=== PATIENT | male | born 1930 | race Caucasian/White ===

== ENCOUNTER 2017-08-05 05:41 | Observation (INO) | payer OTHER, MEDICARE ==
--- OUTSIDE RECORDS SUMMARY | 2017-08-05 05:44 | XMS REPORT | Clinical Summary ---
:1930 Author Organization [facility] Address [address] [place] [address] Phone Care Team Providers Name Role Phone Unavailable Primary Care Provider Unavailable Allergies Active Allergy Reactions Severity Noted Date Comments Iodine And Iodide Containing Products 09/18/2015 Latex 09/18/2015 Levofloxacin 09/18/2015 Penicillins 09/18/2015 Tramadol 09/18/2015 Disposable Gloves 09/18/2015 Current Medications Prescription Sig. Disp. Refills Start Date End Date Status pyridostigmine (MESTINON) Take 60 mg by mouth Active 60 mg tablet 3 (three) times daily. azaTHIOprine (IMURAN) 50 Take 50 mg by mouth Active mg tablet daily. aspirin 81 MG chewable Take 81 mg by mouth Active tablet daily. warfarin (COUMADIN) 2 MG Take 2 mg by mouth Active tablet daily. clopidogrel (PLAVIX) 75 Take 75 mg by mouth Active mg tablet daily. atorvastatin (LIPITOR) 10 Take 10 mg by mouth Active MG tablet daily. pantoprazole (PROTONIX) Take 40 mg by mouth Active 40 MG tablet daily. diphenhydrAMINE Take 25 mg by mouth Active (BENADRYL) 25 mg tablet every night as needed for Sleep. nitroglycerin (NITROSTAT) Place 0.4 mg under Active 0.4 MG SL tablet the tongue every 5 (five) minutes as needed for Chest pain Put 1 pill under tongue every 5min as needed for chest pain.No more than 3 doses in 15min.Call 911 if pain is unrelieved 5min after 1st dose . acetaminophen-codeine Take 1 tablet by Active (TYLENOL #3) 300-30 mg mouth every 4 per tablet (four) hours as needed for Pain. multivitamin per tablet Take 1 tablet by Active mouth daily. ibuprofen (ADVIL,MOTRIN) Take 200 mg by Active 200 MG tablet mouth every 6 (six) hours as needed for Pain. naproxen Take 220 mg by Active (ALEVE,ANAPROX,MIDOL) 220 mouth 2 (two) times MG tablet daily with breakfast and dinner. Active Problems Not on file Social History Tobacco Use Types Packs/Day Years Used Date Former Smoker Comments: quit back in the 60s Alcohol Use Drinks/Week oz/Week Comments No Sex Assigned at Date Recorded Not on file Last Filed Vital Signs Not on file Plan of Treatment Not on file Results Not on fileafter 08/04/2016
[2017-08-05] MEDS ORDERED: NA CHLORIDE 0.9% 500 ML ONE (06:35)
[2017-08-05] MEDS ORDERED: METOPROLOL TARTRATE 5 MG/5 ML INJ IV ONE (06:51)
[2017-08-05 06:55] LABS: Absolute Lymphocytes (CBC) 1.6 K/uL (0.7-4.9); Absolute Monocytes 0.9 K/uL (0.1-1.3); Absolute Neutrophil 6.1 K/uL (1.8-8.0); Basophils % 0.3 % (0-1.3); Eosinophils % 2.2 % (0-4.4); Hematocrit 44.1 % (39.6-49.0); Lymphocytes % 18.3 % (15.3-44.8); MCV 97.3 fL (80-100); MPV 9.9 fL (7.6-11.3); Monocytes % 9.7 % (3.3-12.3); Protime INR 1.19; RBC Red Blood Cell Count 4.53 M/uL (4.33-5.43)
[2017-08-05 07:03] LABS: Potassium 4.3 mEq/L (3.6-5.0)
[2017-08-05 07:09] LABS: Albumin 4.1 g/dL (3.2-5.5); Bilirubin Direct 0.3 mg/dL (0-0.2); Bilirubin Total 1.5 mg/dL (0.3-1.2); Protein, Total 7.1 g/dL (6.0-8.3)
[2017-08-05] MEDS ORDERED: ENALAPRILAT 1.25 MG/ML VIAL IV ONE (07:49)
[2017-08-05] MEDS ORDERED: NA CHLORIDE 0.9% 1,000 ML ONE (07:49)
--- NOTE | 2017-08-05 09:02 | RAD REPORT ---
EXAM DESCRIPTION: CT - Stone Protocol - 08/05/2017 8:43 am CLINICAL HISTORY: Flank pain. Diarrhea. COMPARISON: 04/25/2016 TECHNIQUE: Axial images were obtained without oral or IV contrast. Lack of contrast limits solid org an and vascular assessment. The [id number] spans the entirety of the system partially obscuring uppermost abdomen and lung bases. Coronal reformatted images were obtained and reviewed. All CT scans are performed using dose optimization technique as appropriate and may include automated exposure control or mA/KV adjustment according to patient size. FINDINGS: Mild linear atelectasis in both lung bases. Cardiac pacemaker seen. A mottled/heterogenous appearance to the liver parenchyma is seen with nodular contour suggesting und erlying cirrhosis. The spleen is unremarkable. If the adrenal glands and kidneys are within normal li mits. Pancreatic atrophy noted. No urinary tract stones or obstructive uropathy. No bowel obstruction, free air, free fluid or abscess. Diverticulosis coli is present involving the s igmoid colon. Focal area of epiploic appendagitis (17 x 12 mm) is noted in the left lower quadrant. N ormal appendix noted.Aortoiliac atherosclerosis. Ventral hernia mesh is seen. Moderate lumbar degenerative changes. Postsurgical changes are present in both inguinal regions. IMPRESSION: No urinary tract stones or obstructive uropathy. Focal epiploic appendagitis (17 x 12 mm) in the left lower quadrant. Mottled nodular and shrunken appearance of the liver parenchyma seen. This is incompletely assessed o n noncontrast study. Followup MR liver protocol may be considered for further assessment. .
--- NOTE | 2017-08-05 09:24 | RAD REPORT ---
EXAM DESCRIPTION: RAD - Chest Single View - 08/05/2017 9:17 am CLINICAL HISTORY: Chest pain, hypertension COMPARISON: 03/22/2017 FINDINGS: Portable technique limits examination quality. The lungs are mildly emphysematous but grossly clear. The heart is upper limit normal in size. Sterno willi wires are seen with multi lead pacer device present. Stent is present in left subclavian region. No displaced fractures. IMPRESSION: No acute intrathoracic process suspected.
--- NOTE | 2017-08-05 09:25 | EDPHYS ---
Physician Documentation [facility] Name: Chano Wetzel Age: 86 yrs Sex: Male : 1930 Arrival Date: 08/05/2017 Time: 05:47 Bed 15 Private MD: ED Physician Lalito Garza HPI: 08/05 07:39 This 86 yrs old Male presents to ER via EMS with complaints of jr8 weakness/diarrhea. 07:39 The patient presents to the emergency department with diarrhea. Onset: The jr8 symptoms/episode began/occurred acutely, 3 day(s) ago. Possible causes: unknown. The symptoms are aggravated by nothing. The symptoms are alleviated by nothing. Associated signs and symptoms: Pertinent positives: weakness and fatigue . Severity of symptoms: At their worst the symptoms were moderate in the emergency department the symptoms are unchanged. The patient has not experienced similar symptoms in the past. The patient has not recently seen a physician. stated that he has had a lot of diarrhea over the past three days. Usually can ambulate with walker but has been so weak he cannot get up. Has been hypertensive as well. Denies fevers, abdominal pain, vomiting, chest pain, or shortness of breath . Historical: - Allergies: 06:12 Iodinated Contrast Media - IV Dye; ao 06:12 Iodine; ao 06:12 Latex, Natural Rubber; ao 06:12 Levofloxacin; ao 06:12 PENICILLINS; ao 06:12 tramadol; ao - Home Meds: 06:12 acetaminophen-codeine 300-15 mg Oral tab 1 tab as needed [Active]; aspirin 81 mg Oral ao TbEC 1 tab once daily [Active]; atorvastatin 10 mg Oral tab 1 tab once daily [Active]; azathioprine 50 mg Oral tab 1 tab twice a day [Active]; carvedilol 3.125 mg Oral tab 1 tab 2 times per day [Active]; Coumadin Oral 1 tab daily at 1700 [Active]; losartan 25 mg Oral tab 1 tab once daily [Active]; Multiple Vitamins Oral tab 1 tab daily [Active]; ranitidine HCl 150 mg Oral tab 1 tab nightly [Active]; Nitrostat 0.4 mg SL subl 1 tab as needed [Active]; Plavix 75 mg Oral tab 1 tab once daily [Active]; melatonin 3 mg Oral tab nightly [Active]; pyridostigmine bromide 30 mg Oral 2 times per day [Active]; Warfarin Oral [Active]; - PMHx: 06:12 Arthritis; Atrial Fib; Back pain; CAD; constipation; Diabetes - NIDDM; Diverticulitis; ao Esophageal Achalasia; fatigue; Fibromyalgia; High Cholesterol; Hypertension; insomnia; Myasthenia Gravis; neuropathy; PVD; sciatica; small bowel obstrution; Wet gangrene; UTI; - PSHx: 06:12 Knee surgery; open heart; Cholecystectomy; Toe amputated; ao - Immunization history:: Adult Immunizations unknown. - Social history:: Smoking status: Patient/guardian denies using tobacco, but has a distant history of tobacco abuse, Patient/guardian denies using alcohol, street drugs. ROS: 07:43 Eyes: Negative for injury, pain, redness, and discharge, ENT: Negative for injury, jr8 pain, and discharge, Neck: Negative for injury, pain, and swelling, Cardiovascular: Negative for chest pain, palpitations, and edema, Respiratory: Negative for shortness of breath, cough, wheezing, and pleuritic chest pain, Back: Negative for injury and pain, MS/Extremity: Negative for injury and deformity, Skin: Negative for injury, rash, and discoloration, Neuro: Negative for headache, weakness, numbness, tingling, and seizure. 07:43 Constitutional: Positive for fatigue, malaise. 07:43 Abdomen/GI: Positive for diarrhea, abdominal cramps, Negative for nausea and vomiting, abdominal distension, anorexia, dysphagia, hematemesis, black/tarry stool, rectal pain, rectal bleeding, bowel incontinence, flatulence. Exam: 07:43 Eyes: Pupils equal round and reactive to light, extra-ocular motions intact. Lids and jr8 lashes normal. Conjunctiva and sclera are non-icteric and not injected. Cornea within normal limits. Periorbital areas with no swelling, redness, or edema. ENT: Nares patent. No nasal discharge, no septal abnormalities noted. Tympanic membranes are normal and external auditory canals are clear. Oropharynx with no redness, swelling, or masses, exudates, or evidence of obstruction, uvula midline. Mucous membranes dry. Neck: Trachea midline, no thyromegaly or masses palpated, and no cervical lymphadenopathy. Supple, full range of motion without nuchal rigidity, or vertebral point tenderness. No Meningismus. Cardiovascular: Regular rate and rhythm with a normal S1 and S2. No gallops, murmurs, or rubs. Normal PMI, no JVD. No pulse deficits. Respiratory: Lungs have equal breath sounds bilaterally, clear to auscultation and percussion. No rales, rhonchi or wheezes noted. No increased work of breathing, no retractions or nasal flaring. Abdomen/GI: Soft, non-tender, with normal bowel sounds. No distension or tympany. No guarding or rebound. No evidence of tenderness throughout. Back: No spinal tenderness. No costovertebral tenderness. Full range of motion. MS/ Extremity: Pulses equal, no cyanosis. Neurovascular intact. Full, normal range of motion. Neuro: Awake and alert, GCS 15, oriented to person, place, time, and situation. Cranial nerves II-XII grossly intact. Motor strength 5/5 in all extremities. Sensory grossly intact. Cerebellar exam normal. Normal gait. 07:43 Skin: Turgor: is poor. 09:24 ECG was reviewed by the Attending Physician. [facility] Vital Signs: 05:47 BP 176 / 86; Pulse 94; Resp 22; Pulse Ox 99% on R/A; Pain 0/10; bs1 06:03 BP 159 / 97; Pulse 100; Resp 28; Temp 98.2; Pulse Ox 95% on R/A; Weight 81.65 kg (R); ao Height 5 ft. 8 in. (172.72 cm); Pain 0/10; 07:00 BP 157 / 118; Pulse 79; Resp 18; Pulse Ox 100% on R/A; hj 07:30 BP 186 / 115; Pulse 78; Resp 18; Pulse Ox 100% on R/A; hj 08:00 BP 216 / 100; Pulse 63; Resp 18; Pulse Ox 100% on R/A; hj 09:00 BP 199 / 88; Pulse 89; Resp 18; Pulse Ox 100% on R/A; hj 09:47 BP 189 / 88; Pulse 85; Resp 18; Pulse Ox 100% on R/A; hj 06:03 Body Mass Index 27.37 (81.65 kg, 172.72 cm) ao MDM: 06:05 Patient medically screened. [facility] 09:23 Data reviewed: vital signs, nurses notes, lab test result(s), EKG, radiologic studies, jr8 plain films, and as a result, I will admit patient. Data interpreted: Pulse oximetry: on room air is 100 %. Interpretation: normal. Counseling: I had a detailed discussion with the patient and/or guardian regarding: the historical points, exam findings, and any diagnostic results supporting the discharge/admit diagnosis, lab results, radiology results, the need for further work-up and treatment in the hospital. Physician consultation: Fernandez Lo MD was called at 09:23, was contacted at 09:23, regarding admission, to the telemetry unit. consult, patient's condition, and will see patient. 08/05 06:27 Order name: Basic Metabolic Panel [facility] 08/05 06:27 Order name: CBC with Diff [facility] 08/05 06:27 Order name: Creatinine for Radiology [facility] 08/05 06:27 Order name: Hepatic Function [facility] 08/05 06:27 Order name: Lipase [facility] 08/05 06:30 Order name: Troponin (emerg Dept Use Only) [facility] 08/05 06:31 Order name: Protime (+inr) [facility] 08/05 06:58 Order name: CBC with Automated Diff; Complete Time: 06:58 EDMS 08/05 06:58 Order name: Protime (+INR); Complete Time: 06:58 EDMS 08/05 07:03 Order name: Basic Metabolic Panel; Complete Time: 07:36 EDMS 08/05 07:09 Order name: Liver (Hepatic) Function; Complete Time: 07:36 EDMS 08/05 07:09 Order name: Lipase; Complete Time: 07:36 EDMS 08/05 07:09 Order name: Troponin I; Complete Time: 07:36 EDMS 08/05 09:17 Order name: Troponin (emerg Dept Use Only); Complete Time: 10:20 8 08/05 06:18 Order name: Blood Sugar; Complete Time: 06:18 bs1 08/05 06:27 Order name: IV Saline Lock; Complete Time: 06:33 08/05 06:27 Order name: Labs collected and sent; Complete Time: 06:33 08/05 06:30 Order name: XRAY Chest (1 view); Complete Time: 09:33 [facility] 08/05 07:38 Order name: CT Stone Protocol; Complete Time: 09:08 08/05 08:55 Order name: EKG Electrocardiogram [facility] 08/05 09:18 Order name: EKG; Complete Time: 09:19 jr8 EC:24 Rate is 100 beats/min. Rhythm is irregularly irregular, A fib. Left axis deviation jr8 noted. QRS interval is normal at 116 msec. QT interval is prolonged at 485 msec. No Q waves. T waves are Inverted in leads V1, V2, V3, V4, V5. ST Segment is elevated in lead III, <1mm. ST Segment is depressed in lead V2, 1-2mm. Clinical impression: Atrial Fibrillation. Interpreted by me. Reviewed by me. Administered Medications: 06:39 Drug: NS 0.9% 500 ml Route: IV; Rate: bolus; Site: left antecubital; bs1 06:54 Drug: Metoprolol 5 mg Route: IVP; Site: left antecubital; bs1 07:13 Follow up: Response: No adverse reaction hj 07:43 Drug: Enalaprilat 1.25 mg Route: IV; Rate: calculated rate; Site: left antecubital; hj 07:43 Drug: NS 0.9% 1000 ml Route: IV; Rate: 100 ml/hr; Site: left antecubital; hj 15:58 Follow up: IV Status: Completed infusion Point of Care Testing: Blood Glucose: 06:03 Blood Glucose: 227 mg/dL; ao Ranges: Critical Glucose Levels:Adult <50 mg/dl or >400 mg/dl <40 mg/dl or >180 mg/dl Disposition: 08/05/17 09:24 Hospitalization ordered by Fernandez Lo for Observation. Preliminary diagnosis are Muscle weakness (generalized), Dehydration, Abnormal electrocardiogram [ECG] [EKG]. - Bed requested for Telemetry/MedSurg (observation). - Status is Observation. hj - Condition is Stable. - Problem is new. - Symptoms have improved. UTI on Admission? No Addendum: 08/27/2017 01:01 Co-signature as Attending Physician, Lalito Garza MD available for consultation at p s1 all times. . Signatures: Dispatcher [employer] [facility] Atif Dawson PA PA jr8 Clayton Gutierrez RN RN Kaden Blas RN RN ao Singer, Phillip, MD MD [facility] Mehnaz Hernandez RN RN [address], [place] mw2 Corrections: (The following items were deleted from the chart) 08/05 13:41 09:24 Hospitalization Ordered by Fernandez Lo MD for Observation. Preliminary diagnosis mw2 is Muscle weakness (generalized); Dehydration; Abnormal electrocardiogram [ECG] [EKG]. Bed requested for Telemetry/MedSurg (observation). Status is Observation. Condition is Stable. Problem is new. Symptoms have improved. UTI on Admission? No. jr8 14:26 13:41 08/05/2017 09:24 Hospitalization Ordered by Fernandez Lo MD for Observation. hj Preliminary diagnosis is Muscle weakness (generalized); Dehydration; Abnormal electrocardiogram [ECG] [EKG]. Bed requested for Telemetry/MedSurg (observation). Status is Observation. Condition is Stable. Problem is new. Symptoms have improved. UTI on Admission? No. mw2
--- NOTE | 2017-08-05 09:25 | ER ---
Nurse's Notes [facility] Name: Chano Wetzel Age: 86 yrs Sex: Male : 1930 Arrival Date: 08/05/2017 Time: 05:47 Bed 15 Private MD: Diagnosis: Muscle weakness (generalized);Dehydration;Abnormal electrocardiogram [ECG] [EKG] Presentation: 08/05 05:55 Presenting complaint: EMS states: "Patient has been having diarrhea for 3 days, Blood bs1 pressure 168/94, 97 Heart rate, 99% room air, denies any vomiting or abdominal pain.". 05:55 Method Of Arrival: EMS: [facility] bs1 05:55 Transition of care: patient was not received from another setting of care. Onset of bs1 symptoms was August 02, 2017. Initial Sepsis Screen: Does the patient meet any 2 criteria? RR > 20 per min. HR > 90 bpm. Yes Does the patient have a suspected source of infection? No. Patient's initial sepsis screen is negative. Care prior to arrival: Medication(s) given: Tylenol, 500mg at 0400. 05:55 Acuity: SUN 3 bs1 Historical: - Allergies: 06:12 Iodinated Contrast Media - IV Dye; ao 06:12 Iodine; ao 06:12 Latex, Natural Rubber; ao 06:12 Levofloxacin; ao 06:12 PENICILLINS; ao 06:12 tramadol; ao - Home Meds: 06:12 acetaminophen-codeine 300-15 mg Oral tab 1 tab as needed [Active]; aspirin 81 mg Oral ao TbEC 1 tab once daily [Active]; atorvastatin 10 mg Oral tab 1 tab once daily [Active]; azathioprine 50 mg Oral tab 1 tab twice a day [Active]; carvedilol 3.125 mg Oral tab 1 tab 2 times per day [Active]; Coumadin Oral 1 tab daily at 1700 [Active]; losartan 25 mg Oral tab 1 tab once daily [Active]; Multiple Vitamins Oral tab 1 tab daily [Active]; ranitidine HCl 150 mg Oral tab 1 tab nightly [Active]; Nitrostat 0.4 mg SL subl 1 tab as needed [Active]; Plavix 75 mg Oral tab 1 tab once daily [Active]; melatonin 3 mg Oral tab nightly [Active]; pyridostigmine bromide 30 mg Oral 2 times per day [Active]; Warfarin Oral [Active]; - PMHx: 06:12 Arthritis; Atrial Fib; Back pain; CAD; constipation; Diabetes - NIDDM; Diverticulitis; ao Esophageal Achalasia; fatigue; Fibromyalgia; High Cholesterol; Hypertension; insomnia; Myasthenia Gravis; neuropathy; PVD; sciatica; small bowel obstrution; Wet gangrene; UTI; - PSHx: 06:12 Knee surgery; open heart; Cholecystectomy; Toe amputated; ao - Immunization history:: Adult Immunizations unknown. - Social history:: Smoking status: Patient/guardian denies using tobacco, but has a distant history of tobacco abuse, Patient/guardian denies using alcohol, street drugs. Screenin:10 Abuse screen: Denies threats or abuse. Denies injuries from another. Nutritional bs1 screening: No deficits noted. Tuberculosis screening: No symptoms or risk factors identified. Fall Risk No fall in past 12 months (0 pts). No secondary diagnosis (0 pts). IV access (20 points). Ambulatory Aid- Crutches/Cane/Walker (15 pts). Gait- Weak (10 pts.). Mental Status- Oriented to own ability (0 pts). Total Gomez Fall Scale indicates Low Risk Score (25-44 pts). Fall prevention measures have been instituted. Side Rails Up X 2 Family Present and informed to notify staff if they need to leave bedside As available Patient and Family Educated on Fall Prevention Program and strategies. Assessment: 06:12 General: Appears uncomfortable, ill, Behavior is calm, cooperative, flat. Pain: Denies bs1 pain. Neuro: Level of Consciousness is awake, alert, Oriented to person, place, situation, Appropriate for age Auto Fleet Manager are equal bilaterally Weakness Speech is normal. Cardiovascular: Denies chest pain, shortness of breath, Heart tones S1 S2 present Capillary refill < 3 seconds Patient's skin is warm and dry. Cardiovascular: Rhythm is atrial fibrillation With PVC's. Respiratory: Airway is patent Trachea midline Respiratory effort is even, unlabored, Respiratory pattern is regular, symmetrical, Breath sounds are clear bilaterally. Respiratory: Denies cough, shortness of breath. GI: Abdomen is round Bowel sounds present X 4 quads. patient states "I do not have abdominal pain, just feel pressure when you press down." Reports diarrhea, Patient currently denies bloody stool, intolerance of fluids, intolerance of food, nausea, rectal bleeding, vomiting. : No deficits noted. No signs and/or symptoms were reported regarding the genitourinary system. EENT: No deficits noted. No signs and/or symptoms were reported regarding the EENT system. Derm: Skin is intact, Skin is pink, warm \\T\\ dry. Musculoskeletal: Circulation, motion, and sensation intact. Capillary refill < 3 seconds, Range of motion: intact in all extremities. 07:00 General: Appears in no apparent distress. uncomfortable, Behavior is calm, cooperative, hj appropriate for age. Pain: Denies pain. Neuro: Level of Consciousness is awake, alert, obeys commands, Oriented to person, place, time, situation, Appropriate for age Auto Fleet Manager are equal bilaterally Moves all extremities. Speech is normal. Cardiovascular: Denies chest pain, Heart tones Capillary refill < 3 seconds Patient's skin is warm and dry. Respiratory: Airway is patent Trachea midline Respiratory effort is even, unlabored, Respiratory pattern is regular, symmetrical, Breath sounds are clear Denies cough, shortness of breath. GI: Reports diarrhea. : No signs and/or symptoms were reported regarding the genitourinary system. : No signs and/or symptoms were reported regarding the genitourinary system. EENT: No signs and/or symptoms were reported regarding the EENT system. Derm: Skin is intact, Skin is pink, warm \\T\\ dry. Musculoskeletal: Circulation, motion, and sensation intact. Capillary refill < 3 seconds, Range of motion: intact in all extremities. 07:02 Reassessment: Patient with Pacemaker .Report given to DAGO Arnold. bs1 08:00 Reassessment: awaiting POC;. hj 09:00 Reassessment: Patient and/or family updated on plan of care and expected duration. Pain hj level reassessed. Patient is alert, oriented x 3, equal unlabored respirations, skin warm/dry/pink. Patient states feeling better. 09:47 Reassessment: Patient and/or family updated on plan of care and expected duration. Pain hj level reassessed. Patient is alert, oriented x 3, equal unlabored respirations, skin warm/dry/pink. for admit; awaiting room placement;. 10:00 Reassessment: documentation in [facility];. hj Vital Signs: 05:47 BP 176 / 86; Pulse 94; Resp 22; Pulse Ox 99% on R/A; Pain 0/10; bs1 06:03 BP 159 / 97; Pulse 100; Resp 28; Temp 98.2; Pulse Ox 95% on R/A; Weight 81.65 kg (R); ao Height 5 ft. 8 in. (172.72 cm); Pain 0/10; 07:00 BP 157 / 118; Pulse 79; Resp 18; Pulse Ox 100% on R/A; hj 07:30 BP 186 / 115; Pulse 78; Resp 18; Pulse Ox 100% on R/A; hj 08:00 BP 216 / 100; Pulse 63; Resp 18; Pulse Ox 100% on R/A; hj 09:00 BP 199 / 88; Pulse 89; Resp 18; Pulse Ox 100% on R/A; hj 09:47 BP 189 / 88; Pulse 85; Resp 18; Pulse Ox 100% on R/A; hj 06:03 Body Mass Index 27.37 (81.65 kg, 172.72 cm) ao ED Course: 05:47 Patient arrived in ED. ds1 05:51 Inserted saline lock: 20 gauge in left antecubital area, using aseptic technique. Blood cc collected. 05:54 Mehnaz Hernandez, DAGO is Primary Nurse. bs1 05:55 Maintain EMS IV. Dressing intact. Gauge \\T\\ site: 20G right wrist. bs1 06:05 Atif Dawson PA is PHCP. jr8 06:05 Lalito Garza MD is Attending Physician. jr8 06:09 Triage completed. bs1 06:11 Patient has correct armband on for positive identification. Placed in gown. Bed in low bs1 position. Call light in reach. Side rails up X 1. Adult w/ patient. student dean on. Pulse ox on. NIBP on. Warm blanket given. 06:15 Arm band placed on right wrist. EKG completed in triage. Results shown to . bs1 06:16 No provider procedures requiring assistance completed. bs1 08:42 CT completed. Patient tolerated procedure well. Patient moved to CT via stretcher. jg1 Patient moved back from CT. 09:01 CT Stone Protocol In Process Unspecified. EDMS 09:12 X-ray completed. Portable x-ray completed in exam room. Patient tolerated procedure sw well. 09:18 XRAY Chest (1 view) In Process Unspecified. EDMS 09:24 Fernandez Lo MD is Hospitalizing Provider. jr8 09:46 EKG done, by residential gas heat technician. reviewed by Atif HOWE. 14:25 Patient admitted, IV remains in place. intact. hj Administered Medications: 06:39 Drug: NS 0.9% 500 ml Route: IV; Rate: bolus; Site: left antecubital; bs1 06:54 Drug: Metoprolol 5 mg Route: IVP; Site: left antecubital; bs1 07:13 Follow up: Response: No adverse reaction hj 07:43 Drug: Enalaprilat 1.25 mg Route: IV; Rate: calculated rate; Site: left antecubital; hj 07:43 Drug: NS 0.9% 1000 ml Route: IV; Rate: 100 ml/hr; Site: left antecubital; hj 15:58 Follow up: IV Status: Completed infusion hj Point of Care Testing: Blood Glucose: 06:03 Blood Glucose: 227 mg/dL; ao Ranges: Outcome: 09:24 Decision to Hospitalize by Provider. jr8 14:24 Admitted to Tele accompanied by tech, family with patient, via stretcher, room 408, with chart, Report called to DAGO Lugo 14:24 Condition: stable 14:24 Instructed on the need for admit, Demonstrated understanding of instructions. 14:26 Patient left the ED. Signatures: Dispatcher [employer] EDKY Lyubov Richmond jg1 Fab, Becki ds1 Bebe Do Atif Dawson PA PA jr8 Tamara Hadley Karissa Doran Henry, RN DAGO Kaden Blas, RN RN Mehnaz Santos RN RN bs1
--- NOTE | 2017-08-05 10:19 | EKG ---
Test Date: 2017-08-05 Test Time: 09:30:26 Inside Trucker: AKASH MEASUREMENT RESULTS: Intervals: Rate: 88 GA: QRSD: 120 QT: 400 QTc: 484 [place]: P: GA: QRS: -19 T: -54 INTERPRETIVE STATEMENTS: Atrial fibrillation with premature ventricular or aberrantly conducted complexes Right bundle branch block T wave abnormality, consider lateral ischemia Abnormal ECG Compared to ECG 08/05/2017 05:56:59 Ventricular premature complex(es) now present T-wave abnormality now present Left anterior fascicular block no longer present Electronically Signed On 08-05-17 10:18:28 CDT by Christian Dow
--- NOTE | 2017-08-05 10:19 | EKG ---
Test Date: 2017-08-05 Test Time: 05:56:59 Health Information Technologist: BRIANA MEASUREMENT RESULTS: Intervals: Rate: 100 ME: QRSD: 116 QT: 376 QTc: 485 [place]: P: ME: QRS: -46 T: 12 INTERPRETIVE STATEMENTS: Atrial fibrillation Right bundle branch block Abnormal ECG Compared to ECG 03/22/2017 05:36:05 T-wave abnormality no longer present Electronically Signed On 08-05-17 10:18:57 CDT by Christian Dow
[2017-08-05] MEDS ORDERED: GLUCAGON 1 MG/VIAL IM PRN (10:55)
[2017-08-05] MEDS ORDERED: ACETAMINOPHEN 500 MG TAB PO PRN (10:55)
[2017-08-05] MEDS ORDERED: D50W 25 GM/50 ML SYRINGE IV PRN (10:55)
[2017-08-05] MEDS ORDERED: ONDANSETRON 4 MG/2 ML VIAL IV PRN (10:55)
[2017-08-05] MEDS ORDERED: NA CHLORIDE 0.9% 1,000 ML IV SCH (11:00)
[2017-08-05] MEDS: INSULIN -REGULAR HUMAN 50 UNIT/0.5 ML ML SQ SCH ×3 (11:30→21:00)
[2017-08-05] MEDS ORDERED: INSULIN -REGULAR HUMAN 50 UNIT/0.5 ML ML ONE (12:09)
--- NOTE | 2017-08-05 18:28 | P.HP ---
Certification for Inpatient Patient admitted to: Inpatient With expected LOS: >2 Midnights Practitioner: I am a practitioner with admitting privileges, knowledge of patient current condition, hospital course, and medical plan of care. Services: Services provided to patient in accordance with Admission requirements found in Title 42 Section 412.3 of the Code of Federal Regulations Patient History Date of Service: 08/05/17 Reason for admission: ALTERED MENTAL STATUS, WEAKNESS, DIARRHEA. History of Present Illness: MR KAYE WAS IN USUAL STATE OF HEALTH UNTIL ABOUT TWO WEEKS AGO. HE STARTED TO GET CONFUSED, FALLING OF THE CHAIR AND WORSE GRADUALLY. HE QUIT EATING . HE ALSO HAD DIARRHEA. HE HAS NO CHEST PAIN. Allergies Iodinated Contrast- Oral and IV Dye [Iodinated Contrast Media - IV Dye] Allergy (Intermediate, Verified 08/05/17 10:15) Rash latex Allergy (Intermediate, Verified 08/05/17 10:15) Itching/Hives/Rash Penicillins Allergy (Intermediate, Verified 08/05/17 10:15) Rash iodine Allergy (Verified 08/05/17 10:15) Unknown Latex, Natural Rubber Allergy (Verified 08/05/17 10:15) Unknown tramadol Allergy (Verified 08/05/17 10:15) Unknown levofloxacin Allergy (Uncoded 08/05/17 10:15) Unknown Home Medications: Acetaminophen [Tylenol Extra Strength] 1 tab PO PRN PRN 10/27/14 Aspirin [Aspirin EC 81 MG] 1 tab PO DAILY 10/27/14 Azathioprine [Imuran*] 50 mg PO BID 10/27/14 Clopidogrel Bisulfate [Plavix] 75 mg PO DAILY 10/27/14 Pyridostigmine [place] [Mestinon*] 30 mg PO BID 10/27/14 Atorvastatin Calcium [Lipitor*] 10 mg PO DAILY 08/21/16 Melatonin 3 mg PO BEDTIME 08/21/16 Multivitamin [Multivitamins] 1 each PO DAILY 08/21/16 Nitroglycerin 0.4 mg SL SEECOM PRN 08/21/16 Ranitidine [Zantac*] 150 mg PO BEDTIME 08/21/16 Carvedilol [Coreg] 3.125 mg PO BID 09/02/16 Losartan Potassium [Cozaar] 25 mg PO DAILY 09/02/16 Warfarin Sodium [Coumadin] 2 mg PO DAILY 5 PM 09/02/16 - Past Medical/Surgical History Has patient received pneumonia vaccine in the past: Yes Diabetic: Yes -: Type 2 diabetes -: Osteoarthritis -: Congestive heart failure -: Coronary artery disease -: Myasthenia Gravis -: Atrial fibrillation -: Diabetic neuropathy -: Vitamin D deficiency -: Tonsillectomy -: Vincent knee replacement -: Left hand surgery -: Heart Bypass -: Bilateral cataract removal -: Cholecystectomy -: Stent placement -: Cardiac catheterization - Family History Father -: Hypertension - Social History Smoking Status: Never smoker Alcohol use: No CD- Drugs: No Caffeine use: No Place of Residence: Home Review of Systems 10-point ROS is otherwise unremarkable General: Weakness, Malaise Neurological: Change in Speech, Confusion Physical Examination - Vital Signs Temperature: 97.9 F Blood Pressure: 204/90 Pulse: 92 Respirations: 18 Pulse Ox (%): 97 - Physical Exam General: Alert, Moderate distress HEENT: Atraumatic, PERRLA, Mucous membr. moist/pink, EOMI, Sclerae nonicteric Neck: Supple, 2+ carotid pulse no bruit, No LAD, Without JVD or thyroid abnormality Respiratory: Clear to auscultation bilaterally, Normal air movement Cardiovascular: Regular rate/rhythm, Normal S1 S2 Gastrointestinal: Normal bowel sounds, No tenderness Musculoskeletal: No tenderness Integumentary: No rashes Neurological: Other (DISORIENTED. AWAKE BUT NOT ABLE TO RECOGNIZE PEOPLE AND NOT ORIENTED.), Abnormal speech, Abnormal strength, Abnormal tone Lymphatics: No axilla or inguinal lymphadenopathy - Studies Laboratory Data (last 24 hrs) 08/05/17 06:31: PT Cancelled, INR Cancelled 08/05/17 06:27: Creatinine Cancelled 08/05/17 06:27: WBC Cancelled, Hgb Cancelled, Hct Cancelled, Plt Count Cancelled 08/05/17 06:27: Sodium Cancelled, Potassium Cancelled, BUN Cancelled, Creatinine Cancelled, Glucose Cancelled, Total Bilirubin Cancelled, AST Cancelled, ALT Cancelled, Alkaline Phosphatase Cancelled, Lipase Cancelled 08/05/17 05:48: PT 14.1 H, INR 1.19 08/05/17 05:48: Troponin I 0.06 H 08/05/17 05:48: Sodium 139, Potassium 4.3, BUN 33 H, Creatinine 1.37 H, Glucose 243 H, Total Bilirubin 1.5 H, AST 29, ALT 28, Alkaline Phosphatase 58, Lipase 13 L 08/05/17 05:48: WBC 8.8, Hgb 14.9, Hct 44.1, Plt Count 149 L Assessment and Plan - Problems (Diagnosis) (1) CVA (cerebral vascular accident) Current Visit: Yes Status: Acute Plan: HE HAS CVA SYMPTOMS. CT ORDERED MRI CAN'T BE DONE, HE HAS PPM CT DOES NOT SHOW ALL THE STROKES. I BELIEVE HE THIS TIME WILL NEED HOSPICE. FAMILY IS NOT ABLE TO TAKE CARE OF HIM. (2) Weight loss Current Visit: No Status: Acute Plan: SINCE CVA SYMPTOMS AND HE QUIT EATING. (3) Diarrhea Current Visit: Yes Status: Acute Plan: CHECK C DIFF. - Advance Directives Does patient have a Living Will: No Does patient have a Durable POA for Healthcare: No
[2017-08-05] MEDS: cloNIDine HCl 0.1 MG TAB PO PRN (19:08)
[2017-08-05] MEDS: NACHLORIDE 0.45% 1,000 ML IV SCH (19:10)
--- NOTE | 2017-08-05 19:19 | RAD REPORT ---
EXAM DESCRIPTION: CT - Ct Stroke Brain Wo Cont - 08/05/2017 7:08 pm CLINICAL HISTORY: A phase 2 COMPARISON: 2016 TECHNIQUE: Computed axial tomography of the head was obtained. IV contrast was not requested. All CT scans are performed using dose optimization technique as appropriate and may include automated exposure control or mA/KV adjustment according to patient size. FINDINGS: Images at the base of the brain are degraded by beam hardening artifact. An intracranial bleed is not seen. The ventricles are normal in caliber. No extra-axial fluid collection is noted. Fluid within the sinuses/ mastoids is not seen. IMPRESSION: No acute intracranial abnormality is seen. If patient's symptoms persist MRI of the bra in would be recommended. The exam was discussed with Dr. Lo At 7:10 p.m. August 05, 2017
[2017-08-06] MEDS: cloNIDine HCl 0.1 MG TAB PO PRN (01:03)
[2017-08-06 06:00] LABS: Absolute Lymphocytes (CBC) 1.9 K/uL (0.7-4.9); Absolute Neutrophil 6.5 K/uL (1.8-8.0); Basophils % 0.6 % (0-1.3); Eosinophils % 4.4 % (0-4.4); Hematocrit 42.7 % (39.6-49.0); MCH 32.9 pg (27.0-35.0); MCV 98.8 fL (80-100); Monocytes % 9.9 % (3.3-12.3); RBC Red Blood Cell Count 4.32 M/uL (4.33-5.43)
[2017-08-06 06:11] LABS: Potassium 3.8 mEq/L (3.6-5.0)
[2017-08-06] MEDS: INSULIN -REGULAR HUMAN 50 UNIT/0.5 ML ML SQ SCH ×3 (07:30→18:36)
--- NOTE | 2017-08-06 10:03 | EKG ---
Test Date: 2017-08-06 Test Time: 08:37:04 Food Safety Field Specialist: ISABEL MEASUREMENT RESULTS: Intervals: Rate: 86 ND: QRSD: 120 QT: 406 QTc: 485 [place]: P: ND: QRS: -51 T: -70 INTERPRETIVE STATEMENTS: Demand pacemaker, interpretation is based on intrinsic rhythm Atrial fibrillation with premature ventricular or aberrantly conducted complexes Left axis deviation Right bundle branch block T wave abnormality, consider inferolateral ischemia or digitalis effect Abnormal ECG Compared to ECG 08/05/2017 09:30:26 Left-axis deviation now present T-wave abnormality still present Possible ischemia still present Electronically Signed On 08-06-17 10:02:49 CDT by Josh Soria
[2017-08-06] MEDS: AMLODIPINE 5 MG TAB PO SCH (10:46)
[2017-08-06] MEDS: ASPIRIN EC 81 MG TAB PO SCH (10:47)
[2017-08-06] MEDS: NACHLORIDE 0.45% 1,000 ML IV SCH (14:18)
--- NOTE | 2017-08-06 18:50 | P.PN ---
Subjective Date of Service: 08/06/17 Chief Complaint: ALTERED MENTAL STATUS, WEAKNESS, DIARRHEA. Subjective: No new changes (STILL QUITE CONFUSED.) Review of Systems 10-point ROS is otherwise unremarkable General: Weakness, Malaise Neurological: Confusion Physical Examination - Vital Signs Temperature: 97.8 F Blood Pressure: 121/63 Pulse: 85 Respirations: 16 Pulse Ox (%): 94 - Physical Exam General: Alert, Mild distress, Confused, Obese HEENT: Atraumatic, PERRLA, EOMI Neck: Supple, JVD not distended Respiratory: Clear to auscultation bilaterally, Normal air movement Cardiovascular: Irregular heart rate/rhythm Gastrointestinal: Normal bowel sounds, No tenderness Musculoskeletal: No tenderness Integumentary: No rashes Neurological: Normal speech, Other (NOT ORIENTED TO TIME , PLACE, BUT KNEW ME), Abnormal affect (GLASSY, CONFUSED LOOK) Lymphatics: No axilla or inguinal lymphadenopathy - Studies Medications List Reviewed: Yes Assessment And Plan - Current Problems (Diagnosis) (1) CVA (cerebral vascular accident) Onset Date: 08/06/17 Current Visit: Yes Status: Acute Plan: HE HAS CVA SYMPTOMS. CT ORDERED MRI CAN'T BE DONE, HE HAS PPM CT DOES NOT SHOW ALL THE STROKES. I BELIEVE HE THIS TIME WILL NEED HOSPICE. FAMILY IS NOT ABLE TO TAKE CARE OF HIM. CT NEG MRI CAN'T BE DONE I SUSPECT HE HAD CVA- FRONTAL LOBE POSSIBLE. NH WITH HOSPICE [facility]. (2) Weight loss Current Visit: No Status: Acute Plan: SINCE CVA SYMPTOMS AND HE QUIT EATING. (3) Diarrhea Onset Date: 08/06/17 Current Visit: Yes Status: Acute Plan: CHECK C DIFF.
[2017-08-07] MEDS: INSULIN -REGULAR HUMAN 50 UNIT/0.5 ML ML SQ SCH ×5 (03:24→21:00)
[2017-08-07] MEDS: AMLODIPINE 5 MG TAB PO SCH (10:03)
[2017-08-07] MEDS: ASPIRIN EC 81 MG TAB PO SCH (10:04)
[2017-08-07] MEDS: NACHLORIDE 0.45% 1,000 ML IV SCH (10:17)
[2017-08-07] MEDS ORDERED: NITROGLYCERIN 0.4 MG/TAB SL PRN (13:45)
[2017-08-07] MEDS ORDERED: ACETAMINOPHEN 500 MG TAB PO PRN (13:45)
[2017-08-07 15:09] LABS: Protime INR 1.13
[2017-08-07] MEDS ORDERED: WARFARIN SODIUM 2 MG TAB PO SCH (17:00)
[2017-08-07] MEDS ORDERED: RANITIDINE 150 MG TABLET PO SCH (21:00)
[2017-08-07] MEDS: CARVEDILOL 3.125 MG TAB PO SCH (21:20)
[2017-08-07] MEDS: PYRIDOSTIGMINE 60 MG TABLET PO SCH (21:20)
[2017-08-07] MEDS: RANITIDINE 150 MG TABLET PO SCH (21:21)
[2017-08-07] MEDS: AZATHIOPRINE 50 MG TABLET PO SCH (21:21)
[2017-08-08] MEDS: NACHLORIDE 0.45% 1,000 ML IV SCH ×2 (00:29→10:25)
[2017-08-08 05:22] LABS: Absolute Monocytes 0.7 K/uL (0.1-1.3); Absolute Neutrophil 4.3 K/uL (1.8-8.0); Basophils % 0.6 % (0-1.3); Eosinophils % 7.5 % (0-4.4); Lymphocytes % 26.5 % (15.3-44.8); MCH 33.4 pg (27.0-35.0); MCV 97.4 fL (80-100); MPV 9.4 fL (7.6-11.3); Monocytes % 9.3 % (3.3-12.3); RBC Red Blood Cell Count 4.21 M/uL (4.33-5.43)
[2017-08-08 05:45] LABS: Potassium 3.9 mEq/L (3.6-5.0)
[2017-08-08 06:39] VITALS: BMI 26.4
[2017-08-08] MEDS: INSULIN -REGULAR HUMAN 50 UNIT/0.5 ML ML SQ SCH ×4 (07:30→21:00)
[2017-08-08] MEDS ORDERED: HOME MED 1 EA UNK (Losartan Potassium [Cozaar] 25 MG) PO SCH (09:00)
[2017-08-08] MEDS: CARVEDILOL 3.125 MG TAB PO SCH ×2 (10:25→22:15)
[2017-08-08] MEDS: PYRIDOSTIGMINE 60 MG TABLET PO SCH ×2 (10:26→22:15)
[2017-08-08] MEDS: ATORVASTATIN 10 MG TAB PO SCH (10:26)
[2017-08-08] MEDS: AMLODIPINE 5 MG TAB PO SCH (10:26)
[2017-08-08] MEDS: LOSARTAN POTASSIUM 50 MG TABLET PO SCH (10:26)
[2017-08-08] MEDS: AZATHIOPRINE 50 MG TABLET PO SCH ×2 (10:26→22:14)
[2017-08-08] MEDS: CLOPIDOGREL 75 MG TABLET PO SCH (10:26)
[2017-08-08] MEDS: ASPIRIN EC 81 MG TAB PO SCH (10:27)
--- NOTE | 2017-08-08 12:50 | P.PN ---
Subjective Date of Service: 08/07/17 Chief Complaint: LOT BETTER TODAY Subjective: Improving (NOT CONFUSED ANY LONGER) Review of Systems 10-point ROS is otherwise unremarkable General: Weakness, Malaise Physical Examination - Vital Signs Temperature: 98.9 F Blood Pressure: 100/66 Pulse: 94 Respirations: 16 Pulse Ox (%): 98 - Physical Exam General: Alert, In no apparent distress HEENT: Atraumatic, PERRLA, EOMI Neck: Supple, JVD not distended Respiratory: Clear to auscultation bilaterally, Normal air movement Cardiovascular: Regular rate/rhythm, Normal S1 S2 Gastrointestinal: Normal bowel sounds, No tenderness Musculoskeletal: No tenderness Integumentary: No rashes Neurological: Normal speech, Other (GEN WEAK AND UNSTABLE AT HOME), Abnormal tone Lymphatics: No axilla or inguinal lymphadenopathy - Studies Medications List Reviewed: Yes Assessment And Plan - Current Problems (Diagnosis) (1) CVA (cerebral vascular accident) Onset Date: 08/06/17 Current Visit: Yes Status: Acute Plan: HE HAS CVA SYMPTOMS. CT ORDERED MRI CAN'T BE DONE, HE HAS PPM CT DOES NOT SHOW ALL THE STROKES. I BELIEVE HE THIS TIME WILL NEED HOSPICE. FAMILY IS NOT ABLE TO TAKE CARE OF HIM. CT NEG MRI CAN'T BE DONE I SUSPECT HE HAD CVA- FRONTAL LOBE POSSIBLE. NH WITH HOSPICE [facility]. POSSIBLE BUT CAN'T DO MRI HE IS DOING LOT BETTER SO WE WILL CANCEL HOSPICE IDEA FOR NOW. [facility]ISE NH BUT FAMILY IS NOT ABLE TO AFFORD. I TOLD PLUMBING TECHNICIAN TO EXPLAIN HOW THE OBS VS INPATIENT WORKS AND DOCTORS DON'T DECIDE BUT MEDICARE DECIDES NOW. FAMILY NOT HAPPY TO HEAR THAT HE DOES NOT HAVE INPATIENT DIAGNOSIS. HE IS UNSAFE TO GO HOME. THERE TWO SONS BUT NONE ABLE TO HELP PHYSICALLY THEY WORK. (2) Weight loss Current Visit: No Status: Acute Plan: SINCE CVA SYMPTOMS AND HE QUIT EATING. (3) Diarrhea Onset Date: 08/06/17 Current Visit: Yes Status: Acute Plan: CHECK C DIFF.
--- NOTE | 2017-08-08 12:54 | P.PN ---
Subjective Date of Service: 08/08/17 Chief Complaint: LOT BETTER TODAY Subjective: Improving (BACK TO HIS BASELINE. SAYS HE IS FEELIG GREAT.) Review of Systems 10-point ROS is otherwise unremarkable General: Weakness Physical Examination - Vital Signs Temperature: 98.9 F Blood Pressure: 100/66 Pulse: 94 Respirations: 16 Pulse Ox (%): 98 - Physical Exam General: Alert, Mild distress, Obese HEENT: Atraumatic, PERRLA, EOMI Neck: Supple, JVD not distended Respiratory: Clear to auscultation bilaterally, Normal air movement Cardiovascular: Irregular heart rate/rhythm Gastrointestinal: Normal bowel sounds, No tenderness Musculoskeletal: No tenderness Integumentary: No rashes Neurological: Normal speech, Normal tone, Normal affect Lymphatics: No axilla or inguinal lymphadenopathy - Studies Medications List Reviewed: Yes Assessment And Plan - Current Problems (Diagnosis) (1) CVA (cerebral vascular accident) Onset Date: 08/06/17 Current Visit: Yes Status: Acute Plan: HE HAS CVA SYMPTOMS. CT ORDERED MRI CAN'T BE DONE, HE HAS PPM CT DOES NOT SHOW ALL THE STROKES. I BELIEVE HE THIS TIME WILL NEED HOSPICE. FAMILY IS NOT ABLE TO TAKE CARE OF HIM. CT NEG MRI CAN'T BE DONE I SUSPECT HE HAD CVA- FRONTAL LOBE POSSIBLE. NH WITH HOSPICE [facility]. POSSIBLE BUT CAN'T DO MRI HE IS DOING LOT BETTER SO WE WILL CANCEL HOSPICE IDEA FOR NOW. [facility]ISE NH BUT FAMILY IS NOT ABLE TO AFFORD. I TOLD CAFETERIA ATTENDANT TO EXPLAIN HOW THE OBS VS INPATIENT WORKS AND DOCTORS DON'T DECIDE BUT MEDICARE DECIDES NOW. FAMILY NOT HAPPY TO HEAR THAT HE DOES NOT HAVE INPATIENT DIAGNOSIS. HE IS UNSAFE TO GO HOME. THERE TWO SONS BUT NONE ABLE TO HELP PHYSICALLY THEY WORK. HE MAY HAVE HAD THIS HE QUIT MEDS FOR DAYS. HIS INR WAS SUBTHERAPEUTIC. I WOULD PREFER [facility] IF HE CAN AFFORD. REFER TO REHAB HERE IF WE CAN. (2) Weight loss Current Visit: No Status: Acute Plan: SINCE CVA SYMPTOMS AND HE QUIT EATING. (3) Diarrhea Onset Date: 08/06/17 Current Visit: Yes Status: Acute Plan: CHECK C DIFF. (4) Myasthenia gravis Current Visit: No Status: Chronic Plan: RESUMEMEDS HE IS BETTER NOW SO HOPEFULY BE ABLE TO AMBULATE STILL IN A LONG RUN FAMILY NEEDS TO FIGURE OUT SOCIAL SITUATION. SMALL SIZE IS NOT ABLE TO TAKE CARE OF HIM.
[2017-08-08 14:22] LABS: Protime INR 1.2
[2017-08-08] MEDS: RIVAROXABAN 20 MG TABLET PO SCH (16:37)
[2017-08-08] MEDS: RANITIDINE 150 MG TABLET PO SCH (22:15)
[2017-08-09] MEDS: NACHLORIDE 0.45% 1,000 ML IV SCH ×2 (03:00→05:43)
[2017-08-09 05:18] LABS: Absolute Lymphocytes (CBC) 1.2 K/uL (0.7-4.9); Absolute Monocytes 0.7 K/uL (0.1-1.3); Absolute Neutrophil 4.5 K/uL (1.8-8.0); Basophils % 0.9 % (0-1.3); Eosinophils % 6.4 % (0-4.4); Hematocrit 44.1 % (39.6-49.0); MCH 33.2 pg (27.0-35.0); MCV 98.6 fL (80-100); MPV 9.7 fL (7.6-11.3); Monocytes % 9.5 % (3.3-12.3); RBC Red Blood Cell Count 4.47 M/uL (4.33-5.43)
[2017-08-09 05:28] LABS: Potassium 3.7 mEq/L (3.6-5.0)
[2017-08-09] MEDS: INSULIN -REGULAR HUMAN 50 UNIT/0.5 ML ML SQ SCH ×4 (07:30→22:11)
[2017-08-09] MEDS: AZATHIOPRINE 50 MG TABLET PO SCH ×2 (09:38→22:11)
[2017-08-09] MEDS: CLOPIDOGREL 75 MG TABLET PO SCH (09:38)
[2017-08-09] MEDS: CARVEDILOL 3.125 MG TAB PO SCH ×2 (09:39→22:12)
[2017-08-09] MEDS: ASPIRIN EC 81 MG TAB PO SCH (09:39)
[2017-08-09] MEDS: PYRIDOSTIGMINE 60 MG TABLET PO SCH ×2 (09:39→22:12)
[2017-08-09] MEDS: LOSARTAN POTASSIUM 50 MG TABLET PO SCH (09:40)
[2017-08-09] MEDS: ATORVASTATIN 10 MG TAB PO SCH (09:40)
[2017-08-09] MEDS: RIVAROXABAN 20 MG TABLET PO SCH (17:34)
[2017-08-09] MEDS: RANITIDINE 150 MG TABLET PO SCH (22:12)
--- NOTE | 2017-08-09 22:32 | P.PN ---
Subjective Date of Service: 08/09/17 Chief Complaint: LOT BETTER TODAY Subjective: Improving (STILL WEAK AND UNSTEADY EVEN SITTING UP.) Review of Systems 10-point ROS is otherwise unremarkable General: Weakness Physical Examination - Vital Signs Temperature: 97.4 F Blood Pressure: 136/64 Pulse: 75 Respirations: 16 Pulse Ox (%): 97 - Physical Exam General: Mild distress, Obese HEENT: Atraumatic, PERRLA, EOMI Neck: Supple, JVD not distended Respiratory: Clear to auscultation bilaterally, Normal air movement Cardiovascular: Regular rate/rhythm, Normal S1 S2 Gastrointestinal: Normal bowel sounds, No tenderness Musculoskeletal: No tenderness Integumentary: No rashes Neurological: Abnormal gait, Abnormal tone (HE HAS M GRAVIES AND NEW VASCULAR EVENT, NOT ABLE TO GET UP ON HIS OWN.) Lymphatics: No axilla or inguinal lymphadenopathy - Studies Medications List Reviewed: Yes Assessment And Plan - Current Problems (Diagnosis) (1) CVA (cerebral vascular accident) Onset Date: 08/06/17 Current Visit: Yes Status: Acute Plan: HE HAS CVA SYMPTOMS. CT ORDERED MRI CAN'T BE DONE, HE HAS PPM CT DOES NOT SHOW ALL THE STROKES. I BELIEVE HE THIS TIME WILL NEED HOSPICE. FAMILY IS NOT ABLE TO TAKE CARE OF HIM. CT NEG MRI CAN'T BE DONE I SUSPECT HE HAD CVA- FRONTAL LOBE POSSIBLE. NH WITH HOSPICE OKAY. POSSIBLE BUT CAN'T DO MRI HE IS DOING LOT BETTER SO WE WILL CANCEL HOSPICE IDEA FOR NOW. ADVISE NH BUT FAMILY IS NOT ABLE TO AFFORD. I TOLD PROCESS ENG TO EXPLAIN HOW THE OBS VS INPATIENT WORKS AND DOCTORS DON'T DECIDE BUT MEDICARE DECIDES NOW. FAMILY NOT HAPPY TO HEAR THAT HE DOES NOT HAVE INPATIENT DIAGNOSIS. HE IS UNSAFE TO GO HOME. THERE TWO SONS BUT NONE ABLE TO HELP PHYSICALLY THEY WORK. HE MAY HAVE HAD THIS HE QUIT MEDS FOR DAYS. HIS INR WAS SUBTHERAPEUTIC. I WOULD PREFER X[facility] IF HE CAN AFFORD. REFER TO REHAB HERE IF WE CAN. REFER TO REHAB MAY GO THERE IN AM REHAB COULD NOT TAKE HIMON THE WEEKEND. (2) Weight loss Current Visit: No Status: Acute Plan: SINCE CVA SYMPTOMS AND HE QUIT EATING. (3) Diarrhea Onset Date: 08/06/17 Current Visit: Yes Status: Acute Plan: CHECK C DIFF. (4) Myasthenia gravis Current Visit: No Status: Chronic Plan: RESUMEMEDS HE IS BETTER NOW SO HOPEFULY BE ABLE TO AMBULATE STILL IN A LONG RUN FAMILY NEEDS TO FIGURE OUT SOCIAL SITUATION. SMALL SIZE IS NOT ABLE TO TAKE CARE OF HIM.
[2017-08-10 04:15] LABS: Absolute Lymphocytes (CBC) 1.1 K/uL (0.7-4.9); Absolute Monocytes 0.7 K/uL (0.1-1.3); Absolute Neutrophil 5.3 K/uL (1.8-8.0); Basophils % 0.6 % (0-1.3); Lymphocytes % 14.2 % (15.3-44.8); MCH 32.7 pg (27.0-35.0); MCV 98.2 fL (80-100); MPV 9.6 fL (7.6-11.3); Monocytes % 8.9 % (3.3-12.3); RBC Red Blood Cell Count 4.17 M/uL (4.33-5.43)
[2017-08-10 04:32] LABS: Potassium 3.7 mEq/L (3.6-5.0)
[2017-08-10] MEDS: INSULIN -REGULAR HUMAN 50 UNIT/0.5 ML ML SQ SCH ×2 (07:30→11:30)
[2017-08-10] MEDS: CLOPIDOGREL 75 MG TABLET PO SCH (09:04)
[2017-08-10] MEDS: ASPIRIN EC 81 MG TAB PO SCH (09:04)
[2017-08-10] MEDS: CARVEDILOL 3.125 MG TAB PO SCH (09:04)
[2017-08-10] MEDS: AZATHIOPRINE 50 MG TABLET PO SCH (09:04)
[2017-08-10] MEDS: LOSARTAN POTASSIUM 50 MG TABLET PO SCH (09:04)
[2017-08-10] MEDS: ATORVASTATIN 10 MG TAB PO SCH (09:04)
[2017-08-10] MEDS: PYRIDOSTIGMINE 60 MG TABLET PO SCH (09:05)
[2017-08-10 09:27] VITALS: TEMP 97
[2017-08-10 10:08] VITALS: O2SAT 96
[2017-08-10 13:15] VITALS: BP 140/70
[2017-08-10 14:13] LABS: Protime INR 1.64
--- NOTE | 2017-08-10 21:16 | P.DS ---
Admission Date: 08/05/17 Discharge Date: 08/10/17 Disposition: TRANSFER TO INPATIENT REHAB Reason for Admission: LOT BETTER TODAY - Problems (1) CVA (cerebral vascular accident) Onset Date: 08/06/17 Status: Acute (2) Weight loss Status: Acute (3) Diarrhea Onset Date: 08/06/17 Status: Acute (4) Myasthenia gravis Status: Chronic Brief History of Present Illness: MR KAYE WAS IN USUAL STATE OF HEALTH UNTIL ABOUT TWO WEEKS AGO. HE STARTED TO GET CONFUSED, FALLING OF THE CHAIR AND WORSE GRADUALLY. HE QUIT EATING . HE ALSO HAD DIARRHEA. HE HAS NO CHEST PAIN. MR. KAYE IS SENT TO REHAB FOR GEN WEAKNSS, TIA AMD MS. Vital Signs/Physical Exam: Temp Pulse Resp BP Pulse Ox 97.0 F 70 18 140/70 100 08/10/17 12:00 08/10/17 12:00 08/10/17 12:00 08/10/17 12:00 08/10/17 12:00 Laboratory Data at Discharge: WBC 7.5 K/uL (4.3-10.9) 08/10/17 04:01 Hgb 13.7 g/dL (13.6-17.9) 08/10/17 04:01 Hct 41.0 % (39.6-49.0) 08/10/17 04:01 Plt Count 144 K/uL (152-406) L 08/10/17 04:01 PT 19.5 SECONDS (9.5-12.5) H 08/10/17 13:50 INR 1.64 08/10/17 13:50 Sodium 139 mEq/L (135-145) 08/10/17 04:01 Potassium 3.7 mEq/L (3.6-5.0) 08/10/17 04:01 BUN 18 mg/dL (6-20) 08/10/17 04:01 Creatinine 0.93 mg/dL (0.61-1.24) 08/10/17 04:01 Glucose 188 mg/dL (65-120) H 08/10/17 04:01 Total Bilirubin 1.5 mg/dL (0.3-1.2) H 08/05/17 05:48 AST 29 IU/L (10-42) 08/05/17 05:48 ALT 28 IU/L (10-60) 08/05/17 05:48 Alkaline Phosphatase 58 IU/L (42-121) 08/05/17 05:48 Troponin I 0.04 ng/mL (<0.03) H 08/05/17 20:10 Lipase 13 U/L (22-51) L 08/05/17 05:48 Home Medications: Acetaminophen [Tylenol Extra Strength] 1 tab PO Q6H PRN 10/27/14 Azathioprine [Imuran*] 50 mg PO BID 10/27/14 Clopidogrel Bisulfate [Plavix] 75 mg PO DAILY 10/27/14 Pyridostigmine [place] [Mestinon*] 30 mg PO BID 10/27/14 Atorvastatin Calcium [Lipitor*] 10 mg PO DAILY 08/21/16 Nitroglycerin 0.4 mg SL UD PRN 08/21/16 Ranitidine [Zantac*] 150 mg PO BEDTIME 08/21/16 Carvedilol [Coreg] 3.125 mg PO BID 09/02/16 Losartan Potassium [Cozaar] 25 mg PO DAILY 09/02/16 Rivaroxaban [Xarelto] 20 mg PO DAILY AT SUPPER 08/10/17 Followup: Tyrone Lou MD [ASSOCIATE-ACTIVE - CAN ADMIT] - Fernandez Lo MD [Primary Care Provider] -
== END 2017-08-10 16:08 ==
LOC: ER 05:41 → ERHOLD 09:24 → 4TH 13:53
PROVIDERS: ADMIT Physician Assistant; ATTEND Internal Medicine
DX: I63.9 Cerebral infarction, unspecified (principal); E11.9 Type 2 diabetes mellitus without complications; I25.10 Atherosclerotic heart disease of native coronary artery without angina pectoris; I50.9 Heart failure, unspecified; R63.4 Abnormal weight loss; Z68.26 Body mass index [BMI] 26.0-26.9, adult; R19.7 Diarrhea, unspecified; G70.00 Myasthenia gravis without (acute) exacerbation; Z96.653 Presence of artificial knee joint, bilateral; Z95.1 Presence of aortocoronary bypass graft; Z79.82 Long term (current) use of aspirin; Z91.040 Latex allergy status; Z88.0 Allergy status to penicillin
CPT/HCPCS: 36415 ×3; 70450; 71045; 74176; 76377; 80048 ×5; 80076; 82962 ×20; 83690; 84484 ×4; 85025 ×5; 85610 ×4; 87493; 93005 ×3; 96361; 96374; 96375; 97116 ×3; 97163; 97530; 99285; G0378 ×2; J2405; J7030; J7500

== ENCOUNTER 2017-08-10 11:36 | Inpatient (IN) | payer OTHER, MEDICARE ==
--- NOTE | 2017-08-10 14:16 | R.PREADM ---
SCREENING DATE AND TIME 08/10/2017 11:48 (CDT) ANTICIPATED REHAB ADMISSION DATE 08/12/2017 REFERRING FACILITY [facility] REFERRAL DATE AND TIME 08/10/2017 11:48 (CDT) ACUTE ADMIT DATE 08/05/2017 Previous Rehabilitation(s): No. REFERRING PHYSICIAN Fernandez Lo REHAB FACILITY [facility] CLINICAL LIAISON Nimco Pichardo PHYSICIAN REVIEWER Dr. Tyrone Lou M.D. MR# [id number] NAME AIRAM KAYE AD[address]ESS [address] [facility] [address] [facility] [id number] DATE OF 1930 AGE 86 SSN# [id number] GENDER male MARITAL STATUS RACE white ADMIT FROM 02 - [facility] PRE-HOSPITAL LIVING SETTING 01 - Home (private home/apt. board/care, assisted living, alf, transitional living) HOME TYPE AND DETAILS Type of home: single family house # of levels in the residence: 1 # of steps within the residence: 0 # of steps to enter the residence: 1 PRE-HOSPITAL LIVING WITH Family/Relatives FAMILY SUPPORT Yes PRIMARY FAMILY CONTACT NAME Fabiola Kaye PRIMARY FAMILY CONTACT PHONE PHONE PRIMARY FAMILY CONTACT ON ADM.? no IS PRIMARY FAMILY CONTACT AUTH. REP.? no 1ST EMERGENCY CONTACT Fabiola Kaye 1ST CONTACT PHONE PHONE 1ST CONTACT ON ADM. no IS 1ST CONTACT AUTH. REP.? no PHONE 2ND CONTACT ON ADM.? no PATIENT EMPLOYMENT STATUS Retired (for age) PATIENT EMPLOYER No Employer PAYOR INFORMATION: 1ST PAYOR NAME Medicare 1ST PAYOR PHONE [phone] 1ST PAYOR INJURY/ILLNESS DUE TO ACCIDENT? No ANOTHER GREEN PARTY RESPONSIBLE? No PRIMARY REHAB/ACUTE DIAGNOSIS: CVA ONSET DATE 08/05/2017 REHAB IMPAIRMENT CATEGORY (DAGOBERTO): 01 Stroke (STR) MEETS 60% rule PRIMARY DIAGNOSIS-RELATED SURGERIES: N/A COMORBID REHAB/ACUTE DIAGNOSES: - Tier 3 Unspecified diastolic (congestive) heart failure [I5030] - Non-Tiered Type 2 diabetes mellitus with diabetic neuropathy, unspecified [E1140] - N/A CAD, Osteoarthritis, Myasthenia Gravis, Atrial fibrillation, Vitamin D deficeincy SUMMARY OF ACUTE HOSPITALIZATION: Pt. is a 86 yo Right-handed white male. On 08/05/2017 he was admitted to [facility] with diagnosis CVA. His impairment category is Stroke 01 - Other Stroke (01.9). Pre-morbidly, Pt. was independent/mod-I in Sphincter Control, Transfers Control, Communication, Socia l Cognition, Self-Care, and Locomotion; and he had good Sphincter Control. Currently, he has deficits of Endurance, Safety Awareness, Transfers Control, Communication, Social C ognition, Balance, Self-Care, and Locomotion. Pt. is now referred to [facility] for acute in-patient rehabilitation in order to maximize patient's functional independence in activities of daily living, strength, ROM, and mobi lity. Patient has realistic goal of being discharged at assistance level 6-Ankit to reside at Home with Fam amanda/Relatives. PAST MEDICAL HISTORY CAD, Osteoarthritis, Myasthenia Gravis, Atrial fibrillation, Vitamin D deficeincy Type 2 diabetes mellitus with diabetic neuropathy, unspecified [E1140] Unspecified diastolic (congestive) heart failure [I5030] PAST SURGICAL HISTORY: Tonsillectomy, left hand surgery, bilateral knee replacement, heart bypass, bilateral cataract remova l, cholecystectomy, stent placement, cardiac catheterization MEDICATION ALLERGIES: Tramadol, Levofloxacin, Penicillin ENVIRONMENTAL ALLERGIES: Iodine - Substance Allergies None Known - Other Allergies Iodinated contrast, latex allergy, latex natural rubber CODE STATUS: Full code WEIGHT/HEIGHT/BMI: WEIGHT 174 lbs HEIGHT 5' 8" BMI 26.5 DIET: - Diet Type ADA 1800 - Diet - Solid Texture Regular - Diet - Liquid Texture Regular - Tube Feed N/A REVIEW OF SYSTEMS: - Gen Alert and awake Lying in bed No apparent distress Oriented to: person, time, and place - Vital Signs Temperature: 97 F SBP/DBP: 135/69 Pulse: 74 Resp: 16 Vital signs stable, afebrile - CVS RRR - Neuro Abnormal Gait, abnormal tone VITAL SIGNS Temperature: 7 F SBP/DBP: 135/69 Pulse: 74 Resp: 16 Vital signs stable, afebrile CURRENT SPHINCTER CONTROL: Pre-hospital bladder status: continent # of bladder accidents in the last 7 days prior to screenin Pre-hospital bowel status: continent # of bowel accidents in the last 7 days prior to screenin Last Bowel Movement Date: 08/10/2017 DETAILED CURRENT FUNCTIONAL STATUS: - Bladder Bladder control device used: diaper Bladder medication used: N/A accident frequency: Dep - Five or more accidents in the past 7 days - Bowel accident frequency: Ind - No accidents in the past 7 days - Walking score based on distance walked: 1(<=50ft) - Wheelchair score based on distance traveled: 0(N/A) FUNCTIONAL STATUS: - Self-Care A. Eating Ankit sup B. Grooming Ankit sup C. Bathing Ankit sup D. Dressing - Upper Ankit sup E. Dressing - Lower Ankit sup F. Toileting Ankit sup - Sphincter Control G: Bladder control Ind Dep H: Bowel control Ind Ind - Transfers Control I. Bed/Chair/Wheelchair Ankit maxA J. Toilet Ankit modA K. Tub/Shower Ind ADNO - Locomotion L. Walk/Wheelchair (B) Ind maxA M. Stairs Ind ADNO - Communication N. Comprehension (B) Ind sup O. Expression (B) Ind sup - Social Cognition P. Social Interaction Ind sup Q. Problem Solving Ind sup R. Memory Ind sup - Endurance Poor - Balance Poor - Safety Awareness Poor CURRENT FUNC. DEFICITS: Endurance, Safety Awareness, Transfers Control, Communication, Social Cognition, Balance, Self-Care, and Locomotion THERAPY NOTES FROM ACUTE CARE: Attached. SPECIAL NEEDS: - Safety Concerns Skin breakdown precautions needed due to skin breakdown risk PRECAUTIONS: - Fall Precaution Bed and chair alarm PATIENT NEEDS ACTIVE AND ONGOING THERAPEUTIC INTERVENTION OF MULTIPLE THERAPY DISCIPLINES, INCLUDING: - Occupational Therapy Evaluate and Treat. Cognitive Retraining. Visual Perceptual Training. - Speech Therapy Cognitive Training. Memory Strategies. Expressive Language Skills. Receptive Language Skills. Speech Intelligibility Training. - Physical Therapy Evaluate and Treat. PATIENT NEEDS CLOSE MEDICAL SUPERVISION BY A REHABILITATION PHYSICIAN FOR: Bowel and Bladder Management Coordination of Treatment Team Diabetes Management Medical and Co-Morbidity Management Pain Management PATIENT REQUIRES 24X7 REHAB NURSING FOR MEDICAL AND FUNCTIONAL MGT. OF THE FOLLOWING DEFICITS: ADL's Ambulation Bowel and Bladder Management Cognition Communication Disease Management Medication Management Patient/Family Education Providing Safe Environment Transfers Pain Management PATIENT REQUIRES INTENSIVE, COORDINATED INTERDISCIPLINARY APPROACH TO REHAB: Arranging Home Equipment/Services Discharge Planning Family Intervention/Training Inspector Bicycle/Case Management PATIENT REHAB POTENTIAL: Expected level of measurable improvement will be of a practical value to patient's functional capacit y or adaptations to impairments Has a viable Discharge Plan Medically appropriate; condition is sufficiently stable to participate in intensive rehab program Patient is able and expected to receive 3 hours of individualized therapy daily on at least 5 of ever y 7 days Patient's prognosis for significant practical improvement within a reasonable period of time appears Good DISCHARGE PLAN: - Estimated Length of Stay (days) 17. - Consensus on plan Discharge plan has been discussed with primary caregiver. Patient/Family is in agreement with the saad n. Primary caregiver is in agreement with the plan. - Patient/Family Goals Return home with assistance. - Planned Living Setting Upon Discharge Home, to live with Family/Relatives. RECOMMENDED CARE LEVEL: IRF RECOMMENDATION DETAILS: Recommended Admission to Comprehensive Rehabilitation Program to Increase Functional Elma SCREENER'S COMPLETENESS CONFIRMATION: - Screening Confirmation The patient data collection on this preadmission screening form is finished PHYSICIANS REVIEW AND ADMISSION DETERMINATION Admit - Based on my review of the Pre-Admission Screening results, in my medical judgment and experie nce, I concur with the findings and recommend admission to [facility], as this patient requires an IRF level of care. SIGNATURE PANEL: Clinical Liaison - [electronically] signed by Nimco Pichardo on 08/10/2017 at 12:23 (CDT) Physician Reviewer - [electronically] signed by Dr. Tyrone Lou M.D. on 08/10/2017 at 13:18 (CDT )
--- OUTSIDE RECORDS SUMMARY | 2017-08-10 16:11 | XMS REPORT | Clinical Summary ---
:1930 Author Organization [facility] Address [address] [place] [address] Phone Care Team Providers Name Role Phone [...] Not on file Results Not on fileafter 08/09/2016
[2017-08-10] MEDS ORDERED: ACETAMINOPHEN 500 MG TAB PO PRN (16:34)
[2017-08-10] MEDS ORDERED: cloNIDine HCl 0.1 MG TAB PO PRN (16:34)
[2017-08-10] MEDS ORDERED: GLUCAGON 1 MG/VIAL IM PRN (16:34)
[2017-08-10] MEDS ORDERED: D50W 25 GM/50 ML SYRINGE IV PRN (16:34)
[2017-08-10] MEDS ORDERED: NITROGLYCERIN 0.4 MG/TAB SL PRN (16:34)
[2017-08-10] MEDS: RIVAROXABAN 20 MG TABLET PO SCH (17:34)
[2017-08-10] MEDS: CARVEDILOL 3.125 MG TAB PO SCH (17:34)
[2017-08-10 18:50] LABS: Urine Appearance CLOUDY; Urine Bilirubin NEGATIVE (NEG); Urine Blood TRACE (NEG); Urine Color YELLOW; Urine Glucose 1+ (NEG); Urine Protein TRACE (NEG); Urine Specific Gravity 1.015 (1.005-1.030); Urine Urobilinogen 0.2 mg/dL (0.2-1.0); Urine pH 5.5 (5.0-7.0)
[2017-08-10 19:30] LABS: Urine Microscopic Reflex ORDER UMIC
[2017-08-10 19:31] LABS: Urine Bacteria LOADED /HPF (NONE SEEN); Urine Culture Reflex Order REFLEXED; Urine Mucus 2+ /HPF (NONE SEEN)
[2017-08-10] MEDS: ATORVASTATIN 10 MG TAB PO SCH (20:31)
[2017-08-10] MEDS: RANITIDINE 150 MG TABLET PO SCH (20:31)
[2017-08-10] MEDS: PYRIDOSTIGMINE 60 MG TABLET PO SCH (20:32)
[2017-08-10] MEDS: AZATHIOPRINE 50 MG TABLET PO SCH (20:32)
[2017-08-10] MEDS: INSULIN -REGULAR HUMAN 50 UNIT/0.5 ML ML SQ SCH (20:33)
[2017-08-10] MEDS: MELATONIN 3 MG TABLET PO PRN (21:10)
--- NOTE | 2017-08-11 03:02 | FAST ---
SHIFT START DATE/TIME: 08/10/2017 19:00 (CDT) SHIFT END DATE/TIME: 08/11/2017 07:00 (CDT) NAME AIRAM KAYE DATE OF : 1930 DATE OF ADMISSION: 08/10/2017 16:09 (CDT) PHONE: AGE: 86 N# [id number] GENDER: Male ENCOUNTER PHYSICIAN: Dr. Tyrone Lou M.D. 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 EATING: Activity did not occur on this shift EATING - SCORE: 0-UNK GROOMING: Activity did not occur on this shift GROOMING - SCORE: 0-UNK BATHING: Activity did not occur on this shift BATHING - SCORE: 0-UNK DRESSING - UPPER BODY: Patient is not dressing in public clothing ARTICLES SCORE Total number of steps: 0 DRESSING - UPPER BODY - SCORE: 0-UNK DRESSING - LOWER BODY: Patient is not dressing in public clothing ARTICLES SCORE Total number of steps: 0 DRESSING - LOWER BODY - SCORE: 0-UNK TOILETING: TOILETING - STEP 1: Does the patient require assistance with toileting? Yes. TOILETING - STEP 2: Does the patient require the assistance of a helper? Yes. TOILETING - STEP 3: How much assistance does the patient require from the helper? Hands-on assistance from the helper TOILETING - STEP 4: Of the 3 tasks: 1) Adjusting clothing prior to use, 2) Cleansing of perineal area, 3) Adjusting clot jana after use; How many tasks does the patient perform WITHOUT assistance of the helper? Two tasks TOILETING - SCORE: 3-MOD BLADDER MANAGEMENT: BLADDER MANAGEMENT - STEP 1: Does the patient control the bladder completely and intentionally without equipment or devices or med ications, and is always continent? No. BLADDER MANAGEMENT - STEP 2: Does the patient require the assistance of a helper? Yes. BLADDER MANAGEMENT - STEP 3: How much assistance does the patient require from the helper? Only set-up of equipment - such as plac ing it within reach of the patient or emptying a device - to maintain either satisfactory voiding pat tern or managing an external device, such as an absorbent pad, ileal device, or catheter BLADDER MANAGEMENT - SCORE: 5-SUP BOWEL MANAGEMENT: Activity did not occur on this shift BOWEL MANAGEMENT - SCORE: 7-IND TRANSFERS: BED, CHAIR, WHEELCHAIR: TRANSFERS: BED, CHAIR, WHEELCHAIR - STEP 1: Does the patient require assistance with bed, chair, or wheelchair transfers? Yes. TRANSFERS: BED, CHAIR, WHEELCHAIR - STEP 2: Does the patient require the assistance of a helper? Yes. TRANSFERS: BED, CHAIR, WHEELCHAIR - STEP 3: How much assistance does the patient require from the helper? Steadying/guiding assistance TRANSFERS: BED, CHAIR, WHEELCHAIR - SCORE: 4-MIN TRANSFERS: TOILET: TRANSFERS: TOILET - STEP 1: Does the patient require assistance with toilet transfers? Yes. TRANSFERS: TOILET - STEP 2: Does the patient require the assistance of a helper? Yes. TRANSFERS: TOILET - STEP 3: How much assistance does the patient require from the helper? Patient performs half or more of the tr ansferring tasks TRANSFERS: TOILET - STEP 4: Does the patient need only incidental help such as contact guard or steadying during toilet transfer? Yes. TRANSFERS: TOILET - SCORE: 4-MIN TRANSFERS: SHOWER: Activity did not occur on this shift TRANSFERS: SHOWER - SCORE: 0-UNK TRANSFERS: TUB: Activity did not occur on this shift TRANSFERS: TUB - SCORE: 0-UNK LOCOMOTION: WALK: Activity did not occur on this shift LOCOMOTION: WALK - SCORE: 0-UNK LOCOMOTION: WHEELCHAIR: Activity did not occur on this shift LOCOMOTION: WHEELCHAIR - SCORE: 0-UNK COMPREHENSION: COMPREHENSION - STEP 1: Does the patient require help to understand complex and abstract ideas (such as current events, finan erick, discharge planning, medical issues, relationships, etc)? Yes. COMPREHENSION - STEP 2: Does the patient require help to understand questions or statements about basic needs or ideas (such as hunger, thirst, sleep, safety, daily schedule, room location, or discomfort) half or more of the t natalie? No. COMPREHENSION - STEP 3: How often does the patient need help to understand directions and conversation about basic needs? 10% - 24% of the time COMPREHENSION - SCORE: 4-MIN EXPRESSION EXPRESSION - STEP 1: Does the patient require help expressing complex and abstract ideas (such as current events, finances , discharge planning, medical issues, relationships, etc)? Yes. EXPRESSION - STEP 2: Does the patient require help to express basic necessities or ideas (such as hunger, thirst, sleep, s afety, daily schedule, room location, or discomfort) half or more of the time? No. EXPRESSION - STEP 3: How often does the patient need help to express directions and conversation about basic needs? 10-24% of the time EXPRESSION - SCORE: 4-MIN SOCIAL INTERACTION: SOCIAL INTERACTION - STEP 1: Does the patient require a helper to interact with others in social and therapeutic situations? No. SOCIAL INTERACTION - STEP 2: Does the patient need extra time in social situations, OR does s/he interact with staff, other patien ts, and family members ONLY in structured environments, OR does s/he require medication for social in teraction? Yes, patient needs extra time SOCIAL INTERACTION - SCORE: 6-TAMMI PROBLEM SOLVING: PROBLEM SOLVING - STEP 1: Does the patient need help to solve complex problems such as managing a checking account or confronti ng interpersonal problems? Yes. PROBLEM SOLVING - STEP 2: Does the patient solve basic routine problems half or more of the time? Yes. PROBLEM SOLVING - STEP 3: How often does the patient need help to solve basic routine problems? 10%-24% of the time PROBLEM SOLVING - SCORE: 4-MIN MEMORY: MEMORY - STEP 1: Does the patient need help to remember frequently encountered people, daily routines, and executing r equests? No. MEMORY - STEP 2: Does the patient have slight difficulty recognizing frequently encountered people, daily routines, or executing requests without the need for repetition or using self-initiated or environmental cues to remember? Yes. MEMORY - SCORE: 6-TAMMI SIGNATURE PANEL: The following modified sections: Eating - Score, Grooming - Score, Dressing - Upper Body - Score, Ayaan ssing - Lower Body - Score, Toileting - Score, Bladder Management - Score, Bowel Management - Score, Transfers: Bed, Chair, Wheelchair - Score, Transfers: Toilet - Score, Transfers: Shower - Score, Zavala sfers: Tub - Score, Locomotion: Walk - Score, Locomotion: Wheelchair - Score, Comprehension - Score, Expression - Score, Social Interaction - Score, Problem Solving - Score, Memory - Score were [electro nically] signed by Pam Razo CNA on ThuAug 11 2017 02:04:22 GMT-0500 (Central Daylight Time)
[2017-08-11] MEDS: CARVEDILOL 3.125 MG TAB PO SCH ×2 (05:21→17:14)
[2017-08-11 06:08] LABS: Absolute Lymphocytes (CBC) 1.5 K/uL (0.7-4.9); Absolute Monocytes 0.6 K/uL (0.1-1.3); Absolute Neutrophil 3.5 K/uL (1.8-8.0); Basophils % 0.9 % (0-1.3); Eosinophils % 8.3 % (0-4.4); Hematocrit 39.2 % (39.6-49.0); Lymphocytes % 23.9 % (15.3-44.8); MCH 33.7 pg (27.0-35.0); MCV 97.8 fL (80-100); MPV 9.2 fL (7.6-11.3); RBC Red Blood Cell Count 4.01 M/uL (4.33-5.43)
[2017-08-11 06:35] LABS: Magnesium 1.7 mg/dL (1.8-2.5); Potassium 4.1 mEq/L (3.6-5.0)
[2017-08-11] MEDS ORDERED: ASPIRIN EC 81 MG TAB PO SCH (08:00)
[2017-08-11] MEDS ORDERED: LOSARTAN POTASSIUM 50 MG TABLET PO SCH (08:00)
[2017-08-11] MEDS: CLOPIDOGREL 75 MG TABLET PO SCH (08:24)
[2017-08-11] MEDS: PYRIDOSTIGMINE 60 MG TABLET PO SCH ×2 (08:25→19:51)
[2017-08-11] MEDS: AZATHIOPRINE 50 MG TABLET PO SCH ×2 (08:25→19:52)
[2017-08-11] MEDS: INSULIN -REGULAR HUMAN 50 UNIT/0.5 ML ML SQ SCH ×4 (08:26→21:08)
--- NOTE | 2017-08-11 13:17 | P.PN ---
Subjective Date of Service: 08/11/17 Chief Complaint: LOT BETTER, MUCH MORE AWAKE Subjective: Improving Review of Systems 10-point ROS is otherwise unremarkable General: Weakness, Malaise Physical Examination - Vital Signs Temperature: 96.8 F Blood Pressure: 144/65 Pulse: 60 Respirations: 20 Pulse Ox (%): 97 - Physical Exam General: Alert, In no apparent distress HEENT: Atraumatic, PERRLA, EOMI Neck: Supple, JVD not distended Respiratory: Clear to auscultation bilaterally, Normal air movement Cardiovascular: Regular rate/rhythm, Normal S1 S2 Gastrointestinal: Normal bowel sounds, No tenderness Musculoskeletal: No tenderness Integumentary: No rashes Neurological: Normal speech, Normal tone, Normal affect Lymphatics: No axilla or inguinal lymphadenopathy - Studies Laboratory Data (last 24 hrs) 08/11/17 05:44: Sodium 140, Potassium 4.1, BUN 21 H, Creatinine 1.14, Glucose 176 H, Magnesium 1.7 L 08/11/17 05:44: WBC 6.2 D, Hgb 13.5 L, Hct 39.2 L, Plt Count 156 Medications List Reviewed: Yes Assessment And Plan - Current Problems (Diagnosis) (1) Allergic cough Current Visit: Yes Status: Acute (2) A-fib Current Visit: Yes Status: Acute Plan: BETTER ON XARELTO NOT WELL CONTROLLED ON [place]. Qualifiers: Atrial fibrillation type: chronic Qualified Code(s): I48.2 - Chronic atrial fibrillation (3) CVA (cerebral vascular accident) Onset Date: 08/06/17 Current Visit: No Status: Acute Plan: MOSTLY RESLOVED PT FOR ENDURANCE (4) Hypertension Current Visit: No Status: Acute (5) Myasthenia gravis Current Visit: No Status: Chronic
--- NOTE | 2017-08-11 14:42 | R.HP ---
FACILITY: [facility] ENCOUNTER DATE AND TIME: 08/11/2017 13:35 (CDT) MR#: [id number] NAME AIRAM KAYE ADDRESS: [address] [place] [address] CITY: [place] [address]IP [address] PHONE: DATE OF : 1930 AGE: 86 SSN# [id number] GENDER: Male DEXTERITY Right-handed MARITAL STATUS RACE White PRE-HOSPITAL LIVING SETTING 01 - Home (private home/apt. board/care, assisted living, penitentiary, transitional living) PRE-HOSPITAL LIVING WITH Family/Relatives ENCOUNTER PHYSICIAN: Dr. Tyrone Lou M.D. 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 is a 86 yo Right-handed white male. On 08/05/2017 he was admitted to [facility] with diagnosis debility secondary t o myasthenia gravis. No evidence of focal neurological dificit.. His impairment category is debility secondary to myasthenia gravis. No evidence of focal neurological dificit.. Pre-morbidly, Pt. was independent/mod-I in Sphincter Control, Transfers Control, Communication, Socia l Cognition, Self-Care, and Locomotion; and he had good Sphincter Control. Currently, he has deficits of Endurance, Safety Awareness, Transfers Control, Communication, Social C ognition, Balance, Self-Care, and Locomotion. Pt. is now referred to [facility] for acute in-patient rehabilitation in order to maximize patient's functional independence in activities of daily living, strength, ROM, and mobi lity. Patient has realistic goal of being discharged at assistance level 6-Ankit to reside at Home with Fam amanda/Relatives. 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 SOCIAL HISTORY: - Home Living Family/Relatives REVIEW OF SYSTEMS: - Gen No Chills No Fatigue No Fever - Eyes No Double Vision No itchiness - ENMT No Difficulty Swallowing - CVS No Chest Discomfort No Chest Pain No Fatigue No Weight Gain - Resp No Cough No Shortness of Breath - GI Continent No Abdominal Pain No Constipation No Diarrhea - Continent No Kidney Pain No Painful Urination No Urinary Urgency - MSK No Joint Pain No Muscle Cramps No Stiffness - Skin No Itching No Rash No Suspicious Lesions - Neuro No Coordination Difficulty No Difficulty with Concentration No Memory Loss No Seizures No Weakness - Psych No Anxiety No Depression No HIV Exposure No Persistent Infections No Seasonal Allergies - Endo No Cold/Heat Intolerance No Excessive Hunger No Excessive Thirst No Excessive Urination PHYSICAL EXAM - Gen Alert and awake Lying in bed No apparent distress Oriented to: person, time, and place - Vital Signs Temperature: 97 F SBP/DBP: 135/69 Pulse: 74 Resp: 16 Vital signs stable, afebrile - Skin No beakdown No abnormalities - Eyes No abnormalities - ENMT No abnormalities - Neck No abnormalities - CVS RRR - Chest Upper airway congestion. - Resp Single breath count of 23 - Abd + BS - GI + bowel sound Deferred - No abnormalities - Ext No significant edema. - MSK 2-3/5 weakness in right and left distal lower extremities. Otherwise 4/5 in the proximal lower extrem ities. - Neuro Steppage Gait, Decreased tone in lower extremities. Stocking loss to light touch in the legs. - Psych No abnormalities VITAL SIGNS Temperature: 7 F SBP/DBP: 135/69 Pulse: 74 Resp: 16 Vital signs stable, afebrile NURSING: - Shower allowing shower - Lab Results blood Sugar Check ACHS - Bladder care per protocol - Skin care per protocol PRECAUTIONS: - Fall Precaution Bed and chair alarm ACTIVITIES OOB only with supervision FUNCTIONAL STATUS: - Self-Care A. Eating Ankit sup B. Grooming Ankit sup C. Bathing Ankit sup D. Dressing - Upper Ankit sup E. Dressing - Lower Ankit sup F. Toileting Ankit sup - Sphincter Control G: Bladder control Ind Dep H: Bowel control Ind Ind - Transfers Control I. Bed/Chair/Wheelchair Ankit maxA J. Toilet Ankit modA K. Tub/Shower Ind ADNO - Locomotion L. Walk/Wheelchair (B) Ind maxA M. Stairs Ind ADNO - Communication N. Comprehension (B) Ind sup O. Expression (B) Ind sup - Social Cognition P. Social Interaction Ind sup Q. Problem Solving Ind sup R. Memory Ind sup - Endurance Poor - Balance Poor - Safety Awareness Poor CURRENT FUNC. DEFICITS: Endurance, Safety Awareness, Transfers Control, Communication, Social Cognition, Balance, Self-Care, and Locomotion ASSESSMENT: Pt. is a 86 yo Right-handed white male.On 08/05/2017 he was admitted to [facility] with diagnosis CVA.His impairment category is Stroke 01 - Other Stroke (01.9).Pre-morbidly, Pt. was independent/mod-I in Sphincter Control, Transfers Control, Communication, Social Cognition, Self- Care, and Locomotion; and he had good Sphincter Control.Currently, he has deficits of Endurance, Safe ty Awareness, Transfers Control, Communication, Social Cognition, Balance, Self-Care, and Locomotion. Pt. is now referred to [facility] for acute in-patient rehabilitation in order to maximize patient's functional independence in activities of daily living, strength, ROM, and mobi lity.- Rehab Goal Patient has realistic goal of being discharged at assistance level 6-Ankit to reside at Home with Fam amanda/Relatives. REHAB PLAN: for Dementia, TBI, Stroke, or others - Physical Therapy Gait dysfunction - to improve, our physical therapists will perform initial evaluation of pt's status upon admission and devise an individualized program for Gait Training, and Wheel Chair mobility Inability to transfer - to improve, our physical therapists will perform initial evaluation of pt's s tatus upon admission and devise an individualized program for Bed mobility Need for home safety evaluation - to improve, our physical therapists will perform initial evaluation of pt's status upon admission and devise an individualized program for Home Evaluation Need in caregiver upon discharge - to improve, our physical therapists will perform initial evaluatio n of pt's status upon admission and devise an individualized program for Caregiver Training New precaution - to improve, our physical therapists will perform initial evaluation of pt's status u jennifer admission and devise an individualized program for Patient precaution education Edema - to improve, our physical therapists will perform initial evaluation of pt's status upon admi ssion and devise an individualized program for Elevation Training, and Lymphedema Therapy Poor balance - to improve, our physical therapists will perform initial evaluation of pt's status upo n admission and devise an individualized program for Balance Training Poor endurance - to improve, our physical therapists will perform initial evaluation of pt's status u jennifer admission and devise an individualized program for Endurance Training Weakness - to improve, our physical therapists will perform initial evaluation of pt's status upon ad mission and devise an individualized program for Aquatic Therapy, Neuromuscular Reeducation, and Stre ngthening Achieving independence - to improve, our physical therapists will perform initial evaluation of pt's status upon admission and devise an individualized program for Community Reintegration Activities - Occupational Therapy ADL deficits - to improve, our occupation therapists will perform initial evaluation of pt's status u jennifer admission and devise an individualized program for Bathing, Bed mobility, Community Reintegration , Cooking, Dressing, Eating, Fine Motor Skills, Grooming, Homemaking, Kitchen Mobility, Laundry, Deedee ent Education, Safety Awareness, Splinting - Positioning, Transfers(Toilet, Tub, Shower), and Wheel C hair Management Cognitive deficits - to improve, our occupation therapists will perform initial evaluation of pt's st atus upon admission and devise an individualized program for Cognition - orientation Need for career development coordinator/teacher - to improve, our occupation therapists will perform initial evaluation of pt's s tatus upon admission and devise an individualized program for Caregiver Training Weakness - to improve, our occupation therapists will perform initial evaluation of pt's status upon admission and devise an individualized program for Aquatic Therapy, Balance, Endurance, UE ROM, and U E strengthening MEDICAL PLAN: - Diet Type Start ADA 1800 - Diet - Liquid Texture Start Regular - Tube Feed Start N/A - Lab Results blood Sugar Check ACHS - Bladder care per protocol - Fall Precaution Bed and chair alarm - Skin care per protocol - Diet - Solid Texture Regular - Shower shower DISCHARGE PLAN: - Estimated Length of Stay (days) 17. - Consensus on plan Discharge plan has been discussed with primary caregiver. Patient/Family is in agreement with the saad n. Primary caregiver is in agreement with the plan. - Patient/Family Goals Return home with assistance. - Planned Living Setting Upon Discharge Home, to live with Family/Relatives. SIGNATURE PANEL: (CDT)
--- NOTE | 2017-08-11 14:45 | PAPE ---
PATIENT: [facility] MR# [id number] REFERRING DOCTOR edgar Lo EVALUATION DATE AND TIME 08/11/2017 13:46 (CDT) NAME AIRAM KAYE DATE OF 1930 AGE 86 PHONE N# [id number] GENDER male EVALUATING PHYSICIAN Dr. Tyrone Lou M.D. 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 PATIENT NEEDS CLOSE MEDICAL SUPERVISION BY A REHABILITATION PHYSICIAN FOR: Bowel and Bladder Management Coordination of Treatment Team Diabetes Management Medical and Co-Morbidity Management Pain Management PATIENT REQUIRES 24X7 REHAB NURSING FOR MEDICAL AND FUNCTIONAL MGT. OF THE FOLLOWING DEFICITS: ADL's Ambulation Bowel and Bladder Management Cognition Communication Disease Management Medication Management Patient/Family Education Providing Safe Environment Transfers Pain Management PATIENT REQUIRES INTENSIVE, COORDINATED INTERDISCIPLINARY APPROACH TO REHAB: Arranging Home Equipment/Services Discharge Planning Family Intervention/Training Oncology Pharmacist/Case Management LIST OF IDENTIFIED AND POTENTIAL PROBLEMS: Alteration in leisure activities Bladder, Incontinence Bowel, Incontinence Diabetes, Hyperglycemia/hypoglycemia Issues Infection, Actual or Potential Mobility Impaired Pain, Alteration in Comfort Self Care Deficit Skin Integrity, Actual or Potential Urinary Tract Infection (UTI), Actual or Potential PATIENT COULD BE AT RISK FOR COMPLICATIONS FROM ADVERSE MEDICAL CONDITIONS DUE TO HIS/HER COMORBIDITI ES AND THE RIGORS OF THE INTENSIVE REHABILLITATION PROGRAM. METHODS OR INTERVENTIONS TO AVOID COMPLIC ATIONS INCLUDE: - Bleeding Stroke patients assessed for lethargy or change in status. - Infection Clinical staff to assess and manage the signs and symptoms of infection including fever, redness, war mth, etc. - Urinary Tract Infection - Aspiration Clinical staff will assess and manage coughing, drooling, congestion. - Falls Patient will be evaluated for Fall Precautions and will be placed on Fall Precautions as indicated pe r protocol. - Skin Breakdown Nursing will assess skin daily using assessment tool and will place on Skin Breakdown Precautions as indicated per protocol. - Pain Clinical staff may employ non-medication methods such as massage, distraction, decrease stimulus, etc . as needed. Clinical staff will assess patient's pain level every shift per protocol to assess and e nsure pain management effectiveness. Medications will be given and the pain level re-assessed. PRELIMINARY PLAN OF CARE: - Physical Therapy Patient needs Physical Therapy for a daily minimum of 1.5 hours at least 5 out of 7 days, to improve: Mobility, Strengthening, Transfers, Stretching, ROM, Endurance, Ability to manage stairs, Gait, and Balance. - Speech Therapy Patient needs Speech Therapy for a daily minimum of 0.5 hours at least 5 out of 7 days, to improve: S wallowing, Cognition, Language Skills, and Compensatory Strategies. - Rehabilitation Nursing Patient requires 24x7 Rehabilitation Nursing for: Pain Issues, Identifying and preventing risk factor s, Monitoring and reporting current medical conditions, Assisting with ambulation and transfer, Isac ting with all ADL-s, Teaching patients about disease process and medications, Family teaching, Provid ing safe environment, Bowel and Bladder Issues, Skin Integrity, and Medication Management. Patient needs Oncology Pharmacist and/or Case Management for: Discharge Planning, Arranging Home Equipmen t or Services, and Family Interventions. - Dietary and Nutrition Services Patient needs Dietary and Nutrition Services for: Adequate Nutrition, Nutritional Supplements, and Nu tritional Education. - Occupational Therapy Patient needs Occupational Therapy for a daily minimum of 1.5 hours at least 5 out of 7 days, to impr ove Activities of Daily Living, including: Eating, Grooming, Bathing, Dressing, Toileting, Toilet Tra nsfers, Community Reintegration, Higher functional activities, Adaptive Equipment, Splinting, Househo ld Tasks, and Other activities as determined. POTENTIAL FUNCTIONAL GOALS FOR PATIENT TO ACHIEVE BY DISCHARGE: - Safety Precaution Patient will remain free from falls or injury at time of discharge. - Bed Mobility Patient will perform bed mobility at 4-Seven level of assistance. - Transfers Patient will complete transfers from bed to chair at 4-Seven level of assistance. - Mobility Patient will ambulate 150 ft with 4-Seven level of assistance with RW. PATIENT REHAB POTENTIAL Expected level of measurable improvement will be of a practical value to patient's functional capacit y or adaptations to impairments Has a viable Discharge Plan Medically appropriate; condition is sufficiently stable to participate in intensive rehab program Patient is able and expected to receive 3 hours of individualized therapy daily on at least 5 of ever y 7 days Patient's prognosis for significant practical improvement within a reasonable period of time appears Good DISCHARGE PLAN: - Estimated Length of Stay (days) 17. - Consensus on plan Discharge plan has been discussed with primary caregiver. Patient/Family is in agreement with the saad n. Primary caregiver is in agreement with the plan. - Patient/Family Goals Return home with assistance. - Planned Living Setting Upon Discharge Home, to live with Family/Relatives. CONCLUSION ON REHABILITATION NECESSITY: I have evaluated patient's pre-admission functional status and, comparing it to the patient's post-ad mission functional status now, I conclude that the pre-admission assessment was accurate. Patient's c ondition on admission supports the medical necessity of admission to IRF. It is safe to proceed with patient's therapy program. SIGNATURE PANEL: (CDT)
--- NOTE | 2017-08-11 15:08 | FAST ---
ENCOUNTER DATE AND TIME: 08/11/2017 08:00 (CDT) NAME AIRAM KAYE DATE OF : 1930 DATE OF ADMISSION: 08/10/2017 16:09 (CDT) PHONE: AGE: 86 N# [id number] GENDER: Male ENCOUNTER PHYSICIAN: Dr. Tyrone Lou M.D. 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 EATING: Activity did not occur on this shift EATING - SCORE: 0-UNK GROOMING: Comb/brush hair Oral care Wash, rinse, and dry face Wash, rinse, and dry hands GROOMING - STEP 1: Does the patient require assistance when grooming? No. GROOMING - SCORE: 7-IND BATHING: Abdomen Buttocks Chest Left arm Left lower leg and foot Left upper leg Perineal area Right arm Right lower leg and foot Right upper leg BATHING - STEP 1: Does the patient require assistance when bathing? Yes. BATHING - STEP 2: Does the patient require the assistance of a helper? Yes. BATHING - STEP 3: How much assistance does the patient require from the helper? More than just incidental help BATHING - STEP 4: What percent of the body parts did the patient bathe WITHOUT the helper? Half or more of the body par ts BATHING - SCORE: 3-MOD DRESSING - UPPER BODY: T-shirt/pullover shirt (four steps) ARTICLES SCORE Total number of steps: 4 DRESSING - UPPER BODY - STEP 1: Does the patient require help when dressing above the waist? Yes. DRESSING - UPPER BODY - STEP 2: Does the patient require the assistance of a helper? Yes. DRESSING - UPPER BODY - STEP 3: Does the helper touch the patient while dressing? No. DRESSING - UPPER BODY - SCORE: 5-SUP DRESSING - LOWER BODY: Elastic waist pants (three steps) Sock - Left foot (one step) Sock - Right foot (one step) ARTICLES SCORE Total number of steps: 5 DRESSING - LOWER BODY - STEP 1: Does the patient require help when dressing below the waist? Yes. DRESSING - LOWER BODY - STEP 2: Does the patient require the assistance of a helper? Yes. DRESSING - LOWER BODY - STEP 3: Does the helper touch the patient while dressing? Yes. DRESSING - LOWER BODY - STEP 4: How many of the total steps does the patient complete on his/her own? 0 DRESSING - LOWER BODY - STEP 5: Does patient require total assistance for dressing below the waist such as the helper holding clothin g and performing basically all the activities? Yes. DRESSING - LOWER BODY - SCORE: 1-DEP TOILETING: Activity did not occur on this shift TOILETING - SCORE: 0-UNK BLADDER MANAGEMENT: Activity did not occur on this shift BLADDER MANAGEMENT - SCORE: 7-IND BOWEL MANAGEMENT: Activity did not occur on this shift BOWEL MANAGEMENT - SCORE: 7-IND TRANSFERS: BED, CHAIR, WHEELCHAIR: Activity did not occur on this shift TRANSFERS: BED, CHAIR, WHEELCHAIR - SCORE: 0-UNK TRANSFERS: TOILET: Activity did not occur on this shift TRANSFERS: TOILET - SCORE: 0-UNK TRANSFERS: SHOWER: Activity did not occur on this shift TRANSFERS: SHOWER - SCORE: 0-UNK TRANSFERS: TUB: TRANSFERS: TUB - STEP 1: Does the patient require assistance with tub transfers? Yes. TRANSFERS: TUB - STEP 2: Does the patient require the assistance of a helper? Yes. TRANSFERS: TUB - STEP 3: How much assistance does the patient require from the helper? More than incidental help TRANSFERS: TUB - STEP 4: How much more help does the patient require from the helper? Depew lifts patient up out of the wheel chair AND down onto the tub bench TRANSFERS: TUB - SCORE: 2-MAX LOCOMOTION: WALK: Activity did not occur on this shift LOCOMOTION: WALK - SCORE: 0-UNK LOCOMOTION: WHEELCHAIR: Activity did not occur on this shift LOCOMOTION: WHEELCHAIR - SCORE: 0-UNK LOCOMOTION: STAIRS: Activity did not occur on this shift LOCOMOTION: STAIRS - SCORE: 0-UNK COMPREHENSION: COMPREHENSION: TYPE: Both COMPREHENSION - STEP 1: Does the patient require help to understand complex and abstract ideas (such as current events, finan erick, discharge planning, medical issues, relationships, etc)? No. COMPREHENSION - STEP 2: Does the patient need extra time, require an assistive device (such as glasses, hearing aids, or an a ugmentative communication system), OR does s/he have mild difficulty expressing complex and abstract ideas (including mild dysarthria or mild word-finding problems)? Yes. COMPREHENSION - SCORE: 6-TAMMI EXPRESSION EXPRESSION - STEP 1: Does the patient require help expressing complex and abstract ideas (such as current events, finances , discharge planning, medical issues, relationships, etc)? No. EXPRESSION - STEP 2: Does the patient need extra time, require an assistive device (such as augmentive communication syste m or a communication board), OR does s/he have mild difficulty expressing complex and abstract ideas (including mild dysarthria or mild word-find problems)? No. EXPRESSION - SCORE: 7-IND SOCIAL INTERACTION: SOCIAL INTERACTION - STEP 1: Does the patient require a helper to interact with others in social and therapeutic situations? No. SOCIAL INTERACTION - STEP 2: Does the patient need extra time in social situations, OR does s/he interact with staff, other patien ts, and family members ONLY in structured environments, OR does s/he require medication for social in teraction? No. SOCIAL INTERACTION - SCORE: 7-IND PROBLEM SOLVING: PROBLEM SOLVING - STEP 1: Does the patient need help to solve complex problems such as managing a checking account or confronti ng interpersonal problems? No. PROBLEM SOLVING - STEP 2: Does the patient require extra time to make decisions or solve problems, OR does s/he have slight dif ficulty reading, initiating, or self-correcting in unfamiliar situations? Yes, patient needs extra ti me. PROBLEM SOLVING - SCORE: 6-TAMMI MEMORY: MEMORY - STEP 1: Does the patient need help to remember frequently encountered people, daily routines, and executing r equests? No. MEMORY - STEP 2: Does the patient have slight difficulty recognizing frequently encountered people, daily routines, or executing requests without the need for repetition or using self-initiated or environmental cues to remember? Yes. MEMORY - SCORE: 6-TAMMI SIGNATURE PANEL: The following modified sections: Eating - Score, Grooming - Score, Bathing - Score, Dressing - Upper Body - Score, Dressing - Lower Body - Score, Toileting - Score, Transfers: Bed, Chair, Wheelchair - S core, Transfers: Toilet - Score, Transfers: Shower - Score, Transfers: Tub - Score, Comprehension - S core, Expression - Score, Social Interaction - Score, Problem Solving - Score, Memory - Score were [e lectronically] signed by Sammi Escobar OT on ThuAug 11 2017 14:10:48 T-0500 ([facility] T natalie)
[2017-08-11] MEDS: RIVAROXABAN 20 MG TABLET PO SCH (17:09)
--- NOTE | 2017-08-11 18:01 | FAST ---
ENCOUNTER DATE AND TIME: 08/11/2017 08:00 (CDT) NAME AIRAM KAYE DATE OF : 1930 DATE OF ADMISSION: 08/10/2017 16:09 (CDT) PHONE: AGE: 86 N# [id number] GENDER: Male ENCOUNTER PHYSICIAN: Dr. Tyrone Lou M.D. 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 EATING: Activity did not occur on this shift EATING - SCORE: 0-UNK GROOMING: Activity did not occur on this shift GROOMING - SCORE: 0-UNK BATHING: Activity did not occur on this shift BATHING - SCORE: 0-UNK DRESSING - UPPER BODY: Activity did not occur on this shift Patient is not dressing in public clothing ARTICLES SCORE Total number of steps: 0 DRESSING - UPPER BODY - SCORE: 0-UNK DRESSING - LOWER BODY: Activity did not occur on this shift Patient is not dressing in public clothing ARTICLES SCORE Total number of steps: 0 DRESSING - LOWER BODY - SCORE: 0-UNK TOILETING: Activity did not occur on this shift TOILETING - SCORE: 0-UNK BLADDER MANAGEMENT: Activity did not occur on this shift BLADDER MANAGEMENT - SCORE: 7-IND BOWEL MANAGEMENT: Activity did not occur on this shift BOWEL MANAGEMENT - SCORE: 7-IND TRANSFERS: BED, CHAIR, WHEELCHAIR: TRANSFERS: BED, CHAIR, WHEELCHAIR - STEP 1: Does the patient require assistance with bed, chair, or wheelchair transfers? Yes. TRANSFERS: BED, CHAIR, WHEELCHAIR - STEP 2: Does the patient require the assistance of a helper? Yes. TRANSFERS: BED, CHAIR, WHEELCHAIR - STEP 3: How much assistance does the patient require from the helper? Steadying/guiding assistance TRANSFERS: BED, CHAIR, WHEELCHAIR - SCORE: 4-MIN TRANSFERS: TOILET: TRANSFERS: TOILET - STEP 1: Does the patient require assistance with toilet transfers? Yes. TRANSFERS: TOILET - STEP 2: Does the patient require the assistance of a helper? Yes. TRANSFERS: TOILET - STEP 3: How much assistance does the patient require from the helper? Patient performs half or more of the tr ansferring tasks TRANSFERS: TOILET - STEP 4: Does the patient need only incidental help such as contact guard or steadying during toilet transfer? Yes. TRANSFERS: TOILET - SCORE: 4-MIN TRANSFERS: SHOWER: Activity did not occur on this shift TRANSFERS: SHOWER - SCORE: 0-UNK TRANSFERS: TUB: Activity did not occur on this shift TRANSFERS: TUB - SCORE: 0-UNK LOCOMOTION: WALK: LOCOMOTION: WALK - STEP 1: Does the patient need help to walk 150 feet? Yes. LOCOMOTION: WALK - STEP 2: How much assistance does the patient require to walk a minimum of 150 feet? Patient walks less than 1 50 feet - but more than 50 feet - with the assistance of only one helper LOCOMOTION: WALK - SCORE: 2-MAX LOCOMOTION: WHEELCHAIR: LOCOMOTION: WHEELCHAIR - STEP 1: Does the patient need help to go 150 feet in a wheelchair? Yes. LOCOMOTION: WHEELCHAIR - STEP 2: How much assistance does the patient need from the helper? Patient goes less than 150 feet - but more than 50 feet - with the assistance of only one helper LOCOMOTION: WHEELCHAIR - SCORE: 2-MAX LOCOMOTION: STAIRS: Activity did not occur on this shift LOCOMOTION: STAIRS - SCORE: 0-UNK COMPREHENSION: COMPREHENSION - SCORE: 0-UNK EXPRESSION EXPRESSION - SCORE: 0-UNK SOCIAL INTERACTION: SOCIAL INTERACTION - SCORE: 0-UNK PROBLEM SOLVING: PROBLEM SOLVING - SCORE: 0-UNK MEMORY: MEMORY - SCORE: 0-UNK SIGNATURE PANEL: The following modified sections: Transfers: Bed, Chair, Wheelchair - Score, Transfers: Toilet - Score , Locomotion: Walk - Score, Locomotion: Wheelchair - Score, Locomotion: Stairs - Score were [electron darvin] signed by Jh Palacios PT on ThuAug 11 2017 17:03:48 T-0500 (Central Daylight Time)
--- NOTE | 2017-08-11 18:30 | RAD REPORT ---
EXAM DESCRIPTION: Meenakshi Single View08/11/2017 6:19 pm CLINICAL HISTORY: Hypertension COMPARISON: August 05, 2017 FINDINGS: The lungs appear clear of acute infiltrate. The heart is mildly enlarged. Pacemaker lead is in place. Postsurgical changes involve the chest IMPRESSION: No acute abnormalities displayed
--- NOTE | 2017-08-11 18:46 | FAST ---
SHIFT START DATE/TIME: 08/11/2017 07:00 (CDT) SHIFT END DATE/TIME: 08/11/2017 19:00 (CDT) NAME AIRAM KAYE DATE OF : 1930 DATE OF ADMISSION: 08/10/2017 16:09 (CDT) PHONE: AGE: 86 N# [id number] GENDER: Male ENCOUNTER PHYSICIAN: Dr. Tyrone Lou M.D. 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 EATING: EATING - STEP 1: Does the patient require assistance when eating? Yes. EATING - STEP 2: Does the patient require the assistance of a helper? Yes. EATING - STEP 3: Does the patient perform half or more of the eating tasks? Yes. EATING - STEP 4: Does the patient need only supervision, cuing, coaxing OR help to apply an orthosis OR help to cut fo od, open containers, pour liquids, or butter bread? Yes. EATING - SCORE: 5-SUP GROOMING: Comb/brush hair Wash, rinse, and dry face Wash, rinse, and dry hands GROOMING - STEP 1: Does the patient require assistance when grooming? Yes. GROOMING - STEP 2: Does the patient require the assistance of a helper? No. The patient only requires an assistive devic e, OR takes more than reasonable time to groom, OR there is a concern for safety as the patient groom s GROOMING - SCORE: 6-TAMMI BATHING: Activity did not occur on this shift BATHING - SCORE: 0-UNK DRESSING - UPPER BODY: T-shirt/pullover shirt (four steps) ARTICLES SCORE Total number of steps: 4 DRESSING - UPPER BODY - STEP 1: Does the patient require help when dressing above the waist? Yes. DRESSING - UPPER BODY - STEP 2: Does the patient require the assistance of a helper? Yes. DRESSING - UPPER BODY - STEP 3: Does the helper touch the patient while dressing? No. DRESSING - UPPER BODY - SCORE: 5-SUP DRESSING - LOWER BODY: Elastic waist pants (three steps) Sock - Left foot (one step) Sock - Right foot (one step) ARTICLES SCORE Total number of steps: 5 DRESSING - LOWER BODY - STEP 1: Does the patient require help when dressing below the waist? Yes. DRESSING - LOWER BODY - STEP 2: Does the patient require the assistance of a helper? Yes. DRESSING - LOWER BODY - STEP 3: Does the helper touch the patient while dressing? No. DRESSING - LOWER BODY - SCORE: 5-SUP TOILETING: TOILETING - STEP 1: Does the patient require assistance with toileting? Yes. TOILETING - STEP 2: Does the patient require the assistance of a helper? Yes. TOILETING - STEP 3: How much assistance does the patient require from the helper? Hands-on assistance from the helper TOILETING - STEP 4: Of the 3 tasks: 1) Adjusting clothing prior to use, 2) Cleansing of perineal area, 3) Adjusting clot jana after use; How many tasks does the patient perform WITHOUT assistance of the helper? Three tasks with steadying assistance from the helper TOILETING - SCORE: 4-MIN BLADDER MANAGEMENT: BLADDER MANAGEMENT - STEP 1: Does the patient control the bladder completely and intentionally without equipment or devices or med ications, and is always continent? No. BLADDER MANAGEMENT - STEP 2: Does the patient require the assistance of a helper? Yes. BLADDER MANAGEMENT - STEP 3: How much assistance does the patient require from the helper? Only supervision, stand-by, cuing, or c oaxing BLADDER MANAGEMENT - SCORE: 5-SUP BLADDER MANAGEMENT - FREQUENCY OF ACCIDENTS: BLADDER MANAGEMENT(FA) - STEP 1: How many accidents has the patient had during the current shift? 0 BOWEL MANAGEMENT: BOWEL MANAGEMENT - STEP 1: Does the patient control bowels completely and intentionally without equipment devices or medications AND is always continent? No. BOWEL MANAGEMENT - STEP 2: Does the patient require the assistance of a helper? No, patient requires medication for control such as stool softeners, suppositories, laxatives, enemas, or OTC medications BOWEL MANAGEMENT - SCORE: 6-TAMMI BOWEL MANAGEMENT - FREQUENCY OF ACCIDENTS: BOWEL MANAGEMENT(FA) - STEP 1: How many accidents has the patient had during the current shift? 0 TRANSFERS: BED, CHAIR, WHEELCHAIR: TRANSFERS: BED, CHAIR, WHEELCHAIR - STEP 1: Does the patient require assistance with bed, chair, or wheelchair transfers? Yes. TRANSFERS: BED, CHAIR, WHEELCHAIR - STEP 2: Does the patient require the assistance of a helper? Yes. TRANSFERS: BED, CHAIR, WHEELCHAIR - STEP 3: How much assistance does the patient require from the helper? Steadying/guiding assistance TRANSFERS: BED, CHAIR, WHEELCHAIR - SCORE: 4-MIN TRANSFERS: TOILET: TRANSFERS: TOILET - STEP 1: Does the patient require assistance with toilet transfers? Yes. TRANSFERS: TOILET - STEP 2: Does the patient require the assistance of a helper? Yes. TRANSFERS: TOILET - STEP 3: How much assistance does the patient require from the helper? Patient performs half or more of the tr ansferring tasks TRANSFERS: TOILET - STEP 4: Does the patient need only incidental help such as contact guard or steadying during toilet transfer? Yes. TRANSFERS: TOILET - SCORE: 4-MIN TRANSFERS: SHOWER: Activity did not occur on this shift TRANSFERS: SHOWER - SCORE: 0-UNK TRANSFERS: TUB: Activity did not occur on this shift TRANSFERS: TUB - SCORE: 0-UNK LOCOMOTION: WALK: Activity did not occur on this shift LOCOMOTION: WALK - SCORE: 0-UNK LOCOMOTION: WHEELCHAIR: LOCOMOTION: WHEELCHAIR - STEP 1: Does the patient need help to go 150 feet in a wheelchair? Yes. LOCOMOTION: WHEELCHAIR - STEP 2: How much assistance does the patient need from the helper? Only supervision, cuing, or coaxing LOCOMOTION: WHEELCHAIR - SCORE: 5-SUP COMPREHENSION: COMPREHENSION - STEP 1: Does the patient require help to understand complex and abstract ideas (such as current events, finan erick, discharge planning, medical issues, relationships, etc)? Yes. COMPREHENSION - STEP 2: Does the patient require help to understand questions or statements about basic needs or ideas (such as hunger, thirst, sleep, safety, daily schedule, room location, or discomfort) half or more of the t natalie? No. COMPREHENSION - STEP 3: How often does the patient need help to understand directions and conversation about basic needs? Les s than 10% of the time COMPREHENSION - SCORE: 5-SUP EXPRESSION EXPRESSION: TYPE: Both EXPRESSION - STEP 1: Does the patient require help expressing complex and abstract ideas (such as current events, finances , discharge planning, medical issues, relationships, etc)? Yes. EXPRESSION - STEP 2: Does the patient require help to express basic necessities or ideas (such as hunger, thirst, sleep, s afety, daily schedule, room location, or discomfort) half or more of the time? No. EXPRESSION - STEP 3: How often does the patient need help to express directions and conversation about basic needs? Less t [place] 10% of the time EXPRESSION - SCORE: 5-SUP SOCIAL INTERACTION: SOCIAL INTERACTION - STEP 1: Does the patient require a helper to interact with others in social and therapeutic situations? No. SOCIAL INTERACTION - STEP 2: Does the patient need extra time in social situations, OR does s/he interact with staff, other patien ts, and family members ONLY in structured environments, OR does s/he require medication for social in teraction? No. SOCIAL INTERACTION - SCORE: 7-IND PROBLEM SOLVING: PROBLEM SOLVING - STEP 1: Does the patient need help to solve complex problems such as managing a checking account or confronti ng interpersonal problems? No. PROBLEM SOLVING - STEP 2: Does the patient require extra time to make decisions or solve problems, OR does s/he have slight dif ficulty reading, initiating, or self-correcting in unfamiliar situations? Yes, patient needs extra ti me. PROBLEM SOLVING - SCORE: 6-TAMMI MEMORY: MEMORY - STEP 1: Does the patient need help to remember frequently encountered people, daily routines, and executing r equests? Yes. MEMORY - STEP 2: How often does the patient need help to remember frequently encountered people, daily routines, and e xecuting requests? Less than 10% of the time MEMORY - SCORE: 5-SUP SIGNATURE PANEL: The following modified sections: Eating - Score, Grooming - Score, Bathing - Score, Dressing - Upper Body - Score, Dressing - Lower Body - Score, Toileting - Score, Bladder Management - Score, Bowel Man agement - Score, Transfers: Bed, Chair, Wheelchair - Score, Transfers: Toilet - Score, Transfers: [place] wer - Score, Transfers: Tub - Score, Locomotion: Walk - Score, Locomotion: Wheelchair - Score, Compre hension - Score, Expression - Score, Social Interaction - Score, Problem Solving - Score, Memory - Sc ore were [electronically] signed by Bindu Maldonado C.N.A. on ThuAug 11 2017 17:48:09 T-0500 (Centra l Daylight Time)
[2017-08-11] MEDS: MAGNESIUM OXIDE 400 MG TAB PO SCH (19:51)
[2017-08-11] MEDS: FLUTICASONE 50MCG NASAL SPRAY NAS SCH (19:52)
[2017-08-11] MEDS: GLUCERNA SHAKE 237 ML CAN PO SCH (19:54)
[2017-08-11] MEDS ORDERED: INSULIN -REGULAR HUMAN 50 UNIT/0.5 ML ML ONE (20:42)
[2017-08-11] MEDS: MELATONIN 3 MG TABLET PO PRN (21:08)
[2017-08-11] MEDS: ATORVASTATIN 10 MG TAB PO SCH (21:08)
[2017-08-11] MEDS: RANITIDINE 150 MG TABLET PO SCH (21:08)
--- NOTE | 2017-08-12 03:00 | FAST ---
SHIFT START DATE/TIME: 08/11/2017 19:00 (CDT) SHIFT END DATE/TIME: 08/12/2017 07:00 (CDT) NAME AIRAM KAYE DATE OF : 1930 DATE OF ADMISSION: 08/10/2017 16:09 (CDT) PHONE: AGE: 86 N# [id number] GENDER: Male ENCOUNTER PHYSICIAN: Dr. Tyrone Lou M.D. 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 EATING: Activity did not occur on this shift EATING - SCORE: 0-UNK GROOMING: Wash, rinse, and dry hands GROOMING - STEP 1: Does the patient require assistance when grooming? Yes. GROOMING - STEP 2: Does the patient require the assistance of a helper? Yes. GROOMING - STEP 3: How much assistance does the patient require from the helper? Cuing, coaxing, instructions, or encour agement for completion of grooming GROOMING - SCORE: 5-SUP BATHING: Activity did not occur on this shift BATHING - SCORE: 0-UNK DRESSING - UPPER BODY: Patient is not dressing in public clothing ARTICLES SCORE Total number of steps: 0 DRESSING - UPPER BODY - SCORE: 0-UNK DRESSING - LOWER BODY: Patient is not dressing in public clothing ARTICLES SCORE Total number of steps: 0 DRESSING - LOWER BODY - SCORE: 0-UNK TOILETING: TOILETING - STEP 1: Does the patient require assistance with toileting? Yes. TOILETING - STEP 2: Does the patient require the assistance of a helper? Yes. TOILETING - STEP 3: How much assistance does the patient require from the helper? Hands-on assistance from the helper TOILETING - STEP 4: Of the 3 tasks: 1) Adjusting clothing prior to use, 2) Cleansing of perineal area, 3) Adjusting clot jana after use; How many tasks does the patient perform WITHOUT assistance of the helper? Three tasks with steadying assistance from the helper TOILETING - SCORE: 4-MIN BLADDER MANAGEMENT: BLADDER MANAGEMENT - STEP 1: Does the patient control the bladder completely and intentionally without equipment or devices or med ications, and is always continent? No. BLADDER MANAGEMENT - STEP 2: Does the patient require the assistance of a helper? Yes. BLADDER MANAGEMENT - STEP 3: How much assistance does the patient require from the helper? Only set-up of equipment - such as plac ing it within reach of the patient or emptying a device - to maintain either satisfactory voiding pat tern or managing an external device, such as an absorbent pad, ileal device, or catheter BLADDER MANAGEMENT - SCORE: 5-SUP BOWEL MANAGEMENT: Activity did not occur on this shift BOWEL MANAGEMENT - SCORE: 7-IND TRANSFERS: BED, CHAIR, WHEELCHAIR: TRANSFERS: BED, CHAIR, WHEELCHAIR - STEP 1: Does the patient require assistance with bed, chair, or wheelchair transfers? Yes. TRANSFERS: BED, CHAIR, WHEELCHAIR - STEP 2: Does the patient require the assistance of a helper? Yes. TRANSFERS: BED, CHAIR, WHEELCHAIR - STEP 3: How much assistance does the patient require from the helper? Steadying/guiding assistance TRANSFERS: BED, CHAIR, WHEELCHAIR - SCORE: 4-MIN TRANSFERS: TOILET: Activity did not occur on this shift TRANSFERS: TOILET - SCORE: 0-UNK TRANSFERS: SHOWER: Activity did not occur on this shift TRANSFERS: SHOWER - SCORE: 0-UNK TRANSFERS: TUB: Activity did not occur on this shift TRANSFERS: TUB - SCORE: 0-UNK LOCOMOTION: WALK: Activity did not occur on this shift LOCOMOTION: WALK - SCORE: 0-UNK LOCOMOTION: WHEELCHAIR: Activity did not occur on this shift LOCOMOTION: WHEELCHAIR - SCORE: 0-UNK COMPREHENSION: COMPREHENSION - STEP 1: Does the patient require help to understand complex and abstract ideas (such as current events, finan erick, discharge planning, medical issues, relationships, etc)? Yes. COMPREHENSION - STEP 2: Does the patient require help to understand questions or statements about basic needs or ideas (such as hunger, thirst, sleep, safety, daily schedule, room location, or discomfort) half or more of the t natalie? No. COMPREHENSION - STEP 3: How often does the patient need help to understand directions and conversation about basic needs? 10% - 24% of the time COMPREHENSION - SCORE: 4-MIN EXPRESSION EXPRESSION - STEP 1: Does the patient require help expressing complex and abstract ideas (such as current events, finances , discharge planning, medical issues, relationships, etc)? No. EXPRESSION - STEP 2: Does the patient need extra time, require an assistive device (such as augmentive communication syste m or a communication board), OR does s/he have mild difficulty expressing complex and abstract ideas (including mild dysarthria or mild word-find problems)? No. EXPRESSION - SCORE: 7-IND SOCIAL INTERACTION: SOCIAL INTERACTION - STEP 1: Does the patient require a helper to interact with others in social and therapeutic situations? No. SOCIAL INTERACTION - STEP 2: Does the patient need extra time in social situations, OR does s/he interact with staff, other patien ts, and family members ONLY in structured environments, OR does s/he require medication for social in teraction? Yes, patient needs extra time SOCIAL INTERACTION - SCORE: 6-TAMMI PROBLEM SOLVING: PROBLEM SOLVING - STEP 1: Does the patient need help to solve complex problems such as managing a checking account or confronti ng interpersonal problems? Yes. PROBLEM SOLVING - STEP 2: Does the patient solve basic routine problems half or more of the time? Yes. PROBLEM SOLVING - STEP 3: How often does the patient need help to solve basic routine problems? 10%-24% of the time PROBLEM SOLVING - SCORE: 4-MIN MEMORY: MEMORY - STEP 1: Does the patient need help to remember frequently encountered people, daily routines, and executing r equests? No. MEMORY - STEP 2: Does the patient have slight difficulty recognizing frequently encountered people, daily routines, or executing requests without the need for repetition or using self-initiated or environmental cues to remember? Yes. MEMORY - SCORE: 6-TAMMI SIGNATURE PANEL: The following modified sections: Eating - Score, Grooming - Score, Dressing - Upper Body - Score, Ayaan ssing - Lower Body - Score, Toileting - Score, Bladder Management - Score, Bowel Management - Score, Transfers: Bed, Chair, Wheelchair - Score, Transfers: Toilet - Score, Transfers: Shower - Score, [place] sfers: Tub - Score, Locomotion: Walk - Score, Locomotion: Wheelchair - Score, Comprehension - Score, Expression - Score, Social Interaction - Score, Problem Solving - Score, Memory - Score were [electro nically] signed by Pam Razo CNA on ThuAug 12 2017 02:02:29 GMT-0500 (Central Daylight Time)
[2017-08-12] MEDS: CARVEDILOL 3.125 MG TAB PO SCH ×2 (05:28→16:59)
[2017-08-12] MEDS: INSULIN -REGULAR HUMAN 50 UNIT/0.5 ML ML SQ SCH ×4 (07:19→20:09)
[2017-08-12] MEDS: FLUTICASONE 50MCG NASAL SPRAY NAS SCH ×2 (07:37→20:15)
[2017-08-12] MEDS: CLOPIDOGREL 75 MG TABLET PO SCH (07:43)
[2017-08-12] MEDS: MAGNESIUM OXIDE 400 MG TAB PO SCH ×2 (07:43→20:15)
[2017-08-12] MEDS: GLUCERNA SHAKE 237 ML CAN PO SCH ×2 (07:44→20:14)
[2017-08-12] MEDS: LOSARTAN POTASSIUM 50 MG TABLET PO SCH (07:44)
[2017-08-12] MEDS: AZATHIOPRINE 50 MG TABLET PO SCH ×2 (07:45→20:15)
[2017-08-12] MEDS: PYRIDOSTIGMINE 60 MG TABLET PO SCH ×3 (08:09→20:14)
--- NOTE | 2017-08-12 14:10 | RAD REPORT ---
EXAM DESCRIPTION: RAD - Barium Swallow Modified - 08/12/2017 1:58 pm CLINICAL HISTORY: Dysphagia, history of myasthenia gravis COMPARISON: None. TECHNIQUE: The patient was given liquid, semi-solid and solid forms of barium. Lateral view fluorosc opic imaging was performed in conjunction with [facility]. FINDINGS: Laryngeal penetration occurred with the thin form of barium. There was also episodes of as piration did not trigger a cough reflex. IMPRESSION: Aspiration and laryngeal penetration observed. Additional findings on speech pathology report.
--- NOTE | 2017-08-12 14:35 | FAST ---
SHIFT START DATE/TIME: 08/12/2017 07:00 (CDT) SHIFT END DATE/TIME: 08/12/2017 19:00 (CDT) NAME AIRAM KAYE DATE OF : 1930 DATE OF ADMISSION: 08/10/2017 16:09 (CDT) PHONE: AGE: 86 N# [id number] GENDER: Male ENCOUNTER PHYSICIAN: Dr. Tyrone Lou M.D. 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 EATING: EATING - STEP 1: Does the patient require assistance when eating? Yes. EATING - STEP 2: Does the patient require the assistance of a helper? Yes. EATING - STEP 3: Does the patient perform half or more of the eating tasks? Yes. EATING - STEP 4: Does the patient need only supervision, cuing, coaxing OR help to apply an orthosis OR help to cut fo od, open containers, pour liquids, or butter bread? Yes. EATING - SCORE: 5-SUP GROOMING: Comb/brush hair Oral care Wash, rinse, and dry face Wash, rinse, and dry hands GROOMING - STEP 1: Does the patient require assistance when grooming? Yes. GROOMING - STEP 2: Does the patient require the assistance of a helper? Yes. GROOMING - STEP 3: How much assistance does the patient require from the helper? Only prior equipment preparation/set up from the helper GROOMING - SCORE: 5-SUP BATHING: Activity did not occur on this shift BATHING - SCORE: 0-UNK DRESSING - UPPER BODY: T-shirt/pullover shirt (four steps) ARTICLES SCORE Total number of steps: 4 DRESSING - UPPER BODY - STEP 1: Does the patient require help when dressing above the waist? Yes. DRESSING - UPPER BODY - STEP 2: Does the patient require the assistance of a helper? No. Patient only requires an assistive device, s uch as a button hook, velcro, or supervisor cereal. OR s/he takes more than reasonable time as s/he dresses the upper body. OR there is a concern for safety when s/he dresses the upper body DRESSING - UPPER BODY - SCORE: 6-TAMMI DRESSING - LOWER BODY: Elastic waist pants (three steps) Tied or buckled shoe - Left foot (two steps) Tied or buckled shoe - Right foot (two steps) ARTICLES SCORE Total number of steps: 7 DRESSING - LOWER BODY - STEP 1: Does the patient require help when dressing below the waist? Yes. DRESSING - LOWER BODY - STEP 2: Does the patient require the assistance of a helper? No. Patient requires an assistive device such as a supervisor cereal. OR s/he takes more than reasonable time as s/he dresses the lower body, OR there is a con cern for safety when s/he dresses the lower body DRESSING - LOWER BODY - SCORE: 6-TAMMI TOILETING: TOILETING - STEP 1: Does the patient require assistance with toileting? Yes. TOILETING - STEP 2: Does the patient require the assistance of a helper? Yes. TOILETING - STEP 3: How much assistance does the patient require from the helper? Hands-on assistance from the helper TOILETING - STEP 4: Of the 3 tasks: 1) Adjusting clothing prior to use, 2) Cleansing of perineal area, 3) Adjusting clot jana after use; How many tasks does the patient perform WITHOUT assistance of the helper? Three tasks with steadying assistance from the helper TOILETING - SCORE: 4-MIN BLADDER MANAGEMENT: BLADDER MANAGEMENT - STEP 1: Does the patient control the bladder completely and intentionally without equipment or devices or med ications, and is always continent? No. BLADDER MANAGEMENT - STEP 2: Does the patient require the assistance of a helper? Yes. BLADDER MANAGEMENT - STEP 3: How much assistance does the patient require from the helper? Only set-up of equipment - such as plac ing it within reach of the patient or emptying a device - to maintain either satisfactory voiding pat tern or managing an external device, such as an absorbent pad, ileal device, or catheter BLADDER MANAGEMENT - SCORE: 5-SUP BLADDER MANAGEMENT - FREQUENCY OF ACCIDENTS: BLADDER MANAGEMENT(FA) - STEP 1: How many accidents has the patient had during the current shift? 2 BOWEL MANAGEMENT: BOWEL MANAGEMENT - STEP 1: Does the patient control bowels completely and intentionally without equipment devices or medications AND is always continent? No. BOWEL MANAGEMENT - STEP 2: Does the patient require the assistance of a helper? No, patient requires medication for control such as stool softeners, suppositories, laxatives, enemas, or OTC medications BOWEL MANAGEMENT - SCORE: 6-TAMMI BOWEL MANAGEMENT - FREQUENCY OF ACCIDENTS: BOWEL MANAGEMENT(FA) - STEP 1: How many accidents has the patient had during the current shift? 0 TRANSFERS: BED, CHAIR, WHEELCHAIR: TRANSFERS: BED, CHAIR, WHEELCHAIR - STEP 1: Does the patient require assistance with bed, chair, or wheelchair transfers? Yes. TRANSFERS: BED, CHAIR, WHEELCHAIR - STEP 2: Does the patient require the assistance of a helper? Yes. TRANSFERS: BED, CHAIR, WHEELCHAIR - STEP 3: How much assistance does the patient require from the helper? Steadying/guiding assistance TRANSFERS: BED, CHAIR, WHEELCHAIR - SCORE: 4-MIN TRANSFERS: TOILET: TRANSFERS: TOILET - STEP 1: Does the patient require assistance with toilet transfers? Yes. TRANSFERS: TOILET - STEP 2: Does the patient require the assistance of a helper? Yes. TRANSFERS: TOILET - STEP 3: How much assistance does the patient require from the helper? Patient performs half or more of the tr ansferring tasks TRANSFERS: TOILET - STEP 4: Does the patient need only incidental help such as contact guard or steadying during toilet transfer? Yes. TRANSFERS: TOILET - SCORE: 4-MIN TRANSFERS: SHOWER: Activity did not occur on this shift TRANSFERS: SHOWER - SCORE: 0-UNK TRANSFERS: TUB: Activity did not occur on this shift TRANSFERS: TUB - SCORE: 0-UNK LOCOMOTION: WALK: Activity did not occur on this shift LOCOMOTION: WALK - SCORE: 0-UNK LOCOMOTION: WHEELCHAIR: LOCOMOTION: WHEELCHAIR - STEP 1: Does the patient need help to go 150 feet in a wheelchair? Yes. LOCOMOTION: WHEELCHAIR - STEP 2: How much assistance does the patient need from the helper? Only supervision, cuing, or coaxing LOCOMOTION: WHEELCHAIR - SCORE: 5-SUP COMPREHENSION: COMPREHENSION: TYPE: Both COMPREHENSION - STEP 1: Does the patient require help to understand complex and abstract ideas (such as current events, finan erick, discharge planning, medical issues, relationships, etc)? Yes. COMPREHENSION - STEP 2: Does the patient require help to understand questions or statements about basic needs or ideas (such as hunger, thirst, sleep, safety, daily schedule, room location, or discomfort) half or more of the t natalie? Yes. COMPREHENSION - STEP 3: Is the patient basically able to understand and respond appropriately and consistently? Yes. COMPREHENSION - SCORE: 2-MAX EXPRESSION EXPRESSION: TYPE: Both EXPRESSION - STEP 1: Does the patient require help expressing complex and abstract ideas (such as current events, finances , discharge planning, medical issues, relationships, etc)? Yes. EXPRESSION - STEP 2: Does the patient require help to express basic necessities or ideas (such as hunger, thirst, sleep, s afety, daily schedule, room location, or discomfort) half or more of the time? No. EXPRESSION - STEP 3: How often does the patient need help to express directions and conversation about basic needs? 10-24% of the time EXPRESSION - SCORE: 4-MIN SOCIAL INTERACTION: SOCIAL INTERACTION - STEP 1: Does the patient require a helper to interact with others in social and therapeutic situations? No. SOCIAL INTERACTION - STEP 2: Does the patient need extra time in social situations, OR does s/he interact with staff, other patien ts, and family members ONLY in structured environments, OR does s/he require medication for social in teraction? Yes, patient needs extra time SOCIAL INTERACTION - SCORE: 6-TAMMI PROBLEM SOLVING: PROBLEM SOLVING - STEP 1: Does the patient need help to solve complex problems such as managing a checking account or confronti ng interpersonal problems? Yes. PROBLEM SOLVING - STEP 2: Does the patient solve basic routine problems half or more of the time? Yes. PROBLEM SOLVING - STEP 3: How often does the patient need help to solve basic routine problems? 10%-24% of the time PROBLEM SOLVING - SCORE: 4-MIN MEMORY: MEMORY - STEP 1: Does the patient need help to remember frequently encountered people, daily routines, and executing r equests? Yes. MEMORY - STEP 2: How often does the patient need help to remember frequently encountered people, daily routines, and e xecuting requests? 10% - 24% of the time MEMORY - SCORE: 4-MIN SIGNATURE PANEL: The following modified sections: Eating - Score, Grooming - Score, Bathing - Score, Dressing - Upper Body - Score, Dressing - Lower Body - Score, Toileting - Score, Bladder Management - Score, Bowel Man agement - Score, Transfers: Bed, Chair, Wheelchair - Score, Transfers: Toilet - Score, Transfers: [place] wer - Score, Transfers: Tub - Score, Locomotion: Walk - Score, Locomotion: Wheelchair - Score, Compre hension - Score, Expression - Score, Social Interaction - Score, Problem Solving - Score, Memory - Sc ore were [electronically] signed by Bindu Maldonado C.N.A. on ThuAug 12 2017 13:37:44 T-0500 ([place] [place])
--- NOTE | 2017-08-12 16:11 | FAST ---
ENCOUNTER DATE AND TIME: 08/12/2017 08:00 (CDT) NAME AIRAM KAYE DATE OF : 1930 DATE OF ADMISSION: 08/10/2017 16:09 (CDT) PHONE: AGE: 86 N# [id number] GENDER: Male ENCOUNTER PHYSICIAN: Dr. Tyrone Lou M.D. 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 EATING: EATING - STEP 1: Does the patient require assistance when eating? No. EATING - SCORE: 7-IND GROOMING: Comb/brush hair Oral care Wash, rinse, and dry face Wash, rinse, and dry hands GROOMING - STEP 1: Does the patient require assistance when grooming? No. GROOMING - SCORE: 7-IND BATHING: Abdomen Buttocks Chest Left arm Left lower leg and foot Left upper leg Perineal area Right arm Right lower leg and foot Right upper leg BATHING - STEP 1: Does the patient require assistance when bathing? Yes. BATHING - STEP 2: Does the patient require the assistance of a helper? Yes. BATHING - STEP 3: How much assistance does the patient require from the helper? Only incidental help such as placement of a wash cloth in his/her hand a few times as s/he bathes OR help to bathe just one or two areas of the body BATHING - SCORE: 4-MIN DRESSING - UPPER BODY: T-shirt/pullover shirt (four steps) ARTICLES SCORE Total number of steps: 4 DRESSING - UPPER BODY - STEP 1: Does the patient require help when dressing above the waist? No. DRESSING - UPPER BODY - SCORE: 7-IND DRESSING - LOWER BODY: Elastic waist pants (three steps) Sock - Left foot (one step) Sock - Right foot (one step) Tied or buckled shoe - Left foot (two steps) Tied or buckled shoe - Right foot (two steps) ARTICLES SCORE Total number of steps: 9 DRESSING - LOWER BODY - STEP 1: Does the patient require help when dressing below the waist? Yes. DRESSING - LOWER BODY - STEP 2: Does the patient require the assistance of a helper? Yes. DRESSING - LOWER BODY - STEP 3: Does the helper touch the patient while dressing? Yes. DRESSING - LOWER BODY - STEP 4: How many of the total steps does the patient complete on his/her own? 9 DRESSING - LOWER BODY - SCORE: 4-MIN TOILETING: Activity did not occur on this shift TOILETING - SCORE: 0-UNK BLADDER MANAGEMENT: Activity did not occur on this shift BLADDER MANAGEMENT - SCORE: 7-IND BOWEL MANAGEMENT: Activity did not occur on this shift BOWEL MANAGEMENT - SCORE: 7-IND TRANSFERS: BED, CHAIR, WHEELCHAIR: Activity did not occur on this shift TRANSFERS: BED, CHAIR, WHEELCHAIR - SCORE: 0-UNK TRANSFERS: TOILET: Activity did not occur on this shift TRANSFERS: TOILET - SCORE: 0-UNK TRANSFERS: SHOWER: Activity did not occur on this shift TRANSFERS: SHOWER - SCORE: 0-UNK TRANSFERS: TUB: TRANSFERS: TUB - STEP 1: Does the patient require assistance with tub transfers? Yes. TRANSFERS: TUB - STEP 2: Does the patient require the assistance of a helper? Yes. TRANSFERS: TUB - STEP 3: How much assistance does the patient require from the helper? Incidental help such as contact guardin g or steadying, OR help to lift one leg into the tub TRANSFERS: TUB - SCORE: 4-MIN LOCOMOTION: WALK: Activity did not occur on this shift LOCOMOTION: WALK - SCORE: 0-UNK LOCOMOTION: WHEELCHAIR: Activity did not occur on this shift LOCOMOTION: WHEELCHAIR - SCORE: 0-UNK LOCOMOTION: STAIRS: Activity did not occur on this shift LOCOMOTION: STAIRS - SCORE: 0-UNK COMPREHENSION: COMPREHENSION: TYPE: Both COMPREHENSION - STEP 1: Does the patient require help to understand complex and abstract ideas (such as current events, finan erick, discharge planning, medical issues, relationships, etc)? No. COMPREHENSION - STEP 2: Does the patient need extra time, require an assistive device (such as glasses, hearing aids, or an a ugmentative communication system), OR does s/he have mild difficulty expressing complex and abstract ideas (including mild dysarthria or mild word-finding problems)? Yes. COMPREHENSION - SCORE: 6-TAMMI EXPRESSION EXPRESSION: TYPE: Both EXPRESSION - STEP 1: Does the patient require help expressing complex and abstract ideas (such as current events, finances , discharge planning, medical issues, relationships, etc)? No. EXPRESSION - STEP 2: Does the patient need extra time, require an assistive device (such as augmentive communication syste m or a communication board), OR does s/he have mild difficulty expressing complex and abstract ideas (including mild dysarthria or mild word-find problems)? Yes. EXPRESSION - SCORE: 6-TAMMI SOCIAL INTERACTION: SOCIAL INTERACTION - STEP 1: Does the patient require a helper to interact with others in social and therapeutic situations? No. SOCIAL INTERACTION - STEP 2: Does the patient need extra time in social situations, OR does s/he interact with staff, other patien ts, and family members ONLY in structured environments, OR does s/he require medication for social in teraction? Yes, patient needs extra time SOCIAL INTERACTION - SCORE: 6-TAMMI PROBLEM SOLVING: PROBLEM SOLVING - STEP 1: Does the patient need help to solve complex problems such as managing a checking account or confronti ng interpersonal problems? No. PROBLEM SOLVING - STEP 2: Does the patient require extra time to make decisions or solve problems, OR does s/he have slight dif ficulty reading, initiating, or self-correcting in unfamiliar situations? Yes, patient needs extra ti me. PROBLEM SOLVING - SCORE: 6-TAMMI MEMORY: MEMORY - STEP 1: Does the patient need help to remember frequently encountered people, daily routines, and executing r equests? No. MEMORY - STEP 2: Does the patient have slight difficulty recognizing frequently encountered people, daily routines, or executing requests without the need for repetition or using self-initiated or environmental cues to remember? Yes. MEMORY - SCORE: 6-TAMMI SIGNATURE PANEL: The following modified sections: Eating - Score, Grooming - Score, Bathing - Score, Dressing - Upper Body - Score, Dressing - Lower Body - Score, Toileting - Score, Transfers: Bed, Chair, Wheelchair - S core, Transfers: Toilet - Score, Transfers: Shower - Score, Transfers: Tub - Score, Comprehension - S core, Expression - Score, Social Interaction - Score, Problem Solving - Score, Memory - Score were [e lectronically] signed by Sammi Escobar OT on ThuAug 12 2017 15:13:53 T-0500 ([place] Daylight natalie)
--- NOTE | 2017-08-12 16:43 | FAST ---
ENCOUNTER DATE AND TIME: 08/12/2017 08:00 (CDT) NAME AIRAM KAYE DATE OF : 1930 DATE OF ADMISSION: 08/10/2017 16:09 (CDT) PHONE: AGE: 86 N# [id number] GENDER: Male ENCOUNTER PHYSICIAN: Dr. Tyrone Lou M.D. 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 EATING: Activity did not occur on this shift EATING - SCORE: 0-UNK GROOMING: Activity did not occur on this shift GROOMING - SCORE: 0-UNK BATHING: Activity did not occur on this shift BATHING - SCORE: 0-UNK DRESSING - UPPER BODY: Activity did not occur on this shift Patient is not dressing in public clothing ARTICLES SCORE Total number of steps: 0 DRESSING - UPPER BODY - SCORE: 0-UNK DRESSING - LOWER BODY: Activity did not occur on this shift Patient is not dressing in public clothing ARTICLES SCORE Total number of steps: 0 DRESSING - LOWER BODY - SCORE: 0-UNK TOILETING: Activity did not occur on this shift TOILETING - SCORE: 0-UNK BLADDER MANAGEMENT: Activity did not occur on this shift BLADDER MANAGEMENT - SCORE: 7-IND BOWEL MANAGEMENT: Activity did not occur on this shift BOWEL MANAGEMENT - SCORE: 7-IND TRANSFERS: BED, CHAIR, WHEELCHAIR: TRANSFERS: BED, CHAIR, WHEELCHAIR - STEP 1: Does the patient require assistance with bed, chair, or wheelchair transfers? Yes. TRANSFERS: BED, CHAIR, WHEELCHAIR - STEP 2: Does the patient require the assistance of a helper? Yes. TRANSFERS: BED, CHAIR, WHEELCHAIR - STEP 3: How much assistance does the patient require from the helper? Steadying/guiding assistance TRANSFERS: BED, CHAIR, WHEELCHAIR - SCORE: 4-MIN TRANSFERS: TOILET: Activity did not occur on this shift TRANSFERS: TOILET - SCORE: 0-UNK TRANSFERS: SHOWER: Activity did not occur on this shift TRANSFERS: SHOWER - SCORE: 0-UNK TRANSFERS: TUB: Activity did not occur on this shift TRANSFERS: TUB - SCORE: 0-UNK LOCOMOTION: WALK: LOCOMOTION: WALK - STEP 1: Does the patient need help to walk 150 feet? Yes. LOCOMOTION: WALK - STEP 2: How much assistance does the patient require to walk a minimum of 150 feet? Only incidental help such as contact guarding or steadying LOCOMOTION: WALK - SCORE: 4-MIN LOCOMOTION: WHEELCHAIR: LOCOMOTION: WHEELCHAIR - STEP 1: Does the patient need help to go 150 feet in a wheelchair? Yes. LOCOMOTION: WHEELCHAIR - STEP 2: How much assistance does the patient need from the helper? Patient goes less than 150 feet - but more than 50 feet - with the assistance of only one helper LOCOMOTION: WHEELCHAIR - SCORE: 2-MAX LOCOMOTION: STAIRS: LOCOMOTION: STAIRS - STEP 1: Does the patient need help to go up and down 12 to 14 stairs? Yes. LOCOMOTION: STAIRS - STEP 2: How much assistance does the patient need from the helper to go a minimum of 12 to 14 stairs? The pat ient goes less than 12 to 14 stairs - but more than 4 to 6 stairs LOCOMOTION: STAIRS - SCORE: 2-MAX COMPREHENSION: COMPREHENSION - SCORE: 0-UNK EXPRESSION EXPRESSION - SCORE: 0-UNK SOCIAL INTERACTION: SOCIAL INTERACTION - SCORE: 0-UNK PROBLEM SOLVING: PROBLEM SOLVING - SCORE: 0-UNK MEMORY: MEMORY - SCORE: 0-UNK SIGNATURE PANEL: The following modified sections: Transfers: Bed, Chair, Wheelchair - Score, Transfers: Toilet - Score , Locomotion: Walk - Score, Locomotion: Wheelchair - Score, Locomotion: Stairs - Score were [electron darvin] signed by Milan Elias PTA on ThuAug 12 2017 15:46:04 GMT-0500 (Central Daylight Time)
[2017-08-12] MEDS: RIVAROXABAN 20 MG TABLET PO SCH (16:48)
--- NOTE | 2017-08-12 18:53 | R.PN ---
ENCOUNTER DATE AND TIME: 08/12/2017 17:50 (CDT) NAME AIRAM KAYE DATE OF : 1930 DATE OF ADMISSION: 08/10/2017 16:09 (CDT) Debility secondary to Myasthenia GravisCHIEF COMPLAINT: Debility SUBJECTIVE: Pt denied any Shortness of Breath. Pt denied any depression. Ambulated 420' with contact guard assistance using a rolling walker. Up and down [address] guard assistance. VITAL SIGNS Temperature: 97.6 SBP/DBP: 118/68 Pulse: 81 Resp: 16 MEDICATION ALLERGIES: Tramadol, Levofloxacin, Penicillin ENVIRONMENTAL ALLERGIES: Iodine - Substance Allergies None Known - Other Allergies Iodinated contrast, latex allergy, latex natural rubber NURSING: - Shower allowing shower - Lab Results blood Sugar Check ACHS - Bladder care per protocol - Skin care per protocol PRECAUTIONS: - Fall Precaution Bed and chair alarm ACTIVITIES OOB only with supervision THERAPIES: - Occupational Therapy Evaluate and Treat. Cognitive Retraining. Visual Perceptual Training. - Speech Therapy Cognitive Training. Memory Strategies. Expressive Language Skills. Receptive Language Skills. Speech Intelligibility Training. - Physical Therapy Evaluate and Treat. PHYSICAL EXAM - Gen Alert and awake Lying in bed No apparent distress Oriented to: person, time, and place - Vital Signs Vital signs stable, afebrile - Skin No beakdown No abnormalities - Eyes No abnormalities - ENMT No abnormalities - Neck No abnormalities - CVS RRR - Chest Upper airway congestion. - Resp Single breath count of 23 - Abd + BS - GI + bowel sound Deferred - No abnormalities - Ext No significant edema. - MSK 2-3/5 weakness in right and left distal lower extremities. Otherwise 4/5 in the proximal lower extrem ities. - Neuro Steppage Gait, Decreased tone in lower extremities. Stocking loss to light touch in the legs. - Psych No abnormalities ASSESSMENT: Pt. is a 86 yo Right-handed white male.On 08/05/2017 he was admitted to [facility] with diagnosis debility secondary to myasthenia gravis. No evidence of focal neurological dificit ..On 08/05/2017 he was admitted to [facility] with diagnosis Debility secondary to Myasthenia Gravis.His impairment category is debility secondary to myasthenia gravis. No evidence of focal neurological dificit..His impairment category is Stroke 01 - Other Stroke (.9).Pre-morbi dly, Pt. was independent/mod-I in Sphincter Control, Transfers Control, Communication, Social Cogniti on, Self-Care, and Locomotion; and he had good Sphincter Control.Currently, he has deficits of Endura nce, Safety Awareness, Transfers Control, Communication, Social Cognition, Balance, Self-Care, and Lo comotion.Pt. is now referred to [facility] for acute in-patient rehabilitation in order to maximize patient's functional independence in activities of daily living, strength, ROM, and mobility.- Rehab Goal Patient has realistic goal of being discharged at assistance level 6-Ankit to reside at Home with Fam amanda/Relatives. MDM/PLAN: - Diet Type ADA 1800 for Dementia, TBI, Stroke, or others - Diet - Liquid Texture Regular - Physical Therapy Gait dysfunction - to improve, our physical therapists will perform initial evaluation of pt's status upon admission and devise an individualized program for Gait Training, and Wheel Chair mobility Inability to transfer - to improve, our physical therapists will perform initial evaluation of pt's status upon admission and devise an individualized program for Bed mobility Need for home safety evaluation - to improve, our physical therapists will perform initial evaluation of pt's status upon admission and devise an individualized program for Home Evaluation Need in caregiver upon discharge - to improve, our physical therapists will perform initial evaluatio n of pt's status upon admission and devise an individualized program for Caregiver Training Edema - to improve, our physical therapists will perform initial evaluation of pt's status upon admis jeanette and devise an individualized program for Elevation Training, and Lymphedema Therapy New precaution - to improve, our physical therapists will perform initial evaluation of pt's status u jennifer admission and devise an individualized program for Patient precaution education Poor balance - to improve, our physical therapists will perform initial evaluation of pt's status up on admission and devise an individualized program for Balance Training Poor endurance - to improve, our physical therapists will perform initial evaluation of pt's status upon admission and devise an individualized program for Endurance Training Weakness - to improve, our physical therapists will perform initial evaluation of pt's status upon ad mission and devise an individualized program for Aquatic Therapy, Neuromuscular Reeducation, and Stre ngthening Achieving independence - to improve, our physical therapists will perform initial evaluation of pt's status upon admission and devise an individualized program for Community Reintegration Activities - Tube Feed N/A - Lab Results blood Sugar Check ACHS - Bladder care per protocol - Fall Precaution Bed and chair alarm - Skin care per protocol - Diet - Solid Texture Regular - Shower allowing shower - Occupational Therapy ADL deficits - to improve, our occupation therapists will perform initial evaluation of pt's status upon admission and devise an individualized program for Bathing, Bed mobility, Community Reintegratio n, Cooking, Dressing, Eating, Fine Motor Skills, Grooming, Homemaking, Kitchen Mobility, Laundry, Pat ient Education, Safety Awareness, Splinting - Positioning, Transfers(Toilet, Tub, Shower), and Wheel Chair Management Cognitive deficits - to improve, our occupation therapists will perform initial evaluation of pt's s tatus upon admission and devise an individualized program for Cognition - orientation Need for medicare nurse - to improve, our occupation therapists will perform initial evaluation of pt's s tatus upon admission and devise an individualized program for Caregiver Training Weakness - to improve, our occupation therapists will perform initial evaluation of pt's status upon admission and devise an individualized program for Aquatic Therapy, Balance, Endurance, UE ROM, and U E strengthening FUNCTIONAL STATUS: UPDATED AT WEEKLY TEAM CONFERENCE - Bladder Same Bladder control device used: diaper Same Bladder medication used: N/A Same accident frequency: 1-Dep - Five or more accidents in the past 7 days - Bowel Same accident frequency: 7-Ind - No accidents in the past 7 days - Walking Same score based on distance walked: 1(<=50ft) - Wheelchair Same score based on distance traveled: 0(N/A) FUNCTIONAL STATUS: - Self-Care A. Eating sup B. Grooming sup C. Bathing sup D. Dressing - Upper sup E. Dressing - Lower sup F. Toileting sup - Sphincter Control G: Bladder control Dep H: Bowel control Ind - Transfers Control I. Bed/Chair/Wheelchair maxA J. Toilet modA K. Tub/Shower ADNO - Locomotion L. Walk/Wheelchair (B) maxA M. Stairs ADNO - Communication N. Comprehension (B) sup O. Expression (B) sup - Social Cognition P. Social Interaction sup Q. Problem Solving sup R. Memory sup - Endurance Poor - Balance Poor - Safety Awareness Poor CURRENT FUNC. DEFICITS: Endurance, Safety Awareness, Transfers Control, Communication, Social Cognition, Balance, Self-Care, and Locomotion SIGNATURE PANEL: (CDT)
[2017-08-12] MEDS: ATORVASTATIN 10 MG TAB PO SCH (20:14)
[2017-08-12] MEDS: RANITIDINE 150 MG TABLET PO SCH (20:15)
[2017-08-12] MEDS: MELATONIN 3 MG TABLET PO PRN (20:15)
[2017-08-13] MEDS: CARVEDILOL 3.125 MG TAB PO SCH ×2 (05:01→17:02)
--- NOTE | 2017-08-13 05:03 | FAST ---
SHIFT START DATE/TIME: 08/12/2017 19:00 (CDT) SHIFT END DATE/TIME: 08/13/2017 07:00 (CDT) NAME AIRAM KAYE DATE OF : 1930 DATE OF ADMISSION: 08/10/2017 16:09 (CDT) PHONE: AGE: 86 N# [id number] GENDER: Male ENCOUNTER PHYSICIAN: Dr. Tyrone Lou M.D. 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 EATING: EATING - STEP 1: Does the patient require assistance when eating? Yes. EATING - STEP 2: Does the patient require the assistance of a helper? Yes. EATING - STEP 3: Does the patient perform half or more of the eating tasks? Yes. EATING - STEP 4: Does the patient need only supervision, cuing, coaxing OR help to apply an orthosis OR help to cut fo od, open containers, pour liquids, or butter bread? Yes. EATING - SCORE: 5-SUP GROOMING: Comb/brush hair Oral care Wash, rinse, and dry face Wash, rinse, and dry hands GROOMING - STEP 1: Does the patient require assistance when grooming? Yes. GROOMING - STEP 2: Does the patient require the assistance of a helper? Yes. GROOMING - STEP 3: How much assistance does the patient require from the helper? Only prior equipment preparation/set up from the helper GROOMING - SCORE: 5-SUP BATHING: Activity did not occur on this shift BATHING - SCORE: 0-UNK DRESSING - UPPER BODY: Patient is not dressing in public clothing ARTICLES SCORE Total number of steps: 0 DRESSING - UPPER BODY - SCORE: 0-UNK DRESSING - LOWER BODY: Patient is not dressing in public clothing ARTICLES SCORE Total number of steps: 0 DRESSING - LOWER BODY - SCORE: 0-UNK TOILETING: TOILETING - STEP 1: Does the patient require assistance with toileting? Yes. TOILETING - STEP 2: Does the patient require the assistance of a helper? Yes. TOILETING - STEP 3: How much assistance does the patient require from the helper? Only supervision TOILETING - SCORE: 5-SUP BLADDER MANAGEMENT: BLADDER MANAGEMENT - STEP 1: Does the patient control the bladder completely and intentionally without equipment or devices or med ications, and is always continent? No. BLADDER MANAGEMENT - STEP 2: Does the patient require the assistance of a helper? Yes. BLADDER MANAGEMENT - STEP 3: How much assistance does the patient require from the helper? Only set-up of equipment - such as plac ing it within reach of the patient or emptying a device - to maintain either satisfactory voiding pat tern or managing an external device, such as an absorbent pad, ileal device, or catheter BLADDER MANAGEMENT - SCORE: 5-SUP BLADDER MANAGEMENT - FREQUENCY OF ACCIDENTS: BLADDER MANAGEMENT(FA) - STEP 1: How many accidents has the patient had during the current shift? 0 BOWEL MANAGEMENT: Activity did not occur on this shift BOWEL MANAGEMENT - SCORE: 7-IND TRANSFERS: BED, CHAIR, WHEELCHAIR: TRANSFERS: BED, CHAIR, WHEELCHAIR - STEP 1: Does the patient require assistance with bed, chair, or wheelchair transfers? Yes. TRANSFERS: BED, CHAIR, WHEELCHAIR - STEP 2: Does the patient require the assistance of a helper? Yes. TRANSFERS: BED, CHAIR, WHEELCHAIR - STEP 3: How much assistance does the patient require from the helper? Steadying/guiding assistance TRANSFERS: BED, CHAIR, WHEELCHAIR - SCORE: 4-MIN TRANSFERS: TOILET: TRANSFERS: TOILET - STEP 1: Does the patient require assistance with toilet transfers? Yes. TRANSFERS: TOILET - STEP 2: Does the patient require the assistance of a helper? Yes. TRANSFERS: TOILET - STEP 3: How much assistance does the patient require from the helper? Patient performs half or more of the tr ansferring tasks TRANSFERS: TOILET - STEP 4: Does the patient need only incidental help such as contact guard or steadying during toilet transfer? Yes. TRANSFERS: TOILET - SCORE: 4-MIN TRANSFERS: SHOWER: Activity did not occur on this shift TRANSFERS: SHOWER - SCORE: 0-UNK TRANSFERS: TUB: Activity did not occur on this shift TRANSFERS: TUB - SCORE: 0-UNK LOCOMOTION: WALK: Activity did not occur on this shift LOCOMOTION: WALK - SCORE: 0-UNK LOCOMOTION: WHEELCHAIR: Activity did not occur on this shift LOCOMOTION: WHEELCHAIR - SCORE: 0-UNK COMPREHENSION: COMPREHENSION: TYPE: Both COMPREHENSION - STEP 1: Does the patient require help to understand complex and abstract ideas (such as current events, finan erick, discharge planning, medical issues, relationships, etc)? No. COMPREHENSION - STEP 2: Does the patient need extra time, require an assistive device (such as glasses, hearing aids, or an a ugmentative communication system), OR does s/he have mild difficulty expressing complex and abstract ideas (including mild dysarthria or mild word-finding problems)? Yes. COMPREHENSION - SCORE: 6-TAMMI EXPRESSION EXPRESSION: TYPE: Both EXPRESSION - STEP 1: Does the patient require help expressing complex and abstract ideas (such as current events, finances , discharge planning, medical issues, relationships, etc)? No. EXPRESSION - STEP 2: Does the patient need extra time, require an assistive device (such as augmentive communication syste m or a communication board), OR does s/he have mild difficulty expressing complex and abstract ideas (including mild dysarthria or mild word-find problems)? No. EXPRESSION - SCORE: 7-IND SOCIAL INTERACTION: SOCIAL INTERACTION - STEP 1: Does the patient require a helper to interact with others in social and therapeutic situations? No. SOCIAL INTERACTION - STEP 2: Does the patient need extra time in social situations, OR does s/he interact with staff, other patien ts, and family members ONLY in structured environments, OR does s/he require medication for social in teraction? Yes, patient needs extra time SOCIAL INTERACTION - SCORE: 6-TAMMI PROBLEM SOLVING: PROBLEM SOLVING - STEP 1: Does the patient need help to solve complex problems such as managing a checking account or confronti ng interpersonal problems? No. PROBLEM SOLVING - STEP 2: Does the patient require extra time to make decisions or solve problems, OR does s/he have slight dif ficulty reading, initiating, or self-correcting in unfamiliar situations? Yes, patient needs extra ti me. PROBLEM SOLVING - SCORE: 6-TAMMI MEMORY: MEMORY - STEP 1: Does the patient need help to remember frequently encountered people, daily routines, and executing r equests? No. MEMORY - STEP 2: Does the patient have slight difficulty recognizing frequently encountered people, daily routines, or executing requests without the need for repetition or using self-initiated or environmental cues to remember? Yes. MEMORY - SCORE: 6-TAMMI SIGNATURE PANEL: The following modified sections: Eating - Score, Grooming - Score, Bathing - Score, Dressing - Upper Body - Score, Dressing - Lower Body - Score, Toileting - Score, Bladder Management - Score, Bowel Man agement - Score, Transfers: Bed, Chair, Wheelchair - Score, Transfers: Toilet - Score, Transfers: [place] wer - Score, Transfers: Tub - Score, Locomotion: Walk - Score, Locomotion: Wheelchair - Score, Compre hension - Score, Expression - Score, Social Interaction - Score, Problem Solving - Score, Memory - Sc ore were [electronically] signed by Suma May C.[email or web address] on ThuAug 13 2017 04:05:47 GMT-0500 ( Central Daylight Time)
[2017-08-13 06:18] LABS: Absolute Lymphocytes (CBC) 1.6 K/uL (0.7-4.9); Absolute Monocytes 0.6 K/uL (0.1-1.3); Absolute Neutrophil 3.1 K/uL (1.8-8.0); Basophils % 0.8 % (0-1.3); Eosinophils % 5.4 % (0-4.4); Hematocrit 38.8 % (39.6-49.0); Lymphocytes % 28.1 % (15.3-44.8); MCH 32.8 pg (27.0-35.0); MCV 98.8 fL (80-100); MPV 8.9 fL (7.6-11.3); Monocytes % 10.3 % (3.3-12.3); RBC Red Blood Cell Count 3.93 M/uL (4.33-5.43)
[2017-08-13 06:58] LABS: Albumin 3.2 g/dL (3.2-5.5); Magnesium 1.9 mg/dL (1.8-2.5); Potassium 4.8 mEq/L (3.6-5.0); Prealbumin 18.9 mg/dl (18-38)
[2017-08-13] MEDS: FLUTICASONE 50MCG NASAL SPRAY NAS SCH ×2 (06:59→19:57)
[2017-08-13] MEDS: INSULIN -REGULAR HUMAN 50 UNIT/0.5 ML ML SQ SCH ×4 (07:48→20:59)
[2017-08-13] MEDS: AZATHIOPRINE 50 MG TABLET PO SCH ×2 (07:52→19:57)
[2017-08-13] MEDS: MAGNESIUM OXIDE 400 MG TAB PO SCH ×2 (07:52→19:58)
[2017-08-13] MEDS: CLOPIDOGREL 75 MG TABLET PO SCH (07:52)
[2017-08-13] MEDS: LOSARTAN POTASSIUM 50 MG TABLET PO SCH (07:54)
[2017-08-13] MEDS: GLUCERNA SHAKE 237 ML CAN PO SCH ×2 (07:55→19:57)
[2017-08-13] MEDS: PYRIDOSTIGMINE 60 MG TABLET PO SCH ×3 (07:59→20:00)
[2017-08-13] MEDS: ONDANSETRON 4 MG (ODT) TAB PO PRN (10:03)
--- NOTE | 2017-08-13 13:48 | FAST ---
SHIFT START DATE/TIME: 08/13/2017 07:00 (CDT) SHIFT END DATE/TIME: 08/13/2017 19:00 (CDT) NAME AIRAM KAYE DATE OF : 1930 DATE OF ADMISSION: 08/10/2017 16:09 (CDT) PHONE: AGE: 86 N# [id number] GENDER: Male ENCOUNTER PHYSICIAN: Dr. Tyrone Lou M.D. 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 EATING: EATING - STEP 1: Does the patient require assistance when eating? Yes. EATING - STEP 2: Does the patient require the assistance of a helper? No, patient only requires an assistive device, O R s/he takes more than reasonable time to eat, OR there is a safety concern, OR s/he requires modifie d food consistency EATING - SCORE: 6-TAMMI GROOMING: Comb/brush hair Oral care Wash, rinse, and dry face Wash, rinse, and dry hands GROOMING - STEP 1: Does the patient require assistance when grooming? Yes. GROOMING - STEP 2: Does the patient require the assistance of a helper? No. The patient only requires an assistive devic e, OR takes more than reasonable time to groom, OR there is a concern for safety as the patient groom s GROOMING - SCORE: 6-TAMMI BATHING: Activity did not occur on this shift BATHING - SCORE: 0-UNK DRESSING - UPPER BODY: Activity did not occur on this shift ARTICLES SCORE Total number of steps: 0 DRESSING - UPPER BODY - SCORE: 0-UNK DRESSING - LOWER BODY: Activity did not occur on this shift ARTICLES SCORE Total number of steps: 0 DRESSING - LOWER BODY - SCORE: 0-UNK TOILETING: TOILETING - STEP 1: Does the patient require assistance with toileting? Yes. TOILETING - STEP 2: Does the patient require the assistance of a helper? Yes. TOILETING - STEP 3: How much assistance does the patient require from the helper? Hands-on assistance from the helper TOILETING - STEP 4: Of the 3 tasks: 1) Adjusting clothing prior to use, 2) Cleansing of perineal area, 3) Adjusting clot jana after use; How many tasks does the patient perform WITHOUT assistance of the helper? Two tasks TOILETING - SCORE: 3-MOD BLADDER MANAGEMENT: BLADDER MANAGEMENT - STEP 1: Does the patient control the bladder completely and intentionally without equipment or devices or med ications, and is always continent? No. BLADDER MANAGEMENT - STEP 2: Does the patient require the assistance of a helper? No, patient requires and independently uses an a ssistive device, such as a urinal, bedpan, bedside commode, catheter, absorbent pad, or collecting de vice BLADDER MANAGEMENT - SCORE: 6-TAMMI BOWEL MANAGEMENT: BOWEL MANAGEMENT - STEP 1: Does the patient control bowels completely and intentionally without equipment devices or medications AND is always continent? No. BOWEL MANAGEMENT - STEP 2: Does the patient require the assistance of a helper? No, patient requires and manages independently a n assistive device such as a bedpan, bedside commode, absorbent pad, incontinent device, or collectin g device BOWEL MANAGEMENT - SCORE: 6-TAMMI TRANSFERS: BED, CHAIR, WHEELCHAIR: TRANSFERS: BED, CHAIR, WHEELCHAIR - STEP 1: Does the patient require assistance with bed, chair, or wheelchair transfers? Yes. TRANSFERS: BED, CHAIR, WHEELCHAIR - STEP 2: Does the patient require the assistance of a helper? Yes. TRANSFERS: BED, CHAIR, WHEELCHAIR - STEP 3: How much assistance does the patient require from the helper? Steadying/guiding assistance TRANSFERS: BED, CHAIR, WHEELCHAIR - SCORE: 4-MIN TRANSFERS: TOILET: TRANSFERS: TOILET - STEP 1: Does the patient require assistance with toilet transfers? Yes. TRANSFERS: TOILET - STEP 2: Does the patient require the assistance of a helper? Yes. TRANSFERS: TOILET - STEP 3: How much assistance does the patient require from the helper? Patient performs half or more of the tr ansferring tasks TRANSFERS: TOILET - STEP 4: Does the patient need only incidental help such as contact guard or steadying during toilet transfer? Yes. TRANSFERS: TOILET - SCORE: 4-MIN TRANSFERS: SHOWER: Activity did not occur on this shift TRANSFERS: SHOWER - SCORE: 0-UNK TRANSFERS: TUB: Activity did not occur on this shift TRANSFERS: TUB - SCORE: 0-UNK LOCOMOTION: WALK: Activity did not occur on this shift LOCOMOTION: WALK - SCORE: 0-UNK LOCOMOTION: WHEELCHAIR: Activity did not occur on this shift LOCOMOTION: WHEELCHAIR - SCORE: 0-UNK COMPREHENSION: COMPREHENSION - STEP 1: Does the patient require help to understand complex and abstract ideas (such as current events, finan erick, discharge planning, medical issues, relationships, etc)? No. COMPREHENSION - STEP 2: Does the patient need extra time, require an assistive device (such as glasses, hearing aids, or an a ugmentative communication system), OR does s/he have mild difficulty expressing complex and abstract ideas (including mild dysarthria or mild word-finding problems)? Yes. COMPREHENSION - SCORE: 6-TAMMI EXPRESSION EXPRESSION - STEP 1: Does the patient require help expressing complex and abstract ideas (such as current events, finances , discharge planning, medical issues, relationships, etc)? No. EXPRESSION - STEP 2: Does the patient need extra time, require an assistive device (such as augmentive communication syste m or a communication board), OR does s/he have mild difficulty expressing complex and abstract ideas (including mild dysarthria or mild word-find problems)? Yes. EXPRESSION - SCORE: 6-TAMMI SOCIAL INTERACTION: SOCIAL INTERACTION - STEP 1: Does the patient require a helper to interact with others in social and therapeutic situations? No. SOCIAL INTERACTION - STEP 2: Does the patient need extra time in social situations, OR does s/he interact with staff, other patien ts, and family members ONLY in structured environments, OR does s/he require medication for social in teraction? Yes, patient needs extra time SOCIAL INTERACTION - SCORE: 6-TAMMI PROBLEM SOLVING: PROBLEM SOLVING - STEP 1: Does the patient need help to solve complex problems such as managing a checking account or confronti ng interpersonal problems? No. PROBLEM SOLVING - STEP 2: Does the patient require extra time to make decisions or solve problems, OR does s/he have slight dif ficulty reading, initiating, or self-correcting in unfamiliar situations? Yes, patient needs extra ti me. PROBLEM SOLVING - SCORE: 6-TAMMI MEMORY: MEMORY - STEP 1: Does the patient need help to remember frequently encountered people, daily routines, and executing r equests? No. MEMORY - STEP 2: Does the patient have slight difficulty recognizing frequently encountered people, daily routines, or executing requests without the need for repetition or using self-initiated or environmental cues to remember? Yes. MEMORY - SCORE: 6-TAMMI SIGNATURE PANEL: The following modified sections: Eating - Score, Grooming - Score, Bathing - Score, Dressing - Upper Body - Score, Dressing - Lower Body - Score, Toileting - Score, Bladder Management - Score, Bowel Man agement - Score, Transfers: Bed, Chair, Wheelchair - Score, Transfers: Shower - Score, Transfers: Michael let - Score, Transfers: Tub - Score, Locomotion: Walk - Score, Locomotion: Wheelchair - Score, Compre hension - Score, Expression - Score, Social Interaction - Score, Problem Solving - Score, Memory - Sc ore were [electronically] signed by Omero Valera on ThuAug 13 2017 12:50:11 GMT-0500 (Central Daylight Time)
--- NOTE | 2017-08-13 14:39 | FAST ---
ENCOUNTER DATE AND TIME: 08/13/2017 08:00 (CDT) NAME AIRAM KAYE DATE OF : 1930 DATE OF ADMISSION: 08/10/2017 16:09 (CDT) PHONE: AGE: 86 N# [id number] GENDER: Male ENCOUNTER PHYSICIAN: Dr. Tyrone Lou M.D. 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 EATING: Activity did not occur on this shift EATING - SCORE: 0-UNK GROOMING: Activity did not occur on this shift GROOMING - SCORE: 0-UNK BATHING: Activity did not occur on this shift BATHING - SCORE: 0-UNK DRESSING - UPPER BODY: Activity did not occur on this shift ARTICLES SCORE Total number of steps: 0 DRESSING - UPPER BODY - SCORE: 0-UNK DRESSING - LOWER BODY: Activity did not occur on this shift ARTICLES SCORE Total number of steps: 0 DRESSING - LOWER BODY - SCORE: 0-UNK TOILETING: Activity did not occur on this shift TOILETING - SCORE: 0-UNK BLADDER MANAGEMENT: Activity did not occur on this shift BLADDER MANAGEMENT - SCORE: 7-IND BOWEL MANAGEMENT: Activity did not occur on this shift BOWEL MANAGEMENT - SCORE: 7-IND TRANSFERS: BED, CHAIR, WHEELCHAIR: Activity did not occur on this shift TRANSFERS: BED, CHAIR, WHEELCHAIR - SCORE: 0-UNK TRANSFERS: TOILET: Activity did not occur on this shift TRANSFERS: TOILET - SCORE: 0-UNK TRANSFERS: SHOWER: Activity did not occur on this shift TRANSFERS: SHOWER - SCORE: 0-UNK TRANSFERS: TUB: Activity did not occur on this shift TRANSFERS: TUB - SCORE: 0-UNK LOCOMOTION: WALK: Activity did not occur on this shift LOCOMOTION: WALK - SCORE: 0-UNK LOCOMOTION: WHEELCHAIR: Activity did not occur on this shift LOCOMOTION: WHEELCHAIR - SCORE: 0-UNK LOCOMOTION: STAIRS: Activity did not occur on this shift LOCOMOTION: STAIRS - SCORE: 0-UNK COMPREHENSION: COMPREHENSION: TYPE: Visual COMPREHENSION - STEP 1: Does the patient require help to understand complex and abstract ideas (such as current events, finan erick, discharge planning, medical issues, relationships, etc)? No. COMPREHENSION - STEP 2: Does the patient need extra time, require an assistive device (such as glasses, hearing aids, or an a ugmentative communication system), OR does s/he have mild difficulty expressing complex and abstract ideas (including mild dysarthria or mild word-finding problems)? Yes. COMPREHENSION - SCORE: 6-TAMMI EXPRESSION EXPRESSION: TYPE: Non-Vocal EXPRESSION - STEP 1: Does the patient require help expressing complex and abstract ideas (such as current events, finances , discharge planning, medical issues, relationships, etc)? No. EXPRESSION - STEP 2: Does the patient need extra time, require an assistive device (such as augmentive communication syste m or a communication board), OR does s/he have mild difficulty expressing complex and abstract ideas (including mild dysarthria or mild word-find problems)? No. EXPRESSION - SCORE: 7-IND SOCIAL INTERACTION: SOCIAL INTERACTION - STEP 1: Does the patient require a helper to interact with others in social and therapeutic situations? No. SOCIAL INTERACTION - STEP 2: Does the patient need extra time in social situations, OR does s/he interact with staff, other patien ts, and family members ONLY in structured environments, OR does s/he require medication for social in teraction? No. SOCIAL INTERACTION - SCORE: 7-IND PROBLEM SOLVING: PROBLEM SOLVING - STEP 1: Does the patient need help to solve complex problems such as managing a checking account or confronti ng interpersonal problems? Yes. PROBLEM SOLVING - STEP 2: Does the patient solve basic routine problems half or more of the time? Yes. PROBLEM SOLVING - STEP 3: How often does the patient need help to solve basic routine problems? Less than 10% of the time PROBLEM SOLVING - SCORE: 5-SUP MEMORY: MEMORY - STEP 1: Does the patient need help to remember frequently encountered people, daily routines, and executing r equests? Yes. MEMORY - STEP 2: How often does the patient need help to remember frequently encountered people, daily routines, and e xecuting requests? Less than 10% of the time MEMORY - SCORE: 5-SUP SIGNATURE PANEL: The following modified sections: Eating - Score, Grooming - Score, Bathing - Score, Dressing - Upper Body - Score, Dressing - Lower Body - Score, Toileting - Score, Transfers: Bed, Chair, Wheelchair - S core, Transfers: Toilet - Score, Transfers: Shower - Score, Transfers: Tub - Score, Comprehension - S core, Expression - Score, Social Interaction - Score, Problem Solving - Score, Memory - Score were [e lectronically] signed by WILLIE Adhikari on ThuAug 13 2017 13:41:42 T-0500 ([facility] Time)
--- NOTE | 2017-08-13 15:36 | R.PN ---
ENCOUNTER DATE AND TIME: 08/13/2017 14:36 (CDT) NAME AIRAM KAYE DATE OF : 1930 DATE OF ADMISSION: 08/10/2017 16:09 (CDT) Debility secondary to Myasthenia GravisCHIEF COMPLAINT: Debility SUBJECTIVE: Pt denied any Shortness of Breath. Pt denied any depression. Ambulated 420' with contact guard assistance using a rolling walker. Up and down [address] guard assistance. VITAL SIGNS Temperature: 97.6 SBP/DBP: 107/72 Pulse: 75 Resp: 16 MEDICATION ALLERGIES: Tramadol, Levofloxacin, Penicillin ENVIRONMENTAL ALLERGIES: Iodine - Substance Allergies None Known - Other Allergies Iodinated contrast, latex allergy, latex natural rubber NURSING: - Shower allowing shower - Lab Results blood Sugar Check ACHS - Bladder care per protocol - Skin care per protocol PRECAUTIONS: - Fall Precaution Bed and chair alarm ACTIVITIES OOB only with supervision THERAPIES: - Occupational Therapy Evaluate and Treat. Cognitive Retraining. Visual Perceptual Training. - Speech Therapy Cognitive Training. Memory Strategies. Expressive Language Skills. Receptive Language Skills. Speech Intelligibility Training. - Physical Therapy Evaluate and Treat. PHYSICAL EXAM - Gen Alert and awake Lying in bed No apparent distress Oriented to: person, time, and place - Vital Signs Vital signs stable, afebrile - Skin No beakdown No abnormalities - Eyes No abnormalities - ENMT No abnormalities - Neck No abnormalities - CVS RRR - Chest Upper airway congestion. - Resp Single breath count of 23 - Abd + BS - GI + bowel sound Deferred - No abnormalities - Ext No significant edema. - MSK 2-3/5 weakness in right and left distal lower extremities. Otherwise 4/5 in the proximal lower extrem ities. - Neuro Steppage Gait, Decreased tone in lower extremities. Stocking loss to light touch in the legs. - Psych No abnormalities ASSESSMENT: Pt. is a 86 yo Right-handed white male.On 08/05/2017 he was admitted to [facility] with diagnosis debility secondary to myasthenia gravis. 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 No evidence of focal neurological dificit..His impairment category is Stroke 01 - Other Stroke (.9).Pre-morbi dly, Pt. was independent/mod-I in Sphincter Control, Transfers Control, Communication, Social Cogniti on, Self-Care, and Locomotion; and he had good Sphincter Control.Currently, he has deficits of Endura nce, Safety Awareness, Transfers Control, Communication, Social Cognition, Balance, Self-Care, and Lo comotion.Pt. is now referred to [facility] for acute in-patient rehabilitation in order to maximize patient's functional independence in activities of daily living, strength, ROM, and mobility.- Rehab Goal Patient has realistic goal of being discharged at assistance level 6-Ankit to reside at Home with Fam amanda/Relatives. MDM/PLAN: - Diet Type Start ADA 1800 for Dementia, TBI, Stroke, or others - Diet - Liquid Texture Start Regular - Physical Therapy Gait dysfunction - to improve, our physical therapists will perform initial evaluation of pt's statu s upon admission and devise an individualized program for Gait Training, and Wheel Chair mobility Inability to transfer - to improve, our physical therapists will perform initial evaluation of pt's status upon admission and devise an individualized program for Bed mobility Need for home safety evaluation - to improve, our physical therapists will perform initial evaluatio n of pt's status upon admission and devise an individualized program for Home Evaluation Need in caregiver upon discharge - to improve, our physical therapists will perform initial evaluati on of pt's status upon admission and devise an individualized program for Caregiver Training Edema - to improve, our physical therapists will perform initial evaluation of pt's status upon admi ssion and devise an individualized program for Elevation Training, and Lymphedema Therapy New precaution - to improve, our physical therapists will perform initial evaluation of pt's status upon admission and devise an individualized program for Patient precaution education Poor balance - to improve, our physical therapists will perform initial evaluation of pt's status up on admission and devise an individualized program for Balance Training Poor endurance - to improve, our physical therapists will perform initial evaluation of pt's status upon admission and devise an individualized program for Endurance Training Weakness - to improve, our physical therapists will perform initial evaluation of pt's status upon a dmission and devise an individualized program for Aquatic Therapy, Neuromuscular Reeducation, and Str engthening Achieving independence - to improve, our physical therapists will perform initial evaluation of pt's status upon admission and devise an individualized program for Community Reintegration Activities - Tube Feed Start N/A - Lab Results blood Sugar Check ACHS - Bladder care per protocol - Fall Precaution Bed and chair alarm - Skin care per protocol - Diet - Solid Texture Start Regular - Shower allowing shower - Occupational Therapy ADL deficits - to improve, our occupation therapists will perform initial evaluation of pt's status upon admission and devise an individualized program for Bathing, Bed mobility, Community Reintegratio n, Cooking, Dressing, Eating, Fine Motor Skills, Grooming, Homemaking, Kitchen Mobility, Laundry, Pat ient Education, Safety Awareness, Splinting - Positioning, Transfers(Toilet, Tub, Shower), and Wheel Chair Management Cognitive deficits - to improve, our occupation therapists will perform initial evaluation of pt's s tatus upon admission and devise an individualized program for Cognition - orientation Need for child care cook - to improve, our occupation therapists will perform initial evaluation of pt's status upon admission and devise an individualized program for Caregiver Training Weakness - to improve, our occupation therapists will perform initial evaluation of pt's status upon admission and devise an individualized program for Aquatic Therapy, Balance, Endurance, UE ROM, and UE strengthening FUNCTIONAL STATUS: UPDATED AT WEEKLY TEAM CONFERENCE - Bladder Same Bladder control device used: diaper Same Bladder medication used: N/A Same accident frequency: 1-Dep - Five or more accidents in the past 7 days - Bowel Same accident frequency: 7-Ind - No accidents in the past 7 days - Walking Same score based on distance walked: 1(<=50ft) - Wheelchair Same score based on distance traveled: 0(N/A) FUNCTIONAL STATUS: - Self-Care A. Eating sup B. Grooming sup C. Bathing sup D. Dressing - Upper sup E. Dressing - Lower sup F. Toileting sup - Sphincter Control G: Bladder control Dep H: Bowel control Ind - Transfers Control I. Bed/Chair/Wheelchair maxA J. Toilet modA K. Tub/Shower ADNO - Locomotion L. Walk/Wheelchair (B) maxA M. Stairs ADNO - Communication N. Comprehension (B) sup O. Expression (B) sup - Social Cognition P. Social Interaction sup Q. Problem Solving sup R. Memory sup - Endurance Poor - Balance Poor - Safety Awareness Poor CURRENT FUNC. DEFICITS: Endurance, Safety Awareness, Transfers Control, Communication, Social Cognition, Balance, Self-Care, and Locomotion SIGNATURE PANEL: (CDT)
--- NOTE | 2017-08-13 16:00 | FAST ---
ENCOUNTER DATE AND TIME: 08/13/2017 08:00 (CDT) NAME AIRAM KAYE DATE OF : 1930 DATE OF ADMISSION: 08/10/2017 16:09 (CDT) PHONE: AGE: 86 N# [id number] GENDER: Male ENCOUNTER PHYSICIAN: Dr. Tyrone Lou M.D. 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 EATING: Activity did not occur on this shift EATING - SCORE: 0-UNK GROOMING: Activity did not occur on this shift GROOMING - SCORE: 0-UNK BATHING: Activity did not occur on this shift BATHING - SCORE: 0-UNK DRESSING - UPPER BODY: Activity did not occur on this shift Patient is not dressing in public clothing ARTICLES SCORE Total number of steps: 0 DRESSING - UPPER BODY - SCORE: 0-UNK DRESSING - LOWER BODY: Activity did not occur on this shift Patient is not dressing in public clothing ARTICLES SCORE Total number of steps: 0 DRESSING - LOWER BODY - SCORE: 0-UNK TOILETING: Activity did not occur on this shift TOILETING - SCORE: 0-UNK BLADDER MANAGEMENT: Activity did not occur on this shift BLADDER MANAGEMENT - SCORE: 7-IND BOWEL MANAGEMENT: Activity did not occur on this shift BOWEL MANAGEMENT - SCORE: 7-IND TRANSFERS: BED, CHAIR, WHEELCHAIR: TRANSFERS: BED, CHAIR, WHEELCHAIR - STEP 1: Does the patient require assistance with bed, chair, or wheelchair transfers? Yes. TRANSFERS: BED, CHAIR, WHEELCHAIR - STEP 2: Does the patient require the assistance of a helper? Yes. TRANSFERS: BED, CHAIR, WHEELCHAIR - STEP 3: How much assistance does the patient require from the helper? Only supervision TRANSFERS: BED, CHAIR, WHEELCHAIR - SCORE: 5-SUP TRANSFERS: TOILET: Activity did not occur on this shift TRANSFERS: TOILET - SCORE: 0-UNK TRANSFERS: SHOWER: Activity did not occur on this shift TRANSFERS: SHOWER - SCORE: 0-UNK TRANSFERS: TUB: Activity did not occur on this shift TRANSFERS: TUB - SCORE: 0-UNK LOCOMOTION: WALK: LOCOMOTION: WALK - STEP 1: Does the patient need help to walk 150 feet? Yes. LOCOMOTION: WALK - STEP 2: How much assistance does the patient require to walk a minimum of 150 feet? Only supervision, cuing, or coaxing LOCOMOTION: WALK - SCORE: 5-SUP LOCOMOTION: WHEELCHAIR: LOCOMOTION: WHEELCHAIR - STEP 1: Does the patient need help to go 150 feet in a wheelchair? Yes. LOCOMOTION: WHEELCHAIR - STEP 2: How much assistance does the patient need from the helper? Only supervision, cuing, or coaxing LOCOMOTION: WHEELCHAIR - SCORE: 5-SUP LOCOMOTION: STAIRS: LOCOMOTION: STAIRS - STEP 1: Does the patient need help to go up and down 12 to 14 stairs? Yes. LOCOMOTION: STAIRS - STEP 2: How much assistance does the patient need from the helper to go a minimum of 12 to 14 stairs? The pat ient goes less than 12 to 14 stairs - but more than 4 to 6 stairs LOCOMOTION: STAIRS - SCORE: 2-MAX COMPREHENSION: COMPREHENSION - SCORE: 0-UNK EXPRESSION EXPRESSION - SCORE: 0-UNK SOCIAL INTERACTION: SOCIAL INTERACTION - SCORE: 0-UNK PROBLEM SOLVING: PROBLEM SOLVING - SCORE: 0-UNK MEMORY: MEMORY - SCORE: 0-UNK SIGNATURE PANEL: The following modified sections: Transfers: Bed, Chair, Wheelchair - Score, Transfers: Toilet - Score , Locomotion: Walk - Score, Locomotion: Wheelchair - Score, Locomotion: Stairs - Score were [mesha boston] signed by Milan Elias PTA on ThuAug 13 2017 15:02:29 GMT-0500 (Central Daylight Time)
[2017-08-13] MEDS: RIVAROXABAN 20 MG TABLET PO SCH (16:52)
[2017-08-13] MEDS: MELATONIN 3 MG TABLET PO PRN (19:57)
[2017-08-13] MEDS: RANITIDINE 150 MG TABLET PO SCH (20:00)
[2017-08-13] MEDS: ATORVASTATIN 10 MG TAB PO SCH (20:00)
--- NOTE | 2017-08-14 04:24 | FAST ---
SHIFT START DATE/TIME: 08/13/2017 19:00 (CDT) SHIFT END DATE/TIME: 08/14/2017 07:00 (CDT) NAME AIRAM KAYE DATE OF : 1930 DATE OF ADMISSION: 08/10/2017 16:09 (CDT) PHONE: AGE: 86 N# [id number] GENDER: Male ENCOUNTER PHYSICIAN: Dr. Tyrone Lou M.D. 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 EATING: EATING - STEP 1: Does the patient require assistance when eating? Yes. EATING - STEP 2: Does the patient require the assistance of a helper? Yes. EATING - STEP 3: Does the patient perform half or more of the eating tasks? Yes. EATING - STEP 4: Does the patient need only supervision, cuing, coaxing OR help to apply an orthosis OR help to cut fo od, open containers, pour liquids, or butter bread? Yes. EATING - SCORE: 5-SUP GROOMING: Comb/brush hair Oral care Wash, rinse, and dry face Wash, rinse, and dry hands GROOMING - STEP 1: Does the patient require assistance when grooming? Yes. GROOMING - STEP 2: Does the patient require the assistance of a helper? Yes. GROOMING - STEP 3: How much assistance does the patient require from the helper? Only prior equipment preparation/set up from the helper GROOMING - SCORE: 5-SUP BATHING: Activity did not occur on this shift BATHING - SCORE: 0-UNK DRESSING - UPPER BODY: Patient is not dressing in public clothing ARTICLES SCORE Total number of steps: 0 DRESSING - UPPER BODY - SCORE: 0-UNK DRESSING - LOWER BODY: Patient is not dressing in public clothing ARTICLES SCORE Total number of steps: 0 DRESSING - LOWER BODY - SCORE: 0-UNK TOILETING: TOILETING - STEP 1: Does the patient require assistance with toileting? Yes. TOILETING - STEP 2: Does the patient require the assistance of a helper? Yes. TOILETING - STEP 3: How much assistance does the patient require from the helper? Only supervision TOILETING - SCORE: 5-SUP BLADDER MANAGEMENT: BLADDER MANAGEMENT - STEP 1: Does the patient control the bladder completely and intentionally without equipment or devices or med ications, and is always continent? No. BLADDER MANAGEMENT - STEP 2: Does the patient require the assistance of a helper? Yes. BLADDER MANAGEMENT - STEP 3: How much assistance does the patient require from the helper? Only set-up of equipment - such as plac ing it within reach of the patient or emptying a device - to maintain either satisfactory voiding pat tern or managing an external device, such as an absorbent pad, ileal device, or catheter BLADDER MANAGEMENT - SCORE: 5-SUP BLADDER MANAGEMENT - FREQUENCY OF ACCIDENTS: BLADDER MANAGEMENT(FA) - STEP 1: How many accidents has the patient had during the current shift? 0 BOWEL MANAGEMENT: Activity did not occur on this shift BOWEL MANAGEMENT - SCORE: 7-IND TRANSFERS: BED, CHAIR, WHEELCHAIR: TRANSFERS: BED, CHAIR, WHEELCHAIR - STEP 1: Does the patient require assistance with bed, chair, or wheelchair transfers? Yes. TRANSFERS: BED, CHAIR, WHEELCHAIR - STEP 2: Does the patient require the assistance of a helper? Yes. TRANSFERS: BED, CHAIR, WHEELCHAIR - STEP 3: How much assistance does the patient require from the helper? Only supervision TRANSFERS: BED, CHAIR, WHEELCHAIR - SCORE: 5-SUP TRANSFERS: TOILET: TRANSFERS: TOILET - STEP 1: Does the patient require assistance with toilet transfers? Yes. TRANSFERS: TOILET - STEP 2: Does the patient require the assistance of a helper? Yes. TRANSFERS: TOILET - STEP 3: How much assistance does the patient require from the helper? Only supervision, cuing, coaxing, OR he lp to set out transfer equipment or to lock brakes and/or lift foot rests TRANSFERS: TOILET - SCORE: 5-SUP TRANSFERS: SHOWER: Activity did not occur on this shift TRANSFERS: SHOWER - SCORE: 0-UNK TRANSFERS: TUB: Activity did not occur on this shift TRANSFERS: TUB - SCORE: 0-UNK LOCOMOTION: WALK: Activity did not occur on this shift LOCOMOTION: WALK - SCORE: 0-UNK LOCOMOTION: WHEELCHAIR: Activity did not occur on this shift LOCOMOTION: WHEELCHAIR - SCORE: 0-UNK COMPREHENSION: COMPREHENSION: TYPE: Both COMPREHENSION - STEP 1: Does the patient require help to understand complex and abstract ideas (such as current events, finan erick, discharge planning, medical issues, relationships, etc)? No. COMPREHENSION - STEP 2: Does the patient need extra time, require an assistive device (such as glasses, hearing aids, or an a ugmentative communication system), OR does s/he have mild difficulty expressing complex and abstract ideas (including mild dysarthria or mild word-finding problems)? Yes. COMPREHENSION - SCORE: 6-TAMMI EXPRESSION EXPRESSION: TYPE: Both EXPRESSION - STEP 1: Does the patient require help expressing complex and abstract ideas (such as current events, finances , discharge planning, medical issues, relationships, etc)? No. EXPRESSION - STEP 2: Does the patient need extra time, require an assistive device (such as augmentive communication syste m or a communication board), OR does s/he have mild difficulty expressing complex and abstract ideas (including mild dysarthria or mild word-find problems)? Yes. EXPRESSION - SCORE: 6-TAMMI SOCIAL INTERACTION: SOCIAL INTERACTION - STEP 1: Does the patient require a helper to interact with others in social and therapeutic situations? No. SOCIAL INTERACTION - STEP 2: Does the patient need extra time in social situations, OR does s/he interact with staff, other patien ts, and family members ONLY in structured environments, OR does s/he require medication for social in teraction? Yes, patient needs extra time SOCIAL INTERACTION - SCORE: 6-TAMMI PROBLEM SOLVING: PROBLEM SOLVING - STEP 1: Does the patient need help to solve complex problems such as managing a checking account or confronti ng interpersonal problems? No. PROBLEM SOLVING - STEP 2: Does the patient require extra time to make decisions or solve problems, OR does s/he have slight dif ficulty reading, initiating, or self-correcting in unfamiliar situations? Yes, patient needs extra ti me. PROBLEM SOLVING - SCORE: 6-TAMMI MEMORY: MEMORY - STEP 1: Does the patient need help to remember frequently encountered people, daily routines, and executing r equests? No. MEMORY - STEP 2: Does the patient have slight difficulty recognizing frequently encountered people, daily routines, or executing requests without the need for repetition or using self-initiated or environmental cues to remember? Yes. MEMORY - SCORE: 6-TAMMI SIGNATURE PANEL: The following modified sections: Eating - Score, Grooming - Score, Bathing - Score, Dressing - Upper Body - Score, Dressing - Lower Body - Score, Toileting - Score, Bladder Management - Score, Bowel Man agement - Score, Transfers: Bed, Chair, Wheelchair - Score, Transfers: Toilet - Score, Transfers: [place] wer - Score, Transfers: Tub - Score, Locomotion: Walk - Score, Locomotion: Wheelchair - Score, Compre hension - Score, Expression - Score, Social Interaction - Score, Problem Solving - Score, Memory - Sc ore were [electronically] signed by Lexii ChatterjeeNPietro on ThuAug 14 2017 03:26:16 T-0500 ( Central Daylight Time)
[2017-08-14] MEDS: CARVEDILOL 3.125 MG TAB PO SCH ×2 (05:24→17:07)
[2017-08-14] MEDS: INSULIN -REGULAR HUMAN 50 UNIT/0.5 ML ML SQ SCH ×4 (08:17→21:00)
[2017-08-14] MEDS: FLUTICASONE 50MCG NASAL SPRAY NAS SCH ×2 (08:17→20:54)
[2017-08-14] MEDS: PYRIDOSTIGMINE 60 MG TABLET PO SCH ×3 (08:18→20:52)
[2017-08-14] MEDS: CLOPIDOGREL 75 MG TABLET PO SCH (08:19)
[2017-08-14] MEDS: LOSARTAN POTASSIUM 50 MG TABLET PO SCH (08:19)
[2017-08-14] MEDS: MAGNESIUM OXIDE 400 MG TAB PO SCH ×2 (08:19→20:53)
[2017-08-14] MEDS: AZATHIOPRINE 50 MG TABLET PO SCH ×2 (08:19→20:53)
[2017-08-14] MEDS: GLUCERNA SHAKE 237 ML CAN PO SCH ×2 (08:20→20:54)
--- NOTE | 2017-08-14 09:17 | P.RH.PN ---
Estimated Length of Stay: 13 Expected Discharge Date: 08/22/17 Discharge Disposition Plan: Home Family Support: Yes Detention Goal: Mobility, Transfers, Self Care Vital Signs: Last Vital Signs Temp 97.2 F 08/14/17 08:34 Pulse 74 08/14/17 08:34 Resp 16 08/14/17 08:34 BP 148/68 H 08/14/17 08:34 Pulse Ox 97 08/14/17 08:34 Laboratory: Laboratory Last Values WBC 5.5 K/uL (4.3-10.9) 08/13/17 05:39 RBC 3.93 M/uL (4.33-5.43) L 08/13/17 05:39 Hgb 12.9 g/dL (13.6-17.9) L 08/13/17 05:39 Hct 38.8 % (39.6-49.0) L 08/13/17 05:39 MCV 98.8 fL (80-100) 08/13/17 05:39 MCH 32.8 pg (27.0-35.0) 08/13/17 05:39 MCHC 33.2 g/dL (32.0-36.0) 08/13/17 05:39 RDW 14.2 % (12.1-15.2) 08/13/17 05:39 Plt Count 168 K/uL (152-406) 08/13/17 05:39 MPV 8.9 fL (7.6-11.3) 08/13/17 05:39 Neutrophils % 55.4 % (41.7-73.7) 08/13/17 05:39 Lymphocytes % 28.1 % (15.3-44.8) 08/13/17 05:39 Monocytes % 10.3 % (3.3-12.3) 08/13/17 05:39 Eosinophils % 5.4 % (0-4.4) H 08/13/17 05:39 Basophils % 0.8 % (0-1.3) 08/13/17 05:39 Absolute Neutrophils 3.1 K/uL (1.8-8.0) 08/13/17 05:39 Absolute Lymphocytes 1.6 K/uL (0.7-4.9) 08/13/17 05:39 Absolute Monocytes 0.6 K/uL (0.1-1.3) 08/13/17 05:39 Absolute Eosinophils 0.3 K/uL (0-0.5) 08/13/17 05:39 Absolute Basophils 0.0 K/uL (0-0.5) 08/13/17 05:39 Sodium 138 mEq/L (135-145) 08/13/17 05:39 Potassium 4.8 mEq/L (3.6-5.0) 08/13/17 05:39 Chloride 107 mEq/L (101-111) 08/13/17 05:39 Carbon Dioxide 28 mEq/L (21-31) 08/13/17 05:39 BUN 18 mg/dL (6-20) 08/13/17 05:39 Creatinine 1.07 mg/dL (0.61-1.24) 08/13/17 05:39 Estimated GFR 65 mL/min (=/>90) L 08/13/17 05:39 Glucose 178 mg/dL (65-120) H 08/13/17 05:39 POC Glucose 177 mg/dl (65-120) H 08/14/17 06:54 Calcium 9.6 mg/dL (8.5-10.5) 08/13/17 05:39 Magnesium 1.9 mg/dL (1.8-2.5) 08/13/17 05:39 Albumin 3.2 g/dL (3.2-5.5) 08/13/17 05:39 Prealbumin 18.9 mg/dl (18-38) 08/13/17 05:39 Urine Color Yellow 08/10/17 17:55 Urine Appearance Cloudy 08/10/17 17:55 Urine pH 5.5 (5.0-7.0) 08/10/17 17:55 Ur Specific [place] 1.015 (1.005-1.030) 08/10/17 17:55 Urine Ketones Negative (NEG) 08/10/17 17:55 Urine Blood Trace (NEG) H 08/10/17 17:55 Urine Nitrite Positive (NEG) H 08/10/17 17:55 Urine Bilirubin Negative (NEG) 08/10/17 17:55 Urine Urobilinogen 0.2 mg/dL (0.2-1.0) 08/10/17 17:55 Ur Leukocyte Esterase 3+ (NEG) H 08/10/17 17:55 Urine RBC 5-10 /HPF (NONE SEEN) H 08/10/17 17:55 Urine WBC >50 /HPF (<5) H 08/10/17 17:55 Ur Squamous Epith Cells 5-10 /HPF (NONE SEEN) H 08/10/17 17:55 Urine Bacteria Loaded /HPF (NONE SEEN) H 08/10/17 17:55 Urine Mucus 2+ /HPF (NONE SEEN) 08/10/17 17:55 Urine Culture Reflexed Reflexed 08/10/17 17:55 Urine Glucose 1+ (NEG) H 08/10/17 17:55 Urine Total Protein Trace (NEG) 08/10/17 17:55 Weight: 166 lb 6.4 oz Wound Present: No Closed Surgical Incision Present: No Negative Pressure Wound Therapy Present: No Physician Update: He is making good progress overall with physical and occupational therapy. He has no evidence of a focal neurological deficit but is generally weak most likely due to debility secondary to myasthenia gravis. His blood work is good. Hgb is 12.9. His glucose is elevated. Will place him on gliburide 2.5 mg bid. Pain Issues: on Tylenol ES 500mg Q6H PRN Functional Improvement: Patient presents w/ good overall attitude toward therapy. Patient has met all short-term goals at this time w/ the exception of distance travelled during gait tx. Patient travelled 200 ft. thus far. Functional Improvement Occupational Therapy: pt can benifit for further therapy to address and to increase pt's UB strength and cont to educate and train pt on energy conservation techiques and to increase pt's endurance and static standing. cont with the POC and the goals by the supervising OTR. Speech Therapy Update: Pt. presents with mild cognitive impariment characterized primarily by moderate deficts in short term memory. Pt. compliant with all recommended dysphagia strategies but needs memory aids to utilize strategies with meals. MBS completed 08/12/17 noted fatigue with the muscles of declutition but noted aspiration only with thin liquids via straw. Summary: Patient's care plan and assisted goals have been reviewed and revised as necessary. Please see the Rehabilitation Signature page for all necessary signatures.
--- NOTE | 2017-08-14 11:33 | FAST ---
SHIFT START DATE/TIME: 08/14/2017 07:00 (CDT) SHIFT END DATE/TIME: 08/14/2017 19:00 (CDT) NAME AIRAM KAYE DATE OF : 1930 DATE OF ADMISSION: 08/10/2017 16:09 (CDT) PHONE: AGE: 86 N# [id number] GENDER: Male ENCOUNTER PHYSICIAN: Dr. Tyrone Lou M.D. 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 EATING: EATING - STEP 1: Does the patient require assistance when eating? Yes. EATING - STEP 2: Does the patient require the assistance of a helper? No, patient only requires an assistive device, O R s/he takes more than reasonable time to eat, OR there is a safety concern, OR s/he requires modifie d food consistency EATING - SCORE: 6-TAMMI EATING - COMMENTS: Thin liquids, no straws GROOMING: Comb/brush hair Oral care Wash, rinse, and dry face Wash, rinse, and dry hands GROOMING - STEP 1: Does the patient require assistance when grooming? Yes. GROOMING - STEP 2: Does the patient require the assistance of a helper? No. The patient only requires an assistive devic e, OR takes more than reasonable time to groom, OR there is a concern for safety as the patient groom s GROOMING - SCORE: 6-TAMMI BATHING: Activity did not occur on this shift BATHING - SCORE: 0-UNK DRESSING - UPPER BODY: Activity did not occur on this shift ARTICLES SCORE Total number of steps: 0 DRESSING - UPPER BODY - SCORE: 0-UNK DRESSING - UPPER BODY - COMMENTS: DRESSED WITH OT DRESSING - LOWER BODY: Activity did not occur on this shift ARTICLES SCORE Total number of steps: 0 DRESSING - LOWER BODY - SCORE: 0-UNK DRESSING - LOWER BODY - COMMENTS: Dressed with OT TOILETING: TOILETING - STEP 1: Does the patient require assistance with toileting? Yes. TOILETING - STEP 2: Does the patient require the assistance of a helper? Yes. TOILETING - STEP 3: How much assistance does the patient require from the helper? Only supervision TOILETING - SCORE: 5-SUP BLADDER MANAGEMENT: BLADDER MANAGEMENT - STEP 1: Does the patient control the bladder completely and intentionally without equipment or devices or med ications, and is always continent? No. BLADDER MANAGEMENT - STEP 2: Does the patient require the assistance of a helper? No, patient requires and independently uses an a ssistive device, such as a urinal, bedpan, bedside commode, catheter, absorbent pad, or collecting de vice BLADDER MANAGEMENT - SCORE: 6-TAMMI BOWEL MANAGEMENT: BOWEL MANAGEMENT - STEP 1: Does the patient control bowels completely and intentionally without equipment devices or medications AND is always continent? No. BOWEL MANAGEMENT - STEP 2: Does the patient require the assistance of a helper? No, patient requires and manages independently a n assistive device such as a bedpan, bedside commode, absorbent pad, incontinent device, or collectin g device BOWEL MANAGEMENT - SCORE: 6-TAMMI TRANSFERS: BED, CHAIR, WHEELCHAIR: TRANSFERS: BED, CHAIR, WHEELCHAIR - STEP 1: Does the patient require assistance with bed, chair, or wheelchair transfers? Yes. TRANSFERS: BED, CHAIR, WHEELCHAIR - STEP 2: Does the patient require the assistance of a helper? Yes. TRANSFERS: BED, CHAIR, WHEELCHAIR - STEP 3: How much assistance does the patient require from the helper? Steadying/guiding assistance TRANSFERS: BED, CHAIR, WHEELCHAIR - SCORE: 4-MIN TRANSFERS: TOILET: TRANSFERS: TOILET - STEP 1: Does the patient require assistance with toilet transfers? Yes. TRANSFERS: TOILET - STEP 2: Does the patient require the assistance of a helper? Yes. TRANSFERS: TOILET - STEP 3: How much assistance does the patient require from the helper? Patient performs half or more of the tr ansferring tasks TRANSFERS: TOILET - STEP 4: Does the patient need only incidental help such as contact guard or steadying during toilet transfer? Yes. TRANSFERS: TOILET - SCORE: 4-MIN TRANSFERS: SHOWER: Activity did not occur on this shift TRANSFERS: SHOWER - SCORE: 0-UNK TRANSFERS: TUB: Activity did not occur on this shift TRANSFERS: TUB - SCORE: 0-UNK LOCOMOTION: WALK: Activity did not occur on this shift LOCOMOTION: WALK - SCORE: 0-UNK LOCOMOTION: WHEELCHAIR: Activity did not occur on this shift LOCOMOTION: WHEELCHAIR - SCORE: 0-UNK COMPREHENSION: COMPREHENSION - STEP 1: Does the patient require help to understand complex and abstract ideas (such as current events, finan erick, discharge planning, medical issues, relationships, etc)? No. COMPREHENSION - STEP 2: Does the patient need extra time, require an assistive device (such as glasses, hearing aids, or an a ugmentative communication system), OR does s/he have mild difficulty expressing complex and abstract ideas (including mild dysarthria or mild word-finding problems)? Yes. COMPREHENSION - SCORE: 6-TAMMI EXPRESSION EXPRESSION - STEP 1: Does the patient require help expressing complex and abstract ideas (such as current events, finances , discharge planning, medical issues, relationships, etc)? No. EXPRESSION - STEP 2: Does the patient need extra time, require an assistive device (such as augmentive communication syste m or a communication board), OR does s/he have mild difficulty expressing complex and abstract ideas (including mild dysarthria or mild word-find problems)? Yes. EXPRESSION - SCORE: 6-TAMMI SOCIAL INTERACTION: SOCIAL INTERACTION - STEP 1: Does the patient require a helper to interact with others in social and therapeutic situations? No. SOCIAL INTERACTION - STEP 2: Does the patient need extra time in social situations, OR does s/he interact with staff, other patien ts, and family members ONLY in structured environments, OR does s/he require medication for social in teraction? Yes, patient needs extra time SOCIAL INTERACTION - SCORE: 6-TAMMI PROBLEM SOLVING: PROBLEM SOLVING - STEP 1: Does the patient need help to solve complex problems such as managing a checking account or confronti ng interpersonal problems? Yes. PROBLEM SOLVING - STEP 2: Does the patient solve basic routine problems half or more of the time? Yes. PROBLEM SOLVING - STEP 3: How often does the patient need help to solve basic routine problems? Less than 10% of the time PROBLEM SOLVING - SCORE: 5-SUP MEMORY: MEMORY - STEP 1: Does the patient need help to remember frequently encountered people, daily routines, and executing r equests? Yes. MEMORY - STEP 2: How often does the patient need help to remember frequently encountered people, daily routines, and e xecuting requests? Less than 10% of the time MEMORY - SCORE: 5-SUP SIGNATURE PANEL: The following modified sections: Eating - Score, Eating - Comments:, Grooming - Score, Bathing - Scor e, Dressing - Upper Body - Score, Dressing - Upper Body - Comments:, Dressing - Lower Body - Score, D ressing - Lower Body - Comments:, Toileting - Score, Bladder Management - Score, Bowel Management - S core, Transfers: Bed, Chair, Wheelchair - Score, Transfers: Toilet - Score, Transfers: Shower - Score , Transfers: Tub - Score, Locomotion: Walk - Score, Locomotion: Wheelchair - Score, Comprehension - S core, Expression - Score, Social Interaction - Score, Problem Solving - Score, Memory - Score were [e lectronically] signed by Omero Valera on ThuAug 14 2017 10:35:57 T-0500 (Central Daylight Time)
[2017-08-14] MEDS: ONDANSETRON 4 MG (ODT) TAB PO PRN (11:58)
--- NOTE | 2017-08-14 16:20 | FAST ---
ENCOUNTER DATE AND TIME: 08/13/2017 08:00 (CDT) NAME AIRAM KAYE DATE OF : 1930 DATE OF ADMISSION: 08/10/2017 16:09 (CDT) PHONE: AGE: 86 N# [id number] GENDER: Male ENCOUNTER PHYSICIAN: Dr. Tyrone Lou M.D. 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 EATING: Activity did not occur on this shift EATING - SCORE: 0-UNK GROOMING: Activity did not occur on this shift GROOMING - SCORE: 0-UNK BATHING: Activity did not occur on this shift BATHING - SCORE: 0-UNK DRESSING - UPPER BODY: Activity did not occur on this shift Patient is not dressing in public clothing ARTICLES SCORE Total number of steps: 0 DRESSING - UPPER BODY - SCORE: 0-UNK DRESSING - LOWER BODY: Activity did not occur on this shift Patient is not dressing in public clothing ARTICLES SCORE Total number of steps: 0 DRESSING - LOWER BODY - SCORE: 0-UNK TOILETING: Activity did not occur on this shift TOILETING - SCORE: 0-UNK BLADDER MANAGEMENT: Activity did not occur on this shift BLADDER MANAGEMENT - SCORE: 7-IND BOWEL MANAGEMENT: Activity did not occur on this shift BOWEL MANAGEMENT - SCORE: 7-IND TRANSFERS: BED, CHAIR, WHEELCHAIR: Activity did not occur on this shift TRANSFERS: BED, CHAIR, WHEELCHAIR - SCORE: 0-UNK TRANSFERS: TOILET: Activity did not occur on this shift TRANSFERS: TOILET - SCORE: 0-UNK TRANSFERS: SHOWER: Activity did not occur on this shift TRANSFERS: SHOWER - SCORE: 0-UNK TRANSFERS: TUB: Activity did not occur on this shift TRANSFERS: TUB - SCORE: 0-UNK LOCOMOTION: WALK: Activity did not occur on this shift LOCOMOTION: WALK - SCORE: 0-UNK LOCOMOTION: WHEELCHAIR: Activity did not occur on this shift LOCOMOTION: WHEELCHAIR - SCORE: 0-UNK LOCOMOTION: STAIRS: Activity did not occur on this shift LOCOMOTION: STAIRS - SCORE: 0-UNK COMPREHENSION: COMPREHENSION - STEP 1: Does the patient require help to understand complex and abstract ideas (such as current events, finan erick, discharge planning, medical issues, relationships, etc)? No. COMPREHENSION - STEP 2: Does the patient need extra time, require an assistive device (such as glasses, hearing aids, or an a ugmentative communication system), OR does s/he have mild difficulty expressing complex and abstract ideas (including mild dysarthria or mild word-finding problems)? Yes. COMPREHENSION - SCORE: 6-TAMMI EXPRESSION EXPRESSION - STEP 1: Does the patient require help expressing complex and abstract ideas (such as current events, finances , discharge planning, medical issues, relationships, etc)? No. EXPRESSION - STEP 2: Does the patient need extra time, require an assistive device (such as augmentive communication syste m or a communication board), OR does s/he have mild difficulty expressing complex and abstract ideas (including mild dysarthria or mild word-find problems)? Yes. EXPRESSION - SCORE: 6-TAMMI SOCIAL INTERACTION: SOCIAL INTERACTION - STEP 1: Does the patient require a helper to interact with others in social and therapeutic situations? No. SOCIAL INTERACTION - STEP 2: Does the patient need extra time in social situations, OR does s/he interact with staff, other patien ts, and family members ONLY in structured environments, OR does s/he require medication for social in teraction? No. SOCIAL INTERACTION - SCORE: 7-IND PROBLEM SOLVING: PROBLEM SOLVING - STEP 1: Does the patient need help to solve complex problems such as managing a checking account or confronti ng interpersonal problems? Yes. PROBLEM SOLVING - STEP 2: Does the patient solve basic routine problems half or more of the time? Yes. PROBLEM SOLVING - STEP 3: How often does the patient need help to solve basic routine problems? Less than 10% of the time PROBLEM SOLVING - SCORE: 5-SUP MEMORY: MEMORY - STEP 1: Does the patient need help to remember frequently encountered people, daily routines, and executing r equests? Yes. MEMORY - STEP 2: How often does the patient need help to remember frequently encountered people, daily routines, and e xecuting requests? 10% - 24% of the time MEMORY - SCORE: 4-MIN SIGNATURE PANEL: The following modified sections: Comprehension - Score, Expression - Score, Social Interaction - Scor e, Problem Solving - Score, Memory - Score were [electronically] signed by JOB Chicas on Thu 15:22:35 GMT-0500 (Central Daylight Time)
--- NOTE | 2017-08-14 16:40 | FAST ---
ENCOUNTER DATE AND TIME: 08/14/2017 08:00 (CDT) NAME AIRAM KAYE DATE OF : 1930 DATE OF ADMISSION: 08/10/2017 16:09 (CDT) PHONE: AGE: 86 N# [id number] GENDER: Male ENCOUNTER PHYSICIAN: Dr. Tyrone Lou M.D. 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 EATING: Activity did not occur on this shift EATING - SCORE: 0-UNK GROOMING: Activity did not occur on this shift GROOMING - SCORE: 0-UNK BATHING: Activity did not occur on this shift BATHING - SCORE: 0-UNK DRESSING - UPPER BODY: Activity did not occur on this shift Patient is not dressing in public clothing ARTICLES SCORE Total number of steps: 0 DRESSING - UPPER BODY - SCORE: 0-UNK DRESSING - LOWER BODY: Activity did not occur on this shift Patient is not dressing in public clothing ARTICLES SCORE Total number of steps: 0 DRESSING - LOWER BODY - SCORE: 0-UNK TOILETING: Activity did not occur on this shift TOILETING - SCORE: 0-UNK BLADDER MANAGEMENT: Activity did not occur on this shift BLADDER MANAGEMENT - SCORE: 7-IND BOWEL MANAGEMENT: Activity did not occur on this shift BOWEL MANAGEMENT - SCORE: 7-IND TRANSFERS: BED, CHAIR, WHEELCHAIR: TRANSFERS: BED, CHAIR, WHEELCHAIR - STEP 1: Does the patient require assistance with bed, chair, or wheelchair transfers? Yes. TRANSFERS: BED, CHAIR, WHEELCHAIR - STEP 2: Does the patient require the assistance of a helper? Yes. TRANSFERS: BED, CHAIR, WHEELCHAIR - STEP 3: How much assistance does the patient require from the helper? Only supervision TRANSFERS: BED, CHAIR, WHEELCHAIR - SCORE: 5-SUP TRANSFERS: TOILET: Activity did not occur on this shift TRANSFERS: TOILET - SCORE: 0-UNK TRANSFERS: SHOWER: Activity did not occur on this shift TRANSFERS: SHOWER - SCORE: 0-UNK TRANSFERS: TUB: Activity did not occur on this shift TRANSFERS: TUB - SCORE: 0-UNK LOCOMOTION: WALK: LOCOMOTION: WALK - STEP 1: Does the patient need help to walk 150 feet? Yes. LOCOMOTION: WALK - STEP 2: How much assistance does the patient require to walk a minimum of 150 feet? Only supervision, cuing, or coaxing LOCOMOTION: WALK - SCORE: 5-SUP LOCOMOTION: WHEELCHAIR: LOCOMOTION: WHEELCHAIR - STEP 1: Does the patient need help to go 150 feet in a wheelchair? Yes. LOCOMOTION: WHEELCHAIR - STEP 2: How much assistance does the patient need from the helper? Only supervision, cuing, or coaxing LOCOMOTION: WHEELCHAIR - SCORE: 5-SUP LOCOMOTION: STAIRS: LOCOMOTION: STAIRS - STEP 1: Does the patient need help to go up and down 12 to 14 stairs? Yes. LOCOMOTION: STAIRS - STEP 2: How much assistance does the patient need from the helper to go a minimum of 12 to 14 stairs? Only cordova pervision, cuing, or coaxing LOCOMOTION: STAIRS - SCORE: 5-SUP COMPREHENSION: COMPREHENSION - SCORE: 0-UNK EXPRESSION EXPRESSION - SCORE: 0-UNK SOCIAL INTERACTION: SOCIAL INTERACTION - SCORE: 0-UNK PROBLEM SOLVING: PROBLEM SOLVING - SCORE: 0-UNK MEMORY: MEMORY - SCORE: 0-UNK SIGNATURE PANEL: The following modified sections: Transfers: Bed, Chair, Wheelchair - Score, Transfers: Toilet - Score , Locomotion: Walk - Score, Locomotion: Wheelchair - Score, Locomotion: Stairs - Score were [electron darvin] signed by Milan Elias PTA on ThuAug 14 2017 15:42:27 GMT-0500 (Central Daylight Time)
[2017-08-14] MEDS: glipiZIDE 5 MG TAB PO SCH (17:06)
[2017-08-14] MEDS: RIVAROXABAN 20 MG TABLET PO SCH (17:07)
--- NOTE | 2017-08-14 17:27 | PN ---
Subjective: The patient is sitting comfortably, reading his magazine. Has no new complaints. Says he feels well Objective: Vital Signs: Blood pressure 148/68, pulse 74, and temperature 97.2. Heart: Regular rate and rhythm. Chest: Clear to auscultation. Abdomen: Benign. Extremities: No edema, no cyanosis. Neurological: Alert, oriented x4. Cranial nerves 2 through 12 grossly intact. Laboratory Data: Hemoglobin 12.9 and hematocrit 38.8. Blood sugar, fingersticks noted. Assessment And Plan: 1.Cerebrovascular accident. The patient is clinically stable. The patient is participating in reha b. OT and PT and speech therapy. 2.Type 2 diabetes mellitus. The patient will continue current treatment. 3.Rest of chronic medical problems stable. Continue current care and treatment. MFS/MODL Voice ID: [id number] Report ID: [id number]
[2017-08-14] MEDS: RANITIDINE 150 MG TABLET PO SCH (20:53)
[2017-08-14] MEDS: ATORVASTATIN 10 MG TAB PO SCH (20:54)
--- NOTE | 2017-08-15 03:27 | FAST ---
SHIFT START DATE/TIME: 08/14/2017 19:00 (CDT) SHIFT END DATE/TIME: 08/15/2017 07:00 (CDT) NAME AIRAM KAYE DATE OF : 1930 DATE OF ADMISSION: 08/10/2017 16:09 (CDT) PHONE: AGE: 86 N# [id number] GENDER: Male ENCOUNTER PHYSICIAN: Dr. Tyrone Lou M.D. 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 EATING: Activity did not occur on this shift EATING - SCORE: 0-UNK GROOMING: Oral care Wash, rinse, and dry face Wash, rinse, and dry hands GROOMING - STEP 1: Does the patient require assistance when grooming? Yes. GROOMING - STEP 2: Does the patient require the assistance of a helper? Yes. GROOMING - STEP 3: How much assistance does the patient require from the helper? Only prior equipment preparation/set up from the helper GROOMING - SCORE: 5-SUP BATHING: Activity did not occur on this shift BATHING - SCORE: 0-UNK DRESSING - UPPER BODY: Patient is not dressing in public clothing ARTICLES SCORE Total number of steps: 0 DRESSING - UPPER BODY - SCORE: 0-UNK DRESSING - LOWER BODY: Patient is not dressing in public clothing ARTICLES SCORE Total number of steps: 0 DRESSING - LOWER BODY - SCORE: 0-UNK TOILETING: TOILETING - STEP 1: Does the patient require assistance with toileting? Yes. TOILETING - STEP 2: Does the patient require the assistance of a helper? Yes. TOILETING - STEP 3: How much assistance does the patient require from the helper? Only supervision TOILETING - SCORE: 5-SUP BLADDER MANAGEMENT: BLADDER MANAGEMENT - STEP 1: Does the patient control the bladder completely and intentionally without equipment or devices or med ications, and is always continent? No. BLADDER MANAGEMENT - STEP 2: Does the patient require the assistance of a helper? Yes. BLADDER MANAGEMENT - STEP 3: How much assistance does the patient require from the helper? Only set-up of equipment - such as plac ing it within reach of the patient or emptying a device - to maintain either satisfactory voiding pat tern or managing an external device, such as an absorbent pad, ileal device, or catheter BLADDER MANAGEMENT - SCORE: 5-SUP BOWEL MANAGEMENT: Activity did not occur on this shift BOWEL MANAGEMENT - SCORE: 7-IND TRANSFERS: BED, CHAIR, WHEELCHAIR: TRANSFERS: BED, CHAIR, WHEELCHAIR - STEP 1: Does the patient require assistance with bed, chair, or wheelchair transfers? Yes. TRANSFERS: BED, CHAIR, WHEELCHAIR - STEP 2: Does the patient require the assistance of a helper? Yes. TRANSFERS: BED, CHAIR, WHEELCHAIR - STEP 3: How much assistance does the patient require from the helper? Only supervision TRANSFERS: BED, CHAIR, WHEELCHAIR - SCORE: 5-SUP TRANSFERS: TOILET: TRANSFERS: TOILET - STEP 1: Does the patient require assistance with toilet transfers? Yes. TRANSFERS: TOILET - STEP 2: Does the patient require the assistance of a helper? Yes. TRANSFERS: TOILET - STEP 3: How much assistance does the patient require from the helper? Only supervision, cuing, coaxing, OR he lp to set out transfer equipment or to lock brakes and/or lift foot rests TRANSFERS: TOILET - SCORE: 5-SUP TRANSFERS: SHOWER: Activity did not occur on this shift TRANSFERS: SHOWER - SCORE: 0-UNK TRANSFERS: TUB: Activity did not occur on this shift TRANSFERS: TUB - SCORE: 0-UNK LOCOMOTION: WALK: Activity did not occur on this shift LOCOMOTION: WALK - SCORE: 0-UNK LOCOMOTION: WHEELCHAIR: Activity did not occur on this shift LOCOMOTION: WHEELCHAIR - SCORE: 0-UNK COMPREHENSION: COMPREHENSION: TYPE: Both COMPREHENSION - STEP 1: Does the patient require help to understand complex and abstract ideas (such as current events, finan erick, discharge planning, medical issues, relationships, etc)? No. COMPREHENSION - STEP 2: Does the patient need extra time, require an assistive device (such as glasses, hearing aids, or an a ugmentative communication system), OR does s/he have mild difficulty expressing complex and abstract ideas (including mild dysarthria or mild word-finding problems)? Yes. COMPREHENSION - SCORE: 6-TAMMI EXPRESSION EXPRESSION: TYPE: Both EXPRESSION - STEP 1: Does the patient require help expressing complex and abstract ideas (such as current events, finances , discharge planning, medical issues, relationships, etc)? No. EXPRESSION - STEP 2: Does the patient need extra time, require an assistive device (such as augmentive communication syste m or a communication board), OR does s/he have mild difficulty expressing complex and abstract ideas (including mild dysarthria or mild word-find problems)? Yes. EXPRESSION - SCORE: 6-TAMMI SOCIAL INTERACTION: SOCIAL INTERACTION - STEP 1: Does the patient require a helper to interact with others in social and therapeutic situations? No. SOCIAL INTERACTION - STEP 2: Does the patient need extra time in social situations, OR does s/he interact with staff, other patien ts, and family members ONLY in structured environments, OR does s/he require medication for social in teraction? Yes, patient needs extra time SOCIAL INTERACTION - SCORE: 6-TAMMI PROBLEM SOLVING: PROBLEM SOLVING - STEP 1: Does the patient need help to solve complex problems such as managing a checking account or confronti ng interpersonal problems? No. PROBLEM SOLVING - STEP 2: Does the patient require extra time to make decisions or solve problems, OR does s/he have slight dif ficulty reading, initiating, or self-correcting in unfamiliar situations? Yes, patient needs extra ti me. PROBLEM SOLVING - SCORE: 6-TAMMI MEMORY: MEMORY - STEP 1: Does the patient need help to remember frequently encountered people, daily routines, and executing r equests? No. MEMORY - STEP 2: Does the patient have slight difficulty recognizing frequently encountered people, daily routines, or executing requests without the need for repetition or using self-initiated or environmental cues to remember? Yes. MEMORY - SCORE: 6-TAMMI
[2017-08-15] MEDS: CARVEDILOL 3.125 MG TAB PO SCH ×2 (05:11→17:07)
[2017-08-15] MEDS: INSULIN -REGULAR HUMAN 50 UNIT/0.5 ML ML SQ SCH ×4 (08:15→20:39)
[2017-08-15] MEDS: glipiZIDE 5 MG TAB PO SCH ×2 (08:16→17:00)
[2017-08-15] MEDS: MAGNESIUM OXIDE 400 MG TAB PO SCH ×2 (08:17→19:51)
[2017-08-15] MEDS: CLOPIDOGREL 75 MG TABLET PO SCH (08:17)
[2017-08-15] MEDS: AZATHIOPRINE 50 MG TABLET PO SCH ×2 (08:17→19:51)
[2017-08-15] MEDS: CRANBERRY FRUIT EXTRACT 200 MG CAP PO SCH (08:18)
[2017-08-15] MEDS: LOSARTAN POTASSIUM 50 MG TABLET PO SCH (08:18)
[2017-08-15] MEDS: PYRIDOSTIGMINE 60 MG TABLET PO SCH ×3 (08:19→20:42)
[2017-08-15] MEDS: FLUTICASONE 50MCG NASAL SPRAY NAS SCH ×2 (08:20→19:50)
[2017-08-15] MEDS: GLUCERNA SHAKE 237 ML CAN PO SCH ×2 (08:20→19:50)
--- NOTE | 2017-08-15 10:41 | FAST ---
ENCOUNTER DATE AND TIME: 08/15/2017 08:00 (CDT) NAME AIRAM KAYE DATE OF : 1930 DATE OF ADMISSION: 08/10/2017 16:09 (CDT) PHONE: AGE: 86 N# [id number] GENDER: Male ENCOUNTER PHYSICIAN: Dr. Tyrone Lou M.D. 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 EATING: Activity did not occur on this shift EATING - SCORE: 0-UNK GROOMING: Activity did not occur on this shift GROOMING - SCORE: 0-UNK BATHING: Activity did not occur on this shift BATHING - SCORE: 0-UNK DRESSING - UPPER BODY: Activity did not occur on this shift Patient is not dressing in public clothing ARTICLES SCORE Total number of steps: 0 DRESSING - UPPER BODY - SCORE: 0-UNK DRESSING - LOWER BODY: Activity did not occur on this shift Patient is not dressing in public clothing ARTICLES SCORE Total number of steps: 0 DRESSING - LOWER BODY - SCORE: 0-UNK TOILETING: Activity did not occur on this shift TOILETING - SCORE: 0-UNK BLADDER MANAGEMENT: Activity did not occur on this shift BLADDER MANAGEMENT - SCORE: 7-IND BOWEL MANAGEMENT: Activity did not occur on this shift BOWEL MANAGEMENT - SCORE: 7-IND TRANSFERS: BED, CHAIR, WHEELCHAIR: TRANSFERS: BED, CHAIR, WHEELCHAIR - STEP 1: Does the patient require assistance with bed, chair, or wheelchair transfers? Yes. TRANSFERS: BED, CHAIR, WHEELCHAIR - STEP 2: Does the patient require the assistance of a helper? Yes. TRANSFERS: BED, CHAIR, WHEELCHAIR - STEP 3: How much assistance does the patient require from the helper? Only supervision TRANSFERS: BED, CHAIR, WHEELCHAIR - SCORE: 5-SUP TRANSFERS: TOILET: Activity did not occur on this shift TRANSFERS: TOILET - SCORE: 0-UNK TRANSFERS: SHOWER: Activity did not occur on this shift TRANSFERS: SHOWER - SCORE: 0-UNK TRANSFERS: TUB: Activity did not occur on this shift TRANSFERS: TUB - SCORE: 0-UNK LOCOMOTION: WALK: LOCOMOTION: WALK - STEP 1: Does the patient need help to walk 150 feet? Yes. LOCOMOTION: WALK - STEP 2: How much assistance does the patient require to walk a minimum of 150 feet? Only supervision, cuing, or coaxing LOCOMOTION: WALK - SCORE: 5-SUP LOCOMOTION: WHEELCHAIR: LOCOMOTION: WHEELCHAIR - STEP 1: Does the patient need help to go 150 feet in a wheelchair? Yes. LOCOMOTION: WHEELCHAIR - STEP 2: How much assistance does the patient need from the helper? Only incidental help such as around corner s or over thresholds LOCOMOTION: WHEELCHAIR - SCORE: 4-MIN LOCOMOTION: STAIRS: Activity did not occur on this shift LOCOMOTION: STAIRS - SCORE: 0-UNK COMPREHENSION: COMPREHENSION - SCORE: 0-UNK EXPRESSION EXPRESSION - SCORE: 0-UNK SOCIAL INTERACTION: SOCIAL INTERACTION - SCORE: 0-UNK PROBLEM SOLVING: PROBLEM SOLVING - SCORE: 0-UNK MEMORY: MEMORY - SCORE: 0-UNK SIGNATURE PANEL: The following modified sections: Transfers: Bed, Chair, Wheelchair - Score, Transfers: Toilet - Score , Locomotion: Walk - Score, Locomotion: Wheelchair - Score, Locomotion: Stairs - Score were [mesha boston] signed by Arabella Elias PTA on Sat Aug 15 2017 09:44:10 GMT-0500 (Central Daylight Time)
[2017-08-15] MEDS: RIVAROXABAN 20 MG TABLET PO SCH (17:07)
[2017-08-15] MEDS: ATORVASTATIN 10 MG TAB PO SCH (20:41)
[2017-08-15] MEDS: RANITIDINE 150 MG TABLET PO SCH (20:42)
--- NOTE | 2017-08-16 02:58 | FAST ---
SHIFT START DATE/TIME: 08/15/2017 19:00 (CDT) SHIFT END DATE/TIME: 08/16/2017 07:00 (CDT) NAME AIRAM KAYE DATE OF : 1930 DATE OF ADMISSION: 08/10/2017 16:09 (CDT) PHONE: AGE: 86 N# [id number] GENDER: Male ENCOUNTER PHYSICIAN: Dr. Tyrone Lou M.D. 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 EATING: Activity did not occur on this shift EATING - SCORE: 0-UNK GROOMING: Activity did not occur on this shift GROOMING - SCORE: 0-UNK BATHING: Activity did not occur on this shift BATHING - SCORE: 0-UNK DRESSING - UPPER BODY: Patient is not dressing in public clothing ARTICLES SCORE Total number of steps: 0 DRESSING - UPPER BODY - SCORE: 0-UNK DRESSING - LOWER BODY: Patient is not dressing in public clothing ARTICLES SCORE Total number of steps: 0 DRESSING - LOWER BODY - SCORE: 0-UNK TOILETING: TOILETING - STEP 1: Does the patient require assistance with toileting? Yes. TOILETING - STEP 2: Does the patient require the assistance of a helper? Yes. TOILETING - STEP 3: How much assistance does the patient require from the helper? Hands-on assistance from the helper TOILETING - STEP 4: Of the 3 tasks: 1) Adjusting clothing prior to use, 2) Cleansing of perineal area, 3) Adjusting clot jana after use; How many tasks does the patient perform WITHOUT assistance of the helper? Three tasks with steadying assistance from the helper TOILETING - SCORE: 4-MIN BLADDER MANAGEMENT: BLADDER MANAGEMENT - STEP 1: Does the patient control the bladder completely and intentionally without equipment or devices or med ications, and is always continent? No. BLADDER MANAGEMENT - STEP 2: Does the patient require the assistance of a helper? Yes. BLADDER MANAGEMENT - STEP 3: How much assistance does the patient require from the helper? Only set-up of equipment - such as plac ing it within reach of the patient or emptying a device - to maintain either satisfactory voiding pat tern or managing an external device, such as an absorbent pad, ileal device, or catheter BLADDER MANAGEMENT - SCORE: 5-SUP BOWEL MANAGEMENT: Activity did not occur on this shift BOWEL MANAGEMENT - SCORE: 7-IND TRANSFERS: BED, CHAIR, WHEELCHAIR: TRANSFERS: BED, CHAIR, WHEELCHAIR - STEP 1: Does the patient require assistance with bed, chair, or wheelchair transfers? Yes. TRANSFERS: BED, CHAIR, WHEELCHAIR - STEP 2: Does the patient require the assistance of a helper? Yes. TRANSFERS: BED, CHAIR, WHEELCHAIR - STEP 3: How much assistance does the patient require from the helper? Steadying/guiding assistance TRANSFERS: BED, CHAIR, WHEELCHAIR - SCORE: 4-MIN TRANSFERS: TOILET: Activity did not occur on this shift TRANSFERS: TOILET - SCORE: 0-UNK TRANSFERS: SHOWER: Activity did not occur on this shift TRANSFERS: SHOWER - SCORE: 0-UNK TRANSFERS: TUB: Activity did not occur on this shift TRANSFERS: TUB - SCORE: 0-UNK LOCOMOTION: WALK: Activity did not occur on this shift LOCOMOTION: WALK - SCORE: 0-UNK LOCOMOTION: WHEELCHAIR: Activity did not occur on this shift LOCOMOTION: WHEELCHAIR - SCORE: 0-UNK COMPREHENSION: COMPREHENSION - STEP 1: Does the patient require help to understand complex and abstract ideas (such as current events, finan erick, discharge planning, medical issues, relationships, etc)? Yes. COMPREHENSION - STEP 2: Does the patient require help to understand questions or statements about basic needs or ideas (such as hunger, thirst, sleep, safety, daily schedule, room location, or discomfort) half or more of the t natalie? No. COMPREHENSION - STEP 3: How often does the patient need help to understand directions and conversation about basic needs? Les s than 10% of the time COMPREHENSION - SCORE: 5-SUP EXPRESSION EXPRESSION - STEP 1: Does the patient require help expressing complex and abstract ideas (such as current events, finances , discharge planning, medical issues, relationships, etc)? Yes. EXPRESSION - STEP 2: Does the patient require help to express basic necessities or ideas (such as hunger, thirst, sleep, s afety, daily schedule, room location, or discomfort) half or more of the time? No. EXPRESSION - STEP 3: How often does the patient need help to express directions and conversation about basic needs? Less t [place] 10% of the time EXPRESSION - SCORE: 5-SUP SOCIAL INTERACTION: SOCIAL INTERACTION - STEP 1: Does the patient require a helper to interact with others in social and therapeutic situations? No. SOCIAL INTERACTION - STEP 2: Does the patient need extra time in social situations, OR does s/he interact with staff, other patien ts, and family members ONLY in structured environments, OR does s/he require medication for social in teraction? Yes, patient needs extra time SOCIAL INTERACTION - SCORE: 6-TAMMI PROBLEM SOLVING: PROBLEM SOLVING - STEP 1: Does the patient need help to solve complex problems such as managing a checking account or confronti ng interpersonal problems? Yes. PROBLEM SOLVING - STEP 2: Does the patient solve basic routine problems half or more of the time? Yes. PROBLEM SOLVING - STEP 3: How often does the patient need help to solve basic routine problems? 10%-24% of the time PROBLEM SOLVING - SCORE: 4-MIN MEMORY: MEMORY - STEP 1: Does the patient need help to remember frequently encountered people, daily routines, and executing r equests? No. MEMORY - STEP 2: Does the patient have slight difficulty recognizing frequently encountered people, daily routines, or executing requests without the need for repetition or using self-initiated or environmental cues to remember? Yes. MEMORY - SCORE: 6-TAMMI SIGNATURE PANEL: The following modified sections: Eating - Score, Grooming - Score, Dressing - Upper Body - Score, Ayaan ssing - Lower Body - Score, Toileting - Score, Bowel Management - Score, Transfers: Bed, Chair, Wheel chair - Score, Transfers: Toilet - Score, Transfers: Shower - Score, Transfers: Tub - Score, Locomoti on: Walk - Score, Locomotion: Wheelchair - Score, Comprehension - Score, Expression - Score, Social I nteraction - Score, Problem Solving - Score, Memory - Score, Bladder Management - Score were [electro nically] signed by Pam Razo CNA on ThuAug 16 2017 01:59:49 GMT-0500 (Central Daylight Time)
[2017-08-16] MEDS: CARVEDILOL 3.125 MG TAB PO SCH ×2 (05:25→17:09)
[2017-08-16] MEDS: PYRIDOSTIGMINE 60 MG TABLET PO SCH ×3 (08:42→20:03)
[2017-08-16] MEDS: CRANBERRY FRUIT EXTRACT 200 MG CAP PO SCH (08:42)
[2017-08-16] MEDS: AZATHIOPRINE 50 MG TABLET PO SCH ×2 (08:43→20:03)
[2017-08-16] MEDS: CLOPIDOGREL 75 MG TABLET PO SCH (08:43)
[2017-08-16] MEDS: glipiZIDE 5 MG TAB PO SCH ×2 (08:44→17:10)
[2017-08-16] MEDS: MAGNESIUM OXIDE 400 MG TAB PO SCH ×2 (08:44→20:02)
[2017-08-16] MEDS: LOSARTAN POTASSIUM 50 MG TABLET PO SCH (08:45)
[2017-08-16] MEDS: FLUTICASONE 50MCG NASAL SPRAY NAS SCH ×2 (08:46→20:02)
[2017-08-16] MEDS: INSULIN -REGULAR HUMAN 50 UNIT/0.5 ML ML SQ SCH ×4 (08:46→20:58)
[2017-08-16] MEDS: GLUCERNA SHAKE 237 ML CAN PO SCH ×2 (08:47→20:02)
--- NOTE | 2017-08-16 12:28 | P.PN ---
Subjective Date of Service: 08/16/17 Chief Complaint: HE IS FEELING GREAT Subjective: Improving MR. KAYE HAS DONE VERY WELL. I ONCE AGAIN TOLD HIM THAT HE HAD A STROKE BUT WE CAN'T DO MRI ON ON HIM. HE HAS FULLY RECOVERED TO HIS BASELINE. HE IS EATING WELL, WALKING A LOT HERE. Review of Systems 10-point ROS is otherwise unremarkable Physical Examination - Vital Signs Temperature: 97.0 F Blood Pressure: 127/46 Pulse: 67 Respirations: 16 Pulse Ox (%): 94 - Physical Exam General: Alert, In no apparent distress HEENT: Atraumatic, PERRLA, EOMI Neck: Supple, JVD not distended Respiratory: Clear to auscultation bilaterally, Normal air movement Cardiovascular: Regular rate/rhythm, Normal S1 S2 Gastrointestinal: Normal bowel sounds, No tenderness Musculoskeletal: No tenderness, Other (WALKING WITH WALKER, DOING GREAT) Integumentary: No rashes Neurological: Normal speech, Normal tone, Normal affect Lymphatics: No axilla or inguinal lymphadenopathy - Studies Medications List Reviewed: Yes Assessment And Plan - Current Problems (Diagnosis) (1) Allergic cough Onset Date: 08/12/17 Current Visit: Yes Status: Acute (2) A-fib Onset Date: 08/12/17 Current Visit: Yes Status: Acute Plan: BETTER ON XARELTO NOT WELL CONTROLLED ON [place]. Qualifiers: Atrial fibrillation type: chronic Qualified Code(s): I48.2 - Chronic atrial fibrillation (3) CVA (cerebral vascular accident) Onset Date: 08/06/17 Current Visit: No Status: Acute Plan: MOSTLY RESLOVED PT FOR ENDURANCE (4) Hypertension Current Visit: No Status: Acute (5) Myasthenia gravis Onset Date: 08/12/17 Current Visit: Yes Status: Chronic Plan: STABLE ON MEDS RESUME PT
[2017-08-16] MEDS: RIVAROXABAN 20 MG TABLET PO SCH (17:09)
[2017-08-16] MEDS: ATORVASTATIN 10 MG TAB PO SCH (20:03)
[2017-08-16] MEDS: RANITIDINE 150 MG TABLET PO SCH (20:08)
--- NOTE | 2017-08-17 03:00 | FAST ---
SHIFT START DATE/TIME: 08/16/2017 19:00 (CDT) SHIFT END DATE/TIME: 08/17/2017 07:00 (CDT) NAME AIRAM KAYE DATE OF : 1930 DATE OF ADMISSION: 08/10/2017 16:09 (CDT) PHONE: AGE: 86 N# [id number] GENDER: Male ENCOUNTER PHYSICIAN: Dr. Tyrone Lou M.D. 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 EATING: Activity did not occur on this shift EATING - SCORE: 0-UNK GROOMING: Comb/brush hair Oral care Wash, rinse, and dry face Wash, rinse, and dry hands GROOMING - STEP 1: Does the patient require assistance when grooming? Yes. GROOMING - STEP 2: Does the patient require the assistance of a helper? Yes. GROOMING - STEP 3: How much assistance does the patient require from the helper? Cuing, coaxing, instructions, or encour agement for completion of grooming GROOMING - SCORE: 5-SUP BATHING: Activity did not occur on this shift BATHING - SCORE: 0-UNK DRESSING - UPPER BODY: Patient is not dressing in public clothing ARTICLES SCORE Total number of steps: 0 DRESSING - UPPER BODY - SCORE: 0-UNK DRESSING - LOWER BODY: Patient is not dressing in public clothing ARTICLES SCORE Total number of steps: 0 DRESSING - LOWER BODY - SCORE: 0-UNK TOILETING: TOILETING - STEP 1: Does the patient require assistance with toileting? Yes. TOILETING - STEP 2: Does the patient require the assistance of a helper? Yes. TOILETING - STEP 3: How much assistance does the patient require from the helper? Hands-on assistance from the helper TOILETING - STEP 4: Of the 3 tasks: 1) Adjusting clothing prior to use, 2) Cleansing of perineal area, 3) Adjusting clot jana after use; How many tasks does the patient perform WITHOUT assistance of the helper? Three tasks with steadying assistance from the helper TOILETING - SCORE: 4-MIN BLADDER MANAGEMENT: BLADDER MANAGEMENT - STEP 1: Does the patient control the bladder completely and intentionally without equipment or devices or med ications, and is always continent? No. BLADDER MANAGEMENT - STEP 2: Does the patient require the assistance of a helper? Yes. BLADDER MANAGEMENT - STEP 3: How much assistance does the patient require from the helper? Only set-up of equipment - such as plac ing it within reach of the patient or emptying a device - to maintain either satisfactory voiding pat tern or managing an external device, such as an absorbent pad, ileal device, or catheter BLADDER MANAGEMENT - SCORE: 5-SUP BOWEL MANAGEMENT: BOWEL MANAGEMENT - STEP 1: Does the patient control bowels completely and intentionally without equipment devices or medications AND is always continent? No. BOWEL MANAGEMENT - STEP 2: Does the patient require the assistance of a helper? Yes. BOWEL MANAGEMENT - STEP 3: How much assistance does the patient require from the helper? Patient requires supervision, stand by, cueing, coaxing, or setup of equipment - placing within reach of patient and emptying device / bedpa nd or BSC bucket - to maintain either satisfactory bowel pattern or managing an external device such as an absorbent pad, colostomy bag / ileostomy bag BOWEL MANAGEMENT - SCORE: 5-SUP TRANSFERS: BED, CHAIR, WHEELCHAIR: TRANSFERS: BED, CHAIR, WHEELCHAIR - STEP 1: Does the patient require assistance with bed, chair, or wheelchair transfers? Yes. TRANSFERS: BED, CHAIR, WHEELCHAIR - STEP 2: Does the patient require the assistance of a helper? Yes. TRANSFERS: BED, CHAIR, WHEELCHAIR - STEP 3: How much assistance does the patient require from the helper? Steadying/guiding assistance TRANSFERS: BED, CHAIR, WHEELCHAIR - SCORE: 4-MIN TRANSFERS: TOILET: TRANSFERS: TOILET - STEP 1: Does the patient require assistance with toilet transfers? Yes. TRANSFERS: TOILET - STEP 2: Does the patient require the assistance of a helper? Yes. TRANSFERS: TOILET - STEP 3: How much assistance does the patient require from the helper? Only supervision, cuing, coaxing, OR he lp to set out transfer equipment or to lock brakes and/or lift foot rests TRANSFERS: TOILET - SCORE: 5-SUP TRANSFERS: SHOWER: Activity did not occur on this shift TRANSFERS: SHOWER - SCORE: 0-UNK TRANSFERS: TUB: Activity did not occur on this shift TRANSFERS: TUB - SCORE: 0-UNK LOCOMOTION: WALK: Activity did not occur on this shift LOCOMOTION: WALK - SCORE: 0-UNK LOCOMOTION: WHEELCHAIR: Activity did not occur on this shift LOCOMOTION: WHEELCHAIR - SCORE: 0-UNK COMPREHENSION: COMPREHENSION - STEP 1: Does the patient require help to understand complex and abstract ideas (such as current events, finan erick, discharge planning, medical issues, relationships, etc)? Yes. COMPREHENSION - STEP 2: Does the patient require help to understand questions or statements about basic needs or ideas (such as hunger, thirst, sleep, safety, daily schedule, room location, or discomfort) half or more of the t natalie? No. COMPREHENSION - STEP 3: How often does the patient need help to understand directions and conversation about basic needs? 10% - 24% of the time COMPREHENSION - SCORE: 4-MIN EXPRESSION EXPRESSION - STEP 1: Does the patient require help expressing complex and abstract ideas (such as current events, finances , discharge planning, medical issues, relationships, etc)? No. EXPRESSION - STEP 2: Does the patient need extra time, require an assistive device (such as augmentive communication syste m or a communication board), OR does s/he have mild difficulty expressing complex and abstract ideas (including mild dysarthria or mild word-find problems)? Yes. EXPRESSION - SCORE: 6-TAMMI SOCIAL INTERACTION: SOCIAL INTERACTION - STEP 1: Does the patient require a helper to interact with others in social and therapeutic situations? No. SOCIAL INTERACTION - STEP 2: Does the patient need extra time in social situations, OR does s/he interact with staff, other patien ts, and family members ONLY in structured environments, OR does s/he require medication for social in teraction? Yes, patient needs extra time SOCIAL INTERACTION - SCORE: 6-TAMMI PROBLEM SOLVING: PROBLEM SOLVING - STEP 1: Does the patient need help to solve complex problems such as managing a checking account or confronti ng interpersonal problems? Yes. PROBLEM SOLVING - STEP 2: Does the patient solve basic routine problems half or more of the time? Yes. PROBLEM SOLVING - STEP 3: How often does the patient need help to solve basic routine problems? 10%-24% of the time PROBLEM SOLVING - SCORE: 4-MIN MEMORY: MEMORY - STEP 1: Does the patient need help to remember frequently encountered people, daily routines, and executing r equests? No. MEMORY - STEP 2: Does the patient have slight difficulty recognizing frequently encountered people, daily routines, or executing requests without the need for repetition or using self-initiated or environmental cues to remember? Yes. MEMORY - SCORE: 6-TAMMI SIGNATURE PANEL: The following modified sections: Eating - Score, Grooming - Score, Dressing - Upper Body - Score, Ayaan ssing - Lower Body - Score, Toileting - Score, Bladder Management - Score, Bowel Management - Score, Transfers: Bed, Chair, Wheelchair - Score, Transfers: Toilet - Score, Transfers: Shower - Score, [place] sfers: Tub - Score, Locomotion: Walk - Score, Locomotion: Wheelchair - Score, Comprehension - Score, Expression - Score, Social Interaction - Score, Problem Solving - Score, Memory - Score were [electro nically] signed by Pam Razo CNA on ThuAug 17 2017 02:01:30 GMT-0500 (Central Daylight Time)
[2017-08-17] MEDS: CARVEDILOL 3.125 MG TAB PO SCH ×2 (05:17→17:02)
[2017-08-17] MEDS: FLUTICASONE 50MCG NASAL SPRAY NAS SCH ×2 (07:06→19:44)
[2017-08-17] MEDS: INSULIN -REGULAR HUMAN 50 UNIT/0.5 ML ML SQ SCH ×4 (07:30→20:08)
[2017-08-17] MEDS: GLUCERNA SHAKE 237 ML CAN PO SCH ×2 (08:01→19:45)
[2017-08-17] MEDS: MAGNESIUM OXIDE 400 MG TAB PO SCH ×2 (08:01→19:45)
[2017-08-17] MEDS: glipiZIDE 5 MG TAB PO SCH ×2 (08:01→16:53)
[2017-08-17] MEDS: PYRIDOSTIGMINE 60 MG TABLET PO SCH ×3 (08:01→20:14)
[2017-08-17] MEDS: CLOPIDOGREL 75 MG TABLET PO SCH (08:02)
[2017-08-17] MEDS: LOSARTAN POTASSIUM 50 MG TABLET PO SCH (08:02)
[2017-08-17] MEDS: AZATHIOPRINE 50 MG TABLET PO SCH ×2 (08:03→19:45)
[2017-08-17] MEDS: CRANBERRY FRUIT EXTRACT 200 MG CAP PO SCH (08:03)
--- NOTE | 2017-08-17 09:59 | FAST ---
SHIFT START DATE/TIME: 08/17/2017 07:00 (CDT) SHIFT END DATE/TIME: 08/17/2017 19:00 (CDT) NAME AIRAM KAYE DATE OF : 1930 DATE OF ADMISSION: 08/10/2017 16:09 (CDT) PHONE: AGE: 86 N# [id number] GENDER: Male ENCOUNTER PHYSICIAN: Dr. Tyrone Lou M.D. 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 EATING: EATING - STEP 1: Does the patient require assistance when eating? Yes. EATING - STEP 2: Does the patient require the assistance of a helper? Yes. EATING - STEP 3: Does the patient perform half or more of the eating tasks? Yes. EATING - STEP 4: Does the patient need only supervision, cuing, coaxing OR help to apply an orthosis OR help to cut fo od, open containers, pour liquids, or butter bread? Yes. EATING - SCORE: 5-SUP GROOMING: Activity did not occur on this shift GROOMING - SCORE: 0-UNK BATHING: Activity did not occur on this shift BATHING - SCORE: 0-UNK DRESSING - UPPER BODY: Activity did not occur on this shift ARTICLES SCORE Total number of steps: 0 DRESSING - UPPER BODY - SCORE: 0-UNK DRESSING - LOWER BODY: Activity did not occur on this shift ARTICLES SCORE Total number of steps: 0 DRESSING - LOWER BODY - SCORE: 0-UNK TOILETING: TOILETING - STEP 1: Does the patient require assistance with toileting? Yes. TOILETING - STEP 2: Does the patient require the assistance of a helper? Yes. TOILETING - STEP 3: How much assistance does the patient require from the helper? Hands-on assistance from the helper TOILETING - STEP 4: Of the 3 tasks: 1) Adjusting clothing prior to use, 2) Cleansing of perineal area, 3) Adjusting clot jana after use; How many tasks does the patient perform WITHOUT assistance of the helper? Three tasks with steadying assistance from the helper TOILETING - SCORE: 4-MIN BLADDER MANAGEMENT: BLADDER MANAGEMENT - STEP 1: Does the patient control the bladder completely and intentionally without equipment or devices or med ications, and is always continent? No. BLADDER MANAGEMENT - STEP 2: Does the patient require the assistance of a helper? No, patient requires and independently uses an a ssistive device, such as a urinal, bedpan, bedside commode, catheter, absorbent pad, or collecting de vice BLADDER MANAGEMENT - SCORE: 6-TAMMI BOWEL MANAGEMENT: BOWEL MANAGEMENT - STEP 1: Does the patient control bowels completely and intentionally without equipment devices or medications AND is always continent? No. BOWEL MANAGEMENT - STEP 2: Does the patient require the assistance of a helper? No, patient requires and manages independently a n assistive device such as a bedpan, bedside commode, absorbent pad, incontinent device, or collectin g device BOWEL MANAGEMENT - SCORE: 6-TAMMI TRANSFERS: BED, CHAIR, WHEELCHAIR: TRANSFERS: BED, CHAIR, WHEELCHAIR - STEP 1: Does the patient require assistance with bed, chair, or wheelchair transfers? Yes. TRANSFERS: BED, CHAIR, WHEELCHAIR - STEP 2: Does the patient require the assistance of a helper? Yes. TRANSFERS: BED, CHAIR, WHEELCHAIR - STEP 3: How much assistance does the patient require from the helper? Steadying/guiding assistance TRANSFERS: BED, CHAIR, WHEELCHAIR - SCORE: 4-MIN TRANSFERS: TOILET: TRANSFERS: TOILET - STEP 1: Does the patient require assistance with toilet transfers? Yes. TRANSFERS: TOILET - STEP 2: Does the patient require the assistance of a helper? Yes. TRANSFERS: TOILET - STEP 3: How much assistance does the patient require from the helper? Patient performs half or more of the tr ansferring tasks TRANSFERS: TOILET - STEP 4: Does the patient need only incidental help such as contact guard or steadying during toilet transfer? No. Patient needs more than incidental help TRANSFERS: TOILET - SCORE: 3-MOD TRANSFERS: SHOWER: Activity did not occur on this shift TRANSFERS: SHOWER - SCORE: 0-UNK TRANSFERS: TUB: Activity did not occur on this shift TRANSFERS: TUB - SCORE: 0-UNK LOCOMOTION: WALK: Activity did not occur on this shift LOCOMOTION: WALK - SCORE: 0-UNK LOCOMOTION: WHEELCHAIR: Activity did not occur on this shift LOCOMOTION: WHEELCHAIR - SCORE: 0-UNK COMPREHENSION: COMPREHENSION - SCORE: 0-UNK EXPRESSION EXPRESSION - SCORE: 0-UNK SOCIAL INTERACTION: SOCIAL INTERACTION - SCORE: 0-UNK PROBLEM SOLVING: PROBLEM SOLVING - SCORE: 0-UNK MEMORY: MEMORY - SCORE: 0-UNK SIGNATURE PANEL: The following modified sections: Eating - Score, Grooming - Score, Bathing - Score, Dressing - Upper Body - Score, Dressing - Lower Body - Score, Toileting - Score, Bladder Management - Score, Bowel Man agement - Score, Transfers: Bed, Chair, Wheelchair - Score, Transfers: Toilet - Score, Transfers: [place] wer - Score, Transfers: Tub - Score, Locomotion: Walk - Score, Locomotion: Wheelchair - Score, Compre hension - Score, Expression - Score, Social Interaction - Score, Problem Solving - Score, Memory - Sc ore were [electronically] signed by Omero Valera on ThuAug 17 2017 09:00:50 GMT-0500 (Central Daylight Time)
--- NOTE | 2017-08-17 16:32 | FAST ---
ENCOUNTER DATE AND TIME: 08/17/2017 08:00 (CDT) NAME AIRAM KAYE DATE OF : 1930 DATE OF ADMISSION: 08/10/2017 16:09 (CDT) PHONE: AGE: 86 N# [id number] GENDER: Male ENCOUNTER PHYSICIAN: Dr. Tyrone Lou M.D. 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 EATING: Activity did not occur on this shift EATING - SCORE: 0-UNK GROOMING: Activity did not occur on this shift GROOMING - SCORE: 0-UNK BATHING: Activity did not occur on this shift BATHING - SCORE: 0-UNK DRESSING - UPPER BODY: Activity did not occur on this shift Patient is not dressing in public clothing ARTICLES SCORE Total number of steps: 0 DRESSING - UPPER BODY - SCORE: 0-UNK DRESSING - LOWER BODY: Activity did not occur on this shift Patient is not dressing in public clothing ARTICLES SCORE Total number of steps: 0 DRESSING - LOWER BODY - SCORE: 0-UNK TOILETING: Activity did not occur on this shift TOILETING - SCORE: 0-UNK BLADDER MANAGEMENT: Activity did not occur on this shift BLADDER MANAGEMENT - SCORE: 7-IND BOWEL MANAGEMENT: Activity did not occur on this shift BOWEL MANAGEMENT - SCORE: 7-IND TRANSFERS: BED, CHAIR, WHEELCHAIR: TRANSFERS: BED, CHAIR, WHEELCHAIR - STEP 1: Does the patient require assistance with bed, chair, or wheelchair transfers? Yes. TRANSFERS: BED, CHAIR, WHEELCHAIR - STEP 2: Does the patient require the assistance of a helper? Yes. TRANSFERS: BED, CHAIR, WHEELCHAIR - STEP 3: How much assistance does the patient require from the helper? Only supervision TRANSFERS: BED, CHAIR, WHEELCHAIR - SCORE: 5-SUP TRANSFERS: TOILET: Activity did not occur on this shift TRANSFERS: TOILET - SCORE: 0-UNK TRANSFERS: SHOWER: Activity did not occur on this shift TRANSFERS: SHOWER - SCORE: 0-UNK TRANSFERS: TUB: Activity did not occur on this shift TRANSFERS: TUB - SCORE: 0-UNK LOCOMOTION: WALK: LOCOMOTION: WALK - STEP 1: Does the patient need help to walk 150 feet? Yes. LOCOMOTION: WALK - STEP 2: How much assistance does the patient require to walk a minimum of 150 feet? Patient walks less than 1 50 feet - but more than 50 feet - with the assistance of only one helper LOCOMOTION: WALK - SCORE: 2-MAX LOCOMOTION: WALK - COMMENTS: Patient feeling weak today 70'-150' LOCOMOTION: WHEELCHAIR: LOCOMOTION: WHEELCHAIR - STEP 1: Does the patient need help to go 150 feet in a wheelchair? Yes. LOCOMOTION: WHEELCHAIR - STEP 2: How much assistance does the patient need from the helper? Only supervision, cuing, or coaxing LOCOMOTION: WHEELCHAIR - SCORE: 5-SUP LOCOMOTION: STAIRS: Activity did not occur on this shift LOCOMOTION: STAIRS - SCORE: 0-UNK COMPREHENSION: COMPREHENSION - SCORE: 0-UNK EXPRESSION EXPRESSION - SCORE: 0-UNK SOCIAL INTERACTION: SOCIAL INTERACTION - SCORE: 0-UNK PROBLEM SOLVING: PROBLEM SOLVING - SCORE: 0-UNK MEMORY: MEMORY - SCORE: 0-UNK SIGNATURE PANEL: The following modified sections: Transfers: Bed, Chair, Wheelchair - Score, Transfers: Toilet - Score , Locomotion: Walk - Score, Locomotion: Wheelchair - Score, Locomotion: Walk - Comments:, Locomotion: Stairs - Score were [electronically] signed by Alissa Cain PTA on ThuAug 17 2017 15:33:22 GMT-[id number] (Central Daylight Time)
[2017-08-17] MEDS: RIVAROXABAN 20 MG TABLET PO SCH (16:53)
--- NOTE | 2017-08-17 16:56 | FAST ---
ENCOUNTER DATE AND TIME: 08/17/2017 08:00 (CDT) NAME AIRAM KAYE DATE OF : 1930 DATE OF ADMISSION: 08/10/2017 16:09 (CDT) PHONE: AGE: 86 N# [id number] GENDER: Male ENCOUNTER PHYSICIAN: Dr. Tyrone Lou M.D. 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 EATING: Activity did not occur on this shift EATING - SCORE: 0-UNK GROOMING: Comb/brush hair Wash, rinse, and dry face Wash, rinse, and dry hands GROOMING - STEP 1: Does the patient require assistance when grooming? No. GROOMING - SCORE: 7-IND BATHING: Abdomen Buttocks Chest Left arm Left lower leg and foot Left upper leg Perineal area Right arm Right lower leg and foot Right upper leg BATHING - STEP 1: Does the patient require assistance when bathing? Yes. BATHING - STEP 2: Does the patient require the assistance of a helper? Yes. BATHING - STEP 3: How much assistance does the patient require from the helper? Only supervision, cuing, coaxing, instr uctions, encouragement BATHING - SCORE: 5-SUP DRESSING - UPPER BODY: ARTICLES SCORE Total number of steps: 0 DRESSING - UPPER BODY - STEP 1: Does the patient require help when dressing above the waist? No. DRESSING - UPPER BODY - SCORE: 7-IND DRESSING - LOWER BODY: Elastic waist pants (three steps) Sock - Left foot (one step) Sock - Right foot (one step) Tied or buckled shoe - Left foot (two steps) Tied or buckled shoe - Right foot (two steps) Underwear (three steps) ARTICLES SCORE Total number of steps: 12 DRESSING - LOWER BODY - STEP 1: Does the patient require help when dressing below the waist? Yes. DRESSING - LOWER BODY - STEP 2: Does the patient require the assistance of a helper? Yes. DRESSING - LOWER BODY - STEP 3: Does the helper touch the patient while dressing? No. DRESSING - LOWER BODY - SCORE: 5-SUP TOILETING: Activity did not occur on this shift TOILETING - SCORE: 0-UNK BLADDER MANAGEMENT: Activity did not occur on this shift BLADDER MANAGEMENT - SCORE: 7-IND BOWEL MANAGEMENT: Activity did not occur on this shift BOWEL MANAGEMENT - SCORE: 7-IND TRANSFERS: BED, CHAIR, WHEELCHAIR: Activity did not occur on this shift TRANSFERS: BED, CHAIR, WHEELCHAIR - SCORE: 0-UNK TRANSFERS: TOILET: Activity did not occur on this shift TRANSFERS: TOILET - SCORE: 0-UNK TRANSFERS: SHOWER: TRANSFERS: SHOWER - STEP 1: Does the patient require assistance with shower transfers? Yes. TRANSFERS: SHOWER - STEP 2: Does the patient require the assistance of a helper? Yes. TRANSFERS: SHOWER - STEP 3: How much assistance does the patient require from the helper? Only supervision, cuing, coaxing, or he lp to set out transfer equipment or to lock brakes and/or lift foot rests TRANSFERS: SHOWER - SCORE: 5-SUP TRANSFERS: TUB: Activity did not occur on this shift TRANSFERS: TUB - SCORE: 0-UNK LOCOMOTION: WALK: Activity did not occur on this shift LOCOMOTION: WALK - SCORE: 0-UNK LOCOMOTION: WHEELCHAIR: Activity did not occur on this shift LOCOMOTION: WHEELCHAIR - SCORE: 0-UNK LOCOMOTION: STAIRS: Activity did not occur on this shift LOCOMOTION: STAIRS - SCORE: 0-UNK COMPREHENSION: COMPREHENSION: TYPE: Both COMPREHENSION - STEP 1: Does the patient require help to understand complex and abstract ideas (such as current events, finan erick, discharge planning, medical issues, relationships, etc)? No. COMPREHENSION - STEP 2: Does the patient need extra time, require an assistive device (such as glasses, hearing aids, or an a ugmentative communication system), OR does s/he have mild difficulty expressing complex and abstract ideas (including mild dysarthria or mild word-finding problems)? Yes. COMPREHENSION - SCORE: 6-TAMMI EXPRESSION EXPRESSION: TYPE: Non-Vocal EXPRESSION - STEP 1: Does the patient require help expressing complex and abstract ideas (such as current events, finances , discharge planning, medical issues, relationships, etc)? No. EXPRESSION - STEP 2: Does the patient need extra time, require an assistive device (such as augmentive communication syste m or a communication board), OR does s/he have mild difficulty expressing complex and abstract ideas (including mild dysarthria or mild word-find problems)? No. EXPRESSION - SCORE: 7-IND SOCIAL INTERACTION: SOCIAL INTERACTION - STEP 1: Does the patient require a helper to interact with others in social and therapeutic situations? No. SOCIAL INTERACTION - STEP 2: Does the patient need extra time in social situations, OR does s/he interact with staff, other patien ts, and family members ONLY in structured environments, OR does s/he require medication for social in teraction? No. SOCIAL INTERACTION - SCORE: 7-IND PROBLEM SOLVING: PROBLEM SOLVING - STEP 1: Does the patient need help to solve complex problems such as managing a checking account or confronti ng interpersonal problems? No. PROBLEM SOLVING - STEP 2: Does the patient require extra time to make decisions or solve problems, OR does s/he have slight dif ficulty reading, initiating, or self-correcting in unfamiliar situations? No. PROBLEM SOLVING - SCORE: 7-IND MEMORY: MEMORY - STEP 1: Does the patient need help to remember frequently encountered people, daily routines, and executing r equests? No. MEMORY - STEP 2: Does the patient have slight difficulty recognizing frequently encountered people, daily routines, or executing requests without the need for repetition or using self-initiated or environmental cues to remember? No. MEMORY - SCORE: 7-IND SIGNATURE PANEL: The following modified sections: Eating - Score, Grooming - Score, Bathing - Score, Dressing - Upper Body - Score, Dressing - Lower Body - Score, Toileting - Score, Transfers: Bed, Chair, Wheelchair - S core, Transfers: Toilet - Score, Transfers: Shower - Score, Transfers: Tub - Score, Comprehension - S core, Expression - Score, Social Interaction - Score, Problem Solving - Score, Memory - Score were [e lectronically] signed by WILLIE Adhikari on ThuAug 17 2017 15:57:13 T-0500 (Counts include 234 beds at the [facility])
--- NOTE | 2017-08-17 18:13 | P.PN ---
Subjective Date of Service: 08/17/17 Chief Complaint: HE IS FEELING GREAT Subjective: Improving MR. KAYE HAS DONE VERY WELL. I ONCE AGAIN TOLD HIM THAT HE HAD A STROKE BUT WE CAN'T DO MRI ON ON HIM. HE HAS FULLY RECOVERED TO HIS BASELINE. HE IS EATING WELL, WALKING A LOT HERE. Review of Systems 10-point ROS is otherwise unremarkable General: Weakness, Malaise Physical Examination - Vital Signs Temperature: 97.8 F Blood Pressure: 109/56 Pulse: 72 Respirations: 16 Pulse Ox (%): 95 - Physical Exam General: Alert, In no apparent distress HEENT: Atraumatic, PERRLA, EOMI Neck: Supple, JVD not distended Respiratory: Clear to auscultation bilaterally, Normal air movement Cardiovascular: Regular rate/rhythm, Normal S1 S2 Gastrointestinal: Normal bowel sounds, No tenderness Musculoskeletal: No tenderness Integumentary: No rashes Neurological: Normal speech, Normal tone, Normal affect Lymphatics: No axilla or inguinal lymphadenopathy - Studies Medications List Reviewed: Yes Assessment And Plan - Current Problems (Diagnosis) (1) Allergic cough Onset Date: 08/12/17 Current Visit: Yes Status: Acute (2) A-fib Onset Date: 08/12/17 Current Visit: Yes Status: Acute Plan: BETTER ON XARELTO NOT WELL CONTROLLED ON W[place]. Qualifiers: Atrial fibrillation type: chronic Qualified Code(s): I48.2 - Chronic atrial fibrillation (3) CVA (cerebral vascular accident) Onset Date: 08/06/17 Current Visit: No Status: Acute Plan: MOSTLY RESLOVED PT FOR ENDURANCE DOING A LOT BETTER WALKS WITH WALKER. (4) Hypertension Current Visit: No Status: Acute (5) Myasthenia gravis Onset Date: 08/12/17 Current Visit: Yes Status: Chronic Plan: STABLE ON MEDS RESUME PT
--- NOTE | 2017-08-17 18:19 | R.PN ---
ENCOUNTER DATE AND TIME: 08/17/2017 17:18 (CDT) NAME AIRAM KAYE DATE OF : 1930 DATE OF ADMISSION: 08/10/2017 16:09 (CDT) Debility secondary to Myasthenia GravisCHIEF COMPLAINT: Debility SUBJECTIVE: Pt denied any Shortness of Breath. Pt denied any depression. Ambulated 770' with standby assistance using a rolling walker. VITAL SIGNS Temperature: 97.8 SBP/DBP: 109/56 Pulse: 72 Resp: 16 MEDICATION ALLERGIES: Tramadol, Levofloxacin, Penicillin ENVIRONMENTAL ALLERGIES: Iodine - Substance Allergies None Known - Other Allergies Iodinated contrast, latex allergy, latex natural rubber NURSING: - Shower allowing shower - Lab Results blood Sugar Check ACHS - Bladder care per protocol - Skin care per protocol PRECAUTIONS: - Fall Precaution Bed and chair alarm ACTIVITIES OOB only with supervision THERAPIES: - Occupational Therapy Evaluate and Treat. Cognitive Retraining. Visual Perceptual Training. - Speech Therapy Cognitive Training. Memory Strategies. Expressive Language Skills. Receptive Language Skills. Speech Intelligibility Training. - Physical Therapy Evaluate and Treat. PHYSICAL EXAM - Gen Alert and awake Lying in bed No apparent distress Oriented to: person, time, and place - Vital Signs Vital signs stable, afebrile - Skin No beakdown No abnormalities - Eyes No abnormalities - ENMT No abnormalities - Neck No abnormalities - CVS RRR - Chest Upper airway congestion. - Resp Single breath count of 23 - Abd + BS - GI + bowel sound Deferred - No abnormalities - Ext No significant edema. - MSK 2-3/5 weakness in right and left distal lower extremities. Otherwise 4/5 in the proximal lower extrem ities. - Neuro Steppage Gait, Decreased tone in lower extremities. Stocking loss to light touch in the legs. - Psych No abnormalities ASSESSMENT: Pt. is a 86 yo Right-handed white male.On 08/05/2017 he [address] to [facility] with diagnosis debility secondary to myasthenia gravis. No evidence of focal neurological dificit ..On 08/05/2017 he was admitted to [facility] with diagnosis Debility secondary to Myasthenia Gravis.His impairment category is debility secondary to myasthenia gravis. No evidence of focal neurological dificit..His impairment category is Stroke 01 - Other Stroke (01.9).Pre-morbi dly, Pt. was independent/mod-I in Sphincter Control, Transfers Control, Communication, Social Cogniti on, Self-Care, and Locomotion; and he had good Sphincter Control.Currently, he has deficits of Endura nce, Safety Awareness, Transfers Control, Communication, Social Cognition, Balance, Self-Care, and Lo comotion.Pt. is now referred to [facility] for acute in-patient rehabilitation in order to maximize patient's functional independence in activities of daily living, strength, ROM, and mobility.- Rehab Goal Patient has realistic goal of being discharged at assistance level 6-Ankit to reside at Home with Fam amanda/Relatives. MDM/PLAN: - Diet Type Continue ADA 1800 for Dementia, TBI, Stroke, or others - Diet - Liquid Texture Continue Regular - Physical Therapy Gait dysfunction - to improve, our physical therapists will perform initial evaluation of pt's statu s upon admission and devise an individualized program for Gait Training, and Wheel Chair mobility Inability to transfer - to improve, our physical therapists will perform initial evaluation of pt's status upon admission and devise an individualized program for Bed mobility Need for home safety evaluation - to improve, our physical therapists will perform initial evaluatio n of pt's status upon admission and devise an individualized program for Home Evaluation Need in caregiver upon discharge - to improve, our physical therapists will perform initial evaluati on of pt's status upon admission and devise an individualized program for Caregiver Training Edema - to improve, our physical therapists will perform initial evaluation of pt's status upon admi ssion and devise an individualized program for Elevation Training, and Lymphedema Therapy New precaution - to improve, our physical therapists will perform initial evaluation of pt's status upon admission and devise an individualized program for Patient precaution education Poor balance - to improve, our physical therapists will perform initial evaluation of pt's status up on admission and devise an individualized program for Balance Training Poor endurance - to improve, our physical therapists will perform initial evaluation of pt's status upon admission and devise an individualized program for Endurance Training Weakness - to improve, our physical therapists will perform initial evaluation of pt's status upon a dmission and devise an individualized program for Aquatic Therapy, Neuromuscular Reeducation, and Str engthening Achieving independence - to improve, our physical therapists will perform initial evaluation of pt's status upon admission and devise an individualized program for Community Reintegration Activities - Tube Feed Continue N/A - Lab Results blood Sugar Check ACHS - Bladder care per protocol - Fall Precaution Bed and chair alarm - Skin care per protocol - Diet - Solid Texture Continue Regular - Shower allowing shower - Occupational Therapy ADL deficits - to improve, our occupation therapists will perform initial evaluation of pt's status upon admission and devise an individualized program for Bathing, Bed mobility, Community Reintegratio n, Cooking, Dressing, Eating, Fine Motor Skills, Grooming, Homemaking, Kitchen Mobility, Laundry, Pat ient Education, Safety Awareness, Splinting - Positioning, Transfers(Toilet, Tub, Shower), and Wheel Chair Management Cognitive deficits - to improve, our occupation therapists will perform initial evaluation of pt's s tatus upon admission and devise an individualized program for Cognition - orientation Need for caregivers homecare - to improve, our occupation therapists will perform initial evaluation of pt's status upon admission and devise an individualized program for Caregiver Training Weakness - to improve, our occupation therapists will perform initial evaluation of pt's status upon admission and devise an individualized program for Aquatic Therapy, Balance, Endurance, UE ROM, and UE strengthening FUNCTIONAL STATUS: UPDATED AT WEEKLY TEAM CONFERENCE - Bladder Same Bladder control device used: diaper Same Bladder medication used: N/A Same accident frequency: 1-Dep - Five or more accidents in the past 7 days - Bowel Same accident frequency: 7-Ind - No accidents in the past 7 days - Walking Same score based on distance walked: 1(<=50ft) - Wheelchair Same score based on distance traveled: 0(N/A) FUNCTIONAL STATUS: - Self-Care A. Eating sup B. Grooming sup C. Bathing sup D. Dressing - Upper sup E. Dressing - Lower sup F. Toileting sup - Sphincter Control G: Bladder control Dep H: Bowel control Ind - Transfers Control I. Bed/Chair/Wheelchair maxA J. Toilet modA K. Tub/Shower ADNO - Locomotion L. Walk/Wheelchair (B) maxA M. Stairs ADNO - Communication N. Comprehension (B) sup O. Expression (B) sup - Social Cognition P. Social Interaction sup Q. Problem Solving sup R. Memory sup - Endurance Poor - Balance Poor - Safety Awareness Poor CURRENT FUNC. DEFICITS: Endurance, Safety Awareness, Transfers Control, Communication, Social Cognition, Balance, Self-Care, and Locomotion SIGNATURE PANEL: (CDT)
[2017-08-17] MEDS: RANITIDINE 150 MG TABLET PO SCH (20:13)
[2017-08-17] MEDS: MELATONIN 3 MG TABLET PO PRN (20:13)
[2017-08-17] MEDS: ATORVASTATIN 10 MG TAB PO SCH (20:14)
[2017-08-18] MEDS: CARVEDILOL 3.125 MG TAB PO SCH ×2 (05:04→17:02)
[2017-08-18] MEDS: FLUTICASONE 50MCG NASAL SPRAY NAS SCH ×2 (07:01→20:38)
[2017-08-18] MEDS: INSULIN -REGULAR HUMAN 50 UNIT/0.5 ML ML SQ SCH ×4 (07:30→20:07)
[2017-08-18] MEDS: GLUCERNA SHAKE 237 ML CAN PO SCH ×2 (08:00→20:38)
[2017-08-18] MEDS: CLOPIDOGREL 75 MG TABLET PO SCH (08:09)
[2017-08-18] MEDS: CRANBERRY FRUIT EXTRACT 200 MG CAP PO SCH (08:09)
[2017-08-18] MEDS: glipiZIDE 5 MG TAB PO SCH ×2 (08:09→16:37)
[2017-08-18] MEDS: PYRIDOSTIGMINE 60 MG TABLET PO SCH ×3 (08:10→20:38)
[2017-08-18] MEDS: LOSARTAN POTASSIUM 50 MG TABLET PO SCH (08:10)
[2017-08-18] MEDS: MAGNESIUM OXIDE 400 MG TAB PO SCH ×2 (08:11→20:38)
[2017-08-18] MEDS: AZATHIOPRINE 50 MG TABLET PO SCH ×2 (08:11→20:38)
[2017-08-18] MEDS: RIVAROXABAN 20 MG TABLET PO SCH (16:37)
[2017-08-18] MEDS: ONDANSETRON 4 MG (ODT) TAB PO PRN (17:43)
--- NOTE | 2017-08-18 18:40 | R.PN ---
ENCOUNTER DATE AND TIME: 08/18/2017 17:39 (CDT) NAME AIRAM KAYE DATE OF : 1930 DATE OF ADMISSION: 08/10/2017 16:09 (CDT) Debility secondary to Myasthenia GravisCHIEF COMPLAINT: Debility SUBJECTIVE: Pt denied any Shortness of Breath. Pt denied any depression. Ambulated 375' with standby assistance using a rolling walker. Up and down 12 steps with standby ass istance. VITAL SIGNS Temperature: 97.8 SBP/DBP: 111/59 Pulse: 89 Resp: 16 MEDICATION ALLERGIES: Tramadol, Levofloxacin, Penicillin ENVIRONMENTAL ALLERGIES: Iodine - Substance Allergies None Known - Other Allergies Iodinated contrast, latex allergy, latex natural rubber NURSING: - Shower allowing shower - Lab Results blood Sugar Check ACHS - Bladder care per protocol - Skin care per protocol PRECAUTIONS: - Fall Precaution Bed and chair alarm ACTIVITIES OOB only with supervision THERAPIES: - Occupational Therapy Evaluate and Treat. Cognitive Retraining. Visual Perceptual Training. - Speech Therapy Cognitive Training. Memory Strategies. Expressive Language Skills. Receptive Language Skills. Speech Intelligibility Training. - Physical Therapy Evaluate and Treat. PHYSICAL EXAM - Gen Alert and awake Lying in bed No apparent distress Oriented to: person, time, and place - Vital Signs Vital signs stable, afebrile - Skin No beakdown No abnormalities - Eyes No abnormalities - ENMT No abnormalities - Neck No abnormalities - CVS RRR - Chest Upper airway congestion. - Resp Single breath count of 23 - Abd + BS - GI + bowel sound Deferred - No abnormalities - Ext No significant edema. - MSK 2-3/5 weakness in right and left distal lower extremities. Otherwise 4/5 in the proximal lower extrem ities. - Neuro Steppage Gait, Decreased tone in lower extremities. Stocking loss to light touch in the legs. - Psych No abnormalities ASSESSMENT: Pt. is a 86 yo Right-handed white male.On 08/05/2017 he was admitted to [facility] with diagnosis debility secondary to myasthenia gravis. No evidence of focal neurological dificit ..On 08/05/2017 he was admitted to [facility] with diagnosis Debility secondary to Myasthenia Gravis.His impairment category is debility secondary to myasthenia gravis. No evidence of focal neurological dificit..His impairment category is Stroke 01 - Other Stroke (01.9).Pre-morbi dly, Pt. was independent/mod-I in Sphincter Control, Transfers Control, Communication, Social Cogniti on, Self-Care, and Locomotion; and he had good Sphincter Control.Currently, he has deficits of Endura nce, Safety Awareness, Transfers Control, Communication, Social Cognition, Balance, Self-Care, and Lo comotion.Pt. is now referred to [facility] for acute in-patient rehabilitation in order to maximize patient's functional independence in activities of daily living, strength, ROM, and mobility.- Rehab Goal Patient has realistic goal of being discharged at assistance level 6-Ankit to reside at Home with Fam amanda/Relatives. MDM/PLAN: - Diet Type Continue ADA 1800 for Dementia, TBI, Stroke, or others - Diet - Liquid Texture Continue Regular - Physical Therapy Gait dysfunction - to improve, our physical therapists will perform initial evaluation of pt's statu s upon admission and devise an individualized program for Gait Training, and Wheel Chair mobility Inability to transfer - to improve, our physical therapists will perform initial evaluation of pt's status upon admission and devise an individualized program for Bed mobility Need for home safety evaluation - to improve, our physical therapists will perform initial evaluatio n of pt's status upon admission and devise an individualized program for Home Evaluation Need in caregiver upon discharge - to improve, our physical therapists will perform initial evaluati on of pt's status upon admission and devise an individualized program for Caregiver Training Edema - to improve, our physical therapists will perform initial evaluation of pt's status upon admi ssion and devise an individualized program for Elevation Training, and Lymphedema Therapy New precaution - to improve, our physical therapists will perform initial evaluation of pt's status upon admission and devise an individualized program for Patient precaution education Poor balance - to improve, our physical therapists will perform initial evaluation of pt's status up on admission and devise an individualized program for Balance Training Poor endurance - to improve, our physical therapists will perform initial evaluation of pt's status upon admission and devise an individualized program for Endurance Training Weakness - to improve, our physical therapists will perform initial evaluation of pt's status upon a dmission and devise an individualized program for Aquatic Therapy, Neuromuscular Reeducation, and Str engthening Achieving independence - to improve, our physical therapists will perform initial evaluation of pt's status upon admission and devise an individualized program for Community Reintegration Activities - Tube Feed Continue N/A - Lab Results blood Sugar Check ACHS - Bladder care per protocol - Fall Precaution Bed and chair alarm - Skin care per protocol - Diet - Solid Texture Continue Regular - Shower allowing shower - Occupational Therapy ADL deficits - to improve, our occupation therapists will perform initial evaluation of pt's status upon admission and devise an individualized program for Bathing, Bed mobility, Community Reintegratio n, Cooking, Dressing, Eating, Fine Motor Skills, Grooming, Homemaking, Kitchen Mobility, Laundry, Pat ient Education, Safety Awareness, Splinting - Positioning, Transfers(Toilet, Tub, Shower), and Wheel Chair Management Cognitive deficits - to improve, our occupation therapists will perform initial evaluation of pt's s tatus upon admission and devise an individualized program for Cognition - orientation Need for animal care specialist - to improve, our occupation therapists will perform initial evaluation of pt's status upon admission and devise an individualized program for Caregiver Training Weakness - to improve, our occupation therapists will perform initial evaluation of pt's status upon admission and devise an individualized program for Aquatic Therapy, Balance, Endurance, UE ROM, and UE strengthening FUNCTIONAL STATUS: UPDATED AT WEEKLY TEAM CONFERENCE - Bladder Same Bladder control device used: diaper Same Bladder medication used: N/A Same accident frequency: 1-Dep - Five or more accidents in the past 7 days - Bowel Same accident frequency: 7-Ind - No accidents in the past 7 days - Walking Same score based on distance walked: 1(<=50ft) - Wheelchair Same score based on distance traveled: 0(N/A) FUNCTIONAL STATUS: - Self-Care A. Eating sup B. Grooming sup C. Bathing sup D. Dressing - Upper sup E. Dressing - Lower sup F. Toileting sup - Sphincter Control G: Bladder control Dep H: Bowel control Ind - Transfers Control I. Bed/Chair/Wheelchair maxA J. Toilet modA K. Tub/Shower ADNO - Locomotion L. Walk/Wheelchair (B) maxA M. Stairs ADNO - Communication N. Comprehension (B) sup O. Expression (B) sup - Social Cognition P. Social Interaction sup Q. Problem Solving sup R. Memory sup - Endurance Poor - Balance Poor - Safety Awareness Poor CURRENT FUNC. DEFICITS: Endurance, Safety Awareness, Transfers Control, Communication, Social Cognition, Balance, Self-Care, and Locomotion SIGNATURE PANEL: (CDT)
[2017-08-18] MEDS: MELATONIN 3 MG TABLET PO PRN (20:38)
[2017-08-18] MEDS: ATORVASTATIN 10 MG TAB PO SCH (20:38)
[2017-08-18] MEDS: RANITIDINE 150 MG TABLET PO SCH (20:38)
--- NOTE | 2017-08-18 21:30 | P.PN ---
Subjective Date of Service: 08/18/17 Chief Complaint: HE IS FEELING GREAT MR. KAYE HAS DONE VERY WELL. I ONCE AGAIN TOLD HIM THAT HE HAD A STROKE BUT WE CAN'T DO MRI ON ON HIM. HE HAS FULLY RECOVERED TO HIS BASELINE. HE IS EATING WELL, WALKING A LOT HERE. HE HAS NO COMPLAINTS FEELS GREAT ABLE TO AMBULATE. Physical Examination - Vital Signs Temperature: 97.9 F Blood Pressure: 123/70 Pulse: 86 Respirations: 16 Pulse Ox (%): 98 - Studies Medications List Reviewed: Yes Assessment And Plan - Current Problems (Diagnosis) (1) Allergic cough Onset Date: 08/12/17 Current Visit: Yes Status: Acute (2) A-fib Onset Date: 08/12/17 Current Visit: Yes Status: Acute Plan: BETTER ON XARELTO NOT WELL CONTROLLED ON WARFARIN. Qualifiers: Atrial fibrillation type: chronic Qualified Code(s): I48.2 - Chronic atrial fibrillation (3) CVA (cerebral vascular accident) Onset Date: 08/06/17 Current Visit: No Status: Acute Plan: MOSTLY RESLOVED PT FOR ENDURANCE DOING A LOT BETTER WALKS WITH WALKER. (4) Hypertension Current Visit: No Status: Acute (5) Myasthenia gravis Onset Date: 08/12/17 Current Visit: Yes Status: Chronic Plan: STABLE ON MEDS RESUME PT
--- NOTE | 2017-08-19 04:05 | FAST ---
SHIFT START DATE/TIME: 08/18/2017 19:00 (CDT) SHIFT END DATE/TIME: 08/19/2017 07:00 (CDT) NAME AIRAM KAYE DATE OF : 1930 DATE OF ADMISSION: 08/10/2017 16:09 (CDT) PHONE: AGE: 86 [facility]# [id number] GENDER: Male ENCOUNTER PHYSICIAN: Dr. Tyrone Lou M.D. 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 EATING: Activity did not occur on this shift EATING - SCORE: 0-UNK GROOMING: Comb/brush hair Oral care Wash, rinse, and dry face Wash, rinse, and dry hands GROOMING - STEP 1: Does the patient require assistance when grooming? Yes. GROOMING - STEP 2: Does the patient require the assistance of a helper? Yes. GROOMING - STEP 3: How much assistance does the patient require from the helper? Cuing, coaxing, instructions, or encour agement for completion of grooming GROOMING - SCORE: 5-SUP BATHING: Activity did not occur on this shift BATHING - SCORE: 0-UNK DRESSING - UPPER BODY: Patient is not dressing in public clothing ARTICLES SCORE Total number of steps: 0 DRESSING - UPPER BODY - SCORE: 0-UNK DRESSING - LOWER BODY: Patient is not dressing in public clothing ARTICLES SCORE Total number of steps: 0 DRESSING - LOWER BODY - SCORE: 0-UNK TOILETING: TOILETING - STEP 1: Does the patient require assistance with toileting? Yes. TOILETING - STEP 2: Does the patient require the assistance of a helper? Yes. TOILETING - STEP 3: How much assistance does the patient require from the helper? Hands-on assistance from the helper TOILETING - STEP 4: Of the 3 tasks: 1) Adjusting clothing prior to use, 2) Cleansing of perineal area, 3) Adjusting clot jana after use; How many tasks does the patient perform WITHOUT assistance of the helper? Three tasks with steadying assistance from the helper TOILETING - SCORE: 4-MIN BLADDER MANAGEMENT: BLADDER MANAGEMENT - STEP 1: Does the patient control the bladder completely and intentionally without equipment or devices or med ications, and is always continent? No. BLADDER MANAGEMENT - STEP 2: Does the patient require the assistance of a helper? Yes. BLADDER MANAGEMENT - STEP 3: How much assistance does the patient require from the helper? Only set-up of equipment - such as plac ing it within reach of the patient or emptying a device - to maintain either satisfactory voiding pat tern or managing an external device, such as an absorbent pad, ileal device, or catheter BLADDER MANAGEMENT - SCORE: 5-SUP BOWEL MANAGEMENT: BOWEL MANAGEMENT - STEP 1: Does the patient control bowels completely and intentionally without equipment devices or medications AND is always continent? No. BOWEL MANAGEMENT - STEP 2: Does the patient require the assistance of a helper? Yes. BOWEL MANAGEMENT - STEP 3: How much assistance does the patient require from the helper? Patient requires supervision, stand by, cueing, coaxing, or setup of equipment - placing within reach of patient and emptying device / bedpa nd or BSC bucket - to maintain either satisfactory bowel pattern or managing an external device such as an absorbent pad, colostomy bag / ileostomy bag BOWEL MANAGEMENT - SCORE: 5-SUP TRANSFERS: BED, CHAIR, WHEELCHAIR: TRANSFERS: BED, CHAIR, WHEELCHAIR - STEP 1: Does the patient require assistance with bed, chair, or wheelchair transfers? Yes. TRANSFERS: BED, CHAIR, WHEELCHAIR - STEP 2: Does the patient require the assistance of a helper? Yes. TRANSFERS: BED, CHAIR, WHEELCHAIR - STEP 3: How much assistance does the patient require from the helper? Steadying/guiding assistance TRANSFERS: BED, CHAIR, WHEELCHAIR - SCORE: 4-MIN TRANSFERS: TOILET: TRANSFERS: TOILET - STEP 1: Does the patient require assistance with toilet transfers? Yes. TRANSFERS: TOILET - STEP 2: Does the patient require the assistance of a helper? Yes. TRANSFERS: TOILET - STEP 3: How much assistance does the patient require from the helper? Patient performs half or more of the tr ansferring tasks TRANSFERS: TOILET - STEP 4: Does the patient need only incidental help such as contact guard or steadying during toilet transfer? Yes. TRANSFERS: TOILET - SCORE: 4-MIN TRANSFERS: SHOWER: Activity did not occur on this shift TRANSFERS: SHOWER - SCORE: 0-UNK TRANSFERS: TUB: Activity did not occur on this shift TRANSFERS: TUB - SCORE: 0-UNK LOCOMOTION: WALK: Activity did not occur on this shift LOCOMOTION: WALK - SCORE: 0-UNK LOCOMOTION: WHEELCHAIR: Activity did not occur on this shift LOCOMOTION: WHEELCHAIR - SCORE: 0-UNK COMPREHENSION: COMPREHENSION - STEP 1: Does the patient require help to understand complex and abstract ideas (such as current events, finan erick, discharge planning, medical issues, relationships, etc)? Yes. COMPREHENSION - STEP 2: Does the patient require help to understand questions or statements about basic needs or ideas (such as hunger, thirst, sleep, safety, daily schedule, room location, or discomfort) half or more of the t natalie? No. COMPREHENSION - STEP 3: How often does the patient need help to understand directions and conversation about basic needs? 10% - 24% of the time COMPREHENSION - SCORE: 4-MIN EXPRESSION EXPRESSION - STEP 1: Does the patient require help expressing complex and abstract ideas (such as current events, finances , discharge planning, medical issues, relationships, etc)? Yes. EXPRESSION - STEP 2: Does the patient require help to express basic necessities or ideas (such as hunger, thirst, sleep, s afety, daily schedule, room location, or discomfort) half or more of the time? No. EXPRESSION - STEP 3: How often does the patient need help to express directions and conversation about basic needs? 10-24% of the time EXPRESSION - SCORE: 4-MIN SOCIAL INTERACTION: SOCIAL INTERACTION - STEP 1: Does the patient require a helper to interact with others in social and therapeutic situations? No. SOCIAL INTERACTION - STEP 2: Does the patient need extra time in social situations, OR does s/he interact with staff, other patien ts, and family members ONLY in structured environments, OR does s/he require medication for social in teraction? Yes, patient needs extra time SOCIAL INTERACTION - SCORE: 6-TAMMI PROBLEM SOLVING: PROBLEM SOLVING - STEP 1: Does the patient need help to solve complex problems such as managing a checking account or confronti ng interpersonal problems? Yes. PROBLEM SOLVING - STEP 2: Does the patient solve basic routine problems half or more of the time? Yes. PROBLEM SOLVING - STEP 3: How often does the patient need help to solve basic routine problems? 10%-24% of the time PROBLEM SOLVING - SCORE: 4-MIN MEMORY: MEMORY - STEP 1: Does the patient need help to remember frequently encountered people, daily routines, and executing r equests? Yes. MEMORY - STEP 2: How often does the patient need help to remember frequently encountered people, daily routines, and e xecuting requests? 25% - 49% of the time MEMORY - SCORE: 3-MOD SIGNATURE PANEL: The following modified sections: Eating - Score, Grooming - Score, Dressing - Upper Body - Score, Ayaan ssing - Lower Body - Score, Toileting - Score, Bladder Management - Score, Bowel Management - Score, Transfers: Bed, Chair, Wheelchair - Score, Transfers: Toilet - Score, Transfers: Shower - Score, Z[place]ala sfers: Tub - Score, Locomotion: Walk - Score, Locomotion: Wheelchair - Score, Comprehension - Score, Expression - Score, Social Interaction - Score, Problem Solving - Score, Memory - Score were [electro nically] signed by Pam Razo CNA on ThuAug 19 2017 03:06:19 GMT-0500 (Central Daylight Time)
[2017-08-19] MEDS: CARVEDILOL 3.125 MG TAB PO SCH ×2 (05:02→17:19)
[2017-08-19] MEDS: INSULIN -REGULAR HUMAN 50 UNIT/0.5 ML ML SQ SCH ×4 (07:14→21:00)
[2017-08-19] MEDS: CRANBERRY FRUIT EXTRACT 200 MG CAP PO SCH (07:16)
[2017-08-19] MEDS: MAGNESIUM OXIDE 400 MG TAB PO SCH ×2 (07:16→19:45)
[2017-08-19] MEDS: glipiZIDE 5 MG TAB PO SCH ×2 (07:16→17:19)
[2017-08-19] MEDS: FLUTICASONE 50MCG NASAL SPRAY NAS SCH ×2 (07:16→19:45)
[2017-08-19] MEDS: LOSARTAN POTASSIUM 50 MG TABLET PO SCH (07:17)
[2017-08-19] MEDS: AZATHIOPRINE 50 MG TABLET PO SCH ×2 (07:17→19:45)
[2017-08-19] MEDS: CLOPIDOGREL 75 MG TABLET PO SCH (07:17)
[2017-08-19] MEDS: PYRIDOSTIGMINE 60 MG TABLET PO SCH ×3 (07:17→21:31)
[2017-08-19] MEDS: GLUCERNA SHAKE 237 ML CAN PO SCH ×2 (07:18→19:45)
--- NOTE | 2017-08-19 11:33 | FAST ---
SHIFT START DATE/TIME: 08/19/2017 07:00 (CDT) SHIFT END DATE/TIME: 08/19/2017 19:00 (CDT) NAME AIRAM KAYE DATE OF : 1930 DATE OF ADMISSION: 08/10/2017 16:09 (CDT) PHONE: AGE: 86 N# [id number] GENDER: Male ENCOUNTER PHYSICIAN: Dr. Tyrone Lou M.D. 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 EATING: EATING - STEP 1: Does the patient require assistance when eating? Yes. EATING - STEP 2: Does the patient require the assistance of a helper? Yes. EATING - STEP 3: Does the patient perform half or more of the eating tasks? Yes. EATING - STEP 4: Does the patient need only supervision, cuing, coaxing OR help to apply an orthosis OR help to cut fo od, open containers, pour liquids, or butter bread? Yes. EATING - SCORE: 5-SUP EATING - COMMENTS: No straws GROOMING: Oral care Wash, rinse, and dry face Wash, rinse, and dry hands GROOMING - STEP 1: Does the patient require assistance when grooming? Yes. GROOMING - STEP 2: Does the patient require the assistance of a helper? Yes. GROOMING - STEP 3: How much assistance does the patient require from the helper? Only prior equipment preparation/set up from the helper GROOMING - SCORE: 5-SUP BATHING: Activity did not occur on this shift BATHING - SCORE: 0-UNK BATHING - COMMENTS: BATHED WITH OT DRESSING - UPPER BODY: Activity did not occur on this shift ARTICLES SCORE Total number of steps: 0 DRESSING - UPPER BODY - SCORE: 0-UNK DRESSING - UPPER BODY - COMMENTS: DRESSED WITH OT DRESSING - LOWER BODY: Activity did not occur on this shift ARTICLES SCORE Total number of steps: 0 DRESSING - LOWER BODY - SCORE: 0-UNK DRESSING - LOWER BODY - COMMENTS: Dressed with OT TOILETING: TOILETING - STEP 1: Does the patient require assistance with toileting? Yes. TOILETING - STEP 2: Does the patient require the assistance of a helper? Yes. TOILETING - STEP 3: How much assistance does the patient require from the helper? Hands-on assistance from the helper TOILETING - STEP 4: Of the 3 tasks: 1) Adjusting clothing prior to use, 2) Cleansing of perineal area, 3) Adjusting clot jana after use; How many tasks does the patient perform WITHOUT assistance of the helper? Three tasks with steadying assistance from the helper TOILETING - SCORE: 4-MIN BLADDER MANAGEMENT: BLADDER MANAGEMENT - STEP 1: Does the patient control the bladder completely and intentionally without equipment or devices or med ications, and is always continent? No. BLADDER MANAGEMENT - STEP 2: Does the patient require the assistance of a helper? Yes. BLADDER MANAGEMENT - STEP 3: How much assistance does the patient require from the helper? Only set-up of equipment - such as plac ing it within reach of the patient or emptying a device - to maintain either satisfactory voiding pat tern or managing an external device, such as an absorbent pad, ileal device, or catheter BLADDER MANAGEMENT - SCORE: 5-SUP BOWEL MANAGEMENT: Activity did not occur on this shift BOWEL MANAGEMENT - SCORE: 7-IND TRANSFERS: BED, CHAIR, WHEELCHAIR: TRANSFERS: BED, CHAIR, WHEELCHAIR - STEP 1: Does the patient require assistance with bed, chair, or wheelchair transfers? Yes. TRANSFERS: BED, CHAIR, WHEELCHAIR - STEP 2: Does the patient require the assistance of a helper? Yes. TRANSFERS: BED, CHAIR, WHEELCHAIR - STEP 3: How much assistance does the patient require from the helper? Only supervision TRANSFERS: BED, CHAIR, WHEELCHAIR - SCORE: 5-SUP TRANSFERS: TOILET: TRANSFERS: TOILET - STEP 1: Does the patient require assistance with toilet transfers? Yes. TRANSFERS: TOILET - STEP 2: Does the patient require the assistance of a helper? Yes. TRANSFERS: TOILET - STEP 3: How much assistance does the patient require from the helper? Only supervision, cuing, coaxing, OR he lp to set out transfer equipment or to lock brakes and/or lift foot rests TRANSFERS: TOILET - SCORE: 5-SUP TRANSFERS: SHOWER: Activity did not occur on this shift TRANSFERS: SHOWER - SCORE: 0-UNK TRANSFERS: TUB: Activity did not occur on this shift TRANSFERS: TUB - SCORE: 0-UNK LOCOMOTION: WALK: Activity did not occur on this shift LOCOMOTION: WALK - SCORE: 0-UNK LOCOMOTION: WHEELCHAIR: Activity did not occur on this shift LOCOMOTION: WHEELCHAIR - SCORE: 0-UNK COMPREHENSION: COMPREHENSION - SCORE: 0-UNK EXPRESSION EXPRESSION - SCORE: 0-UNK SOCIAL INTERACTION: SOCIAL INTERACTION - SCORE: 0-UNK PROBLEM SOLVING: PROBLEM SOLVING - SCORE: 0-UNK MEMORY: MEMORY - SCORE: 0-UNK SIGNATURE PANEL: The following modified sections: Eating - Score, Eating - Comments:, Grooming - Score, Dressing - Upp er Body - Score, Bathing - Score, Bathing - Comments:, Dressing - Upper Body - Comments:, Dressing - Lower Body - Score, Dressing - Lower Body - Comments:, Toileting - Score, Bladder Management - Score, Bowel Management - Score, Transfers: Bed, Chair, Wheelchair - Score, Transfers: Toilet - Score, [place] sfers: Shower - Score, Transfers: Tub - Score, Locomotion: Walk - Score, Locomotion: Wheelchair - Sco re, Comprehension - Score, Expression - Score, Social Interaction - Score, Problem Solving - Score, M ayleen - Score were [electronically] signed by Omero Valera on ThuAug 19 2017 10:35:08 T-0500 ([facility])
--- NOTE | 2017-08-19 15:49 | FAST ---
ENCOUNTER DATE AND TIME: 08/19/2017 08:00 (CDT) NAME AIRAM KAYE DATE OF : 1930 DATE OF ADMISSION: 08/10/2017 16:09 (CDT) PHONE: AGE: 86 SSN# [id number] GENDER: Male ENCOUNTER PHYSICIAN: Dr. Tyrone Lou M.D. 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 EATING: Activity did not occur on this shift EATING - SCORE: 0-UNK GROOMING: Comb/brush hair Oral care Wash, rinse, and dry face Wash, rinse, and dry hands GROOMING - STEP 1: Does the patient require assistance when grooming? No. GROOMING - SCORE: 7-IND BATHING: Abdomen Buttocks Chest Left arm Left lower leg and foot Left upper leg Perineal area Right arm Right lower leg and foot Right upper leg BATHING - STEP 1: Does the patient require assistance when bathing? Yes. BATHING - STEP 2: Does the patient require the assistance of a helper? No. The patient only requires an assistive devic e such as a bath roopa, OR the patient takes more than reasonable time to bathe, OR there is a concern for safety such as regulating water temperature as the patient bathes. BATHING - SCORE: 6-TAMMI DRESSING - UPPER BODY: T-shirt/pullover shirt (four steps) ARTICLES SCORE Total number of steps: 4 DRESSING - UPPER BODY - STEP 1: Does the patient require help when dressing above the waist? No. DRESSING - UPPER BODY - SCORE: 7-IND DRESSING - LOWER BODY: Sock - Left foot (one step) Sock - Right foot (one step) Tied or buckled shoe - Left foot (two steps) Tied or buckled shoe - Right foot (two steps) Underwear (three steps) Zippered pants (four steps) ARTICLES SCORE Total number of steps: 13 DRESSING - LOWER BODY - STEP 1: Does the patient require help when dressing below the waist? Yes. DRESSING - LOWER BODY - STEP 2: Does the patient require the assistance of a helper? No. Patient requires an assistive device such as a petrographer. OR s/he takes more than reasonable time as s/he dresses the lower body, OR there is a con cern for safety when s/he dresses the lower body DRESSING - LOWER BODY - SCORE: 6-TAMMI TOILETING: Activity did not occur on this shift TOILETING - SCORE: 0-UNK BLADDER MANAGEMENT: Activity did not occur on this shift BLADDER MANAGEMENT - SCORE: 7-IND BOWEL MANAGEMENT: Activity did not occur on this shift BOWEL MANAGEMENT - SCORE: 7-IND TRANSFERS: BED, CHAIR, WHEELCHAIR: Activity did not occur on this shift TRANSFERS: BED, CHAIR, WHEELCHAIR - SCORE: 0-UNK TRANSFERS: TOILET: Activity did not occur on this shift TRANSFERS: TOILET - SCORE: 0-UNK TRANSFERS: SHOWER: Activity did not occur on this shift TRANSFERS: SHOWER - SCORE: 0-UNK TRANSFERS: TUB: TRANSFERS: TUB - STEP 1: Does the patient require assistance with tub transfers? Yes. TRANSFERS: TUB - STEP 2: Does the patient require the assistance of a helper? Yes. TRANSFERS: TUB - STEP 3: How much assistance does the patient require from the helper? Only supervision, cuing, coaxing, or he lp to set out transfer equipment or to lock brakes and/or lift foot rests TRANSFERS: TUB - SCORE: 5-SUP LOCOMOTION: WALK: Activity did not occur on this shift LOCOMOTION: WALK - SCORE: 0-UNK LOCOMOTION: WHEELCHAIR: Activity did not occur on this shift LOCOMOTION: WHEELCHAIR - SCORE: 0-UNK LOCOMOTION: STAIRS: Activity did not occur on this shift LOCOMOTION: STAIRS - SCORE: 0-UNK COMPREHENSION: COMPREHENSION: TYPE: Both COMPREHENSION - STEP 1: Does the patient require help to understand complex and abstract ideas (such as current events, finan erick, discharge planning, medical issues, relationships, etc)? Yes. COMPREHENSION - STEP 2: Does the patient require help to understand questions or statements about basic needs or ideas (such as hunger, thirst, sleep, safety, daily schedule, room location, or discomfort) half or more of the t natalie? No. COMPREHENSION - STEP 3: How often does the patient need help to understand directions and conversation about basic needs? Les s than 10% of the time COMPREHENSION - SCORE: 5-SUP EXPRESSION EXPRESSION: TYPE: Non-Vocal EXPRESSION - STEP 1: Does the patient require help expressing complex and abstract ideas (such as current events, finances , discharge planning, medical issues, relationships, etc)? No. EXPRESSION - STEP 2: Does the patient need extra time, require an assistive device (such as augmentive communication syste m or a communication board), OR does s/he have mild difficulty expressing complex and abstract ideas (including mild dysarthria or mild word-find problems)? No. EXPRESSION - SCORE: 7-IND SOCIAL INTERACTION: SOCIAL INTERACTION - STEP 1: Does the patient require a helper to interact with others in social and therapeutic situations? No. SOCIAL INTERACTION - STEP 2: Does the patient need extra time in social situations, OR does s/he interact with staff, other patien ts, and family members ONLY in structured environments, OR does s/he require medication for social in teraction? No. SOCIAL INTERACTION - SCORE: 7-IND PROBLEM SOLVING: PROBLEM SOLVING - STEP 1: Does the patient need help to solve complex problems such as managing a checking account or confronti ng interpersonal problems? Yes. PROBLEM SOLVING - STEP 2: Does the patient solve basic routine problems half or more of the time? Yes. PROBLEM SOLVING - STEP 3: How often does the patient need help to solve basic routine problems? Less than 10% of the time PROBLEM SOLVING - SCORE: 5-SUP MEMORY: MEMORY - STEP 1: Does the patient need help to remember frequently encountered people, daily routines, and executing r equests? Yes. MEMORY - STEP 2: How often does the patient need help to remember frequently encountered people, daily routines, and e xecuting requests? Less than 10% of the time MEMORY - SCORE: 5-SUP SIGNATURE PANEL: The following modified sections: Eating - Score, Grooming - Score, Bathing - Score, Dressing - Upper Body - Score, Dressing - Lower Body - Score, Toileting - Score, Transfers: Bed, Chair, Wheelchair - S core, Transfers: Toilet - Score, Transfers: Shower - Score, Transfers: Tub - Score, Comprehension - S core, Expression - Score, Social Interaction - Score, Problem Solving - Score, Memory - Score were [e lectronically] signed by WILLIE Adhikari on ThuAug 19 2017 14:50:15 T-0500 ([facility] Time)
[2017-08-19] MEDS: RIVAROXABAN 20 MG TABLET PO SCH (17:19)
--- NOTE | 2017-08-19 17:58 | R.PN ---
ENCOUNTER DATE AND TIME: 08/19/2017 16:56 (CDT) NAME AIRAM KAYE DATE OF : 1930 DATE OF ADMISSION: 08/10/2017 16:09 (CDT) Debility secondary to Myasthenia GravisCHIEF COMPLAINT: Debility SUBJECTIVE: Pt denied any Shortness of Breath. Pt denied any depression. Did therapeutic exercises for 15 minutes each with modified independence. Ambulated 375' with standby assistance using a rolling walker. Up and down 12 steps with standby assistance. VITAL SIGNS Temperature: 97.4 SBP/DBP: 127/68 Pulse: 78 Resp: 14 MEDICATION ALLERGIES: Tramadol, Levofloxacin, Penicillin ENVIRONMENTAL ALLERGIES: Iodine - Substance Allergies None Known - Other Allergies Iodinated contrast, latex allergy, latex natural rubber NURSING: - Shower allowing shower - Lab Results blood Sugar Check ACHS - Bladder care per protocol - Skin care per protocol PRECAUTIONS: - Fall Precaution Bed and chair alarm ACTIVITIES OOB only with supervision THERAPIES: - Occupational Therapy Evaluate and Treat. Cognitive Retraining. Visual Perceptual Training. - Speech Therapy Cognitive Training. Memory Strategies. Expressive Language Skills. Receptive Language Skills. Speech Intelligibility Training. - Physical Therapy Evaluate and Treat. PHYSICAL EXAM - Gen Alert and awake Lying in bed No apparent distress Oriented to: person, time, and place - Vital Signs Vital signs stable, afebrile - Skin No beakdown No abnormalities - Eyes No abnormalities - ENMT No abnormalities - Neck No abnormalities - CVS RRR - Chest Upper airway congestion. - Resp Single breath count of 23 - Abd + BS - GI + bowel sound Deferred - No abnormalities - Ext No significant edema. - MSK 2-3/5 weakness in right and left distal lower extremities. Otherwise 4/5 in the proximal lower extrem ities. - Neuro Steppage Gait, Decreased tone in lower extremities. Stocking loss to light touch in the legs. - Psych No abnormalities ASSESSMENT: Pt. is a 86 yo Right-handed white male.On 08/05/2017 he was admitted to [facility] with diagnosis debility secondary to myasthenia gravis. No evidence of focal neurological dificit ..On 08/05/2017 he was admitted to [facility] with diagnosis Debility secondary to Myasthenia Gravis.His impairment category is debility secondary to myasthenia gravis. No evidence of focal neurological dificit..His impairment category is Stroke 01 - Other Stroke (01.9).Pre-morbi dly, Pt. was independent/mod-I in Sphincter Control, Transfers Control, Communication, Social Cogniti on, Self-Care, and Locomotion; and he had good Sphincter Control.Currently, he has deficits of Endura nce, Safety Awareness, Transfers Control, Communication, Social Cognition, Balance, Self-Care, and Lo comotion.Pt. is now referred to [facility] for acute in-patient rehabilitation in order to maximize patient's functional independence in activities of daily living, strength, ROM, and mobility.- Rehab Goal Patient has realistic goal of being discharged at assistance level 6-Ankit to reside at Home with Fam amanda/Relatives. MDM/PLAN: - Diet Type Continue ADA 1800 for Dementia, TBI, Stroke, or others - Diet - Liquid Texture Continue Regular - Physical Therapy Gait dysfunction - to improve, our physical therapists will perform initial evaluation of pt's statu s upon admission and devise an individualized program for Gait Training, and Wheel Chair mobility Inability to transfer - to improve, our physical therapists will perform initial evaluation of pt's status upon admission and devise an individualized program for Bed mobility Need for home safety evaluation - to improve, our physical therapists will perform initial evaluatio n of pt's status upon admission and devise an individualized program for Home Evaluation Need in caregiver upon discharge - to improve, our physical therapists will perform initial evaluati on of pt's status upon admission and devise an individualized program for Caregiver Training Edema - to improve, our physical therapists will perform initial evaluation of pt's status upon admi ssion and devise an individualized program for Elevation Training, and Lymphedema Therapy New precaution - to improve, our physical therapists will perform initial evaluation of pt's status upon admission and devise an individualized program for Patient precaution education Poor balance - to improve, our physical therapists will perform initial evaluation of pt's status up on admission and devise an individualized program for Balance Training Poor endurance - to improve, our physical therapists will perform initial evaluation of pt's status upon admission and devise an individualized program for Endurance Training Weakness - to improve, our physical therapists will perform initial evaluation of pt's status upon a dmission and devise an individualized program for Aquatic Therapy, Neuromuscular Reeducation, and Str engthening Achieving independence - to improve, our physical therapists will perform initial evaluation of pt's status upon admission and devise an individualized program for Community Reintegration Activities - Tube Feed Continue N/A - Lab Results blood Sugar Check ACHS - Bladder care per protocol - Fall Precaution Bed and chair alarm - Skin care per protocol - Diet - Solid Texture Continue Regular - Shower allowing shower - Occupational Therapy ADL deficits - to improve, our occupation therapists will perform initial evaluation of pt's status upon admission and devise an individualized program for Bathing, Bed mobility, Community Reintegratio n, Cooking, Dressing, Eating, Fine Motor Skills, Grooming, Homemaking, Kitchen Mobility, Laundry, Pat ient Education, Safety Awareness, Splinting - Positioning, Transfers(Toilet, Tub, Shower), and Wheel Chair Management Cognitive deficits - to improve, our occupation therapists will perform initial evaluation of pt's s tatus upon admission and devise an individualized program for Cognition - orientation Need for client care specialist - to improve, our occupation therapists will perform initial evaluation of pt's status upon admission and devise an individualized program for Caregiver Training Weakness - to improve, our occupation therapists will perform initial evaluation of pt's status upon admission and devise an individualized program for Aquatic Therapy, Balance, Endurance, UE ROM, and UE strengthening FUNCTIONAL STATUS: UPDATED AT WEEKLY TEAM CONFERENCE - Bladder Same Bladder control device used: diaper Same Bladder medication used: N/A Same accident frequency: 1-Dep - Five or more accidents in the past 7 days - Bowel Same accident frequency: 7-Ind - No accidents in the past 7 days - Walking Same score based on distance walked: 1(<=50ft) - Wheelchair Same score based on distance traveled: 0(N/A) FUNCTIONAL STATUS: - Self-Care A. Eating sup B. Grooming sup C. Bathing sup D. Dressing - Upper sup E. Dressing - Lower sup F. Toileting sup - Sphincter Control G: Bladder control Dep H: Bowel control Ind - Transfers Control I. Bed/Chair/Wheelchair maxA J. Toilet modA K. Tub/Shower ADNO - Locomotion L. Walk/Wheelchair (B) maxA M. Stairs ADNO - Communication N. Comprehension (B) sup O. Expression (B) sup - Social Cognition P. Social Interaction sup Q. Problem Solving sup R. Memory sup - Endurance Poor - Balance Poor - Safety Awareness Poor CURRENT FUNC. DEFICITS: Endurance, Safety Awareness, Transfers Control, Communication, Social Cognition, Balance, Self-Care, and Locomotion SIGNATURE PANEL: (CDT)
[2017-08-19] MEDS: ATORVASTATIN 10 MG TAB PO SCH (21:31)
[2017-08-19] MEDS: MELATONIN 3 MG TABLET PO PRN (21:31)
[2017-08-19] MEDS: RANITIDINE 150 MG TABLET PO SCH (21:31)
--- NOTE | 2017-08-19 21:40 | P.PN ---
Subjective Date of Service: 08/19/17 Chief Complaint: HE IS FEELING GREAT MR. KAYE HAS DONE VERY WELL. I ONCE AGAIN TOLD HIM THAT HE HAD A STROKE BUT WE CAN'T DO MRI ON ON HIM. HE HAS FULLY RECOVERED TO HIS BASELINE. HE IS EATING WELL, WALKING A LOT HERE. HE HAS NO COMPLAINTS FEELS GREAT ABLE TO AMBULATE. HE HAS NO ISSUES AND HE IS DOING GOOD WITH PT. Review of Systems 10-point ROS is otherwise unremarkable Physical Examination - Vital Signs Temperature: 97.4 F Blood Pressure: 133/64 Pulse: 82 Respirations: 14 Pulse Ox (%): 99 - Physical Exam General: Alert, In no apparent distress, Other (WHEELCHAIR BOUND AND ABLE TO AMBULATE NOW) HEENT: Atraumatic, PERRLA, EOMI Neck: Supple, JVD not distended Respiratory: Clear to auscultation bilaterally, Normal air movement Cardiovascular: Regular rate/rhythm, Normal S1 S2 Gastrointestinal: Normal bowel sounds, No tenderness Musculoskeletal: No tenderness Integumentary: No rashes Neurological: Normal speech, Normal tone, Normal affect Lymphatics: No axilla or inguinal lymphadenopathy - Studies Medications List Reviewed: Yes Assessment And Plan - Current Problems (Diagnosis) (1) Allergic cough Onset Date: 08/12/17 Current Visit: Yes Status: Acute Plan: Orders (last 24 hrs) 08/18/17 21:29 Insulin -Regular Human [Novolin -R] See Protocol SQ ACHS 08/19/17 21:38 Nursing Orders Routine (2) A-fib Onset Date: 08/12/17 Current Visit: Yes Status: Acute Plan: BETTER ON XARELTO NOT WELL CONTROLLED ON WARFARIN. Qualifiers: Atrial fibrillation type: chronic Qualified Code(s): I48.2 - Chronic atrial fibrillation (3) CVA (cerebral vascular accident) Onset Date: 08/06/17 Current Visit: No Status: Acute Plan: MOSTLY RESLOVED PT FOR ENDURANCE DOING A LOT BETTER WALKS WITH WALKER. (4) Hypertension Current Visit: No Status: Acute (5) Myasthenia gravis Onset Date: 08/12/17 Current Visit: Yes Status: Chronic Plan: STABLE ON MEDS RESUME PT
--- NOTE | 2017-08-20 04:31 | FAST ---
SHIFT START DATE/TIME: 08/19/2017 19:00 (CDT) SHIFT END DATE/TIME: 08/20/2017 07:00 (CDT) NAME AIRAM KAYE DATE OF : 1930 DATE OF ADMISSION: 08/10/2017 16:09 (CDT) PHONE: AGE: 86 N# [id number] GENDER: Male ENCOUNTER PHYSICIAN: Dr. Tyrone Lou M.D. 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 EATING: Activity did not occur on this shift EATING - SCORE: 0-UNK GROOMING: Comb/brush hair Oral care Wash, rinse, and dry face Wash, rinse, and dry hands GROOMING - STEP 1: Does the patient require assistance when grooming? Yes. GROOMING - STEP 2: Does the patient require the assistance of a helper? Yes. GROOMING - STEP 3: How much assistance does the patient require from the helper? Cuing, coaxing, instructions, or encour agement for completion of grooming GROOMING - SCORE: 5-SUP BATHING: Activity did not occur on this shift BATHING - SCORE: 0-UNK DRESSING - UPPER BODY: Patient is not dressing in public clothing ARTICLES SCORE Total number of steps: 0 DRESSING - UPPER BODY - SCORE: 0-UNK DRESSING - LOWER BODY: Patient is not dressing in public clothing ARTICLES SCORE Total number of steps: 0 DRESSING - LOWER BODY - SCORE: 0-UNK TOILETING: TOILETING - STEP 1: Does the patient require assistance with toileting? Yes. TOILETING - STEP 2: Does the patient require the assistance of a helper? Yes. TOILETING - STEP 3: How much assistance does the patient require from the helper? Hands-on assistance from the helper TOILETING - STEP 4: Of the 3 tasks: 1) Adjusting clothing prior to use, 2) Cleansing of perineal area, 3) Adjusting clot jana after use; How many tasks does the patient perform WITHOUT assistance of the helper? Three tasks with steadying assistance from the helper TOILETING - SCORE: 4-MIN BLADDER MANAGEMENT: BLADDER MANAGEMENT - STEP 1: Does the patient control the bladder completely and intentionally without equipment or devices or med ications, and is always continent? No. BLADDER MANAGEMENT - STEP 2: Does the patient require the assistance of a helper? Yes. BLADDER MANAGEMENT - STEP 3: How much assistance does the patient require from the helper? Only set-up of equipment - such as plac ing it within reach of the patient or emptying a device - to maintain either satisfactory voiding pat tern or managing an external device, such as an absorbent pad, ileal device, or catheter BLADDER MANAGEMENT - SCORE: 5-SUP BOWEL MANAGEMENT: BOWEL MANAGEMENT - STEP 1: Does the patient control bowels completely and intentionally without equipment devices or medications AND is always continent? No. BOWEL MANAGEMENT - STEP 2: Does the patient require the assistance of a helper? Yes. BOWEL MANAGEMENT - STEP 3: How much assistance does the patient require from the helper? Patient requires supervision, stand by, cueing, coaxing, or setup of equipment - placing within reach of patient and emptying device / bedpa nd or BSC bucket - to maintain either satisfactory bowel pattern or managing an external device such as an absorbent pad, colostomy bag / ileostomy bag BOWEL MANAGEMENT - SCORE: 5-SUP TRANSFERS: BED, CHAIR, WHEELCHAIR: TRANSFERS: BED, CHAIR, WHEELCHAIR - STEP 1: Does the patient require assistance with bed, chair, or wheelchair transfers? Yes. TRANSFERS: BED, CHAIR, WHEELCHAIR - STEP 2: Does the patient require the assistance of a helper? Yes. TRANSFERS: BED, CHAIR, WHEELCHAIR - STEP 3: How much assistance does the patient require from the helper? Steadying/guiding assistance TRANSFERS: BED, CHAIR, WHEELCHAIR - SCORE: 4-MIN TRANSFERS: TOILET: TRANSFERS: TOILET - STEP 1: Does the patient require assistance with toilet transfers? Yes. TRANSFERS: TOILET - STEP 2: Does the patient require the assistance of a helper? Yes. TRANSFERS: TOILET - STEP 3: How much assistance does the patient require from the helper? Only supervision, cuing, coaxing, OR he lp to set out transfer equipment or to lock brakes and/or lift foot rests TRANSFERS: TOILET - SCORE: 5-SUP TRANSFERS: SHOWER: Activity did not occur on this shift TRANSFERS: SHOWER - SCORE: 0-UNK TRANSFERS: TUB: Activity did not occur on this shift TRANSFERS: TUB - SCORE: 0-UNK LOCOMOTION: WALK: Activity did not occur on this shift LOCOMOTION: WALK - SCORE: 0-UNK LOCOMOTION: WHEELCHAIR: Activity did not occur on this shift LOCOMOTION: WHEELCHAIR - SCORE: 0-UNK COMPREHENSION: COMPREHENSION - STEP 1: Does the patient require help to understand complex and abstract ideas (such as current events, finan erick, discharge planning, medical issues, relationships, etc)? Yes. COMPREHENSION - STEP 2: Does the patient require help to understand questions or statements about basic needs or ideas (such as hunger, thirst, sleep, safety, daily schedule, room location, or discomfort) half or more of the t natalie? No. COMPREHENSION - STEP 3: How often does the patient need help to understand directions and conversation about basic needs? 10% - 24% of the time COMPREHENSION - SCORE: 4-MIN EXPRESSION EXPRESSION - STEP 1: Does the patient require help expressing complex and abstract ideas (such as current events, finances , discharge planning, medical issues, relationships, etc)? No. EXPRESSION - STEP 2: Does the patient need extra time, require an assistive device (such as augmentive communication syste m or a communication board), OR does s/he have mild difficulty expressing complex and abstract ideas (including mild dysarthria or mild word-find problems)? Yes. EXPRESSION - SCORE: 6-TAMMI SOCIAL INTERACTION: SOCIAL INTERACTION - STEP 1: Does the patient require a helper to interact with others in social and therapeutic situations? No. SOCIAL INTERACTION - STEP 2: Does the patient need extra time in social situations, OR does s/he interact with staff, other patien ts, and family members ONLY in structured environments, OR does s/he require medication for social in teraction? Yes, patient needs extra time SOCIAL INTERACTION - SCORE: 6-TAMMI PROBLEM SOLVING: PROBLEM SOLVING - STEP 1: Does the patient need help to solve complex problems such as managing a checking account or confronti ng interpersonal problems? Yes. PROBLEM SOLVING - STEP 2: Does the patient solve basic routine problems half or more of the time? Yes. PROBLEM SOLVING - STEP 3: How often does the patient need help to solve basic routine problems? 10%-24% of the time PROBLEM SOLVING - SCORE: 4-MIN MEMORY: MEMORY - STEP 1: Does the patient need help to remember frequently encountered people, daily routines, and executing r equests? Yes. MEMORY - STEP 2: How often does the patient need help to remember frequently encountered people, daily routines, and e xecuting requests? 25% - 49% of the time MEMORY - SCORE: 3-MOD SIGNATURE PANEL: The following modified sections: Eating - Score, Grooming - Score, Dressing - Upper Body - Score, Ayaan ssing - Lower Body - Score, Toileting - Score, Bladder Management - Score, Bowel Management - Score, Transfers: Bed, Chair, Wheelchair - Score, Transfers: Toilet - Score, Transfers: Shower - Score, [place] sfers: Tub - Score, Locomotion: Walk - Score, Locomotion: Wheelchair - Score, Comprehension - Score, Expression - Score, Social Interaction - Score, Problem Solving - Score, Memory - Score were [electro nically] signed by Pam Razo CNA on ThuAug 20 2017 03:32:05 GMT-0500 (Central Daylight Time)
[2017-08-20] MEDS: CARVEDILOL 3.125 MG TAB PO SCH ×2 (05:25→17:04)
[2017-08-20 06:22] LABS: Absolute Lymphocytes (CBC) 1.4 K/uL (0.7-4.9); Absolute Monocytes 0.6 K/uL (0.1-1.3); Absolute Neutrophil 3.9 K/uL (1.8-8.0); Basophils % 0.5 % (0-1.3); Eosinophils % 4.3 % (0-4.4); Hematocrit 35.6 % (39.6-49.0); Lymphocytes % 23.3 % (15.3-44.8); MCH 33.8 pg (27.0-35.0); MCV 100.5 fL (80-100); MPV 8.9 fL (7.6-11.3); Monocytes % 9.9 % (3.3-12.3); RBC Red Blood Cell Count 3.54 M/uL (4.33-5.43)
[2017-08-20 07:06] LABS: Albumin 3.2 g/dL (3.2-5.5); Magnesium 2.1 mg/dL (1.8-2.5); Potassium 5.1 mEq/L (3.6-5.0); Prealbumin 24.7 mg/dl (18-38)
[2017-08-20] MEDS: INSULIN -REGULAR HUMAN 50 UNIT/0.5 ML ML SQ SCH ×4 (07:30→21:00)
[2017-08-20] MEDS: CRANBERRY FRUIT EXTRACT 200 MG CAP PO SCH (08:08)
[2017-08-20] MEDS: PYRIDOSTIGMINE 60 MG TABLET PO SCH ×3 (08:08→21:11)
[2017-08-20] MEDS: MAGNESIUM OXIDE 400 MG TAB PO SCH ×2 (08:08→19:40)
[2017-08-20] MEDS: glipiZIDE 5 MG TAB PO SCH ×2 (08:08→17:04)
[2017-08-20] MEDS: CLOPIDOGREL 75 MG TABLET PO SCH (08:09)
[2017-08-20] MEDS: AZATHIOPRINE 50 MG TABLET PO SCH ×2 (08:09→19:40)
[2017-08-20] MEDS: LOSARTAN POTASSIUM 50 MG TABLET PO SCH (08:09)
[2017-08-20] MEDS: GLUCERNA SHAKE 237 ML CAN PO SCH ×2 (08:10→19:40)
[2017-08-20] MEDS: FLUTICASONE 50MCG NASAL SPRAY NAS SCH ×2 (08:10→19:40)
--- NOTE | 2017-08-20 11:16 | FAST ---
SHIFT START DATE/TIME: 08/20/2017 07:00 (CDT) SHIFT END DATE/TIME: 08/20/2017 19:00 (CDT) NAME AIRAM KAYE DATE OF : 1930 DATE OF ADMISSION: 08/10/2017 16:09 (CDT) PHONE: AGE: 86 N# [id number] GENDER: Male ENCOUNTER PHYSICIAN: Dr. Tyrone Lou M.D. 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 EATING: EATING - STEP 1: Does the patient require assistance when eating? Yes. EATING - STEP 2: Does the patient require the assistance of a helper? No, patient only requires an assistive device, O R s/he takes more than reasonable time to eat, OR there is a safety concern, OR s/he requires modifie d food consistency EATING - SCORE: 6-TAMMI GROOMING: Comb/brush hair Oral care Wash, rinse, and dry face Wash, rinse, and dry hands GROOMING - STEP 1: Does the patient require assistance when grooming? Yes. GROOMING - STEP 2: Does the patient require the assistance of a helper? Yes. GROOMING - STEP 3: How much assistance does the patient require from the helper? Only prior equipment preparation/set up from the helper GROOMING - SCORE: 5-SUP BATHING: Activity did not occur on this shift BATHING - SCORE: 0-UNK DRESSING - UPPER BODY: Activity did not occur on this shift ARTICLES SCORE Total number of steps: 0 DRESSING - UPPER BODY - SCORE: 0-UNK DRESSING - LOWER BODY: Activity did not occur on this shift ARTICLES SCORE Total number of steps: 0 DRESSING - LOWER BODY - SCORE: 0-UNK TOILETING: TOILETING - STEP 1: Does the patient require assistance with toileting? Yes. TOILETING - STEP 2: Does the patient require the assistance of a helper? Yes. TOILETING - STEP 3: How much assistance does the patient require from the helper? Only supervision TOILETING - SCORE: 5-SUP BLADDER MANAGEMENT: BLADDER MANAGEMENT - STEP 1: Does the patient control the bladder completely and intentionally without equipment or devices or med ications, and is always continent? No. BLADDER MANAGEMENT - STEP 2: Does the patient require the assistance of a helper? No, patient requires and independently uses an a ssistive device, such as a urinal, bedpan, bedside commode, catheter, absorbent pad, or collecting de vice BLADDER MANAGEMENT - SCORE: 6-TAMMI BOWEL MANAGEMENT: Activity did not occur on this shift BOWEL MANAGEMENT - SCORE: 7-IND TRANSFERS: BED, CHAIR, WHEELCHAIR: TRANSFERS: BED, CHAIR, WHEELCHAIR - STEP 1: Does the patient require assistance with bed, chair, or wheelchair transfers? Yes. TRANSFERS: BED, CHAIR, WHEELCHAIR - STEP 2: Does the patient require the assistance of a helper? Yes. TRANSFERS: BED, CHAIR, WHEELCHAIR - STEP 3: How much assistance does the patient require from the helper? Only supervision TRANSFERS: BED, CHAIR, WHEELCHAIR - SCORE: 5-SUP TRANSFERS: TOILET: TRANSFERS: TOILET - STEP 1: Does the patient require assistance with toilet transfers? Yes. TRANSFERS: TOILET - STEP 2: Does the patient require the assistance of a helper? Yes. TRANSFERS: TOILET - STEP 3: How much assistance does the patient require from the helper? Only supervision, cuing, coaxing, OR he lp to set out transfer equipment or to lock brakes and/or lift foot rests TRANSFERS: TOILET - SCORE: 5-SUP TRANSFERS: SHOWER: Activity did not occur on this shift TRANSFERS: SHOWER - SCORE: 0-UNK TRANSFERS: TUB: Activity did not occur on this shift TRANSFERS: TUB - SCORE: 0-UNK LOCOMOTION: WALK: Activity did not occur on this shift LOCOMOTION: WALK - SCORE: 0-UNK LOCOMOTION: WHEELCHAIR: Activity did not occur on this shift LOCOMOTION: WHEELCHAIR - SCORE: 0-UNK COMPREHENSION: COMPREHENSION - SCORE: 0-UNK EXPRESSION EXPRESSION - SCORE: 0-UNK SOCIAL INTERACTION: SOCIAL INTERACTION - SCORE: 0-UNK PROBLEM SOLVING: PROBLEM SOLVING - SCORE: 0-UNK MEMORY: MEMORY - SCORE: 0-UNK SIGNATURE PANEL: The following modified sections: Eating - Score, Grooming - Score, Bathing - Score, Dressing - Upper Body - Score, Dressing - Lower Body - Score, Toileting - Score, Bladder Management - Score, Bowel Man agement - Score, Transfers: Bed, Chair, Wheelchair - Score, Transfers: Toilet - Score, Transfers: [place] wer - Score, Transfers: Tub - Score, Locomotion: Walk - Score, Locomotion: Wheelchair - Score, Compre hension - Score, Expression - Score, Social Interaction - Score, Problem Solving - Score, Memory - Sc ore were [electronically] signed by Omero Valera on ThuAug 20 2017 10:17:41 T-0500 (Central Daylight Time)
--- NOTE | 2017-08-20 13:01 | P.PN ---
Subjective Date of Service: 08/20/17 Chief Complaint: HE IS FEELING GREAT Subjective: Improving (LOT BETTER , EATS WELL.) MR. KAYE HAS DONE VERY WELL. I ONCE AGAIN TOLD HIM THAT HE HAD A STROKE BUT WE CAN'T DO MRI ON ON HIM. HE HAS FULLY RECOVERED TO HIS BASELINE. HE IS EATING WELL, WALKING A LOT HERE. HE HAS NO COMPLAINTS FEELS GREAT ABLE TO AMBULATE. HE HAS NO ISSUES AND HE IS DOING GOOD WITH PT. Review of Systems 10-point ROS is otherwise unremarkable Physical Examination - Vital Signs Temperature: 97.4 F Blood Pressure: 111/62 Pulse: 88 Respirations: 16 Pulse Ox (%): 95 - Physical Exam General: Alert, In no apparent distress HEENT: Atraumatic, PERRLA, EOMI Neck: Supple, JVD not distended Respiratory: Clear to auscultation bilaterally, Normal air movement Cardiovascular: Regular rate/rhythm, Normal S1 S2 Gastrointestinal: Normal bowel sounds, No tenderness Musculoskeletal: No tenderness Integumentary: No rashes Neurological: Normal speech, Normal tone, Normal affect Lymphatics: No axilla or inguinal lymphadenopathy - Studies Laboratory Data (last 24 hrs) 08/20/17 05:36: Sodium 138, Potassium 5.1 H, BUN 28 H, Creatinine 1.04, Glucose 175 H, Magnesium 2.1 08/20/17 05:36: WBC 6.2, Hgb 12.0 L, Hct 35.6 L, Plt Count 172 Medications List Reviewed: Yes Assessment And Plan - Current Problems (Diagnosis) (1) Allergic cough Onset Date: 08/12/17 Current Visit: Yes Status: Acute Plan: Orders (last 24 hrs) 08/18/17 21:29 Insulin -Regular Human [Novolin -R] See Protocol SQ ACHS 08/19/17 21:38 Nursing Orders Routine IMPROVED ON FLONASE. Orders (last 24 hrs) 08/19/17 21:38 Nursing Orders Routine (2) A-fib Onset Date: 08/12/17 Current Visit: Yes Status: Acute Plan: BETTER ON XARELTO NOT WELL CONTROLLED ON WARFARIN. TOLERATES XARELTO. WILL HAVE SENIOR GAMES TECHNICIAN CALL. Qualifiers: Atrial fibrillation type: chronic Qualified Code(s): I48.2 - Chronic atrial fibrillation (3) CVA (cerebral vascular accident) Onset Date: 08/06/17 Current Visit: No Status: Acute Plan: MOSTLY RESLOVED PT FOR ENDURANCE DOING A LOT BETTER WALKS WITH WALKER. (4) Hypertension Current Visit: No Status: Acute (5) Myasthenia gravis Onset Date: 08/12/17 Current Visit: Yes Status: Chronic Plan: STABLE ON MEDS RESUME PT
--- NOTE | 2017-08-20 15:30 | FAST ---
ENCOUNTER DATE AND TIME: 08/20/2017 08:00 (CDT) NAME AIRAM KAYE DATE OF : 1930 DATE OF ADMISSION: 08/10/2017 16:09 (CDT) PHONE: AGE: 86 N# [id number] GENDER: Male ENCOUNTER PHYSICIAN: Dr. Tyrone Lou M.D. 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 EATING: Activity did not occur on this shift EATING - SCORE: 0-UNK GROOMING: Activity did not occur on this shift GROOMING - SCORE: 0-UNK BATHING: Activity did not occur on this shift BATHING - SCORE: 0-UNK DRESSING - UPPER BODY: Activity did not occur on this shift ARTICLES SCORE Total number of steps: 0 DRESSING - UPPER BODY - SCORE: 0-UNK DRESSING - LOWER BODY: Activity did not occur on this shift ARTICLES SCORE Total number of steps: 0 DRESSING - LOWER BODY - SCORE: 0-UNK TOILETING: Activity did not occur on this shift TOILETING - SCORE: 0-UNK BLADDER MANAGEMENT: Activity did not occur on this shift BLADDER MANAGEMENT - SCORE: 7-IND BOWEL MANAGEMENT: Activity did not occur on this shift BOWEL MANAGEMENT - SCORE: 7-IND TRANSFERS: BED, CHAIR, WHEELCHAIR: Activity did not occur on this shift TRANSFERS: BED, CHAIR, WHEELCHAIR - SCORE: 0-UNK TRANSFERS: TOILET: Activity did not occur on this shift TRANSFERS: TOILET - SCORE: 0-UNK TRANSFERS: SHOWER: Activity did not occur on this shift TRANSFERS: SHOWER - SCORE: 0-UNK TRANSFERS: TUB: Activity did not occur on this shift TRANSFERS: TUB - SCORE: 0-UNK LOCOMOTION: WALK: Activity did not occur on this shift LOCOMOTION: WALK - SCORE: 0-UNK LOCOMOTION: WHEELCHAIR: Activity did not occur on this shift LOCOMOTION: WHEELCHAIR - SCORE: 0-UNK LOCOMOTION: STAIRS: Activity did not occur on this shift LOCOMOTION: STAIRS - SCORE: 0-UNK COMPREHENSION: COMPREHENSION: TYPE: Visual COMPREHENSION - STEP 1: Does the patient require help to understand complex and abstract ideas (such as current events, finan erick, discharge planning, medical issues, relationships, etc)? No. COMPREHENSION - STEP 2: Does the patient need extra time, require an assistive device (such as glasses, hearing aids, or an a ugmentative communication system), OR does s/he have mild difficulty expressing complex and abstract ideas (including mild dysarthria or mild word-finding problems)? Yes. COMPREHENSION - SCORE: 6-TAMMI EXPRESSION EXPRESSION: TYPE: Non-Vocal EXPRESSION - STEP 1: Does the patient require help expressing complex and abstract ideas (such as current events, finances , discharge planning, medical issues, relationships, etc)? No. EXPRESSION - STEP 2: Does the patient need extra time, require an assistive device (such as augmentive communication syste m or a communication board), OR does s/he have mild difficulty expressing complex and abstract ideas (including mild dysarthria or mild word-find problems)? No. EXPRESSION - SCORE: 7-IND SOCIAL INTERACTION: SOCIAL INTERACTION - STEP 1: Does the patient require a helper to interact with others in social and therapeutic situations? No. SOCIAL INTERACTION - STEP 2: Does the patient need extra time in social situations, OR does s/he interact with staff, other patien ts, and family members ONLY in structured environments, OR does s/he require medication for social in teraction? No. SOCIAL INTERACTION - SCORE: 7-IND PROBLEM SOLVING: PROBLEM SOLVING - STEP 1: Does the patient need help to solve complex problems such as managing a checking account or confronti ng interpersonal problems? No. PROBLEM SOLVING - STEP 2: Does the patient require extra time to make decisions or solve problems, OR does s/he have slight dif ficulty reading, initiating, or self-correcting in unfamiliar situations? Yes, patient needs extra ti me. PROBLEM SOLVING - SCORE: 6-TAMMI MEMORY: MEMORY - STEP 1: Does the patient need help to remember frequently encountered people, daily routines, and executing r equests? No. MEMORY - STEP 2: Does the patient have slight difficulty recognizing frequently encountered people, daily routines, or executing requests without the need for repetition or using self-initiated or environmental cues to remember? Yes. MEMORY - SCORE: 6-TAMMI SIGNATURE PANEL: The following modified sections: Eating - Score, Grooming - Score, Bathing - Score, Dressing - Upper Body - Score, Dressing - Lower Body - Score, Toileting - Score, Transfers: Bed, Chair, Wheelchair - S core, Transfers: Toilet - Score, Transfers: Shower - Score, Transfers: Tub - Score, Comprehension - S core, Expression - Score, Social Interaction - Score, Problem Solving - Score, Memory - Score were [e lectronically] signed by WILLIE Adhikari on ThuAug 20 2017 14:32:07 [facility]-0500 ([facility] Time)
--- NOTE | 2017-08-20 16:52 | FAST ---
ENCOUNTER DATE AND TIME: 08/18/2017 08:00 (CDT) NAME AIRAM KAYE DATE OF : 1930 DATE OF ADMISSION: 08/10/2017 16:09 (CDT) PHONE: AGE: 86 N# [id number] GENDER: Male ENCOUNTER PHYSICIAN: Dr. Tyrone Lou M.D. 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 EATING: Activity did not occur on this shift EATING - SCORE: 0-UNK GROOMING: Activity did not occur on this shift GROOMING - SCORE: 0-UNK BATHING: Activity did not occur on this shift BATHING - SCORE: 0-UNK DRESSING - UPPER BODY: Activity did not occur on this shift Patient is not dressing in public clothing ARTICLES SCORE Total number of steps: 0 DRESSING - UPPER BODY - SCORE: 0-UNK DRESSING - LOWER BODY: Activity did not occur on this shift Patient is not dressing in public clothing ARTICLES SCORE Total number of steps: 0 DRESSING - LOWER BODY - SCORE: 0-UNK TOILETING: Activity did not occur on this shift TOILETING - SCORE: 0-UNK BLADDER MANAGEMENT: Activity did not occur on this shift BLADDER MANAGEMENT - SCORE: 7-IND BOWEL MANAGEMENT: Activity did not occur on this shift BOWEL MANAGEMENT - SCORE: 7-IND TRANSFERS: BED, CHAIR, WHEELCHAIR: TRANSFERS: BED, CHAIR, WHEELCHAIR - STEP 1: Does the patient require assistance with bed, chair, or wheelchair transfers? Yes. TRANSFERS: BED, CHAIR, WHEELCHAIR - STEP 2: Does the patient require the assistance of a helper? Yes. TRANSFERS: BED, CHAIR, WHEELCHAIR - STEP 3: How much assistance does the patient require from the helper? Only supervision TRANSFERS: BED, CHAIR, WHEELCHAIR - SCORE: 5-SUP TRANSFERS: TOILET: Activity did not occur on this shift TRANSFERS: TOILET - SCORE: 0-UNK TRANSFERS: SHOWER: Activity did not occur on this shift TRANSFERS: SHOWER - SCORE: 0-UNK TRANSFERS: TUB: Activity did not occur on this shift TRANSFERS: TUB - SCORE: 0-UNK LOCOMOTION: WALK: LOCOMOTION: WALK - STEP 1: Does the patient need help to walk 150 feet? Yes. LOCOMOTION: WALK - STEP 2: How much assistance does the patient require to walk a minimum of 150 feet? Only supervision, cuing, or coaxing LOCOMOTION: WALK - SCORE: 5-SUP LOCOMOTION: WHEELCHAIR: LOCOMOTION: WHEELCHAIR - STEP 1: Does the patient need help to go 150 feet in a wheelchair? Yes. LOCOMOTION: WHEELCHAIR - STEP 2: How much assistance does the patient need from the helper? Only supervision, cuing, or coaxing LOCOMOTION: WHEELCHAIR - SCORE: 5-SUP LOCOMOTION: STAIRS: LOCOMOTION: STAIRS - STEP 1: Does the patient need help to go up and down 12 to 14 stairs? Yes. LOCOMOTION: STAIRS - STEP 2: How much assistance does the patient need from the helper to go a minimum of 12 to 14 stairs? Only [place] pervision, cuing, or coaxing LOCOMOTION: STAIRS - SCORE: 5-SUP COMPREHENSION: COMPREHENSION - SCORE: 0-UNK EXPRESSION EXPRESSION - SCORE: 0-UNK SOCIAL INTERACTION: SOCIAL INTERACTION - SCORE: 0-UNK PROBLEM SOLVING: PROBLEM SOLVING - SCORE: 0-UNK MEMORY: MEMORY - SCORE: 0-UNK SIGNATURE PANEL: The following modified sections: Transfers: Bed, Chair, Wheelchair - Score, Transfers: Toilet - Score , Locomotion: Walk - Score, Locomotion: Wheelchair - Score, Locomotion: Stairs - Score were [electron darvin] signed by Milan Elias PTA on ThuAug 20 2017 15:53:23 GMT-0500 (Central Daylight Time)
--- NOTE | 2017-08-20 16:53 | FAST ---
ENCOUNTER DATE AND TIME: 08/19/2017 08:00 (CDT) NAME AIRAM KAYE DATE OF : 1930 DATE OF ADMISSION: 08/10/2017 16:09 (CDT) PHONE: AGE: 86 N# [id number] GENDER: Male ENCOUNTER PHYSICIAN: Dr. Tyrone Lou M.D. 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 EATING: Activity did not occur on this shift EATING - SCORE: 0-UNK GROOMING: Activity did not occur on this shift GROOMING - SCORE: 0-UNK BATHING: Activity did not occur on this shift BATHING - SCORE: 0-UNK DRESSING - UPPER BODY: Activity did not occur on this shift Patient is not dressing in public clothing ARTICLES SCORE Total number of steps: 0 DRESSING - UPPER BODY - SCORE: 0-UNK DRESSING - LOWER BODY: Activity did not occur on this shift Patient is not dressing in public clothing ARTICLES SCORE Total number of steps: 0 DRESSING - LOWER BODY - SCORE: 0-UNK TOILETING: Activity did not occur on this shift TOILETING - SCORE: 0-UNK BLADDER MANAGEMENT: Activity did not occur on this shift BLADDER MANAGEMENT - SCORE: 7-IND BOWEL MANAGEMENT: Activity did not occur on this shift BOWEL MANAGEMENT - SCORE: 7-IND TRANSFERS: BED, CHAIR, WHEELCHAIR: TRANSFERS: BED, CHAIR, WHEELCHAIR - STEP 1: Does the patient require assistance with bed, chair, or wheelchair transfers? Yes. TRANSFERS: BED, CHAIR, WHEELCHAIR - STEP 2: Does the patient require the assistance of a helper? No. Patient only requires an assistive device fo r bed, chair, wheelchair transfers such as a sliding board, grab bar, or brace, OR s/he takes more th an reasonable time, OR there is a safety concern when s/he performs the transfers TRANSFERS: BED, CHAIR, WHEELCHAIR - SCORE: 6-TAMMI TRANSFERS: TOILET: Activity did not occur on this shift TRANSFERS: TOILET - SCORE: 0-UNK TRANSFERS: SHOWER: Activity did not occur on this shift TRANSFERS: SHOWER - SCORE: 0-UNK TRANSFERS: TUB: Activity did not occur on this shift TRANSFERS: TUB - SCORE: 0-UNK LOCOMOTION: WALK: LOCOMOTION: WALK - STEP 1: Does the patient need help to walk 150 feet? Yes. LOCOMOTION: WALK - STEP 2: How much assistance does the patient require to walk a minimum of 150 feet? Only supervision, cuing, or coaxing LOCOMOTION: WALK - SCORE: 5-SUP LOCOMOTION: WHEELCHAIR: LOCOMOTION: WHEELCHAIR - STEP 1: Does the patient need help to go 150 feet in a wheelchair? No. LOCOMOTION: WHEELCHAIR - SCORE: 6-TAMMI LOCOMOTION: STAIRS: LOCOMOTION: STAIRS - STEP 1: Does the patient need help to go up and down 12 to 14 stairs? Yes. LOCOMOTION: STAIRS - STEP 2: How much assistance does the patient need from the helper to go a minimum of 12 to 14 stairs? Only cordova pervision, cuing, or coaxing LOCOMOTION: STAIRS - SCORE: 5-SUP COMPREHENSION: COMPREHENSION - SCORE: 0-UNK EXPRESSION EXPRESSION - SCORE: 0-UNK SOCIAL INTERACTION: SOCIAL INTERACTION - SCORE: 0-UNK PROBLEM SOLVING: PROBLEM SOLVING - SCORE: 0-UNK MEMORY: MEMORY - SCORE: 0-UNK SIGNATURE PANEL: The following modified sections: Transfers: Bed, Chair, Wheelchair - Score, Transfers: Toilet - Score , Locomotion: Walk - Score, Locomotion: Wheelchair - Score, Locomotion: Stairs - Score were [electron darvin] signed by Milan Elias PTA on ThuAug 20 2017 15:54:41 GMT-0500 (Central Daylight Time)
[2017-08-20] MEDS: RIVAROXABAN 20 MG TABLET PO SCH (17:04)
[2017-08-20] MEDS: RANITIDINE 150 MG TABLET PO SCH (21:11)
[2017-08-20] MEDS: MELATONIN 3 MG TABLET PO PRN (21:11)
[2017-08-20] MEDS: ATORVASTATIN 10 MG TAB PO SCH (21:11)
--- NOTE | 2017-08-21 05:00 | FAST ---
SHIFT START DATE/TIME: 08/20/2017 19:00 (CDT) SHIFT END DATE/TIME: 08/21/2017 07:00 (CDT) NAME AIRAM KAYE DATE OF : 1930 DATE OF ADMISSION: 08/10/2017 16:09 (CDT) PHONE: AGE: 86 N# [id number] GENDER: Male ENCOUNTER PHYSICIAN: Dr. Tyrone Lou M.D. 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 EATING: EATING - STEP 1: Does the patient require assistance when eating? Yes. EATING - STEP 2: Does the patient require the assistance of a helper? Yes. EATING - STEP 3: Does the patient perform half or more of the eating tasks? Yes. EATING - STEP 4: Does the patient need only supervision, cuing, coaxing OR help to apply an orthosis OR help to cut fo od, open containers, pour liquids, or butter bread? Yes. EATING - SCORE: 5-SUP GROOMING: Oral care Wash, rinse, and dry face Wash, rinse, and dry hands GROOMING - STEP 1: Does the patient require assistance when grooming? Yes. GROOMING - STEP 2: Does the patient require the assistance of a helper? No. The patient only requires an assistive devic e, OR takes more than reasonable time to groom, OR there is a concern for safety as the patient groom s GROOMING - SCORE: 6-TAMMI BATHING: Activity did not occur on this shift BATHING - SCORE: 0-UNK DRESSING - UPPER BODY: Patient is not dressing in public clothing ARTICLES SCORE Total number of steps: 0 DRESSING - UPPER BODY - SCORE: 0-UNK DRESSING - LOWER BODY: Patient is not dressing in public clothing ARTICLES SCORE Total number of steps: 0 DRESSING - LOWER BODY - SCORE: 0-UNK TOILETING: TOILETING - STEP 1: Does the patient require assistance with toileting? Yes. TOILETING - STEP 2: Does the patient require the assistance of a helper? Yes. TOILETING - STEP 3: How much assistance does the patient require from the helper? Only supervision TOILETING - SCORE: 5-SUP BLADDER MANAGEMENT: BLADDER MANAGEMENT - STEP 1: Does the patient control the bladder completely and intentionally without equipment or devices or med ications, and is always continent? No. BLADDER MANAGEMENT - STEP 2: Does the patient require the assistance of a helper? Yes. BLADDER MANAGEMENT - STEP 3: How much assistance does the patient require from the helper? Only set-up of equipment - such as plac ing it within reach of the patient or emptying a device - to maintain either satisfactory voiding pat tern or managing an external device, such as an absorbent pad, ileal device, or catheter BLADDER MANAGEMENT - SCORE: 5-SUP BLADDER MANAGEMENT - FREQUENCY OF ACCIDENTS: BLADDER MANAGEMENT(FA) - STEP 1: How many accidents has the patient had during the current shift? 0 BOWEL MANAGEMENT: Activity did not occur on this shift BOWEL MANAGEMENT - SCORE: 7-IND TRANSFERS: BED, CHAIR, WHEELCHAIR: TRANSFERS: BED, CHAIR, WHEELCHAIR - STEP 1: Does the patient require assistance with bed, chair, or wheelchair transfers? Yes. TRANSFERS: BED, CHAIR, WHEELCHAIR - STEP 2: Does the patient require the assistance of a helper? Yes. TRANSFERS: BED, CHAIR, WHEELCHAIR - STEP 3: How much assistance does the patient require from the helper? Only supervision TRANSFERS: BED, CHAIR, WHEELCHAIR - SCORE: 5-SUP TRANSFERS: TOILET: TRANSFERS: TOILET - STEP 1: Does the patient require assistance with toilet transfers? Yes. TRANSFERS: TOILET - STEP 2: Does the patient require the assistance of a helper? Yes. TRANSFERS: TOILET - STEP 3: How much assistance does the patient require from the helper? Only supervision, cuing, coaxing, OR he lp to set out transfer equipment or to lock brakes and/or lift foot rests TRANSFERS: TOILET - SCORE: 5-SUP TRANSFERS: SHOWER: Activity did not occur on this shift TRANSFERS: SHOWER - SCORE: 0-UNK TRANSFERS: TUB: Activity did not occur on this shift TRANSFERS: TUB - SCORE: 0-UNK LOCOMOTION: WALK: Activity did not occur on this shift LOCOMOTION: WALK - SCORE: 0-UNK LOCOMOTION: WHEELCHAIR: Activity did not occur on this shift LOCOMOTION: WHEELCHAIR - SCORE: 0-UNK COMPREHENSION: COMPREHENSION: TYPE: Both COMPREHENSION - STEP 1: Does the patient require help to understand complex and abstract ideas (such as current events, finan erick, discharge planning, medical issues, relationships, etc)? No. COMPREHENSION - STEP 2: Does the patient need extra time, require an assistive device (such as glasses, hearing aids, or an a ugmentative communication system), OR does s/he have mild difficulty expressing complex and abstract ideas (including mild dysarthria or mild word-finding problems)? Yes. COMPREHENSION - SCORE: 6-TAMMI EXPRESSION EXPRESSION: TYPE: Both EXPRESSION - STEP 1: Does the patient require help expressing complex and abstract ideas (such as current events, finances , discharge planning, medical issues, relationships, etc)? No. EXPRESSION - STEP 2: Does the patient need extra time, require an assistive device (such as augmentive communication syste m or a communication board), OR does s/he have mild difficulty expressing complex and abstract ideas (including mild dysarthria or mild word-find problems)? Yes. EXPRESSION - SCORE: 6-TAMMI SOCIAL INTERACTION: SOCIAL INTERACTION - STEP 1: Does the patient require a helper to interact with others in social and therapeutic situations? No. SOCIAL INTERACTION - STEP 2: Does the patient need extra time in social situations, OR does s/he interact with staff, other patien ts, and family members ONLY in structured environments, OR does s/he require medication for social in teraction? Yes, patient needs extra time SOCIAL INTERACTION - SCORE: 6-TAMMI PROBLEM SOLVING: PROBLEM SOLVING - STEP 1: Does the patient need help to solve complex problems such as managing a checking account or confronti ng interpersonal problems? Yes. PROBLEM SOLVING - STEP 2: Does the patient solve basic routine problems half or more of the time? Yes. PROBLEM SOLVING - STEP 3: How often does the patient need help to solve basic routine problems? Less than 10% of the time PROBLEM SOLVING - SCORE: 5-SUP MEMORY: MEMORY - STEP 1: Does the patient need help to remember frequently encountered people, daily routines, and executing r equests? Yes. MEMORY - STEP 2: How often does the patient need help to remember frequently encountered people, daily routines, and e xecuting requests? Less than 10% of the time MEMORY - SCORE: 5-SUP SIGNATURE PANEL: The following modified sections: Eating - Score, Grooming - Score, Bathing - Score, Dressing - Upper Body - Score, Dressing - Lower Body - Score, Toileting - Score, Bladder Management - Score, Bowel Man agement - Score, Transfers: Bed, Chair, Wheelchair - Score, Transfers: Toilet - Score, Transfers: [place] wer - Score, Transfers: Tub - Score, Locomotion: Walk - Score, Locomotion: Wheelchair - Score, Compre hension - Score, Expression - Score, Social Interaction - Score, Problem Solving - Score, Memory - Sc ore were [electronically] signed by Lexii ChatterjeeNPietro on ThuAug 21 2017 04:01:41 GMT-0500 ( Central Daylight Time)
[2017-08-21] MEDS: CARVEDILOL 3.125 MG TAB PO SCH (05:07)
[2017-08-21 05:45] VITALS: BMI 25.5
[2017-08-21] MEDS: INSULIN -REGULAR HUMAN 50 UNIT/0.5 ML ML SQ SCH ×2 (07:30→11:30)
[2017-08-21 07:45] VITALS: BP 135/60; TEMP 97.4
[2017-08-21] MEDS: LOSARTAN POTASSIUM 50 MG TABLET PO SCH (08:11)
[2017-08-21] MEDS: CRANBERRY FRUIT EXTRACT 200 MG CAP PO SCH (08:11)
[2017-08-21] MEDS: AZATHIOPRINE 50 MG TABLET PO SCH (08:11)
[2017-08-21] MEDS: glipiZIDE 5 MG TAB PO SCH (08:12)
[2017-08-21] MEDS: PYRIDOSTIGMINE 60 MG TABLET PO SCH ×2 (08:12→14:00)
[2017-08-21] MEDS: CLOPIDOGREL 75 MG TABLET PO SCH (08:13)
[2017-08-21] MEDS: MAGNESIUM OXIDE 400 MG TAB PO SCH (08:13)
[2017-08-21] MEDS: GLUCERNA SHAKE 237 ML CAN PO SCH (08:17)
[2017-08-21] MEDS: FLUTICASONE 50MCG NASAL SPRAY NAS SCH (08:17)
--- NOTE | 2017-08-21 09:25 | P.RH.PN ---
Estimated Length of Stay: 17 Expected Discharge Date: 08/27/17 Discharge Disposition Plan: Home Family Support: Yes [facility] Goal: Mobility, Transfers, Self Care Vital Signs: Last Vital Signs Temp 97.4 F 08/21/17 07:44 Pulse 65 08/21/17 07:44 Resp 20 08/21/17 07:44 BP 135/60 08/21/17 07:44 Pulse Ox 96 08/21/17 07:44 Laboratory: Laboratory Last Values WBC 6.2 K/uL (4.3-10.9) 08/20/17 05:36 RBC 3.54 M/uL (4.33-5.43) L 08/20/17 05:36 Hgb 12.0 g/dL (13.6-17.9) L 08/20/17 05:36 Hct 35.6 % (39.6-49.0) L 08/20/17 05:36 MCV 100.5 fL (80-100) H 08/20/17 05:36 MCH 33.8 pg (27.0-35.0) 08/20/17 05:36 MCHC 33.7 g/dL (32.0-36.0) 08/20/17 05:36 RDW 14.5 % (12.1-15.2) 08/20/17 05:36 Plt Count 172 K/uL (152-406) 08/20/17 05:36 MPV 8.9 fL (7.6-11.3) 08/20/17 05:36 Neutrophils % 62.0 % (41.7-73.7) 08/20/17 05:36 Lymphocytes % 23.3 % (15.3-44.8) 08/20/17 05:36 Monocytes % 9.9 % (3.3-12.3) 08/20/17 05:36 Eosinophils % 4.3 % (0-4.4) 08/20/17 05:36 Basophils % 0.5 % (0-1.3) 08/20/17 05:36 Absolute Neutrophils 3.9 K/uL (1.8-8.0) 08/20/17 05:36 Absolute Lymphocytes 1.4 K/uL (0.7-4.9) 08/20/17 05:36 Absolute Monocytes 0.6 K/uL (0.1-1.3) 08/20/17 05:36 Absolute Eosinophils 0.3 K/uL (0-0.5) 08/20/17 05:36 Absolute Basophils 0.0 K/uL (0-0.5) 08/20/17 05:36 Sodium 138 mEq/L (135-145) 08/20/17 05:36 Potassium 5.1 mEq/L (3.6-5.0) H 08/20/17 05:36 Chloride 106 mEq/L (101-111) 08/20/17 05:36 Carbon Dioxide 27 mEq/L (21-31) 08/20/17 05:36 BUN 28 mg/dL (6-20) H 08/20/17 05:36 Creatinine 1.04 mg/dL (0.61-1.24) 08/20/17 05:36 Estimated GFR 67 mL/min (=/>90) L 08/20/17 05:36 Glucose 175 mg/dL (65-120) H 08/20/17 05:36 POC Glucose 188 mg/dl (65-120) H 08/21/17 08:02 Calcium 9.7 mg/dL (8.5-10.5) 08/20/17 05:36 Magnesium 2.1 mg/dL (1.8-2.5) 08/20/17 05:36 Albumin 3.2 g/dL (3.2-5.5) 08/20/17 05:36 Prealbumin 24.7 mg/dl (18-38) 08/20/17 05:36 Urine Color Yellow 08/10/17 17:55 Urine Appearance Cloudy 08/10/17 17:55 Urine pH 5.5 (5.0-7.0) 08/10/17 17:55 Ur Specific [place] 1.015 (1.005-1.030) 08/10/17 17:55 Urine Ketones Negative (NEG) 08/10/17 17:55 Urine Blood Trace (NEG) H 08/10/17 17:55 Urine Nitrite Positive (NEG) H 08/10/17 17:55 Urine Bilirubin Negative (NEG) 08/10/17 17:55 Urine Urobilinogen 0.2 mg/dL (0.2-1.0) 08/10/17 17:55 Ur Leukocyte Esterase 3+ (NEG) H 08/10/17 17:55 Urine RBC 5-10 /HPF (NONE SEEN) H 08/10/17 17:55 Urine WBC >50 /HPF (<5) H 08/10/17 17:55 Ur Squamous Epith Cells 5-10 /HPF (NONE SEEN) H 08/10/17 17:55 Urine Bacteria Loaded /HPF (NONE SEEN) H 08/10/17 17:55 Urine Mucus 2+ /HPF (NONE SEEN) 08/10/17 17:55 Urine Culture Reflexed Reflexed 08/10/17 17:55 Urine Glucose 1+ (NEG) H 08/10/17 17:55 Urine Total Protein Trace (NEG) 08/10/17 17:55 Weight: 168 lb 4.8 oz Wound Present: No Closed Surgical Incision Present: No Negative Pressure Wound Therapy Present: No Physician Update: He is medically stable. CBC, BMP are essentially within normal limits. His blood sugars are mildly elevated. He has done very well with physical and occupational and speech therapy. He will be discharged home with home health via IP. Pain Issues: on Tylenol ES 500mg Q6H PRN Functional Improvement: Patient has met all short-term goals at this time and is progressing well toward long-term goals. Patient continues to present w/ fatigue at 200-250 ft. during gait tx. Functional Improvement Occupational Therapy: pt can benifit with further therapy to address pt's UB strength/coordination with [facility] for adl tasks. cont to increase pt's static standing balance and safety for transfers using the RW and for clothing mgmt. Cont with the POC and the goals by the supervising OTR. Speech Therapy Update: Pt. complies with all therapeutic exercises, Recalls all dysphagia strategies at Direct supervision, but requires Min A to utilize dysphagia strategies at meal times. Pt. is unable to independently perform recommended practice due to memory deficits, even when provided written memory aids. Summary: Patient's care plan and mcc goals have been reviewed and revised as necessary. Please see the Rehabilitation Signature page for all necessary signatures.
--- NOTE | 2017-08-21 14:33 | FAST ---
SHIFT START DATE/TIME: 08/21/2017 07:00 (CDT) SHIFT END DATE/TIME: 08/21/2017 19:00 (CDT) NAME AIRAM KAYE DATE OF : 1930 DATE OF ADMISSION: 08/10/2017 16:09 (CDT) PHONE: AGE: 86 N# [id number] GENDER: Male ENCOUNTER PHYSICIAN: Dr. Tyrone Lou M.D. 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 EATING: EATING - STEP 1: Does the patient require assistance when eating? Yes. EATING - STEP 2: Does the patient require the assistance of a helper? No, patient only requires an assistive device, O R s/he takes more than reasonable time to eat, OR there is a safety concern, OR s/he requires modifie d food consistency EATING - SCORE: 6-TAMMI GROOMING: Comb/brush hair Oral care Wash, rinse, and dry face GROOMING - STEP 1: Does the patient require assistance when grooming? Yes. GROOMING - STEP 2: Does the patient require the assistance of a helper? Yes. GROOMING - STEP 3: How much assistance does the patient require from the helper? Only prior equipment preparation/set up from the helper GROOMING - SCORE: 5-SUP BATHING: Activity did not occur on this shift BATHING - SCORE: 0-UNK DRESSING - UPPER BODY: Activity did not occur on this shift ARTICLES SCORE Total number of steps: 0 DRESSING - UPPER BODY - SCORE: 0-UNK DRESSING - LOWER BODY: Activity did not occur on this shift ARTICLES SCORE Total number of steps: 0 DRESSING - LOWER BODY - SCORE: 0-UNK TOILETING: TOILETING - STEP 1: Does the patient require assistance with toileting? Yes. TOILETING - STEP 2: Does the patient require the assistance of a helper? Yes. TOILETING - STEP 3: How much assistance does the patient require from the helper? Only supervision TOILETING - SCORE: 5-SUP BLADDER MANAGEMENT: BLADDER MANAGEMENT - STEP 1: Does the patient control the bladder completely and intentionally without equipment or devices or med ications, and is always continent? No. BLADDER MANAGEMENT - STEP 2: Does the patient require the assistance of a helper? No, patient requires and independently uses an a ssistive device, such as a urinal, bedpan, bedside commode, catheter, absorbent pad, or collecting de vice BLADDER MANAGEMENT - SCORE: 6-TAMMI BLADDER MANAGEMENT - FREQUENCY OF ACCIDENTS: BLADDER MANAGEMENT(FA) - STEP 1: How many accidents has the patient had during the current shift? 0 BOWEL MANAGEMENT: Activity did not occur on this shift BOWEL MANAGEMENT - SCORE: 7-IND BOWEL MANAGEMENT - FREQUENCY OF ACCIDENTS: BOWEL MANAGEMENT(FA) - STEP 1: How many accidents has the patient had during the current shift? 0 TRANSFERS: BED, CHAIR, WHEELCHAIR: TRANSFERS: BED, CHAIR, WHEELCHAIR - STEP 1: Does the patient require assistance with bed, chair, or wheelchair transfers? Yes. TRANSFERS: BED, CHAIR, WHEELCHAIR - STEP 2: Does the patient require the assistance of a helper? Yes. TRANSFERS: BED, CHAIR, WHEELCHAIR - STEP 3: How much assistance does the patient require from the helper? Only supervision TRANSFERS: BED, CHAIR, WHEELCHAIR - SCORE: 5-SUP TRANSFERS: TOILET: TRANSFERS: TOILET - STEP 1: Does the patient require assistance with toilet transfers? Yes. TRANSFERS: TOILET - STEP 2: Does the patient require the assistance of a helper? Yes. TRANSFERS: TOILET - STEP 3: How much assistance does the patient require from the helper? Only supervision, cuing, coaxing, OR he lp to set out transfer equipment or to lock brakes and/or lift foot rests TRANSFERS: TOILET - SCORE: 5-SUP TRANSFERS: SHOWER: Activity did not occur on this shift TRANSFERS: SHOWER - SCORE: 0-UNK TRANSFERS: TUB: Activity did not occur on this shift TRANSFERS: TUB - SCORE: 0-UNK LOCOMOTION: WALK: Activity did not occur on this shift LOCOMOTION: WALK - SCORE: 0-UNK LOCOMOTION: WHEELCHAIR: LOCOMOTION: WHEELCHAIR - STEP 1: Does the patient need help to go 150 feet in a wheelchair? Yes. LOCOMOTION: WHEELCHAIR - STEP 2: How much assistance does the patient need from the helper? Only supervision, cuing, or coaxing LOCOMOTION: WHEELCHAIR - SCORE: 5-SUP COMPREHENSION: COMPREHENSION: TYPE: Both COMPREHENSION - STEP 1: Does the patient require help to understand complex and abstract ideas (such as current events, finan erick, discharge planning, medical issues, relationships, etc)? No. COMPREHENSION - STEP 2: Does the patient need extra time, require an assistive device (such as glasses, hearing aids, or an a ugmentative communication system), OR does s/he have mild difficulty expressing complex and abstract ideas (including mild dysarthria or mild word-finding problems)? Yes. COMPREHENSION - SCORE: 6-TAMMI EXPRESSION EXPRESSION: TYPE: Both EXPRESSION - STEP 1: Does the patient require help expressing complex and abstract ideas (such as current events, finances , discharge planning, medical issues, relationships, etc)? No. EXPRESSION - STEP 2: Does the patient need extra time, require an assistive device (such as augmentive communication syste m or a communication board), OR does s/he have mild difficulty expressing complex and abstract ideas (including mild dysarthria or mild word-find problems)? Yes. EXPRESSION - SCORE: 6-TAMMI SOCIAL INTERACTION: SOCIAL INTERACTION - STEP 1: Does the patient require a helper to interact with others in social and therapeutic situations? No. SOCIAL INTERACTION - STEP 2: Does the patient need extra time in social situations, OR does s/he interact with staff, other patien ts, and family members ONLY in structured environments, OR does s/he require medication for social in teraction? No. SOCIAL INTERACTION - SCORE: 7-IND PROBLEM SOLVING: PROBLEM SOLVING - STEP 1: Does the patient need help to solve complex problems such as managing a checking account or confronti ng interpersonal problems? Yes. PROBLEM SOLVING - STEP 2: Does the patient solve basic routine problems half or more of the time? Yes. PROBLEM SOLVING - STEP 3: How often does the patient need help to solve basic routine problems? Less than 10% of the time PROBLEM SOLVING - SCORE: 5-SUP MEMORY: MEMORY - STEP 1: Does the patient need help to remember frequently encountered people, daily routines, and executing r equests? Yes. MEMORY - STEP 2: How often does the patient need help to remember frequently encountered people, daily routines, and e xecuting requests? Less than 10% of the time MEMORY - SCORE: 5-SUP SIGNATURE PANEL: The following modified sections: Eating - Score, Grooming - Score, Bathing - Score, Dressing - Upper Body - Score, Dressing - Lower Body - Score, Toileting - Score, Bladder Management - Score, Bowel Man agement - Score, Transfers: Bed, Chair, Wheelchair - Score, Transfers: Toilet - Score, Transfers: [place] wer - Score, Transfers: Tub - Score, Locomotion: Walk - Score, Locomotion: Wheelchair - Score, Compre hension - Score, Expression - Score, Social Interaction - Score, Problem Solving - Score, Memory - Sc ore were [electronically] signed by Bindu Maldonado C.N.A. on ThuAug 21 2017 13:34:03 [facility]-0500 (Centra l Daylight Time)
--- NOTE | 2017-08-21 15:24 | P.PN ---
Subjective Date of Service: 08/21/17 Chief Complaint: HE IS FEELING GREAT MR. KAYE HAS DONE VERY WELL. I ONCE AGAIN TOLD HIM THAT HE HAD A STROKE BUT WE CAN'T DO MRI ON ON HIM. HE HAS FULLY RECOVERED TO HIS BASELINE. HE IS EATING WELL, WALKING A LOT HERE. HE HAS NO COMPLAINTS FEELS GREAT ABLE TO AMBULATE. HE HAS NO ISSUES AND HE IS DOING GOOD WITH PT. Physical Examination - Vital Signs Temperature: 97.4 F Blood Pressure: 135/60 Pulse: 65 Respirations: 20 Pulse Ox (%): 96 - Studies Medications List Reviewed: Yes Assessment And Plan - Current Problems (Diagnosis) (1) Allergic cough Onset Date: 08/12/17 Current Visit: Yes Status: Acute Plan: Orders (last 24 hrs) 08/18/17 21:29 Insulin -Regular Human [Novolin -R] See Protocol SQ ACHS 08/19/17 21:38 Nursing Orders Routine IMPROVED ON FLONASE. Orders (last 24 hrs) 08/19/17 21:38 Nursing Orders Routine (2) A-fib Onset Date: 08/12/17 Current Visit: Yes Status: Acute Plan: BETTER ON XARELTO NOT WELL CONTROLLED ON WARFARIN. TOLERATES XARELTO. WILL HAVE TIMING ADJUSTER CALL. WE CALLED PHARMACY COST IS TOO HIGH FOR HIM HE WILL BE BACK ON LOVENOX AND WARFARIN INR TO BE WATCHED BY HOMEHEALTH ORDERS GIVEN TO NURSE. Qualifiers: Atrial fibrillation type: chronic Qualified Code(s): I48.2 - Chronic atrial fibrillation (3) CVA (cerebral vascular accident) Onset Date: 08/06/17 Current Visit: No Status: Acute Plan: MOSTLY RESLOVED PT FOR ENDURANCE DOING A LOT BETTER WALKS WITH WALKER. (4) Hypertension Current Visit: No Status: Acute (5) Myasthenia gravis Onset Date: 08/12/17 Current Visit: Yes Status: Chronic Plan: STABLE ON MEDS RESUME PT
--- NOTE | 2017-08-21 16:42 | FAST ---
ENCOUNTER DATE AND TIME: 08/21/2017 08:00 (CDT) NAME AIRAM KAYE DATE OF : 1930 DATE OF ADMISSION: 08/10/2017 16:09 (CDT) PHONE: AGE: 86 N# [id number] GENDER: Male ENCOUNTER PHYSICIAN: Dr. Tyrone Lou M.D. 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 EATING: Activity did not occur on this shift EATING - SCORE: 0-UNK GROOMING: Activity did not occur on this shift GROOMING - SCORE: 0-UNK BATHING: Activity did not occur on this shift BATHING - SCORE: 0-UNK DRESSING - UPPER BODY: Activity did not occur on this shift Patient is not dressing in public clothing ARTICLES SCORE Total number of steps: 0 DRESSING - UPPER BODY - SCORE: 0-UNK DRESSING - LOWER BODY: Activity did not occur on this shift Patient is not dressing in public clothing ARTICLES SCORE Total number of steps: 0 DRESSING - LOWER BODY - SCORE: 0-UNK TOILETING: Activity did not occur on this shift TOILETING - SCORE: 0-UNK BLADDER MANAGEMENT: Activity did not occur on this shift BLADDER MANAGEMENT - SCORE: 7-IND BOWEL MANAGEMENT: Activity did not occur on this shift BOWEL MANAGEMENT - SCORE: 7-IND TRANSFERS: BED, CHAIR, WHEELCHAIR: TRANSFERS: BED, CHAIR, WHEELCHAIR - STEP 1: Does the patient require assistance with bed, chair, or wheelchair transfers? Yes. TRANSFERS: BED, CHAIR, WHEELCHAIR - STEP 2: Does the patient require the assistance of a helper? No. Patient only requires an assistive device fo r bed, chair, wheelchair transfers such as a sliding board, grab bar, or brace, OR s/he takes more th an reasonable time, OR there is a safety concern when s/he performs the transfers TRANSFERS: BED, CHAIR, WHEELCHAIR - SCORE: 6-TAMMI TRANSFERS: TOILET: Activity did not occur on this shift TRANSFERS: TOILET - SCORE: 0-UNK TRANSFERS: SHOWER: Activity did not occur on this shift TRANSFERS: SHOWER - SCORE: 0-UNK TRANSFERS: TUB: Activity did not occur on this shift TRANSFERS: TUB - SCORE: 0-UNK LOCOMOTION: WALK: LOCOMOTION: WALK - STEP 1: Does the patient need help to walk 150 feet? No. LOCOMOTION: WALK - STEP 2: Does the patient need an assistive device (such as an orthosis, prosthesis, crutches, or walker) to g o 150 feet, OR does s/he take more than reasonable time, OR is there a concern for safety? Yes, the p atient needs an assistive device LOCOMOTION: WALK - SCORE: 6-TAMMI LOCOMOTION: WHEELCHAIR: Activity did not occur on this shift LOCOMOTION: WHEELCHAIR - SCORE: 0-UNK LOCOMOTION: STAIRS: LOCOMOTION: STAIRS - STEP 1: Does the patient need help to go up and down 12 to 14 stairs? No. LOCOMOTION: STAIRS - STEP 2: Does the patient require an assistive device - such as handrails or cane - to go up and down one flig ht of stairs, OR does s/he take more than reasonable time, OR is there a concern for safety? Yes, the patient requires an assistive device LOCOMOTION: STAIRS - SCORE: 6-TAMMI COMPREHENSION: COMPREHENSION - SCORE: 0-UNK EXPRESSION EXPRESSION - SCORE: 0-UNK SOCIAL INTERACTION: SOCIAL INTERACTION - SCORE: 0-UNK PROBLEM SOLVING: PROBLEM SOLVING - SCORE: 0-UNK MEMORY: MEMORY - SCORE: 0-UNK SIGNATURE PANEL: The following modified sections: Transfers: Bed, Chair, Wheelchair - Score, Transfers: Toilet - Score , Locomotion: Walk - Score, Locomotion: Wheelchair - Score, Locomotion: Stairs - Score were [electron darvin] signed by Jh Palacios PT on ThuAug 21 2017 15:43:43 [facility]-0500 (Central Daylight Time)
--- NOTE | 2017-09-18 15:18 | R.DS ---
FACILITY [id number] [id number] NAME AIRAM KAYE [address]ESS [address] [facility] [place] [address] PHONE DATE OF 1930 AGE 86 SSN# [id number] GENDER Male DEXTERITY Right-handed MARITAL STATUS RACE White ENCOUNTER PHYSICIAN Dr. Tyrone Lou M.D. 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] - N/A CAD, Osteoarthritis, Myasthenia Gravis, Atrial fibrillation, Vitamin D deficeincy DATE OF ADMISSION 08/10/2017 16:09 (CDT) MEDICATION ALLERGIES: Tramadol, Levofloxacin, Penicillin ENVIRONMENTAL ALLERGIES: Iodine - Substance Allergies None Known - Other Allergies Iodinated contrast, latex allergy, latex natural rubber NURSING: - Shower allowing shower - Lab Results blood Sugar Check ACHS - Bladder care per protocol - Skin care per protocol PRECAUTIONS: - Fall Precaution Bed and chair alarm ACTIVITIES OOB only with supervision THERAPIES: - Occupational Therapy Evaluate and Treat Cognitive Retraining Visual Perceptual Training - Speech Therapy Cognitive Training Memory Strategies Expressive Language Skills Receptive Language Skills Speech Intelligibility Training - Physical Therapy Evaluate and Treat HISTORY OF PRESENT ILLNESS: Pt. is a 86 yo Right-handed white male.On 08/05/2017 he was admitted to [facility] with diagnosis debility secondary to myasthenia gravis. No evidence of focal neurological dificit ..On 08/05/2017 he was admitted to [facility] with diagnosis CVA.His impairment category is debility secondary to myasthenia gravis. No evidence of focal neurological dificit..His impairment category is Stroke 01 - Other Stroke (04.14).Pre-morbidly, Pt. was independent/mod-I in Sp hincter Control; and he had good Sphincter Control.Currently, he has deficits of Endurance, Safety Aw areness, Transfers Control, Communication, Social Cognition, Balance, Self-Care, and Locomotion.Pt. i s now referred to [facility] for acute in-patient rehabilitation in order to m aximize patient's functional independence in activities of daily living, strength, ROM, and mobility. - Rehab Goal Patient has realistic goal of being discharged at assistance level 6-Ankit to reside at Home with Fam amanda/Relatives. HOSPITAL COURSE: On 08/10/2017 the following precautions were added for the patient: Fall Precaution - Bed and chair a larm. On 08/11/2017 the following precautions were added for the patient: Fall Precaution - Bed and chair alarm. On 08/12/2017 the following precautions were removed for the patient: Fall Precaution - Bed and rathur r alarm. On 08/13/2017 the following precautions were added for the patient: Fall Precaution - Bed and chair alarm. The following precautions were removed for the patient: Fall Precaution - Bed and chair alarm, and F all Precaution - Bed and chair alarm. DIET - LIQUID TEXTURE: On 08/10/2017 Pt was upgraded to Regular Diet - Liquid Texture. DIET - SOLID TEXTURE: On 08/10/2017 Pt was upgraded to Regular Diet - Solid Texture. DIET TYPE: On 08/10/2017 Pt was changed to ADA 1800 Diet Type. FALL PRECAUTION: TUBE FEED: On 08/10/2017 Pt was changed to N/A Tube Feed. DISCHARGE PHYSICAL EXAM - Gen Alert and awake Lying in bed No apparent distress Oriented to: person, time, and place - Vital Signs Vital signs stable, afebrile - Skin No beakdown No abnormalities - Eyes No abnormalities - ENMT No abnormalities - Neck No abnormalities - CVS RRR - Chest Upper airway congestion. - Resp Single breath count of 23 - Abd + BS - GI + bowel sound Deferred - No abnormalities - Ext No significant edema. - MSK 2-3/5 weakness in right and left distal lower extremities. Otherwise 4/5 in the proximal lower extrem ities. - Neuro Steppage Gait, Decreased tone in lower extremities. Stocking loss to light touch in the legs. - Psych No abnormalities FUNCTIONAL STATUS: - Self-Care A. Eating 5-sup 7-Ind B. Grooming 5-sup 7-Ind C. Bathing 5-sup 6-Ankit D. Dressing - Upper 5-sup 7-Ind E. Dressing - Lower 5-sup 6-Ankit F. Toileting 5-sup 6-Ankit - Sphincter Control G: Bladder control 1-Dep 6-Ankit H: Bowel control 7-Ind 7-Ind - Transfers Control I. Bed/Chair/Wheelchair 2-maxA 6-Ankit J. Toilet 3-modA 6-Ankit K. Tub/Shower 0-ADNO 6-Ankit - Locomotion L. Walk/Wheelchair (B) 2-maxA 6-Ankit M. Stairs 0-ADNO 6-Ankit - Communication N. Comprehension (B) 5-sup 5-sup O. Expression (B) 5-sup 5-sup - Social Cognition P. Social Interaction 5-sup 5-sup Q. Problem Solving 5-sup 5-sup R. Memory 5-sup 5-sup - Endurance Poor - Balance Poor - Safety Awareness Poor DISCHARGE INSTRUCTIONS: - N/A Aspirin, Plavix and Xarelto. DISCHARGE PLAN, FOLLOW UP CARE PROVISIONS: - Estimated Length of Stay (days) 17. - Consensus on plan Discharge plan has been discussed with primary caregiver. Patient/Family is in agreement with the saad n. Primary caregiver is in agreement with the plan. - Patient/Family Goals Return home with assistance. - Planned Living Setting Upon Discharge Home, to live with Family/Relatives. SIGNATURE PANEL: (CDT)
== END 2017-08-21 14:00 | disposition home health service (06) | DRG 948 ==
LOC: 5TH 16:09
PROVIDERS: ADMIT Psychiatry & Neurology Neurology with Special Qualifications in Child Neurology; ATTEND Psychiatry & Neurology Neurology with Special Qualifications in Child Neurology
DX: R53.81 Other malaise (principal); I50.30 Unspecified diastolic (congestive) heart failure; G70.00 Myasthenia gravis without (acute) exacerbation; E11.40 Type 2 diabetes mellitus with diabetic neuropathy, unspecified; I25.10 Atherosclerotic heart disease of native coronary artery without angina pectoris; M19.90 Unspecified osteoarthritis, unspecified site; E55.9 Vitamin D deficiency, unspecified; R05 Cough; I48.2 Chronic atrial fibrillation; I10 Essential (primary) hypertension; Z86.73 Personal history of transient ischemic attack (TIA), and cerebral infarction without residual deficits
CPT/HCPCS: 36415; 71045; 74230; 80048; 81003; 81015; 82040; 82962; 83735; 84134; 85025; 87077; 87086; 87088; 87186; 97542; J7500

== ENCOUNTER 2017-12-04 11:39 | Inpatient (IN) | payer OTHER, MEDICARE ==
--- OUTSIDE RECORDS SUMMARY | 2017-12-04 11:41 | XMS REPORT | Clinical Summary ---
:1930 Author Organization [facility] Address [address] [place] [address] Phone Care Team Providers Name Role Phone [...] Not on file Results Not on fileafter 12/03/2016
[2017-12-04 12:16] LABS: Absolute Lymphocytes (CBC) 0.9 K/uL (0.7-4.9); Absolute Monocytes 0.8 K/uL (0.1-1.3); Absolute Neutrophil 7.9 K/uL (1.8-8.0); Basophils % 0.2 % (0-1.3); Eosinophils % 0.3 % (0-4.4); Lymphocytes % 9.3 % (15.3-44.8); MCH 34.4 pg (27.0-35.0); MCV 99.9 fL (80-100); MPV 9.3 fL (7.6-11.3); Monocytes % 8.3 % (3.3-12.3); RBC Red Blood Cell Count 3.71 M/uL (4.33-5.43)
[2017-12-04 12:26] LABS: Albumin 2.8 g/dL (3.4-5.0); Bilirubin Direct 0.6 mg/dL (0-0.2); Bilirubin Total 2.2 mg/dL (0.2-1.0); Magnesium 1.7 mg/dL (1.8-2.4); Potassium 4.5 mmol/L (3.5-5.1); Protein, Total 6.6 g/dL (6.4-8.2); Troponin (Emerg Dept Use Only) 0.09 ng/mL (0.0-0.045)
[2017-12-04] MEDS ORDERED: FUROSEMIDE 40 MG/4 ML VIAL ONE (12:37)
[2017-12-04] MEDS ORDERED: MAGNESIUM SULFATE 1 gm IVPB 1 GM/100 ML BAG IV ONE (12:38)
--- NOTE | 2017-12-04 12:52 | RAD REPORT ---
EXAM DESCRIPTION: Shwetat Single View12/04/2017 12:46 pm CLINICAL HISTORY: COUGH COMPARISON: Chest Single View dated 08/11/2017; FINDINGS: The lungs appear clear of acute infiltrate. The heart is mildly enlarged. Postsurgical changes involve the chest. IMPRESSION: No acute abnormalities displayed
--- NOTE | 2017-12-04 12:54 | ER ---
Nurse's Notes [facility] Name: Chano Wetzel Age: 87 yrs Sex: Male : 1930 Arrival Date: 12/04/2017 Time: 11:41 Bed 3 Private MD: Diagnosis: Acute on chronic systolic (congestive) heart failure;Fever of other and unknown origin Presentation: 12/04 11:35 Presenting complaint: EMS states: generalized weakness x 3 days. c/o SOB now. Pt had sv been sitting in the recliner since 1500 yesterday, he ambulated to the bathroom to take a shower before coming here. BP 89/44 HR 60-70s, wheezing. Transition of care: patient was not received from another setting of care. Onset of symptoms was November 30, 2017. Risk Assessment: Do you want to hurt yourself or someone else? Patient reports no desire to harm self or others. Initial Sepsis Screen: Does the patient meet any 2 criteria? No. Patient's initial sepsis screen is negative. Does the patient have a suspected source of infection? No. Patient's initial sepsis screen is negative. Care prior to arrival: None. 11:35 Method Of Arrival: EMS: [facility] sv 11:35 Acuity: SUN 3 sv Historical: - Allergies: 11:50 Iodinated Contrast Media - IV Dye; sv 11:50 Iodine; sv 11:50 Latex, Natural Rubber; sv 11:50 Levofloxacin; sv 11:50 PENICILLINS; sv 11:50 tramadol; sv - Home Meds: 11:50 azathioprine 50 mg Oral tab 2 tabs 2 tabs in the morning and 1 tab in the evening sv [Active]; atorvastatin 10 mg Oral tab 1 tab once daily [Active]; carvedilol 3.125 mg Oral tab 1 tab 2 times per day [Active]; losartan 25 mg Oral tab 1 tab once daily [Active]; aspirin 81 mg Oral TbEC 1 tab once daily [Active]; Nitrostat 0.4 mg SL subl 1 tab as needed [Active]; pyridostigmine bromide 30 mg Oral 2 tabs 2 times per day [Active]; warfarin 3 mg oral tab [Active]; - PMHx: 11:50 Arthritis; Hypertension; Atrial Fib; Back pain; CAD; constipation; Diabetes - NIDDM; sv Diverticulitis; Esophageal Achalasia; fatigue; Fibromyalgia; High Cholesterol; insomnia; Myasthenia Gravis; neuropathy; PVD; sciatica; small bowel obstrution; UTI; Wet gangrene; - PSHx: 11:50 Knee surgery; open heart; Cholecystectomy; Toe amputated; sv - Immunization history:: Adult Immunizations up to date. - Ebola Screening: : No symptoms or risks identified at this time. Screenin:52 Abuse screen: Denies threats or abuse. Denies injuries from another. Nutritional sv screening: No deficits noted. Tuberculosis screening: No symptoms or risk factors identified. Fall Risk None identified. Assessment: 11:40 General: Appears in no apparent distress. comfortable, Behavior is calm, cooperative, sv appropriate for age. Pain: Denies pain. Neuro: Level of Consciousness is awake, alert, obeys commands, Oriented to person, place, time, situation, Moves all extremities. Reports weakness. Respiratory: Reports shortness of breath cough that is persistent Airway is patent Respiratory effort is even, unlabored, Respiratory pattern is regular, symmetrical, Breath sounds with rales bilaterally. GI: Abdomen is flat. Derm: Skin is normal. 12:27 Reassessment: Patient appears in no apparent distress at this time. No changes from sv previously documented assessment. Patient and/or family updated on plan of care and expected duration. Pain level reassessed. 12:47 Reassessment: Patient appears in no apparent distress at this time. No changes from sv previously documented assessment. Patient and/or family updated on plan of care and expected duration. Pain level reassessed. 14:02 Reassessment: Patient appears in no apparent distress at this time. No changes from sv previously documented assessment. Patient and/or family updated on plan of care and expected duration. Pain level reassessed. Pt cleaned of bowel incontinence. Sheets changed and clean sheets applied. Vital Signs: 11:35 BP 98 / 66; Pulse 97; Resp 24; Temp 99.9; Pulse Ox 95% ; Weight 78.47 kg; Height 5 ft. sv 8 in. (172.72 cm); Pain 0/10; 12:18 BP 97 / 56; Pulse 71 MON; Resp 26; Pulse Ox 96% ; sv 12:30 BP 102 / 74; Pulse 85; Resp 34; Pulse Ox 95% ; sv 13:35 BP 103 / 45; Pulse 89; Resp 34; Pulse Ox 97% ; sv 14:08 BP 95 / 49; Pulse 76; Resp 28; Pulse Ox 95% on R/A; sv 14:47 BP 111 / 56; Pulse 74; Resp 28; Pulse Ox 97% ; sv 11:35 Body Mass Index 26.30 (78.47 kg, 172.72 cm) sv 12:18 A fib with Unifocal PVCs sv Vitals: 11:35 Cardiac Rhythm Assessment Atrial fibrillation W/PVC's. sv ED Course: 11:41 Patient arrived in ED. sv 11:41 Lenka Galeana, RN is Primary Nurse. sv 11:44 Triage completed. sv 11:45 Atif Dawson PA is PHCP. jr8 11:45 Cl Ruth MD is Attending Physician. jr8 11:49 Inserted saline lock: 20 gauge in left antecubital area, using aseptic technique. Blood mb4 collected. 11:49 monitor tech on. Pulse ox on. NIBP on. mb4 11:50 Patient has correct armband on for positive identification. Placed in gown. Call light mb4 in reach. Side rails up X2. 11:52 Door closed. Head of bed elevated. sv 11:53 Arm band placed on right wrist. sv 12:24 X-ray(s) taken. sv 12:29 X-ray completed. Portable x-ray completed in exam room. Patient tolerated procedure mh1 well. 12:30 XRAY Chest (1 view) In Process Unspecified. EDMS 12:39 EKG done, by eeg technician. reviewed by Atif HOWE. at1 12:52 Fernandez Lo MD is Hospitalizing Provider. jr8 13:[address] via stretcher. sv 13:40 CT Chest Wo Con In Process Unspecified. EDMS 13:[address] Patient moved back from CT. sv 14:01 Urine collected: clean catch specimen, cloudy, thomas colored. jb1 14:06 Urine Dipstick--Ancillary (enter results) Sent. sv 14:10 Third set of blood cultures drawn, by me, using an 18 gauge butterfly in right mb4 antecubital area. 14:18 No provider procedures requiring assistance completed. Patient admitted, IV remains in sv place. intact. Administered Medications: 12:42 Drug: Lasix 40 mg Route: IVP; Site: left antecubital; sv 12:54 Follow up: Response: No adverse reaction sv 12:47 Drug: Magnesium Sulfate 1 grams Route: IVPB; Infused Over: 1 hrs; Site: left sv antecubital; 14:44 Follow up: Response: No adverse reaction; IV Status: Completed infusion; IV Intake: sv 100ml 13:03 Drug: Rocephin - (cefTRIAXone) 1 grams Route: IVPB; Infused Over: 30 mins; Site: left ss antecubital; 13:08 Follow up: Response: No adverse reaction; IV Status: Completed infusion; IV Intake: 10mlsv 14:00 Drug: Vitamin K1 5 mg Route: Sub-Q; Site: left upper arm; sv 14:06 Follow up: Response: No adverse reaction sv Point of Care Testing: Blood Glucose: 11:51 Blood Glucose: 262 mg/dL; sv Ranges: Intake: 13:08 IV: 10ml; Total: 10ml. sv 14:44 IV: 100ml; Total: 110ml. sv Output: 14:05 Urine: 200ml (Voided); Total: 200ml. sv Outcome: 12:53 Decision to Hospitalize by Provider. giorgio 14:19 Admitted to Tele accompanied by tech, family with patient, via stretcher, room 415, sv with chart, Report called to Lorie LOZA 14:19 Condition: stable 14:19 Instructed on the need for admit. 14:48 Patient left the ED. sv Signatures: Dispatcher [employer] Bryan Ko jb1 Lenka Galeana RN RN sv Harvey, Martha 1 Kinsey Baig RN RN ss Roszak, Josh, PA PA jr8 Suma Yo, director of corporate responsibility EKG [facility]1 Macey Dove4 Corrections: (The following items were deleted from the chart) 12:20 11:40 Respiratory: Respiratory effort is even, unlabored, Respiratory pattern is sv regular, symmetrical, sv
--- NOTE | 2017-12-04 12:54 | EDPHYS ---
Physician Documentation [facility] Name: Chano Wetzel Age: 87 yrs Sex: Male : 1930 Arrival Date: 12/04/2017 Time: 11:41 Bed 3 Private MD: ED Physician Cl Ruth HPI: 12/04 12:00 This 87 yrs old Male presents to ER via EMS with complaints of General jr8 Weakness. 12:00 Onset: The symptoms/episode began/occurred gradually, 2 day(s) ago. Associated signs jr8 and symptoms: Pertinent positives: cough, shortness of breath. Modifying factors: The patient symptoms are alleviated by nothing, the patient symptoms are aggravated by nothing. It is unknown whether or not the patient has had similar symptoms in the past. The patient has not recently seen a physician. Historical: - Allergies: 11:50 Iodinated Contrast Media - IV Dye; sv 11:50 Iodine; sv 11:50 Latex, Natural Rubber; sv 11:50 Levofloxacin; sv 11:50 PENICILLINS; sv 11:50 tramadol; sv - Home Meds: 11:50 azathioprine 50 mg Oral tab 2 tabs 2 tabs in the morning and 1 tab in the evening sv [Active]; atorvastatin 10 mg Oral tab 1 tab once daily [Active]; carvedilol 3.125 mg Oral tab 1 tab 2 times per day [Active]; losartan 25 mg Oral tab 1 tab once daily [Active]; aspirin 81 mg Oral TbEC 1 tab once daily [Active]; Nitrostat 0.4 mg SL subl 1 tab as needed [Active]; pyridostigmine bromide 30 mg Oral 2 tabs 2 times per day [Active]; warfarin 3 mg oral tab [Active]; - PMHx: 11:50 Arthritis; Hypertension; Atrial Fib; Back pain; CAD; constipation; Diabetes - NIDDM; sv Diverticulitis; Esophageal Achalasia; fatigue; Fibromyalgia; High Cholesterol; insomnia; Myasthenia Gravis; neuropathy; PVD; sciatica; small bowel obstrution; UTI; Wet gangrene; - PSHx: 11:50 Knee surgery; open heart; Cholecystectomy; Toe amputated; sv - Immunization history:: Adult Immunizations up to date. - Ebola Screening: : No symptoms or risks identified at this time. ROS: 12:00 Eyes: Negative for injury, pain, redness, and discharge, ENT: Negative for injury, jr8 pain, and discharge, Neck: Negative for injury, pain, and swelling, Cardiovascular: Negative for chest pain, palpitations, and edema, Abdomen/GI: Negative for abdominal pain, nausea, vomiting, diarrhea, and constipation, Back: Negative for injury and pain, MS/Extremity: Negative for injury and deformity, Skin: Negative for injury, rash, and discoloration. 12:00 Respiratory: Positive for cough, shortness of breath. 12:00 Neuro: Positive for weakness, Negative for altered mental status, dizziness, gait disturbance, headache, hearing loss, loss of consciousness, numbness, seizure activity, speech changes, syncope, near syncope, tingling, tinnitus, tremor, visual changes. Exam: 12:00 Eyes: Pupils equal round and reactive to light, extra-ocular motions intact. Lids and jr8 lashes normal. Conjunctiva and sclera are non-icteric and not injected. Cornea within normal limits. Periorbital areas with no swelling, redness, or edema. ENT: Nares patent. No nasal discharge, no septal abnormalities noted. Tympanic membranes are normal and external auditory canals are clear. Oropharynx with no redness, swelling, or masses, exudates, or evidence of obstruction, uvula midline. Mucous membranes moist. Neck: Trachea midline, no thyromegaly or masses palpated, and no cervical lymphadenopathy. Supple, full range of motion without nuchal rigidity, or vertebral point tenderness. No Meningismus. Cardiovascular: Regular rate and rhythm with a normal S1 and S2. No gallops, murmurs, or rubs. Normal PMI, no JVD. No pulse deficits. Abdomen/GI: Soft, non-tender, with normal bowel sounds. No distension or tympany. No guarding or rebound. No evidence of tenderness throughout. Back: No spinal tenderness. No costovertebral tenderness. Full range of motion. Skin: Warm, dry with normal turgor. Normal color with no rashes, no lesions, and no evidence of cellulitis. MS/ Extremity: Pulses equal, no cyanosis. Neurovascular intact. Full, normal range of motion. Neuro: Awake and alert, GCS 15, oriented to person, place, time, and situation. Cranial nerves II-XII grossly intact. Motor strength 5/5 in all extremities. Sensory grossly intact. Cerebellar exam normal. Normal gait. 12:00 Respiratory: the patient does not display signs of respiratory distress, Respirations: normal, symetrical, no use of accessory muscles, no grunting, no evidence of nasal flaring, no appreciated paradoxical movements, no prolonged exhalations, no pursed lip breathing, no retractions, no shallow respirations, no splinting, no tachypnea, Breath sounds: rales, that are moderate, are located in both bases. Vital Signs: 11:35 BP 98 / 66; Pulse 97; Resp 24; Temp 99.9; Pulse Ox 95% ; Weight 78.47 kg; Height 5 ft. sv 8 in. (172.72 cm); Pain 0/10; 12:18 BP 97 / 56; Pulse 71 MON; Resp 26; Pulse Ox 96% ; sv 12:30 BP 102 / 74; Pulse 85; Resp 34; Pulse Ox 95% ; sv 13:35 BP 103 / 45; Pulse 89; Resp 34; Pulse Ox 97% ; sv 14:08 BP 95 / 49; Pulse 76; Resp 28; Pulse Ox 95% on R/A; sv 14:47 BP 111 / 56; Pulse 74; Resp 28; Pulse Ox 97% ; sv 11:35 Body Mass Index 26.30 (78.47 kg, 172.72 cm) sv 12:18 A fib with Unifocal PVCs sv MDM: 11:45 Patient medically screened. [facility] 12:32 Data reviewed: vital signs, nurses notes, lab test result(s), EKG, radiologic studies, jr8 plain films, and as a result, I will admit patient. Data interpreted: Pulse oximetry: on room air is 96 %. Interpretation: normal. Counseling: I had a detailed discussion with the patient and/or guardian regarding: the historical points, exam findings, and any diagnostic results supporting the discharge/admit diagnosis, lab results, radiology results, the need for further work-up and treatment in the hospital. 12/04 11:45 Order name: Basic Metabolic Panel; Complete Time: 12: [facility] 12/04 11:45 Order name: CBC with Diff; Complete Time: 12:22 12/04 11:45 Order name: CPK; Complete Time: 12: [facility] 12/04 11:45 Order name: LFT's; Complete Time: 12: [facility] 12/04 11:45 Order name: Magnesium; Complete Time: 12:26 12/04 11:45 Order name: NT PRO-BNP; Complete Time: 12:26 12/04 11:45 Order name: PT-INR; Complete Time: 13:26 12/04 11:45 Order name: Ptt, Activated; Complete Time: 13:26 12/04 11:45 Order name: Troponin (emerg Dept Use Only); Complete Time: 12:26 12/04 11:45 Order name: Blood Culture Adult (2) [facility] 12/04 11:45 Order name: Procalcitonin; Complete Time: 12:51 12/04 12:51 Order name: Urine Microscopic Only; Complete Time: 14:31 12/04 13:19 Order name: Blood Culture* 12/04 13:30 Order name: Glucose, Ancillary Testing; Complete Time: 13:36 [facility] 12/04 11:45 Order name: XRAY Chest (1 view); Complete Time: 12:53 12/04 11:45 Order name: EKG; Complete Time: 11:46 12/04 11:45 Order name: Cardiac monitoring; Complete Time: 11:53 12/04 11:45 Order name: EKG - Nurse/Tech; Complete Time: 14:12/04 11:45 Order name: IV Saline Lock; Complete Time: 11:54 12/04 11:45 Order name: Labs collected and sent; Complete Time: 11:54 12/04 11:45 Order name: O2 Per Protocol; Complete Time: 11:54 12/04 11:45 Order name: O2 Sat Monitoring; Complete Time: 11:54 12/04 13:18 Order name: CT Chest Wo Con; Complete Time: 13:59 12/04 14:02 Order name: Urine Dipstick--Ancillary (enter results) 12/04 14:16 Order name: Urine Dipstick-Ancillary; Complete Time: 14:31 EDMT 12/04 11:45 Order name: Urine Dipstick-Ancillary (obtain specimen); Complete Time: 14:01 [facility] 12/04 12:46 Order name: Labs - recollect needed; Complete Time: 13:03 eb Administered Medications: 12:42 Drug: Lasix 40 mg Route: IVP; Site: left antecubital; sv 12:54 Follow up: Response: No adverse reaction sv 12:47 Drug: Magnesium Sulfate 1 grams Route: IVPB; Infused Over: 1 hrs; Site: left sv antecubital; 14:44 Follow up: Response: No adverse reaction; IV Status: Completed infusion; IV Intake: sv 100ml 13:03 Drug: Rocephin - (cefTRIAXone) 1 grams Route: IVPB; Infused Over: 30 mins; Site: left ss antecubital; 13:08 Follow up: Response: No adverse reaction; IV Status: Completed infusion; IV Intake: 10mlsv 14:00 Drug: Vitamin K1 5 mg Route: Sub-Q; Site: left upper arm; sv 14:06 Follow up: Response: No adverse reaction sv Point of Care Testing: Blood Glucose: 11:51 Blood Glucose: 262 mg/dL; sv Ranges: Critical Glucose Levels:Adult <50 mg/dl or >400 mg/dl <40 mg/dl or >180 mg/dl Disposition: 12/04/17 12:53 Hospitalization ordered by Fernandez Lo for Inpatient Admission. Preliminary diagnosis are Acute on chronic systolic (congestive) heart failure, Fever of other and unknown origin. - Bed requested for Telemetry/MedSurg (Inpatient). - Status is Inpatient Admission. sv - Condition is Stable. - Problem is new. - Symptoms have improved. UTI on Admission? No Addendum: 12/08/2017 07:43 Co-signature as Attending Physician, Cl Ruth MD I agree with the assessment and c stanley plan of care. Signatures: Dispatcher [employer] [facility] Lenka Galeana RN RN sv Anderson, Corey, MD MD cha Smirch, Shelby, RN RN Atif Ruano PA PA jr8 Lorie Carrillo Corrections: (The following items were deleted from the chart) 12/04 13:11 13:04 EKG Electrocardiogram ordered. [facility] 14:07 12:53 Hospitalization Ordered by Fernandez Lo MD for Inpatient Admission. Preliminary eb diagnosis is Acute on chronic systolic (congestive) heart failure; Fever of other and unknown origin. Bed requested for Telemetry/MedSurg (Inpatient). Status is Inpatient Admission. Condition is Stable. Problem is new. Symptoms have improved. UTI on Admission? No. jr8 14:48 14:07 12/04/2017 12:53 Hospitalization Ordered by Fernandez Lo MD for Inpatient sv Admission. Preliminary diagnosis is Acute on chronic systolic (congestive) heart failure; Fever of other and unknown origin. Bed requested for Telemetry/MedSurg (Inpatient). Status is Inpatient Admission. Condition is Stable. Problem is new. Symptoms have improved. UTI on Admission? No. eb
[2017-12-04] MEDS ORDERED: CEFTRIAXONE/SWI 1gm 1 GM/10 ML SYR ONE (13:01)
[2017-12-04 13:20] LABS: Protime INR 8.77
[2017-12-04] MEDS ORDERED: VITAMIN K (ADULT) 10 MG/ML ONE (13:35)
--- NOTE | 2017-12-04 13:54 | RAD REPORT ---
EXAM DESCRIPTION: CT - Thorax Wo Con CLINICAL HISTORY: Chest pain shortness of breath COMPARISON: THORAX WO CONTRAST dated 05/18/2013 FINDINGS: Linear subsegmental atelectasis is present in the right lung base. The lungs are otherwise clear. No pleural thickening or pleural effusion. No pneumothorax. Esophageal distention with air is present likely indicating a patulous esophagus. Heavy atherosclerosis of the aortic arch. No axillary, mediastinal or hilar adenopathy. No concerning bony finding. Sternotomy wires. No gross upper abdominal finding. All CT scans are performed using dose optimization technique as appropriate and may include automated exposure control or mA/KV adjustment according to patient size. IMPRESSION: No acute intrathoracic abnormality is identified. Patulous esophagus.
[2017-12-04 14:15] LABS: Urine Blood TRACE (NEG); Urine Glucose 2+ (NEG); Urine Protein NEGATIVE (NEG)
[2017-12-04 14:15] LABS: Urine Bacteria <20 /HPF (NONE SEEN); Urine Culture Reflex Order NOT NEEDED; Urine Mucus 2+ /HPF (NONE SEEN)
[2017-12-04] MEDS ORDERED: ONDANSETRON 4 MG/2 ML VIAL IV PRN (15:03)
[2017-12-04] MEDS ORDERED: GLUCAGON 1 MG/VIAL IM PRN (15:03)
[2017-12-04] MEDS ORDERED: ACETAMINOPHEN 500 MG TAB PO PRN ×2 (15:03→15:53)
[2017-12-04] MEDS ORDERED: ALBUTEROL 2.5 MG/3 ML NEB SOL NEB PRN (15:03)
[2017-12-04] MEDS ORDERED: D50W 25 GM/50 ML SYRINGE IV PRN (15:03)
[2017-12-04] MEDS ORDERED: IPRATROPIUM BROM 0.5MG/2.5ML NEB PRN (15:03)
[2017-12-04] MEDS ORDERED: NITROGLYCERIN 0.4 MG/TAB SL PRN (15:53)
[2017-12-04 16:05] VITALS: BMI 26.3
--- NOTE | 2017-12-04 16:18 | P.HP ---
Certification for Inpatient Patient admitted to: Inpatient With expected LOS: >2 Midnights Practitioner: I am a practitioner with admitting privileges, knowledge of patient current condition, hospital course, and medical plan of care. Services: Services provided to patient in accordance with Admission requirements found in Title 42 Section 412.3 of the Code of Federal Regulations Patient History Date of Service: 12/04/17 Reason for admission: WEAK AND NOT ABLE TO BREATH OR WALK History of Present Illness: MR. KAYE IS A MYESTHENIA PATIENT SINCE 1993. HE HAS A FIB, PVD, CAD, DM AND POOR GEN CONDITION. HE COMES HE CAN'T WALK ANY MORE , HE HAS HAD FEVER FOR A FEW DAYS. HE IS VERY WEAK AND NOT BREATHING WELL. Allergies Iodinated Contrast- Oral and IV Dye [Iodinated Contrast Media - IV Dye] Allergy (Intermediate, Verified 12/04/17 15:11) Rash latex Allergy (Intermediate, Verified 12/04/17 15:11) Itching/Hives/Rash Penicillins Allergy (Intermediate, Verified 12/04/17 15:11) Rash iodine Allergy (Verified 12/04/17 15:11) Unknown Latex, Natural Rubber Allergy (Verified 12/04/17 15:11) Unknown tramadol Allergy (Verified 12/04/17 15:11) Unknown levofloxacin Allergy (Uncoded 12/04/17 15:11) Unknown Home Medications: Acetaminophen [Tylenol Extra Strength] 1 tab PO Q6H PRN 10/27/14 Clopidogrel Bisulfate [Plavix] 75 mg PO DAILY 10/27/14 Pyridostigmine Alna [Mestinon*] 60 mg PO BID 10/27/14 azaTHIOprine [Imuran*] 50 mg PO BID 10/27/14 Atorvastatin Calcium [Lipitor*] 10 mg PO DAILY 08/21/16 Nitroglycerin 0.4 mg SL UD PRN 08/21/16 Carvedilol [Coreg*] 3.125 mg PO BID 09/02/16 Losartan Potassium [Cozaar] 25 mg PO DAILY 09/02/16 Cefdinir [Cefdinir*] 1 tab PO BID 12/04/17 Gabapentin [Neurontin] 100 mg PO BID 12/04/17 Warfarin Sodium 3 mg PO DAILY AT SUPPER 12/04/17 - Past Medical/Surgical History Has patient received pneumonia vaccine in the past: Yes Diabetic: Yes -: Type 2 diabetes -: Osteoarthritis -: Congestive heart failure -: Coronary artery disease -: Myasthenia Gravis -: Atrial fibrillation -: Diabetic neuropathy -: Vitamin D deficiency -: Tonsillectomy -: Vincent knee replacement -: Left hand surgery -: Heart Bypass -: Bilateral cataract removal -: Cholecystectomy -: Stent placement -: Cardiac catheterization - Family History Father -: Hypertension - Social History Smoking Status: Former smoker Alcohol use: No CD- Drugs: No Caffeine use: No Place of Residence: Home Review of Systems 10-point ROS is otherwise unremarkable General: Weakness, Malaise Respiratory: Cough, SOB with Excertion Physical Examination - Vital Signs Blood Pressure: 111/56 Pulse: 74 Respirations: 28 - Physical Exam General: Alert, Mild distress, Moderate distress HEENT: Atraumatic, PERRLA, Mucous membr. moist/pink, EOMI, Sclerae nonicteric Neck: Supple, 2+ carotid pulse no bruit, No LAD, Without JVD or thyroid abnormality Respiratory: Clear to auscultation bilaterally, Normal air movement Cardiovascular: Irregular heart rate/rhythm Gastrointestinal: Normal bowel sounds, No tenderness Musculoskeletal: No tenderness Integumentary: No rashes Neurological: Normal gait, Normal speech, Normal strength at 5/5 x4 extr, Normal tone, Normal affect Lymphatics: No axilla or inguinal lymphadenopathy - Studies Laboratory Data (last 24 hrs) 12/04/17 13:01: PT 105.8 H, INR 8.77 H*, APTT 92.6 H 12/04/17 11:45: WBC 9.6, Hgb 12.8 L, Hct 37.0 L, Plt Count 164 12/04/17 11:45: Sodium 136, Potassium 4.5, BUN 32 H, Creatinine 1.60 H, Glucose 276 H, Magnesium 1.7 L, Total Bilirubin 2.2 H, AST 25, ALT 25, Alkaline Phosphatase 57 Assessment and Plan - Problems (Diagnosis) (1) Myasthenia gravis in crisis Current Visit: Yes Status: Acute (2) Fever Current Visit: Yes Status: Acute Plan: I SEE NO OBVIOUS SOURCE BUT HE CAN BE ASPIRATING WITH LOW RESPIRATORY FUNCTION FROM M. GRAVEIS. WILL CONTINUE ABX. NO DIARRHEA REPORTED. (3) Myasthenia gravis Onset Date: 08/12/17 Current Visit: No Status: Chronic Plan: DR WU WANTED IVIG. WE DON'T HAVE ENOUGH SUPPLY I MAY HAVE TO TRANSFER HIM TO [facility]. I THINK HE IS IN CRISIS AND HE IS CLOSE TO 88 YEARS OLD. PROGNOSIS IS GUARDED. (4) Dehydration Current Visit: Yes Status: Acute Plan: HE IS CLINICALLY DEHYDRATED STOP LASIX GIVE GENTLE HYDRATION. - Advance Directives Does patient have a Living Will: Yes Does patient have a Durable POA for Healthcare: Yes
[2017-12-04] MEDS ORDERED: FUROSEMIDE 20 MG/ 2ML VIAL IV SCH (17:00)
[2017-12-04] MEDS: NACHLORIDE 0.45% 1,000 ML IV SCH (17:22)
[2017-12-04] MEDS: INSULIN -REGULAR HUMAN 50 UNIT/0.5 ML ML SQ SCH ×2 (17:37→20:59)
[2017-12-04] MEDS: CARVEDILOL 3.125 MG TAB PO SCH (20:57)
[2017-12-04] MEDS: PYRIDOSTIGMINE 60 MG TABLET PO SCH (20:57)
[2017-12-04] MEDS: GABAPENTIN 100 MG CAP PO SCH (20:58)
[2017-12-04] MEDS: AZATHIOPRINE 50 MG TABLET PO SCH (20:59)
[2017-12-04] MEDS ORDERED: ATORVASTATIN 10 MG TAB PO SCH (21:00)
[2017-12-04] MEDS ORDERED: CEFEPIME 1 GM/VIAL IV SCH (23:00)
[2017-12-04] MEDS: CEFEPIME/SWI 1gm 1 GM/10 ML SYR IV SCH (23:38)
[2017-12-05 04:43] VITALS: TEMP 98.6
--- NOTE | 2017-12-05 06:08 | EKG ---
Test Date: 2017-12-04 Test Time: 12:30:28 [place] Operator: AG/T MEASUREMENT RESULTS: Intervals: Rate: 87 RI: QRSD: 118 QT: 384 QTc: 462 [place]: P: RI: QRS: -16 T: -50 INTERPRETIVE STATEMENTS: Demand pacemaker, interpretation is based on intrinsic rhythm Atrial fibrillation with premature ventricular or aberrantly conducted complexes Right bundle branch block Abnormal ECG Compared to ECG 08/06/2017 08:37:04 Left-axis deviation no longer present T-wave abnormality no longer present Possible ischemia no longer present Electronically Signed On 12-05-17 06:06:20 CDT by Josh Soria
[2017-12-05 06:16] LABS: Protime INR 4.62
[2017-12-05 06:19] LABS: Absolute Lymphocytes (CBC) 0.9 K/uL (0.7-4.9); Absolute Monocytes 0.6 K/uL (0.1-1.3); Absolute Neutrophil 7.3 K/uL (1.8-8.0); Basophils % 0.3 % (0-1.3); Eosinophils % 1.9 % (0-4.4); Hematocrit 33.7 % (39.6-49.0); Lymphocytes % 10.4 % (15.3-44.8); MCH 34.4 pg (27.0-35.0); MCV 98.4 fL (80-100); MPV 10.5 fL (7.6-11.3); Monocytes % 6.9 % (3.3-12.3); RBC Red Blood Cell Count 3.43 M/uL (4.33-5.43)
[2017-12-05] MEDS: NACHLORIDE 0.45% 1,000 ML IV SCH (06:22)
[2017-12-05 06:25] LABS: Potassium 3.8 mmol/L (3.5-5.1)
[2017-12-05 07:15] LABS: Urine White Blood Cell Casts OK
[2017-12-05 07:16] LABS: Blood Morphology Comment NOT SEEN (NOT SEEN); Platelet Estimate ADEQ
[2017-12-05] MEDS: INSULIN -REGULAR HUMAN 50 UNIT/0.5 ML ML SQ SCH ×2 (07:30→12:41)
[2017-12-05] MEDS ORDERED: NACHLORIDE 0.45% 1,000 ML IV SCH (08:00)
[2017-12-05] MEDS ORDERED: CLOPIDOGREL 75 MG TABLET PO SCH (09:00)
[2017-12-05] MEDS ORDERED: VITAMIN K (ADULT) 10 MG/ML SQ SCH (09:00)
[2017-12-05] MEDS ORDERED: LOSARTAN POTASSIUM 50 MG TABLET PO SCH (09:00)
[2017-12-05] MEDS: GABAPENTIN 100 MG CAP PO SCH (09:45)
[2017-12-05] MEDS: CARVEDILOL 3.125 MG TAB PO SCH (09:45)
[2017-12-05] MEDS: CEFEPIME/SWI 1gm 1 GM/10 ML SYR IV SCH (09:45)
[2017-12-05] MEDS: PYRIDOSTIGMINE 60 MG TABLET PO SCH (09:45)
[2017-12-05] MEDS: AZATHIOPRINE 50 MG TABLET PO SCH (09:45)
[2017-12-05 12:49] VITALS: BP 114/55
[2017-12-05 14:49] VITALS: O2SAT 100
[2017-12-05] MEDS ORDERED: WARFARIN SODIUM 3 MG TAB PO SCH (17:00)
== END 2017-12-05 13:27 | disposition short-term general hospital (02) | DRG 56 ==
LOC: ER 11:39 → ERHOLD 13:33 → 4TH 14:23
PROVIDERS: ADMIT Internal Medicine; ATTEND Internal Medicine
DX: G70.01 Myasthenia gravis with (acute) exacerbation (principal); I50.23 Acute on chronic systolic (congestive) heart failure; I11.0 Hypertensive heart disease with heart failure; Z88.5 Allergy status to narcotic agent; Z88.0 Allergy status to penicillin; Z88.1 Allergy status to other antibiotic agents; Z91.041 Radiographic dye allergy status; Z91.040 Latex allergy status; Z79.01 Long term (current) use of anticoagulants; Z79.82 Long term (current) use of aspirin; I48.91 Unspecified atrial fibrillation; I25.10 Atherosclerotic heart disease of native coronary artery without angina pectoris; I73.9 Peripheral vascular disease, unspecified; E11.9 Type 2 diabetes mellitus without complications; Z79.02 Long term (current) use of antithrombotics/antiplatelets; E11.40 Type 2 diabetes mellitus with diabetic neuropathy, unspecified; Z87.891 Personal history of nicotine dependence; E86.0 Dehydration
CPT/HCPCS: 36415; 71045; 71250; 80048; 80076; 81003; 81015; 82550; 82962; 83735; 83880; 84145; 84484; 85025; 85610; 85730; 87040; 93005; 96365; 96366; 96372; 96375; 99285; J0692; J0696; J3430; J3475; J7500